=== PATIENT | female | born 1970 | race Caucasian/White ===

== ENCOUNTER 2019-10-27 11:13 | Inpatient (IN) | payer MEDICARE, MEDICAID ==
[~2019-10-27] VITALS: Ht 154.9 cm; Wt 73.0 kg
[2019-10-27] MEDS ORDERED: methylPREDNISolone SOD SUCC 125 MG/2 ML VL IV ONE (11:30)
[2019-10-27] MEDS ORDERED: AZITHROMYCIN 500MG/ 250ML 250 ML IV ONE (11:30)
[2019-10-27] MEDS ORDERED: PANTOPRAZOLE 40 MG/10 ML VIAL INJ IV ONE (11:30)
[2019-10-27 13:08] LABS: Basophils # (auto) 0 10 ^3/uL (0-0.2); Basophils % (auto) 0.1 % (0.0-2.0); Eosinophils # (auto) 0 10 ^3/uL (0-0.8); Eosinophils % (auto) 0.5 % (0.0-7.0); Hemoglobin 11.4 g/dL (12.2-16.2); Lymphocytes # (auto) 0.5 10 ^3/uL (0.4-5.4); Lymphocytes % (auto) 4.7 % (10.0-50.0); Mean Corpuscular Hemoglobin 29.3 pg (28.0-32.0); Mean Corpuscular Hgb Conc. 31.8 g/dL (32.0-36.0); Mean Corpuscular Volume 92.4 fL (80.0-100.0); Monocytes # (auto) 0.6 10 ^3/uL (0-1.3); Monocytes % (auto) 6.3 % (0.0-12.0); Neutrophils # (auto) 8.7 10 ^3/uL (1.6-8.6); Neutrophils % (auto) 88.4 % (37.0-80.0); Platelet Count (auto) 166 10^3/uL (140-450); Red Cell Distribution Width 14.8 % (11.8-14.3); White Blood Cell 9.8 10^3/uL (4.4-10.8)
[2019-10-27 13:27] LABS: Albumin 2.6 g/dL (3.4-5.0); Calcium 8.4 mg/dL (8.5-10.1)
[2019-10-27 13:36] LABS: BUN/Creatinine Ratio 29.1; Bilirubin, Total 0.4 mg/dL (0.2-1.0); CRP High Sensitivity 10.6 mg/dL (< 0.3); Total Protein 6.7 g/dL (6.4-8.2)
[2019-10-27 13:41] LABS: Potassium 2.9 mmol/L (3.5-5.1)
[2019-10-27] MEDS ORDERED: POTASSIUM CHL 20MEQ/100ML 100 ML IV ONE (13:45)
[2019-10-27] MEDS ORDERED: NITROGLYCERIN 0.4 MG SL TAB SL PRN (14:00)
[2019-10-27] MEDS ORDERED: MORPHINE SULF INJ 2 MG/ML SYRINGE 1ML IV PRN (14:00)
[2019-10-27] MEDS ORDERED: SODIUM CHLORIDE 0.9% 1,000 ML IV SCH (14:36)
[2019-10-27] MEDS ORDERED: cefTRIAXone 1GM/50ML D5W 50 ML IV ONE (14:45)
[2019-10-27] MEDS ORDERED: ACETAMINOPHEN 500 MG TAB PO PRN (14:45)
[2019-10-27] MEDS ORDERED: ALBUTEROL SULF 2.5 MG/0.5ML(0.5%) NEB SOLN NEB PRN (14:45)
[2019-10-27] MEDS ORDERED: LACTULOSE 20Gm/30ML SOLN PO PRN (14:45)
[2019-10-27] MEDS ORDERED: ONDANSETRON HCL 4 MG/2 ML VIAL IV PRN (14:45)
[2019-10-27] MEDS ORDERED: traMADol HCL 50 MG TAB PO PRN (14:45)
[2019-10-27] MEDS ORDERED: DEXTROSE (50%) 50ML SYRG IV PRN (14:45)
[2019-10-27] MEDS ORDERED: MELO1TAB56 PO (18:14)
[2019-10-27] MEDS ORDERED: BACL20TA PO (18:14)
[2019-10-27] MEDS ORDERED: HYDR-531 PO (18:14)
[2019-10-27] MEDS ORDERED: TOPI25CA5 PO (18:14)
[2019-10-27] MEDS ORDERED: GABA-339 PO (18:14)
[2019-10-27] MEDS ORDERED: LEVO-451 PO (18:14)
[2019-10-27] MEDS ORDERED: LORA-655 PO (18:14)
[2019-10-27] MEDS ORDERED: FURO10SO PO (18:14)
[2019-10-27] MEDS ORDERED: MUPI2OIN2 EX (18:14)
[2019-10-27] MEDS ORDERED: SERT-160 PO (18:16)
[2019-10-27] MEDS ORDERED: NALO4SPR2 (18:18)
[2019-10-27] MEDS ORDERED: [UNRECOGNIZED DRUG - CODE] SC (18:19)
[2019-10-27] MEDS ORDERED: ACET1CAP14 PO (18:22)
[2019-10-27] MEDS ORDERED: DIPH25CA66 PO (18:23)
[2019-10-27] MEDS ORDERED: POM ×2 (18:31→18:38)
[2019-10-27] MEDS: SOD CHL 0.9%/ KCL 40MEQ 1,000 ML IV SCH (18:50)
[2019-10-27 21:18] VITALS: BP 123/77
--- NOTE | 2019-10-27 21:18 | NUR ---
Telemetry admit from ER TADEOJEWELL admitted to Telemetry unit after SBAR received. Patient oriented to LUCERO WALTER, RN primary RN, unit, room, bed, and unit policies regarding patient care and visiting hours. Patient now on continuous telemetry monitoring, tele box # 41 and telemetry reading on arrival to unit is NSR HR 62. Patient placed on bedside oxygen, weighed by bedscale and encouraged to call if they need something. All questions and concerns addressed, patient verbalized understanding. Note:
[2019-10-27 22:00] VITALS: BP 123/77
[2019-10-27] MEDS: TOPIRAMATE 25 MG TAB PO SCH (22:00)
[2019-10-27] MEDS: GABAPENTIN 300 MG CAP PO SCH (22:00)
[2019-10-27] MEDS ORDERED: ALBUTEROL SULF HFA 90MCG INH 200DOSE IN SCH (22:00)
[2019-10-27] MEDS ORDERED: BUDESONIDE (INHALATION) 0.5 MG/2 ML NEB NEB SCH (22:00)
[2019-10-27] MEDS: BACLOFEN 10 MG TAB PO SCH (23:02)
[2019-10-27] MEDS: FAMOTIDINE 20 MG TAB PO SCH (23:13)
--- NOTE | 2019-10-28 | NUR ---
Pagekassandra hospitalist Patients Hear rate drops to low to mid 40's while asleep. Patient is Asymptomatic. NO SOB or chest pain. Patient states she sees a rough rounder at [address] Vaughan. Patient states HR drops in the 40s. Patrick hospitalist. Hospitalist said no new orders at this time continue to monitor the patient if she becomes symptomatic call back or initiate protocol. Will continue to monitor.
[2019-10-28] MEDS: HYDROcodone-ACET 10/325MG TAB PO PRN ×2 (01:57→09:12)
[2019-10-28 02:04] VITALS: BP 123/77
--- NOTE | 2019-10-28 02:20 | NUR ---
PT PLACED ON BEDSIDE POX. PT HAS SHILEY 5.0 TRACH WITH 28% BLEED IN. POX 99% HR 77 RR 20. PT REQUESTED TRACHEAL SUCTION. PT WAS ETS FOR SMALL RETURN ON THICK WHITE SECRETIONS. PT IS RESTING WITH NO DISTRESS.
--- NOTE | 2019-10-28 02:30 | NUR ---
spoke to family Spoke to family. updated family on patients condition. Spoke to caregiver caryl. and lolly. No questions at this time. call transferred to patient. Will continue to monitor.
[2019-10-28] MEDS: SOD CHL 0.9%/ KCL 40MEQ 1,000 ML IV SCH (04:05)
[2019-10-28 05:00] VITALS: BP 145/88
[2019-10-28] MEDS: GABAPENTIN 300 MG CAP PO SCH ×3 (06:00→22:20)
[2019-10-28] MEDS: BACLOFEN 10 MG TAB PO SCH ×3 (06:44→22:20)
[2019-10-28] MEDS: LEVOTHYROXINE SODIUM 25 MCG TAB PO SCH (06:45)
--- NOTE | 2019-10-28 07:20 | NUR ---
Respiratory note: Assessed pt for prn medneb tx. HR 49, RR 16, SPO2 100% on trach collar with 2lpm O2 bleed-in. Breath sounds clear/dim t/o. Pt denies SOB, resting comfortably in bed, no s/s of distress noted. Medneb tx not indicated at this time. Pt with tracheostomy, stoma is clean and asymptomatic, speaking valve in place. Suction not indicated. Pt connected to continuous bedside POX monitor, alarms set and audible.
--- NOTE | 2019-10-28 07:35 | NUR ---
Closing note endorsed care to day shift vincenzo ARRIAGA
[2019-10-28 09:00] VITALS: BP 115/75
[2019-10-28] MEDS: cefTRIAXone 1GM/50ML D5W 50 ML IV SCH (09:54)
[2019-10-28] MEDS ORDERED: ASCORBIC ACID 1,000 MG TAB PO SCH (10:00)
[2019-10-28] MEDS ORDERED: ZINC SULFATE 220mg CAP or TAB PO SCH (10:00)
--- NOTE | 2019-10-28 10:30 | NUR ---
WOUND CARE NOTE: IN TO SEE PATIENT AT THIS TIME PER WOUND CARE CONSULT REQUEST. PATIENT RECENTLY ADMITTED TO [facility] WITH DIAGNOSIS OF PNA, ATELECTASIS, FEVER. CURRENT JEANNE SCORE IS 11. PATIENT IS QUADROPLEGIC, HAS MULTIPLE OPEN STAGE 4 PRESSURE ULCERS OVER COLLAGEN SCARS. WOUND PHOTOS TAKEN AT TIME OF ADMIT BY BEDSIDE NURSE FOR REFERENCE, AND AGAIN AT THIS TIME. SPECIALTY AIR BED ORDERED AT THIS TIME. PATIENT TO BE PLACED, PENDING DELIVERY BY [facility]. PATIENT NOTED TO HAVE DROP FOOT, MATHIEU FOAM BOOTS ARE CONTRAINDICATED. BILATERAL HEELS ARE OFFLOADED WITH PILLOWS. SHE HAS INTACT COLLAGEN SCAR TO RIGHT UPPER ANTERIOR FRIED. LEFT OPEN TO AIR. PATIENT TURNED TO RIGHT SIDE. SHE IS NOTED TO HAVE CHRONIC OPEN STAGE 4 PRESSURE INJURIES OVER PINK COLLAGEN SCARS TO COCCYX/SACRUM, RIGHT AND LEFT GLUTEAL//ISCHIUM. APPLIED THERAHONEY/OPTIFOAM GENTLE DRESSINGS. PATIENT REPOSITIONED TO RIGHT SIDE, REDISTRIBUTING PRESSURE POINTS WITH PILLOWS/WEDGES. DR. MATT AT BEDSIDE. RECOMMEND: FREQUENT TURN SCHEDULE Q 2 HOURS, PRN CONDITION PERMITS, WITH PRESSURE REDISTRIBUTION USING PILLOWS/WEDGES, SPECIALTY AIR BED, DAILY/PRN DRESSING CHANGES, DIETARY CONSULT FOR CHRONIC WOUNDS, SKIN/WOUND CARE PLAN, CONTINUED MONITORING BY WOUND CARE TEAM. Addendum: 10/28/19 at 1552 by Rhonda Mackey RN Amended: Links added.
[2019-10-28] MEDS: CHOLECALCIFEROL (VITD3) 1,000UNIT=25mCg TAB PO SCH (10:35)
[2019-10-28] MEDS: TOPIRAMATE 25 MG TAB PO SCH ×2 (10:37→22:20)
[2019-10-28] MEDS: FAMOTIDINE 20 MG TAB PO SCH ×2 (10:37→22:20)
[2019-10-28] MEDS: SERTRALINE HCL 50 MG TAB PO SCH (10:37)
[2019-10-28] MEDS: ENOXAPARIN SOD 40 MG/0.4 ML SYRINGE SC SCH (10:38)
[2019-10-28] MEDS ORDERED: LORazepam 2MG/ML-1ML VIAL IV ONE (10:45)
[2019-10-28] MEDS: AZITHROMYCIN 500MG/ 250ML 250 ML IV SCH (11:18)
--- NOTE | 2019-10-28 12:04 | NUR ---
SPUTUM SAMPLE OBTAINED AND SENT TO LAB.
--- NOTE | 2019-10-28 12:46 | NUR ---
Nutrition Consult.assessment Notes Please see attached link for complete assessment Est energy needs IBW 49 [id number] kcal (25-30kcal/kg), Est protein needs: 49-63g (1.0-1.3g/kg IBW). Will reassess per bed scale wt. Addendum: 10/28/19 at [address] Amended: Links added.
[2019-10-28 13:00] VITALS: BP 125/71
[2019-10-28 14:21] LABS: Hematocrit 33.9 % (36.0-46.0); Mean Corpuscular Hemoglobin 29.4 pg (28.0-32.0); Mean Corpuscular Hgb Conc. 32.4 g/dL (32.0-36.0); Mean Corpuscular Volume 90.8 fL (80.0-100.0); Platelet Count (auto) 115 10^3/uL (140-450); Red Blood Cells 3.73 10^6/uL (4.0-5.20); Red Cell Distribution Width 13.9 % (11.8-14.3); White Blood Cell 11.6 10^3/uL (4.4-10.8)
[2019-10-28 14:29] LABS: Basophils % (manual) 0 (0.0-2.0); Blast Cells 0; Eosinophils % (manual) 0 (0-7); Metamyelocytes % 0; Myelocytes % 0; Promyelocytes % 0; Reactive Lymphocytes 0
[2019-10-28 14:32] LABS: Band Neutrophils % (manual) 1; Lymphocytes % (manual) 10 (10.0-50.0); Monocytes % (manual) 6 (0-12)
[2019-10-28 14:33] LABS: Albumin 2.7 g/dL (3.4-5.0); Calcium 9.1 mg/dL (8.5-10.1); Potassium 3.7 mmol/L (3.5-5.1)
[2019-10-28 14:38] LABS: BUN/Creatinine Ratio 34.3; Bilirubin, Total 0.3 mg/dL (0.2-1.0); Magnesium 2.6 mg/dL (1.6-2.6); Total Protein 7.2 g/dL (6.4-8.2)
[2019-10-28 17:00] VITALS: BP 117/77
--- NOTE | 2019-10-28 19:03 | NUR ---
RT NOTE PT WAS SEEN BY RT FOR PRN HHN TX ASSESSMENT. PT IS TRACHED WITH SHILEY 4.0 CFS. PT HAS SPEAKING VALVE IN PLACE. SPARE TRACH AT BEDSIDE. 2L BLEED IN VIA TRACH COLLAR. PT HAS BEDSIDE POX. HR 69, RR 16, BS CLEAR, POX 100% CONT ORDERED Addendum: 10/28/19 at 2027 by Ciara Cueva RT Amended: Links added.
--- NOTE | 2019-10-28 19:40 | NUR ---
assumed care, pt. awake, repositioned pt. with trach in place, no c/o pain, not in distress.
[2019-10-28 22:00] VITALS: BP 135/82
[2019-10-29 05:00] VITALS: BP 113/83
[2019-10-29] MEDS: GABAPENTIN 300 MG CAP PO SCH (05:38)
[2019-10-29] MEDS: BACLOFEN 10 MG TAB PO SCH ×3 (05:38→22:02)
[2019-10-29] MEDS: LEVOTHYROXINE SODIUM 25 MCG TAB PO SCH (06:06)
[2019-10-29 07:34] LABS: Basophils # (auto) 0 10 ^3/uL (0-0.2); Basophils % (auto) 0.3 % (0.0-2.0); Eosinophils # (auto) 0.1 10 ^3/uL (0-0.8); Eosinophils % (auto) 0.8 % (0.0-7.0); Hematocrit 35.3 % (36.0-46.0); Hemoglobin 11.4 g/dL (12.2-16.2); Lymphocytes # (auto) 1.4 10 ^3/uL (0.4-5.4); Lymphocytes % (auto) 16.3 % (10.0-50.0); Mean Corpuscular Hgb Conc. 32.1 g/dL (32.0-36.0); Mean Corpuscular Volume 93.3 fL (80.0-100.0); Monocytes # (auto) 0.5 10 ^3/uL (0-1.3); Neutrophils # (auto) 6.8 10 ^3/uL (1.6-8.6); Neutrophils % (auto) 76.6 % (37.0-80.0); Platelet Count (auto) 184 10^3/uL (140-450); Red Blood Cells 3.79 10^6/uL (4.0-5.20); Red Cell Distribution Width 14.9 % (11.8-14.3); White Blood Cell 8.9 10^3/uL (4.4-10.8)
[2019-10-29 07:52] LABS: BUN/Creatinine Ratio 34.8; Calcium 8.8 mg/dL (8.5-10.1); Potassium 3.7 mmol/L (3.5-5.1)
--- NOTE | 2019-10-29 08:00 | NUR ---
PT. ASSESSED, NO REPS. DISTRESS OR SOB NOTED. PT. IS AWAKE AND ALERT, BS. ARE COARSE WITH SLIGHT RHONCI , SX'D TRACH FOR SMALL TO MODERATE AMOUNT OF THICK WHITE SECRETIONS X2. HR=60, RR=20, NK53=789% ON 2.5LPM TRACH COLLAR. PT. IS ON BEDSIDE PULSE OX, EXTRA TRACH AT THE BEDSIDE,PRN. MN. TX. NOT INDICATED AT THIS TIME. CONTINUE TO MONITOR RESP. STATUS AND O2 SATS. Addendum: 10/29/19 at 0805 by Mervat Jacobson RT Amended: Links added.
[2019-10-29 09:00] VITALS: BP 129/79
[2019-10-29] MEDS: AZITHROMYCIN 500MG/ 250ML 250 ML IV SCH (09:56)
[2019-10-29] MEDS: cefTRIAXone 1GM/50ML D5W 50 ML IV SCH (09:56)
[2019-10-29] MEDS: CHOLECALCIFEROL (VITD3) 1,000UNIT=25mCg TAB PO SCH (09:57)
[2019-10-29] MEDS: TOPIRAMATE 25 MG TAB PO SCH ×2 (09:57→22:02)
[2019-10-29] MEDS: ASCORBIC ACID 500 MG TAB PO SCH (09:57)
[2019-10-29] MEDS: SERTRALINE HCL 50 MG TAB PO SCH (09:57)
[2019-10-29] MEDS: FAMOTIDINE 20 MG TAB PO SCH ×2 (09:57→22:02)
[2019-10-29] MEDS: ENOXAPARIN SOD 40 MG/0.4 ML SYRINGE SC SCH (09:57)
--- NOTE | 2019-10-29 10:56 | NUR ---
Cherry catheter insertion Patient assessed and determined to be in need of cherry catheter. Order obtained from MD. Patient educated on catheter and reason for insertion. All questions answered. Cherry catheter 14 Hong Konger inserted with clean sterile technique. Patient tolerated well.
[2019-10-29] MEDS ORDERED: SODIUM CHLORIDE 0.9 % NEB SOLN 3ML NEB ONE (11:32)
--- NOTE | 2019-10-29 11:37 | NUR ---
SX'D TRACH FOR SMALL AMOUNT OF THICK WHITE SECRETIONS X2. RN. AND GARMENT FITTER AT BEDSIDE AT THIS TIME. PT. WANTED TO BE SX'D BEFORE SHE HAD ECHO DONE. NO RESP. DISTRESS NOTED AT THIS TIME.
[2019-10-29] MEDS ORDERED: OPTISON 3ml Vial for INJ IV ONE (11:44)
[2019-10-29 13:09] VITALS: BP 121/86
--- NOTE | 2019-10-29 13:38 | NUR ---
Received a call from Dr. Caleb Rios stated patient has Thrombus in LV, received new orders, noted and carried it out.
[2019-10-29] MEDS ORDERED: ENOXAPARIN SOD 60 MG/0.6 ML SYRINGE SC ONE (13:45)
--- NOTE | 2019-10-29 13:47 | NUR ---
Lovenox 40 mg given this AM, Per Dr. Caleb horta to give one dose of Lovenox therapeutic.
--- NOTE | 2019-10-29 14:51 | NUR ---
TRACH CARE DONE AT THIS TIME. INNER CANNULA AND TRACH SITE CLEANED. GAUZE CHANGED. PT. RESTING AT THIS TIME, NO RESP. DISTRESS OR SOB NOTED. SPO2 100%
[2019-10-29] MEDS: CARVEDILOL 3.125 MG TAB PO SCH ×2 (15:02→22:01)
--- NOTE | 2019-10-29 15:22 | NUR ---
Colostomy and Wound dressing changed at this time.
[2019-10-29 17:00] VITALS: BP 121/80
[2019-10-29] MEDS: FUROSEMIDE 40 MG/4 ML VIAL IV SCH (17:03)
--- NOTE | 2019-10-29 19:45 | NUR ---
ASSUMED CARE, PT. AWAKE, REPOSITIONED PT. TRACH IN PLACE, SUCTION PT. ORALLY WITH MARSHALL CORREIA.
[2019-10-29 22:00] VITALS: BP 111/78
--- NOTE | 2019-10-29 22:27 | NUR ---
RT NOTE, TRACH CARE DONE, NO BREAKDOWN OR REDNESS NOTED. INNER CANULA CLEANED AND DRESSINGS CHANGED, TRACHEAL SUCTIONED X3 FOR SMALL AMOUNT OF THIN WHITE SECRETIONS. PT ON TRACH COLLAR WITH 2LPM BLED IN SPO2 98% HR 65, RR 20.
[2019-10-30 05:00] VITALS: BP 129/74
[2019-10-30] MEDS: BACLOFEN 10 MG TAB PO SCH ×3 (05:46→22:21)
[2019-10-30] MEDS: FUROSEMIDE 40 MG/4 ML VIAL IV SCH ×3 (05:46→17:43)
[2019-10-30] MEDS: LEVOTHYROXINE SODIUM 25 MCG TAB PO SCH (06:05)
--- NOTE | 2019-10-30 06:05 | NUR ---
V/S STABLE, REPOSITIONED PT. TRACHEAL SUCTION X3, WITH SMALL THIN SECRETIONS, NOT IN DISTRESS.
--- NOTE | 2019-10-30 08:52 | NUR ---
TRACH CARE DONE WITHOUT INCIDENT. PT IS AWAKE, ALERT AND ORIENTED. TRACHEOSTOMY IN SITU, PROPERLY SECURED AND IS PATENT. TRACHEOSTOMY UNIT AT BEDSIDE. CONTINUOUS PULSE OX AT BEDSIDE, ALARMS ON AND AUDIBLE TO THE NURSES'S STATION. INNER CANNULA CLEANED. TRACHEOSTOMY GAUZE REPLACED. SPEAKING VALVE IN PLACE. CLEANED AROUND STOMA. NO IRRITATION NOTED. TRACHEOSTOMY SUCTION DONE FOR SMALL AMOUNT OF WHITE SECRETION.
[2019-10-30 09:01] VITALS: BP 131/95
[2019-10-30] MEDS: HYDROcodone-ACET 10/325MG TAB PO PRN (09:30)
[2019-10-30] MEDS: CARVEDILOL 3.125 MG TAB PO SCH ×2 (10:38→22:22)
[2019-10-30] MEDS: AZITHROMYCIN 500MG/ 250ML 250 ML IV SCH (10:38)
[2019-10-30] MEDS: FAMOTIDINE 20 MG TAB PO SCH ×2 (10:38→22:22)
[2019-10-30] MEDS: cefTRIAXone 1GM/50ML D5W 50 ML IV SCH (10:38)
[2019-10-30] MEDS: TOPIRAMATE 25 MG TAB PO SCH ×2 (10:38→22:22)
[2019-10-30] MEDS: CHOLECALCIFEROL (VITD3) 1,000UNIT=25mCg TAB PO SCH (10:39)
[2019-10-30] MEDS: ENOXAPARIN SOD 60 MG/0.6 ML SYRINGE SC SCH ×2 (10:39→22:22)
[2019-10-30] MEDS: SERTRALINE HCL 50 MG TAB PO SCH (10:39)
[2019-10-30] MEDS: ASCORBIC ACID 500 MG TAB PO SCH (10:39)
[2019-10-30] MEDS ORDERED: IOHEXOL 350 MG/ML 100ML IJ ONE (12:31)
[2019-10-30 13:00] VITALS: BP 121/72
[2019-10-30 17:00] VITALS: BP 123/59
[2019-10-30] MEDS ORDERED: WARFARIN SODIUM 10 MG TAB PO ONE (18:20)
[2019-10-30] MEDS: VALSARTAN 80 MG TAB PO SCH (18:58)
--- NOTE | 2019-10-30 18:59 | NUR ---
Coumadin given as ordered PT/INR unknown at this time. MD ordered one time dose.
--- NOTE | 2019-10-30 20:00 | NUR ---
Opening Shift Note Assumed care of patient, awake and alert. Patient laying in bed. No S/S of distress/SOB or pain. Patient on 2L via trach O2 sat 100%. Safety measures maintained by keeping the bed locked in lowest position, 2 side rails up, personal items and call light within reach. Instructed on POC and to call for assist PRN, will continue to monitor for changes Q1hr and PRN.
[2019-10-30 22:00] VITALS: BP 136/73
--- NOTE | 2019-10-31 00:05 | NUR ---
Colostomy bag changed.
--- NOTE | 2019-10-31 04:00 | NUR ---
Respiratory note: SXD VIA TRACH PER PTS REQUEST, FOR SMALL TO MODERATE WHITE THIN SECRETIONS. TRACH CARE DONE AT THIS TIME WITHOUT INCIDENT.
[2019-10-31 05:00] VITALS: BP 131/77
[2019-10-31] MEDS: LEVOTHYROXINE SODIUM 25 MCG TAB PO SCH (06:22)
[2019-10-31] MEDS: FUROSEMIDE 40 MG/4 ML VIAL IV SCH ×2 (06:22→18:17)
[2019-10-31] MEDS: BACLOFEN 10 MG TAB PO SCH ×3 (06:22→22:20)
[2019-10-31 07:52] LABS: Basophils # (auto) 0 10 ^3/uL (0-0.2); Basophils % (auto) 0.6 % (0.0-2.0); Eosinophils # (auto) 0.1 10 ^3/uL (0-0.8); Eosinophils % (auto) 1.5 % (0.0-7.0); Hematocrit 40.6 % (36.0-46.0); Lymphocytes # (auto) 1.5 10 ^3/uL (0.4-5.4); Lymphocytes % (auto) 18.1 % (10.0-50.0); Mean Corpuscular Hemoglobin 29.5 pg (28.0-32.0); Mean Corpuscular Hgb Conc. 32.1 g/dL (32.0-36.0); Mean Corpuscular Volume 91.9 fL (80.0-100.0); Monocytes # (auto) 0.4 10 ^3/uL (0-1.3); Monocytes % (auto) 4.4 % (0.0-12.0); Neutrophils # (auto) 6.2 10 ^3/uL (1.6-8.6); Neutrophils % (auto) 75.4 % (37.0-80.0); Nucleated Red Blood Cells % 0.1 %; Platelet Count (auto) 260 10^3/uL (140-450); Red Blood Cells 4.42 10^6/uL (4.0-5.20); Red Cell Distribution Width 14.4 % (11.8-14.3); White Blood Cell 8.3 10^3/uL (4.4-10.8)
[2019-10-31 08:00] VITALS: BP 128/83
[2019-10-31 08:09] LABS: Calcium 8.8 mg/dL (8.5-10.1)
[2019-10-31 08:12] LABS: BUN/Creatinine Ratio 15.5; Bilirubin, Total 0.3 mg/dL (0.2-1.0); Total Protein 7.6 g/dL (6.4-8.2)
[2019-10-31 08:20] LABS: Potassium 2.8 mmol/L (3.5-5.1)
[2019-10-31] MEDS: cefTRIAXone 1GM/50ML D5W 50 ML IV SCH (08:31)
[2019-10-31 09:25] VITALS: BP 136/73
[2019-10-31] MEDS: AZITHROMYCIN 500MG/ 250ML 250 ML IV SCH (10:35)
[2019-10-31] MEDS: CHOLECALCIFEROL (VITD3) 1,000UNIT=25mCg TAB PO SCH (10:36)
[2019-10-31] MEDS: CARVEDILOL 3.125 MG TAB PO SCH ×2 (10:36→22:21)
[2019-10-31] MEDS: FAMOTIDINE 20 MG TAB PO SCH ×2 (10:36→22:19)
[2019-10-31] MEDS: TOPIRAMATE 25 MG TAB PO SCH ×2 (10:36→22:20)
[2019-10-31] MEDS: ASCORBIC ACID 500 MG TAB PO SCH (10:36)
[2019-10-31] MEDS: SERTRALINE HCL 50 MG TAB PO SCH (10:36)
[2019-10-31] MEDS: VALSARTAN 80 MG TAB PO SCH (10:36)
[2019-10-31] MEDS: SPIRONOLACTONE 25 MG TAB PO SCH (10:37)
[2019-10-31] MEDS: ENOXAPARIN SOD 60 MG/0.6 ML SYRINGE SC SCH ×2 (10:37→22:20)
[2019-10-31] MEDS ORDERED: POTASSIUM EFFERVESENT TAB 25 MEQ PO ONE (11:00)
[2019-10-31 12:00] VITALS: BP 108/83
--- NOTE | 2019-10-31 12:25 | NUR ---
Nutrition Followup Notes Wt: 67.6 kg Pt was sleeping with no family bedside. per records pt is bedbound, acute on chronic CHF. pt is currently on CCHO 60 gm diet with inadequate PO of 25% x 4 per RN doc Est energy needs BW 66 [id number] kcal (23-25kcal/kg), Est protein needs: 66-79 g (1.0-1.2g/kgBW). Reassessed per bed scale wt. LABS: ALB 3.0 L, GI: Pt had 1 BM 10/28 per RN doc BS: 12 high risk Refer to wound assessment report for full details. PES: Altered nutrition related labs r/t current and chronic medical condition aeb pt with hypocalcemia hyperglycemia Comments 1) continue assistance with meals. 2) continue current plan of care. F/u mod 3-5 days
--- NOTE | 2019-10-31 14:39 | NUR ---
assessment Patient is a 48 year old female who is home vent to [facility]. Patients Raj informed me prior to admission patient lived home with him and functioned with his assistance. Patients PCP is Dr Vaughan at [facility]. Patient is on service with [employer] [phone]. Patient has a hospital bed, wheelchair, home 02 and home vent at home. Patient has a advanced directive and Raj is POA. Patient will need a resumption order on discharge for [employer]. Patient will also need transportation home on discharge. Raj verbalized understanding and agreed to discharge plan home. Addendum: 10/31/19 at 1454 by Kim MORSE Amended: Links added.
--- NOTE | 2019-10-31 15:20 | NUR ---
MDRO in sputum - MD notified Notified Dr. Bender of micro report of MDRO in sputum.
[2019-10-31 16:08] LABS: INR 1.73 (0.9-1.15); Partial Thromboplastin Time 45.4 sec (23.64-32.05)
[2019-10-31] MEDS ORDERED: WARFARIN SODIUM 2.5 MG TAB PO ONE ×2 (17:00→18:15)
[2019-10-31 17:29] VITALS: BP 110/70
[2019-10-31] MEDS ORDERED: COLISTIMETHATE SODIUM IV SCH (17:45)
[2019-10-31] MEDS ORDERED: STERILE WATER IV SCH (17:45)
[2019-10-31] MEDS: ERTAPENEM SOD INJ 1 GM in SODIUM CHL 0.9% 50 ML IV SCH ×2 (19:19→19:20)
--- NOTE | 2019-10-31 20:00 | NUR ---
Opening Shift Note Assumed care of patient, awake and alert. A&Ox3, unaware of time. No S/S of distress/SOB or pain. Safety measures maintained by keeping the bed locked in lowest position, 2 side rails up, personal items and call light within reach. Instructed on POC and to call for assist PRN, will continue to monitor for changes Q1hr and PRN.
[2019-10-31] MEDS: COLISTIMETHATE SODIUM IV SCH (20:34)
[2019-10-31] MEDS: STERILE WATER IV SCH (20:34)
[2019-10-31] MEDS: TOBRAMYCIN 300 MG/5 ML NEB SOLN NEB SCH (22:00)
[2019-10-31 22:47] VITALS: BP 109/65
[2019-11-01] VITALS (8 sets, daily range): BP systolic 75–119; BP diastolic 43–70
--- NOTE | 2019-11-01 00:05 | NUR ---
Colostomy bag changed Colostomy bag changed. Dirty gown/linen removed and new gown/linen was placed. Patient tolerated well, with no s/s of distress.
[2019-11-01] MEDS: HYDROcodone-ACET 10/325MG TAB PO PRN ×2 (01:02→10:43)
--- NOTE | 2019-11-01 02:18 | NUR ---
PAIN REASSESSMENT patient is resting. no s/s of discomfort seen. Will reposition patient for Q2HR turn.
[2019-11-01] MEDS: FUROSEMIDE 40 MG/4 ML VIAL IV SCH ×2 (06:14→18:00)
[2019-11-01] MEDS: BACLOFEN 10 MG TAB PO SCH ×3 (06:15→23:18)
[2019-11-01] MEDS: LEVOTHYROXINE SODIUM 25 MCG TAB PO SCH (06:50)
[2019-11-01 07:15] LABS: Basophils # (auto) 0.1 10 ^3/uL (0-0.2); Eosinophils # (auto) 0.2 10 ^3/uL (0-0.8); Hematocrit 42.1 % (36.0-46.0); Hemoglobin 13.6 g/dL (12.2-16.2); Lymphocytes # (auto) 2.2 10 ^3/uL (0.4-5.4); Lymphocytes % (auto) 18.9 % (10.0-50.0); Mean Corpuscular Hemoglobin 29.8 pg (28.0-32.0); Mean Corpuscular Hgb Conc. 32.4 g/dL (32.0-36.0); Monocytes # (auto) 0.5 10 ^3/uL (0-1.3); Monocytes % (auto) 4.4 % (0.0-12.0); Neutrophils # (auto) 8.8 10 ^3/uL (1.6-8.6); Neutrophils % (auto) 73.7 % (37.0-80.0); Nucleated Red Blood Cells % 0.1 %; Platelet Count (auto) 316 10^3/uL (140-450); Red Blood Cells 4.57 10^6/uL (4.0-5.20); Red Cell Distribution Width 14.7 % (11.8-14.3); White Blood Cell 11.9 10^3/uL (4.4-10.8)
--- NOTE | 2019-11-01 07:30 | NUR ---
Opening Shift Note Assuming care of patient at this time. Patient is awake and alert. Patient denies pain at this time. Patient shows no signs or symptoms of shortness of breath. Bed is locked and lowered with side rails up x2. Instructed patient on the plan of care for today and to call for assistance as needed. Call light within reach. Will continue to round hourly and as needed.
[2019-11-01 07:31] LABS: INR 3.27 (0.9-1.15); Partial Thromboplastin Time 48.4 sec (23.64-32.05)
[2019-11-01 07:38] LABS: BUN/Creatinine Ratio 11.7; Calcium 9.2 mg/dL (8.5-10.1); Potassium 3.5 mmol/L (3.5-5.1)
[2019-11-01] MEDS: SPIRONOLACTONE 25 MG TAB PO SCH ×2 (10:00→10:38)
[2019-11-01] MEDS: COLISTIMETHATE SODIUM IV SCH ×2 (10:29→21:36)
[2019-11-01] MEDS: STERILE WATER IV SCH ×2 (10:29→21:36)
[2019-11-01] MEDS: SERTRALINE HCL 50 MG TAB PO SCH (10:37)
[2019-11-01] MEDS: CARVEDILOL 3.125 MG TAB PO SCH ×2 (10:37→23:01)
[2019-11-01] MEDS: FAMOTIDINE 20 MG TAB PO SCH ×2 (10:38→23:00)
[2019-11-01] MEDS: ASCORBIC ACID 500 MG TAB PO SCH (10:39)
[2019-11-01] MEDS: CHOLECALCIFEROL (VITD3) 1,000UNIT=25mCg TAB PO SCH (10:39)
[2019-11-01] MEDS: VALSARTAN 80 MG TAB PO SCH (10:43)
[2019-11-01] MEDS: TOPIRAMATE 25 MG TAB PO SCH ×2 (11:02→23:00)
--- NOTE | 2019-11-01 11:50 | NUR ---
1000 11/01/19 - Faxed to [facility] at [phone] order for home IV ABx, H/P, labs, meds, progress notes, flush order
[2019-11-01] MEDS: TOBRAMYCIN 300 MG/5 ML NEB SOLN NEB SCH ×2 (13:24→22:17)
[2019-11-01] MEDS: CEFTAZIDIME-AVIBACTAM 2.5gm in D5W 100 ML IV SCH ×2 (15:30→21:25)
--- NOTE | 2019-11-01 16:17 | NUR ---
D/C Planning Regarding social service consult regarding home IV abx for 14 days. TEVIN Maher will work on IV abx. Per SW II Kim patient [facility]. Faxed clinical information to agency. Per Angeli with [facility] they can accept patient but they cannot assist with IV abx. Informed Angeli with [facility] I will inform TEVIN Maher who will be working on IV abx to ask the infusion if they can provide a nurse to assist with IV abx. Informed TEVIN Maher. Per N[facility] is unable to provide a Nurse for the IV abx. TEVIN Maher advised me patient has a co-pay for 1050.00 and [facility] will contact patient Raj at 17:00 to arrange payment for the medication. Placed called to patient Raj advising him patient home health is unable to assist with IV abx and provided him with options of different home health to assist with the IV abx. Per Raj he does not have a preference. Informed Raj clinical information will be redirected to [facility]. Faxed clinical information to [facility]. Per Haylee with [facility] patient has a share of cost and he will contact patient to discuss the share of cost. Placed follow up called to Haylee Pichardo at 16:15. Per Haylee patient advised her to call her after 17:00 to discuss the share of cost due to him being at work.
[2019-11-01] MEDS ORDERED: SODIUM CHLORIDE 0.9% 1,000 ML IV ONE (16:37)
--- NOTE | 2019-11-01 18:00 | NUR ---
Wound Care Wound care done at this time according to doctor's orders.
--- NOTE | 2019-11-01 19:12 | NUR ---
Closing Shift Note Patient resting in bed. No distress noted. Will endorse care to the night clerk auditor RN.
[2019-11-02 05:00] VITALS: BP 94/61
[2019-11-02] MEDS: FUROSEMIDE 40 MG/4 ML VIAL IV SCH ×2 (06:00→17:24)
[2019-11-02 06:09] LABS: Potassium 3.7 mmol/L (3.5-5.1)
[2019-11-02 06:16] LABS: Albumin 2.7 g/dL (3.4-5.0); BUN/Creatinine Ratio 11.6; Bilirubin, Total 0.3 mg/dL (0.2-1.0); Calcium 8.6 mg/dL (8.5-10.1); Total Protein 6.5 g/dL (6.4-8.2)
[2019-11-02 06:29] LABS: INR 4.47 (0.9-1.15)
[2019-11-02] MEDS: CEFTAZIDIME-AVIBACTAM 2.5gm in D5W 100 ML IV SCH ×3 (07:02→22:46)
[2019-11-02] MEDS: LEVOTHYROXINE SODIUM 25 MCG TAB PO SCH (07:03)
[2019-11-02] MEDS: BACLOFEN 10 MG TAB PO SCH ×3 (07:03→23:01)
--- NOTE | 2019-11-02 07:30 | NUR ---
Opening Shift Note Assuming care of patient at this time. Patient is awake and alert. Patient denies pain at this time. Patient appears comfortable, with 2L of oxygen via trach collar. Bed is locked and lowered with side rails up x2. Instructed patient on the plan of care for today and to call for assistance as needed. Call light within reach. Will continue to round hourly and as needed.
[2019-11-02] MEDS: TOBRAMYCIN 300 MG/5 ML NEB SOLN NEB SCH ×2 (07:44→22:34)
[2019-11-02 09:00] VITALS: BP 97/51
[2019-11-02] MEDS: TOPIRAMATE 25 MG TAB PO SCH ×2 (10:00→22:48)
[2019-11-02] MEDS: CARVEDILOL 3.125 MG TAB PO SCH ×2 (10:00→22:47)
[2019-11-02] MEDS: VALSARTAN 80 MG TAB PO SCH (10:00)
[2019-11-02] MEDS: SPIRONOLACTONE 25 MG TAB PO SCH (10:00)
[2019-11-02] MEDS: COLISTIMETHATE SODIUM IV SCH ×2 (10:35→20:29)
[2019-11-02] MEDS: STERILE WATER IV SCH ×2 (10:35→20:29)
[2019-11-02] MEDS: FAMOTIDINE 20 MG TAB PO SCH ×2 (10:37→22:48)
[2019-11-02] MEDS: CHOLECALCIFEROL (VITD3) 1,000UNIT=25mCg TAB PO SCH (10:38)
[2019-11-02] MEDS: SERTRALINE HCL 50 MG TAB PO SCH (10:38)
[2019-11-02] MEDS: ASCORBIC ACID 500 MG TAB PO SCH (10:39)
[2019-11-02] MEDS: HYDROcodone-ACET 10/325MG TAB PO PRN (10:40)
[2019-11-02 13:00] VITALS: BP 107/59
--- NOTE | 2019-11-02 14:08 | NUR ---
re-assessment Per Raj patients , he had agreed to SNF placement for IV ABX due to the cost and problems with home health. Per Raj he has spoken with Dr Bender and agrees to [facility] per Dr Bender recommendation. She SW1 will satisfy consult. Addendum: 11/02/19 at 1410 by Kim Kruger Amended: Links added.
--- NOTE | 2019-11-02 14:55 | NUR ---
re-assessment I have informed Raj patients that [facility] cannot take patient due to trach. I have provided Raj with [facility] in [place] address and phone number. Per Raj he will call facility and then call me back. Raj also informed me that patients caregivers are provided by [facility]. Patients caregivers are Jennifer Heller, and Joan from [place]. Patients caregivers will be available once patient is discharged from SNF. Waiting for call back from Raj now. Addendum: 11/02/19 at 1458 by Kim MORSE Amended: Links added.
--- NOTE | 2019-11-02 16:16 | NUR ---
D/C Planning Regarding social service consult for SNF placement. Faxed to [facility] as requested by Raj. Per Rocky with [facility] they are unable to accommodate patient needs at this time. Patient Raj was informed. Order was redirected to [facility]. Per Gloria with [facility] patient has an open MSP case and patient does not have any skill days due to this case being open. Informed Dr. Bender and GABRIEL Rodriguez.
[2019-11-02 17:00] VITALS: BP 88/54
--- NOTE | 2019-11-02 17:00 | NUR ---
Wound Care Wound care done at this time according to doctor's orders. Patient tolerated well. Maria Guadalupe-Care done.
--- NOTE | 2019-11-02 19:30 | NUR ---
Closing Shift Note Patient resting in bed. No distress noted. Will endorse care to the shift supervisor film processing RN.
[2019-11-02 22:25] VITALS: BP 104/58
[2019-11-03] VITALS (68 sets, daily range): BP systolic 66–157; BP diastolic 36–90
--- NOTE | 2019-11-03 01:13 | NUR ---
Pt was very alert and verbal at the beggining of the shift, but at this time she is not answering questions, blood pressure isalso elevated. change in condition noted. John Asencio notified of change in condition. Orders received from John Asencio for head CT.
--- NOTE | 2019-11-03 01:16 | NUR ---
pt on her way to CT
[2019-11-03] MEDS ORDERED: LORazepam 2MG/ML-1ML VIAL ONE (01:40)
--- NOTE | 2019-11-03 02:04 | NUR ---
pt returned from CT appearing to be having a seizure, given ativan 1 mg IV per order. Call out to John Asencio to give update
--- NOTE | 2019-11-03 02:05 | NUR ---
Pt finger strick 161mg/dl, b/p 126/86, pulse 112, after ativan given, no seizure activity noted, sats 100% on 3lpm via trach, after RT suctioned.
--- NOTE | 2019-11-03 02:14 | NUR ---
John Asencio called back, updated with pt glucose, v/s and status, no n/o at this time waiting for head CT results.
[2019-11-03] MEDS ORDERED: LORazepam 2MG/ML-1ML VIAL IV ONE (02:30)
--- NOTE | 2019-11-03 02:43 | NUR ---
Respiratory note: CRITICAL ABG RESULTS REPORTED TO ZARA FOSTER, AWAITING NEW RESPIRATORY ORDERS.
--- NOTE | 2019-11-03 02:43 | NUR ---
call out to John Asencio to give update on head ct result (negative).
--- NOTE | 2019-11-03 02:55 | NUR ---
Updated by RT on pt status, who will be moved to ICU olivia for trach change
--- NOTE | 2019-11-03 03:09 | NUR ---
Pt with cuffless trach 4.0 shiley. Trach change made by Dr. Thurston, exchanged to 4.0 SHILEY cuffed, positive color change on ETCO2 detector. Placed pt on ventilator V17 plugged into red outlet. On vent settings: AC, RR 18, VT 400, PEEP +5, FIO2 30%. Breath sounds dim coarse crackles, suctioned for moderate thick bloody secretions. Sputum sample obtained and sent to lab. Alarms set and audible. Continuous POX monitor at bedside. RN at bedside. Pending transfer to ICU.
--- NOTE | 2019-11-03 03:09 | NUR ---
Dr. Thurston and ZARA Asencio changed out patient trach, placing pt on vent at this time. Pt to be transferred to ICU olivia.
--- NOTE | 2019-11-03 03:11 | NUR ---
addendum to previousnote: pt trach changed r/t co2 of 118.
[2019-11-03] MEDS: MIDAZOLAM DRIP 50 mg/50mL 50 ML IV ONE (03:12)
--- NOTE | 2019-11-03 03:18 | NUR ---
DENTIST ATTENDANT RECEIVED PATIENT ON A MECHANICAL VENTILATOR TO [facility] WITH SETTINGS AC 18 TV 400 FIO2 30% PEEP 5 PATIENT DOES HAVE FACIAL GRIMACE WITH PAINFUL STIMULI BUT IS UNABLE TO OPEN EYES OR FOLLOW COMMANDS. PUPILS ARE EQUAL 4/4 SLUGGISH TO REACT. ORAL TRAUMA NOTED WITH NO ACTIVE3 BLEEDING. PATIENT IS TOLERATING VENT WELL. STARTED ON 5MG/HR VERSED GTT PER PROVIDER REQUEST INITIAL VITALS BP 135/80 RR 18 HR 91 SPO2 100
--- NOTE | 2019-11-03 03:28 | NUR ---
report given to Tegan SERVICE ADMINISTRATOR who is at bedside until pt tranferred to ICU unit
--- NOTE | 2019-11-03 03:30 | NUR ---
Assumed care of pt at this time. Received pt on mechanical ventilator trachd with 4.0 shiley. Versed at 5mcg/min. Pt on portable ZOLL cardiac exercise physiologist awaiting to be transferred to ICU. VS B/P 111/76, HR 84, 100%, RR 18. Pupils 4 and fixed. pt randomly blinking with no appropriate response. Lungs sound course throughout. Pt has muscular dystrophy and right hand contracted. Colostomy to LL quadrant with soft brown stool in bag. Niko red blood suctioned from mouth. tolerating ventilator. RODRIGUE mid-line patent.
--- NOTE | 2019-11-03 03:50 | NUR ---
NGT inserted to left nare at 66cm, positive placement auscultated via air bolus. secured to nose.
--- NOTE | 2019-11-03 04:05 | NUR ---
previous attempt to call pt son lolly, no answer and unable to leave a message because his voice mailbox is not set up.
--- NOTE | 2019-11-03 04:30 | NUR ---
Pt biting down on tongue and causing bleeding, bite block inserted. Suctioned milana red blood from mouth
[2019-11-03 05:53] LABS: Partial Thromboplastin Time 42.4 sec (23.64-32.05)
[2019-11-03 05:57] LABS: INR 4.84 (0.9-1.15)
[2019-11-03] MEDS: FUROSEMIDE 40 MG/4 ML VIAL IV SCH ×2 (06:00→17:25)
[2019-11-03] MEDS: CEFTAZIDIME-AVIBACTAM 2.5gm in D5W 100 ML IV SCH ×3 (06:00→22:28)
[2019-11-03] MEDS: BACLOFEN 10 MG TAB PO SCH ×3 (06:00→22:28)
[2019-11-03 06:09] LABS: Basophils # (auto) 0 10 ^3/uL (0-0.2); Basophils % (auto) 0.2 % (0.0-2.0); Eosinophils # (auto) 0.1 10 ^3/uL (0-0.8); Eosinophils % (auto) 0.7 % (0.0-7.0); Hemoglobin 13.2 g/dL (12.2-16.2); Lymphocytes % (auto) 5.8 % (10.0-50.0); Mean Corpuscular Hgb Conc. 32.3 g/dL (32.0-36.0); Monocytes # (auto) 1.7 10 ^3/uL (0-1.3); Monocytes % (auto) 9.8 % (0.0-12.0); Neutrophils # (auto) 14.5 10 ^3/uL (1.6-8.6); Neutrophils % (auto) 83.5 % (37.0-80.0); Platelet Count (auto) 230 10^3/uL (140-450); Red Blood Cells 4.41 10^6/uL (4.0-5.20); Red Cell Distribution Width 14.8 % (11.8-14.3); White Blood Cell 17.4 10^3/uL (4.4-10.8)
[2019-11-03 06:33] LABS: Calcium 9.5 mg/dL (8.5-10.1)
[2019-11-03 06:36] LABS: BUN/Creatinine Ratio 7.3
[2019-11-03] MEDS: LEVOTHYROXINE SODIUM 25 MCG TAB PO SCH (07:25)
[2019-11-03] MEDS ORDERED: MIDAZOLAM DRIP 50 mg/50mL 50 ML IV ONE ×2 (09:20→13:15)
[2019-11-03] MEDS: ASCORBIC ACID 500 MG TAB PO SCH (10:00)
[2019-11-03] MEDS: CHOLECALCIFEROL (VITD3) 1,000UNIT=25mCg TAB PO SCH (10:25)
[2019-11-03] MEDS: SPIRONOLACTONE 25 MG TAB PO SCH (10:26)
[2019-11-03] MEDS: FAMOTIDINE 20 MG TAB PO SCH ×2 (10:26→22:28)
[2019-11-03] MEDS: SERTRALINE HCL 50 MG TAB PO SCH (10:26)
[2019-11-03] MEDS: CARVEDILOL 3.125 MG TAB PO SCH ×2 (10:27→22:00)
--- NOTE | 2019-11-03 10:30 | NUR ---
SPOKE WITH SON NELLIE UPDATED HIM ON POC
[2019-11-03] MEDS: TOPIRAMATE 25 MG TAB PO SCH ×2 (10:36→22:28)
[2019-11-03] MEDS: VALSARTAN 80 MG TAB PO SCH (10:36)
[2019-11-03] MEDS: COLISTIMETHATE SODIUM IV SCH (10:52)
[2019-11-03] MEDS: STERILE WATER IV SCH (10:52)
--- NOTE | 2019-11-03 11:14 | NUR ---
Nutrition Followup Notes Wt: 64.6 kg Pt was transferred to ICU on vent. Pt on CCHO 60g diet with inadequate oral intake prior to transfer to ICU aeb pt with 44% po intake x 3 days per Rn note. Will monitor pt po status d/t to vent. If TF is considered for pt recommend Osmolite 1.2 at 50 ml/hr per MD approval. Est energy needs BW 66 [id number] kcal (23-25kcal/kg), Est protein needs: 66-79 g (1.0-1.2g/kgBW). Reassessed per bed scale wt. LABS: Creat 1.78H, Alb 2.7L GI: Pt had 1 BM 10/31 per RN doc BS: 10 high risk Refer to wound assessment report for full details. PES: Altered nutrition related labs r/t current and chronic medical condition aeb pt with hypocalcemia hyperglycemia Comments If Pt NPO >48 hrs consider alternate nutrition. If TF is recommended route consider Osmolite 1.2 at 50 ml/hr per MD approval 1) continue assistance with meals. 2) continue current plan of care. F/u mod 2-3 days
--- NOTE | 2019-11-03 12:29 | NUR ---
DR GAR AT BEDSIDE AWARE PUPILS FIXED AND DILATED. NEW HEAD CT ORDERED STAT. NEURO/PULMONOLOGY CONSULTED
--- NOTE | 2019-11-03 12:34 | NUR ---
RT MAISHA NOT AVAILABLE TO TAKE PATIENT TO HEAD CT AT THIS TIME PATRICK MATHEMATICS LECTURER AWARE
[2019-11-03] MEDS: MIDAZOLAM DRIP 50 mg/50mL 50 ML IV SCH (13:27)
[2019-11-03] MEDS: TOBRAMYCIN 300 MG/5 ML NEB SOLN NEB SCH ×2 (13:40→22:24)
--- NOTE | 2019-11-03 13:49 | NUR ---
PATRICK RN AND MICHAEL RT TOOK PATIENT TO HEAD CT AND BACK, PATIENT IN STABLE CONDITION.
--- NOTE | 2019-11-03 15:33 | NUR ---
SPOKE WITH DR Carlos RODRIGUEZ DR AWARE OF CONSULT AND NEW ORDERS RECEIVED FOR VENT CHANGES DECREASE RATE TO 14, ABG/CXR IN AM. RT AWARE.
[2019-11-03] MEDS ORDERED: NOREPINEPHRINE 8 MG/250ML KIT 250 ML IV ONE (16:49)
[2019-11-03] MEDS ORDERED: SODIUM CHLORIDE 0.9% 500 ML IV ONE (17:00)
[2019-11-03] MEDS: NOREPINEPHRINE 8 MG/250ML KIT 250 ML IV SCH (17:20)
--- NOTE | 2019-11-03 17:26 | NUR ---
LEVOPHED STARTED AT 2MCG/MIN AROUND 1700 DUE TO LOW BP. SEE Q5 MIN VS IN INTERVENTIONS. STARTED GTT AFTER ORDER OBTAINED FROM DR ALFARO CUSTOMER SERVICE ASSISTANT. RN WAS ALREADY GIVING 250 ML NS BOLUS. ORDERED ANOTHER 250 ML NS BOLUS. 12 LEAD EKG PERFORMED AND PATIENT IN/OUT OF WIDE QRS RHYTHM WITH NO PWAVES AT TIMES RATE BETWEEN 38-58. PACER PADS APPLIED TO PATIENT IN CORRECT POSITION. VERSED GTT TURNED OFF AT TIME OF BRADYCARDIA. SBP UP TO 133 WITH LEVOPHED AT STARTING RATE. CONT TO MONITOR.
[2019-11-03] MEDS ORDERED: LORazepam 2MG/ML-1ML VIAL IV PRN (19:30)
--- NOTE | 2019-11-03 19:30 | NUR ---
CLARIFIED WITH PHARMACIST, LISA TO CRUSH TOPAMAX
--- NOTE | 2019-11-03 20:00 | NUR ---
22 G PIV STARTED TO LEFT HAND BY JERO DAMON RN
--- NOTE | 2019-11-03 21:00 | NUR ---
SEDATION VACATION: PLACED BACK ON LIGHT SEDATION PREVIOUSLY D/T INCREASED RR. DOES NOT OPEN EYES NOR TRACK AT THIS TIME Addendum: 11/03/19 at 2149 by Erin Carr RN RN Amended: Links added.
--- NOTE | 2019-11-03 22:00 | NUR ---
URINE SAMPLE SENT
--- NOTE | 2019-11-03 22:10 | NUR ---
PREVIOUS RECTAL TEMPERATURE PROBE OUT - WILL LEAVE OUT: UNABLE TO LOCATE RECTAL TRACT.
[2019-11-03 22:27] LABS: Urine Bacteria FEW /hpf (None Seen); Urine Blood 1+ /uL (Negative); Urine Specific Gravity 1.013 (1.001-1.035); Urine WBC 20 /hpf (0 - 5)
[2019-11-04] VITALS (103 sets, daily range): BP systolic 82–167; BP diastolic 40–96
--- NOTE | 2019-11-04 00:32 | NUR ---
ORAL TEMP 100.3F - PLACED COOL CLOTH ON FOREHEAD, AND ICE PACK BEHIND NECK
--- NOTE | 2019-11-04 00:49 | NUR ---
REPOSITIONED PATIENT TO THE RIGHT AND BP DROPPED INTO THE 80s: INCREASED LEVOPHED NECESSARY
--- NOTE | 2019-11-04 02:28 | NUR ---
TEMP NOW 99.6F ORALLY
--- NOTE | 2019-11-04 02:29 | NUR ---
NEURO ASSESSMENT: REMAINS GROSSLY UNRESPONSIVE. PUPILS REMAIN 4 AND FIXED. WITH DEEP NOXIOUS STIMULI PATIENT HAS NONPURPOSEFUL MOVEMENT, AND INCREASED BLINKING NOTED
--- NOTE | 2019-11-04 02:40 | NUR ---
Respiratory note: TRACH CARE PERFORMED WITH NO COMPLICATIONS NOTED. PT HAS A SIZE 4.0 SHILEY CUFFED. INNER CANNULA CLEANED AND TRACH SPONGE CHANGED. NO REDNESS OR ACTIVE BLEEDING NOTED. MINIMAL DRAINAGE OBSERVED. TRACH SECURED WITH TRACH TIE. PT REMAINS ON VENTILATOR WITH SETTINGS OF AC 14/400/5/30%.
--- NOTE | 2019-11-04 03:00 | NUR ---
VERSED STOPPED DUE TO BRADYCARDIA AND DEEP SEDATION
--- NOTE | 2019-11-04 03:30 | NUR ---
COLOSTOMY APPLIANCE CHANGED: REMOVED PREVIOUS OSTOMY APPLIANCE. STOMA IS FOOT BALL SHAPED. STOMA IS PINK BUT SLIGHTLY RETRACTED. SURROUNDING SKIN INTACT. CLEANSED SKIN WITH SOAP AND WATER. PAT DRY. APPLIED SKIN BARRIER WIPE. LET AIR DRY. APPLIED NEW COLOSTOMY APPLIANCE.
--- NOTE | 2019-11-04 04:13 | NUR ---
HR DOWN TO 37 BPM: PATIENT WAS DRAWING BLOOD FROM MIDLINE CATHETER. HR DROPPED SUDDENLY. PLACED YANKEUR IN MOUTH TO STIMULATE PATIENT, HR BACK UP TO 50s. BLOOD PRESSURE 140s
--- NOTE | 2019-11-04 04:22 | NUR ---
BED BATH WITH SOAP AND WATER, LIBRA CARE, MENDIETA CARE, ORAL CARE, HAIR CARE, AND FULL LINEN CHANGE COMPLETED
--- NOTE | 2019-11-04 05:00 | NUR ---
OPENED HER EYES SPONTANEOUSLY BUT DOES NOT TRACK NOR FOLLOW COMMANDS
--- NOTE | 2019-11-04 05:04 | NUR ---
CONFIRMED WITH LAB THAT BLOOD SAMPLE WAS RECEIVED
[2019-11-04] MEDS: FUROSEMIDE 40 MG/4 ML VIAL IV SCH (05:24)
[2019-11-04] MEDS: LEVOTHYROXINE SODIUM 25 MCG TAB PO SCH (05:24)
[2019-11-04] MEDS: BACLOFEN 10 MG TAB PO SCH ×3 (05:24→21:50)
[2019-11-04] MEDS: CEFTAZIDIME-AVIBACTAM 2.5gm in D5W 100 ML IV SCH ×3 (05:24→23:25)
--- NOTE | 2019-11-04 05:25 | NUR ---
SCHEDULED LASIX HELD D/T DEPENDENCE ON LEVOPHED GTT
[2019-11-04 05:29] LABS: Basophils # (auto) 0 10 ^3/uL (0-0.2); Basophils % (auto) 0.3 % (0.0-2.0); Eosinophils # (auto) 0.3 10 ^3/uL (0-0.8); Eosinophils % (auto) 1.8 % (0.0-7.0); Hematocrit 34.1 % (36.0-46.0); Hemoglobin 11.1 g/dL (12.2-16.2); Lymphocytes # (auto) 1.8 10 ^3/uL (0.4-5.4); Lymphocytes % (auto) 11.4 % (10.0-50.0); Mean Corpuscular Hemoglobin 29.4 pg (28.0-32.0); Mean Corpuscular Hgb Conc. 32.5 g/dL (32.0-36.0); Mean Corpuscular Volume 90.4 fL (80.0-100.0); Monocytes # (auto) 1.3 10 ^3/uL (0-1.3); Monocytes % (auto) 8.3 % (0.0-12.0); Neutrophils % (auto) 78.2 % (37.0-80.0); Platelet Count (auto) 242 10^3/uL (140-450); Red Blood Cells 3.77 10^6/uL (4.0-5.20); Red Cell Distribution Width 14.8 % (11.8-14.3); White Blood Cell 15.4 10^3/uL (4.4-10.8)
[2019-11-04 05:46] LABS: INR 3.44 (0.9-1.15)
[2019-11-04 05:54] LABS: Potassium 3.1 mmol/L (3.5-5.1)
[2019-11-04 06:08] LABS: Albumin 2.2 g/dL (3.4-5.0); BUN/Creatinine Ratio 7.4; Bilirubin, Total 0.4 mg/dL (0.2-1.0); Calcium 8.9 mg/dL (8.5-10.1); Magnesium 2.1 mg/dL (1.6-2.6); Total Protein 6.7 g/dL (6.4-8.2)
[2019-11-04] MEDS: TOBRAMYCIN 300 MG/5 ML NEB SOLN NEB SCH ×2 (06:22→18:21)
--- NOTE | 2019-11-04 07:17 | NUR ---
REPORT AND CARE ENDORSED TO DEX. GABRIEL
--- NOTE | 2019-11-04 08:00 | NUR ---
Opening Shift Note Assumed care of patient, trache to vent, sedation held @ 0300. No S/S of distress/SOB or pain. See interventions for complete assessment. Bed locked on low position, padded side rails up x2, bed alarms on at all times, will continue to monitor for changes Q1hr and PRN.
--- NOTE | 2019-11-04 08:13 | NUR ---
Received call from patient's home nurse Lara who's able to provide password. Updated on patient's status and POC. All questions and concerns addressed.
[2019-11-04] MEDS ORDERED: STERILE WATER IV SCH (10:00)
[2019-11-04] MEDS: ASCORBIC ACID 500 MG TAB PO SCH (10:00)
[2019-11-04] MEDS ORDERED: COLISTIMETHATE SODIUM IV SCH (10:00)
[2019-11-04] MEDS: VALSARTAN 80 MG TAB PO SCH (10:00)
[2019-11-04] MEDS: CARVEDILOL 3.125 MG TAB PO SCH ×2 (10:00→21:50)
[2019-11-04] MEDS: TOPIRAMATE 25 MG TAB PO SCH ×2 (10:18→21:51)
[2019-11-04] MEDS: FAMOTIDINE 20 MG TAB PO SCH ×2 (10:18→21:50)
--- NOTE | 2019-11-04 10:40 | NUR ---
Dr Mccarthy at bedside, updated on patient's status. Patient seen and examined. Will carry out new orders.
--- NOTE | 2019-11-04 10:56 | NUR ---
Dr Ty at bedside, updated on patient's status. Patient seen and examined. Will carry out new orders.
--- NOTE | 2019-11-04 11:05 | NUR ---
Paged and Followed up consult to Dr Nicole. Awaiting call back.
--- NOTE | 2019-11-04 11:07 | NUR ---
EEG being done at bedside.
--- NOTE | 2019-11-04 12:15 | NUR ---
WOUND CARE NOTE: Wound care in to see patient for reevaluation of wounds. Patient continue resting on air mattress in ICU Rm. 101. Patient is on vent via trach. Patient appears to be in no pain using Hollis Busch Faces Pain Scale. Her Henry score is 9. Skin/wound assessment done with the assistance of patient's nurse, GABRIEL Kim. Patient's medial sacrum (2x7cm), Rt ischium (1x1cm) and Lt ischium (1x2.5cm) continue to display Stage 4 pressure injuries over pink collagens car tissue. Wounds are pink/red, alla wound is pink, minimal serous drainage noted, no odor noted. Cleansed wounds with wound cleanser,patted ry with gauze, applied Thera honey gauze over open wound beds, and covered wounds with Opti foam gentle dressing. New photograph of wounds are taken for reference. Patient tolerated well, repositioned for comfort on her back, redistributed pressure points with pillows. GABRIEL Kim at bedside. RECOMMENDATION: Continuation of all wound care orders prescribed by MD, continue with skin/wound plan of care, continue monitoring by wound care while patient is hospitalized. Addendum: 11/04/19 at 1616 by Hansa Bess RN Amended: Links added.
--- NOTE | 2019-11-04 12:26 | NUR ---
Dr Baker at bedside, updated on patient's status. Patient seen and examined. Received order for Potassium 20 MEQ IV. Read back and verified. Will carry out.
[2019-11-04] MEDS: MIDAZOLAM DRIP 50 mg/50mL 50 ML IV SCH (13:27)
[2019-11-04] MEDS ORDERED: POTASSIUM CHL 20MEQ/100ML 100 ML IV ONE ×2 (13:30→15:45)
[2019-11-04] MEDS: ALBUTEROL SULF 2.5 MG/0.5ML(0.5%) NEB SOLN NEB SCH ×2 (13:52→18:21)
--- NOTE | 2019-11-04 14:30 | NUR ---
Patient BP 136/62, Levophed drip turned off. Will continue to monitor.
--- NOTE | 2019-11-04 14:38 | NUR ---
Received call from patient's sister in law Monique who's able to provide password. Updated on patient's status and POC, verbalized understanding. All questions and concerns addressed.
--- NOTE | 2019-11-04 15:13 | NUR ---
Received call from Microbiology stating patient is positive for MRSA on the nose, paged Dr Baker and called back. Received telephone order for Bactroban oinment, read back and verified. Will carry out.
--- NOTE | 2019-11-04 15:52 | NUR ---
Dr Nicole at bedside, updated on patient's status. Patient seen and examined. Will carry out new orders.
[2019-11-04] MEDS: SODIUM CHLORIDE 0.9% 1,000 ML IV SCH (16:14)
--- NOTE | 2019-11-04 16:35 | NUR ---
Patient's HR dropped to 28/min, this RN at bed and RT at bedside rendering tracheostomy care. Patient given Atropine 1 mg, HR went up to 70's. Will inform MD and family. Will continue to monitor patient.
--- NOTE | 2019-11-04 16:47 | NUR ---
EEG- Electroencephalogram completed on 11/04/2019.
[2019-11-04] MEDS: NOREPINEPHRINE 8 MG/250ML KIT 250 ML IV SCH (16:53)
--- NOTE | 2019-11-04 16:55 | NUR ---
Spoke to Dr Baker over the phone, updated on patient's status. Informed patient's HR went as low as 28, Atropine 1mg given patient's HR went up to 70's. verbalized understanding. Received instruction to inform Cardiology. Paged Dr Camacho. Awaiting call back.
--- NOTE | 2019-11-04 16:55 | NUR ---
Received instruction from Dr Baker to call and update family and states " If they want to make patient DNR, that's ok, just sign the paper."
--- NOTE | 2019-11-04 16:58 | NUR ---
Urine sample sent to lab.
--- NOTE | 2019-11-04 17:08 | NUR ---
Dr Gonzalez at bedside, updated on patient's status. Patient seen and examined. Will carry out new orders.
--- NOTE | 2019-11-04 17:14 | NUR ---
Spoke to patient's Raj, who's able to provide password. Updated on patient's status, informed patient's HR dropped to 28, verbalized understanding. Verified if he wanted chest compression just in case patient's heart stop beating, Raj responded "Oh my God, can you please give me 15 minutes, I'll call you back.
--- NOTE | 2019-11-04 18:00 | NUR ---
Patient's Raj and son Edwin at bedside. Updated on patient's status and POC, verbalized understanding. All questions and concerns addressed.
[2019-11-04 18:14] LABS: Creatinine, Urine 5.11 mg/dL (30.0-125.0)
--- NOTE | 2019-11-04 18:15 | NUR ---
Received call from patient's daughter Sonya who's able to provide password. Updated on patient's status and POC, verbalized understanding. All questions and concerns addressed.
--- NOTE | 2019-11-04 18:45 | NUR ---
Patient's daughter Sonya at bedside.
--- NOTE | 2019-11-04 19:00 | NUR ---
This RN and Erin RN spoke to patient's Raj, daughter Sonya and son Edwin, family states "If something happens let her go peacefully, no more chest compression." DNR form signs by and two RN's
--- NOTE | 2019-11-04 19:30 | NUR ---
OPENING NOTE: CONFIRMED WITH PATIENT'S THAT PATIENT WILL BE A DNR BUT TO CONTINUE EVERYTHING UNTIL NOT MEDICALLY FEASIBLE. PATIENT OFF SEDATION, OPENS EYES BUT DOES NOT TRACK, NOR STARTLE. PUPILS 5-6+ FIXED. NONPURPOSEFUL REACTION TO DEEP PAINFUL STIMULI. SINUS SHIRLEY WITH INTERMITTED 1 DEGREE AVB, BBB, HR 50s. SBP 120s+. TRACH'D WITH A 4 SHILEY. LS WITH RHONCHI AND WHEEZE THROUGHOUT, SMALL AMOUNT OF YELLOW CREAMY TRACH SECRETIONS. SMALL AMOUNT OF CREAMY/CLEAR ORAL SECRETIONS. NGT + AIR BOLUS, CLAMPED. ABD SOFT. HYPOACTIVE BS. +COLOSTOMY TO LLQ, UNABLE TO ASSESS STOMA DUE TO STOOL. COLOSTOMY APPLIANCE INTACT. MENDIETA PATENT AND INTACT, DRAINING CLEAR COLORLESS URINE. SEE SKIN FLOWSHEET FOR ASSESSMENT. RIGHT UPPER ARM MIDLINE, CDI, AND PATENT WITH BLOOD RETURN. LEFT HAND 22 G PIV, CDI, WITHOUT BLOOD RETURN. REINFORCED POC. MAINTAINED PATIENT SAFETY: BED LOCKED IN THE LOWEST POSITION, FREQUENT VISUAL CHECKS. WILL CONT CARE.
--- NOTE | 2019-11-04 19:30 | NUR ---
BG 69 - GAVE 120 ML ORANGE JUICE VIA NGT
--- NOTE | 2019-11-04 21:00 | NUR ---
SEDATION VACATION: PATIENT OFF OF SEDATION. OPENS EYES TO DEEP NOXIOUS STIMULI BUT DOES NOT TRACK NOR STARTLE. Addendum: 11/04/19 at 2212 by Erin Carr RN RN Amended: Links added.
--- NOTE | 2019-11-04 21:16 | NUR ---
US AT BEDSIDE
[2019-11-04] MEDS: MUPIROCIN 2% OINT 15gm or 22gm EACHNOSTRI SCH (21:49)
--- NOTE | 2019-11-04 21:53 | NUR ---
BG RECHECK 72
--- NOTE | 2019-11-04 22:17 | NUR ---
SCHEDULED 2200 MEDICATIONS HELD: D/T DECREASED HR AND GENERAL UNRESPONSIVENESS. WILL ENDORSE TO DAY SHIFT
--- NOTE | 2019-11-04 22:25 | NUR ---
NOTED WITH ECTOPY AND REMAINS SHIRLEY - WILL CHECK ELECTROLYTES
--- NOTE | 2019-11-04 22:54 | NUR ---
PER [employer], WILL BE SHORT STAFFED IN THE AM; THEREFORE, WILL PLAN TO TAKE PATIENT TO HEAD CT PRIOR TO END OF SHIFT. SPOKE WITH RADIOLOGY, OK TO BRING PATIENT THIS SHIFT, BUT TO CALL TO INFORM THEM
[2019-11-04 22:56] LABS: Calcium 8.2 mg/dL (8.5-10.1); Phosphorus 4.1 mg/dL (2.5-4.90)
[2019-11-05] VITALS (53 sets, daily range): BP systolic 100–173; BP diastolic 45–84
[2019-11-05] MEDS: ALBUTEROL SULF 2.5 MG/0.5ML(0.5%) NEB SOLN NEB SCH ×4 (00:27→18:00)
--- NOTE | 2019-11-05 01:00 | NUR ---
LEFT UNIT FOR HEAD CT: ASSISTED BY JERO DAMON RN, AND DEYSI RT. PLACED ON ZOLL MONITOR. TRANSPORT BOX AND ATIVAN PRN (IN CASE ON SEIZURE ACTIVITY) ACCOMPANIED PATIENT. PATIENT LEFT IN STABLE CONDITION
--- NOTE | 2019-11-05 01:20 | NUR ---
RT Transport Note: Patient transported to CT with GABRIEL Khan and monorail charger operator Roman. Patient transported to and from procedure on transport ventilator with previous ordered settings. Patient on cardiac monitor technician with alarms set and audible, ambu-bag/mask connected to 02 tank. Patient returned to room with no adverse reaction noted. Transport completed without incident.
--- NOTE | 2019-11-05 01:20 | NUR ---
RETURNED FROM CT: PATIENT TOLERATED WELL. VSS.
--- NOTE | 2019-11-05 01:30 | NUR ---
PARTIAL LINEN CHANGE COMPLETED
[2019-11-05] MEDS: SODIUM CHLORIDE 0.9% 1,000 ML IV SCH (01:45)
[2019-11-05 04:13] LABS: Basophils # (auto) 0 10 ^3/uL (0-0.2); Basophils % (auto) 0.4 % (0.0-2.0); Eosinophils # (auto) 0.2 10 ^3/uL (0-0.8); Eosinophils % (auto) 2.9 % (0.0-7.0); Hematocrit 32.8 % (36.0-46.0); Hemoglobin 10.8 g/dL (12.2-16.2); Lymphocytes # (auto) 0.8 10 ^3/uL (0.4-5.4); Lymphocytes % (auto) 9.7 % (10.0-50.0); Mean Corpuscular Hemoglobin 30.2 pg (28.0-32.0); Mean Corpuscular Hgb Conc. 33.1 g/dL (32.0-36.0); Mean Corpuscular Volume 91.4 fL (80.0-100.0); Monocytes # (auto) 0.6 10 ^3/uL (0-1.3); Monocytes % (auto) 6.9 % (0.0-12.0); Neutrophils # (auto) 6.5 10 ^3/uL (1.6-8.6); Neutrophils % (auto) 80.1 % (37.0-80.0); Platelet Count (auto) 151 10^3/uL (140-450); Red Blood Cells 3.58 10^6/uL (4.0-5.20); Red Cell Distribution Width 15.2 % (11.8-14.3); White Blood Cell 8.1 10^3/uL (4.4-10.8)
--- NOTE | 2019-11-05 04:22 | NUR ---
BED BATH WITH NO RINSE SPRAY CLEANSER, LIBRA CARE, MENDIETA CARE, AND ORAL CARE COMPLETED
--- NOTE | 2019-11-05 04:25 | NUR ---
NEURO: OPENS EYES FOR LONGER PERIODS OF TIME BUT DOES NOT TRACK, NOR STARTLE, STARES UPWARDS. HR INCREASES WITH AROUSAL. NOTED TO WHAT APPEARS TO BE POSTURING WITH NOXIOUS STIMULI. VSS OTHERWISE.
[2019-11-05 04:26] LABS: INR 3.04 (0.9-1.15)
[2019-11-05 04:35] LABS: Albumin 2.1 g/dL (3.4-5.0); BUN/Creatinine Ratio 7.6; Calcium 8.7 mg/dL (8.5-10.1)
[2019-11-05 04:37] LABS: Bilirubin, Total 0.4 mg/dL (0.2-1.0); Total Protein 6.5 g/dL (6.4-8.2)
[2019-11-05] MEDS: BACLOFEN 10 MG TAB PO SCH ×3 (06:00→23:06)
[2019-11-05] MEDS: LEVOTHYROXINE SODIUM 25 MCG TAB PO SCH (06:02)
--- NOTE | 2019-11-05 06:03 | NUR ---
SPOKE WITH PATIENT'S : AFTER PASSWORD VERIFIED, UPDATED POSSIBLE. ADVISED TO CALL BACK MIDMORNING REGARDING IMAGING RESULTS AND MD ROUNDING.
[2019-11-05] MEDS: CEFTAZIDIME-AVIBACTAM 2.5gm in D5W 100 ML IV SCH ×2 (08:58→15:43)
[2019-11-05] MEDS: SODIUM BICARBONATE 50ML VIAL 50 ML in D5W/SOD CHL 0.45% 1,000 ML IV SCH ×2 (09:00→23:31)
[2019-11-05] MEDS: MUPIROCIN 2% OINT 15gm or 22gm EACHNOSTRI SCH ×2 (09:49→23:21)
[2019-11-05] MEDS: TOPIRAMATE 25 MG TAB PO SCH (09:50)
[2019-11-05] MEDS: ASCORBIC ACID 500 MG TAB PO SCH (09:50)
[2019-11-05] MEDS: FAMOTIDINE 20 MG TAB PO SCH ×2 (09:50→23:06)
[2019-11-05] MEDS: VALSARTAN 80 MG TAB PO SCH (09:50)
[2019-11-05] MEDS: CARVEDILOL 3.125 MG TAB PO SCH ×2 (09:51→22:00)
[2019-11-05] MEDS: TOBRAMYCIN 300 MG/5 ML NEB SOLN NEB SCH ×2 (10:12→22:00)
--- NOTE | 2019-11-05 10:26 | NUR ---
Carlos ARAUJO AT BEDSIDE. NEW ORDERS RECEIVED. PT NOW ON SIMV, RR 8, VT 400, PEEP 5, PS 8, 30% FIO2. PT TOLERATING WELL.
--- NOTE | 2019-11-05 11:26 | NUR ---
Nutrition Followup Notes Wt: 74.7 kg Pt is off sedation, trached and intubated. Pt noted with severe bradycardia. Pt is NPO with no diet order yet. If TF is considered for pt recommend Osmolite 1.2 at 50 ml/hr per MD approval. Will continue to monitor PO status, skin status, pertinent labs and weight trends. Will f/u in 2-3 days. Est energy needs BW 66 [id number] kcal (23-25kcal/kg), Est protein needs: 66-79 g (1.0-1.2g/kgBW). Reassessed per bed scale wt. LABS: Creat 1.78H, Alb 2.7L GI: Pt had 1 BM 10/31 per RN doc BS: 10 high risk Refer to wound assessment report for full details. PES: Altered nutrition related labs r/t current and chronic medical condition aeb pt with hypocalcemia hyperglycemia Comments If Pt NPO >48 hrs consider alternate nutrition. If TF is recommended route consider Osmolite 1.2 at 50 ml/hr per MD approval 1) continue assistance with meals. 2) continue current plan of care. F/u mod 2-3 days
--- NOTE | 2019-11-05 12:20 | NUR ---
PT SWITCHED BACK TO AC MODE ON PREVIOUS SETTINGS OF RR 14, VT400, PEEP5, 30% FIO2. PT NOT TOLERATING SIMV MODE DUE TO LOW SPONTANEOUS VT 175, LOW RR / APNEA BACK UP RATE KICKING IN. DR MICHAEL DELGADILLO.
[2019-11-05] MEDS: MIDAZOLAM DRIP 50 mg/50mL 50 ML IV SCH (13:26)
[2019-11-05] MEDS ORDERED: ATROPINE SULF 1 MG/10ml SYR IV ONE (14:20)
--- NOTE | 2019-11-05 16:33 | NUR ---
PT DOWNGRADED TO TELE ROOM 203. CONNECTED TO TELE 30. REPORT GIVEN TO PANTERA.
--- NOTE | 2019-11-05 16:34 | NUR ---
Assumed care of patient Received patient from ICU via hospital bed on school lunch monitor and mechanical ventilator with RT at bedside. Patient opens eyes although does not respond to verbal commands or track objects with her eyes. Beaulieu catheter is patent draining yellow urine with sediment. Dressings to the right and left hip; and sacrum are clean, dry and intact. NGT present to the left nare. NGT clamped. Patient repositioned for comfort. No distress noted.
--- NOTE | 2019-11-05 19:10 | NUR ---
RECEIVED PATIENT WITH NG TUBE IN LEFT NARES
--- NOTE | 2019-11-05 19:15 | NUR ---
OPENING NOTE Assumed care of patient at 1900. Patient respiratory sounds are clear, equal bilaterally and unlabored. Patient in no apparent signs of distress at this time. Bed locked in lowest position, side rails up x 3, HOB elevated at least 30 degrees and call light is within reach. Will continue to monitor.
--- NOTE | 2019-11-05 19:30 | NUR ---
Care endorsed to GABRIEL Guerrero. patient resting in bed on mechanical ventilator, no distress noted. Alarms on.
--- NOTE | 2019-11-05 20:00 | NUR ---
PHYSICIAN AT BEDSIDE
[2019-11-05] MEDS: ATORVASTATIN 20 MG TAB PO SCH (23:07)
[2019-11-06] MEDS: ALBUTEROL SULF 2.5 MG/0.5ML(0.5%) NEB SOLN NEB SCH ×4 (00:14→18:33)
[2019-11-06 05:00] VITALS: BP 161/86
[2019-11-06] MEDS: SODIUM BICARBONATE 50ML VIAL 50 ML in D5W/SOD CHL 0.45% 1,000 ML IV SCH ×2 (05:37→18:01)
[2019-11-06] MEDS: BACLOFEN 10 MG TAB PO SCH (05:38)
[2019-11-06] MEDS: TOBRAMYCIN 300 MG/5 ML NEB SOLN NEB SCH (05:47)
[2019-11-06] MEDS: LEVOTHYROXINE SODIUM 25 MCG TAB PO SCH (06:20)
--- NOTE | 2019-11-06 07:30 | NUR ---
Opening Shift Note Assumed care of patient, who is not responsive, patient has eyes closed and movement under eye lid is seen upon calling her name. No S/S of distress/SOB or pain. Instructed on POC, will continue to monitor for changes Q1hr and PRN. Bed locked in lowest position with two side rails up and call light in reach.
--- NOTE | 2019-11-06 07:35 | NUR ---
CLOSING NOTE ENDORSED CARE OF PATIENT TO DAY SHIFT RN
[2019-11-06 09:00] VITALS: BP 99/52
[2019-11-06] MEDS: VALSARTAN 80 MG TAB PO SCH (10:00)
[2019-11-06] MEDS: CARVEDILOL 3.125 MG TAB PO SCH ×2 (10:00→22:00)
--- NOTE | 2019-11-06 10:20 | NUR ---
Respiratory note: PT PLACED ON SIMV VENT SETTINGS PER DR RODRIGUEZ. SETTINGS ARE NOW: SIMV 12, 400, +5, PS 8, 30%. ABG IN TWO HOURS IF PT TOLERATES CHANGES.
[2019-11-06] MEDS: CEFTAZIDIME-AVIBACTAM 2.5gm in D5W 100 ML IV SCH ×2 (10:39→20:32)
[2019-11-06] MEDS: MUPIROCIN 2% OINT 15gm or 22gm EACHNOSTRI SCH ×2 (10:39→22:47)
[2019-11-06 12:08] LABS: Basophils # (auto) 0 10 ^3/uL (0-0.2); Basophils % (auto) 0.6 % (0.0-2.0); Eosinophils # (auto) 0.2 10 ^3/uL (0-0.8); Eosinophils % (auto) 2.9 % (0.0-7.0); Hematocrit 34.9 % (36.0-46.0); Hemoglobin 11.3 g/dL (12.2-16.2); Lymphocytes % (auto) 12.2 % (10.0-50.0); Mean Corpuscular Hemoglobin 29.2 pg (28.0-32.0); Mean Corpuscular Hgb Conc. 32.3 g/dL (32.0-36.0); Mean Corpuscular Volume 90.4 fL (80.0-100.0); Monocytes # (auto) 0.7 10 ^3/uL (0-1.3); Monocytes % (auto) 9.1 % (0.0-12.0); Neutrophils # (auto) 5.9 10 ^3/uL (1.6-8.6); Neutrophils % (auto) 75.2 % (37.0-80.0); Nucleated Red Blood Cells % 0.1 %; Platelet Count (auto) 156 10^3/uL (140-450); Red Blood Cells 3.87 10^6/uL (4.0-5.20); Red Cell Distribution Width 14.8 % (11.8-14.3); White Blood Cell 7.9 10^3/uL (4.4-10.8)
[2019-11-06 12:16] LABS: INR 2.76 (0.9-1.15)
--- NOTE | 2019-11-06 12:22 | NUR ---
Respiratory note: UNABLE TO OBTAIN SIMV FOLLOW UP ABG. WILL Addendum: 11/06/19 at 1223 by KANDIS DELATORRE RT GIVING PT A BREAK FROM STICKS. WILL SEE IF ANOTHER RT CAN SUCCESSFULLY OBTAIN ABG.
[2019-11-06 12:47] VITALS: BP 162/88
[2019-11-06] MEDS: FAMOTIDINE 20 MG TAB PO SCH ×2 (13:21→22:48)
[2019-11-06] MEDS: ASCORBIC ACID 500 MG TAB PO SCH (13:22)
[2019-11-06 16:58] VITALS: BP 169/90
[2019-11-06] MEDS ORDERED: WARFARIN SODIUM 1 MG TAB PO ONE (17:00)
--- NOTE | 2019-11-06 19:40 | NUR ---
Opening Shift Note Assumed care of patient, unresponsive, eyes open to painful stimulus and just stared on the ceiling. On [facility] Vent support, no s/s of distress/SOB or pain. Bed locked in lowest and locked position with side rails up. Turned to her side and every 2 hours, suction secretions as needed, will continue to monitor
[2019-11-06 20:36] VITALS: BP 169/90
[2019-11-06 22:00] VITALS: BP 152/81
[2019-11-06] MEDS: ATORVASTATIN 20 MG TAB PO SCH (22:47)
[2019-11-06] MEDS: LINEZOLID 600MG/300ML 300 ML IV SCH (22:47)
[2019-11-07] MEDS: ALBUTEROL SULF 2.5 MG/0.5ML(0.5%) NEB SOLN NEB SCH ×4 (00:01→18:31)
[2019-11-07] MEDS: TOBRAMYCIN 300 MG/5 ML NEB SOLN NEB SCH ×3 (00:02→18:31)
[2019-11-07 05:00] VITALS: BP 145/87
[2019-11-07 05:33] LABS: Basophils # (auto) 0 10 ^3/uL (0-0.2); Basophils % (auto) 0.4 % (0.0-2.0); Eosinophils # (auto) 0.1 10 ^3/uL (0-0.8); Eosinophils % (auto) 1.7 % (0.0-7.0); Hematocrit 36.2 % (36.0-46.0); Hemoglobin 11.9 g/dL (12.2-16.2); Lymphocytes # (auto) 0.6 10 ^3/uL (0.4-5.4); Mean Corpuscular Hemoglobin 30.2 pg (28.0-32.0); Mean Corpuscular Hgb Conc. 32.7 g/dL (32.0-36.0); Mean Corpuscular Volume 92.2 fL (80.0-100.0); Monocytes # (auto) 0.5 10 ^3/uL (0-1.3); Monocytes % (auto) 6.7 % (0.0-12.0); Neutrophils # (auto) 6.3 10 ^3/uL (1.6-8.6); Neutrophils % (auto) 83.2 % (37.0-80.0); Platelet Count (auto) 151 10^3/uL (140-450); Red Blood Cells 3.93 10^6/uL (4.0-5.20); Red Cell Distribution Width 14.7 % (11.8-14.3); White Blood Cell 7.6 10^3/uL (4.4-10.8)
[2019-11-07 05:46] LABS: INR 2.98 (0.9-1.15)
--- NOTE | 2019-11-07 05:47 | NUR ---
Spoke to patient's daughter Sonya and updated on patient's status
[2019-11-07 05:51] LABS: Albumin 2.3 g/dL (3.4-5.0)
[2019-11-07] MEDS: LEVOTHYROXINE SODIUM 25 MCG TAB PO SCH (06:32)
[2019-11-07] MEDS: SODIUM BICARBONATE 50ML VIAL 50 ML in D5W/SOD CHL 0.45% 1,000 ML IV SCH ×2 (06:43→13:30)
--- NOTE | 2019-11-07 07:15 | NUR ---
Opening Shift Note Assumed care of patient, eyes are open blinking but no tracking or reflex. Patient on vent No S/S of distress/SOB or pain. Instructed on POC and to call for assist PRN, will continue to monitor for changes Q1hr and PRN. Bed locked in lowest position with two side rails up.
[2019-11-07 09:00] VITALS: BP 156/89
[2019-11-07] MEDS: CARVEDILOL 3.125 MG TAB PO SCH ×2 (10:00→22:00)
[2019-11-07] MEDS: CEFTAZIDIME-AVIBACTAM 2.5gm in D5W 100 ML IV SCH ×2 (10:33→20:12)
[2019-11-07] MEDS: MUPIROCIN 2% OINT 15gm or 22gm EACHNOSTRI SCH ×2 (10:34→22:23)
[2019-11-07] MEDS: FAMOTIDINE 20 MG TAB PO SCH (10:36)
[2019-11-07] MEDS: ASCORBIC ACID 500 MG TAB PO SCH (10:36)
[2019-11-07] MEDS: VALSARTAN 80 MG TAB PO SCH (10:37)
[2019-11-07] MEDS: LINEZOLID 600MG/300ML 300 ML IV SCH ×2 (10:38→23:54)
--- NOTE | 2019-11-07 11:39 | NUR ---
Nutrition Followup Notes Wt: 67.1 kg Pt is off sedation, on vent no family by bedside when rounded this am. Pt is NPO with no diet order yet. Will continue to monitor PO status, skin status, pertinent labs and weight trends. Will f/u in 2-3 days. Est energy needs BW 66 [id number] kcal (23-25kcal/kg), Est protein needs: 66-79 g (1.0-1.2g/kgBW). Reassessed per bed scale wt. LABS: BUN 20 H, CREAT 2.64 H, ALB 2.1 L GI: Pt had 1 BM 10/31 per RN doc BS: 10 high risk Refer to wound assessment report for full details. PES: Altered nutrition related labs r/t current and chronic medical condition aeb pt with hypocalcemia hyperglycemia Comments If Pt NPO >48 hrs consider alternate nutrition. If TF is recommended route consider Osmolite 1.2 at 50 ml/hr per MD approval 1) continue assistance with meals. 2) continue current plan of care. F/u mod 2-3 days
[2019-11-07 12:29] LABS: Calcium 8.4 mg/dL (8.5-10.1)
[2019-11-07 12:31] LABS: BUN/Creatinine Ratio 5.9
[2019-11-07 12:39] LABS: Potassium 2.6 mmol/L (3.5-5.1)
[2019-11-07] MEDS ORDERED: POTASSIUM CHLORIDE 40 MEQ, LIDOCAINE 1% (LOCAL ANESTH.) 4 ML in SODIUM CHL 0.9% 100 ML IV ONE (12:45)
[2019-11-07] MEDS ORDERED: POTASSIUM EFFERVESENT TAB 25 MEQ GT ONE (12:45)
--- NOTE | 2019-11-07 12:50 | NUR ---
TRANSPORTED PT TO CT WITH TRANSPORT VENTILATOR AND AMBUBAG CONNECTED TO 02 TANK. PT BROUGHT BACK TO ROOM AND PLACED ON PREVIOUS VENT SETTINGS. GABRIEL LIN AT BEDSIDE.
--- NOTE | 2019-11-07 12:50 | NUR ---
PATIENT TAKEN DOWN TO RADIOLOGY FOR CT SCAN. NG TUBE WAS PULLED PATIENT WAS LYING DOWN WITH COUGH ING REFLEX WHILE PATIENT WAS ON ST TABLE DURING IMAGING, DUE TO PATIENT BEING FLAT. NG TUBE REINSERTED 60 AT THE NARES, CXR TAKEN AND NG TUBE IN PLACE.
[2019-11-07 13:00] VITALS: BP 150/81
[2019-11-07 17:00] VITALS: BP 138/83
--- NOTE | 2019-11-07 18:02 | NUR ---
RECEIVED ORDERS FROM DR ALFARO CARDIOLOGY TO GIVE ONE TIME DOSE OF COREG 3.[address] AGUERO PATIENT HAS BEEN TACHYCARDIC. YESTERDAY 11/06/19 I SPOKE TO ANGELINA REGARDING PATIENT BEING SHIRLEY AND HE SAID TO HOLD BB. I EXPLAINED PATIENT HAS BEEN NSR TO SHIRLEY FROM 58-66 IF SHE HAS A RUN OF TACHYCARDIA PATIENT IS EITHER BEING SUCTIONED, REPOSITIONED, OR TODAY WE REINSERTED NG TUBE AND TOOK PATIENT DOWN TO CT SCAN. I WILL CARRY ORDERS GIVEN 1X DOSE 3.25 COREG PATIENT IS CURRENTLY NSR 76.
[2019-11-07] MEDS ORDERED: CARVEDILOL 3.125 MG TAB NG ONE (18:15)
--- NOTE | 2019-11-07 18:47 | NUR ---
PER DR ALFARO VERIFY THAT POTASSIUM HAS BEEN CORRECTED, PER DR DAVILA'S ORDER LAB WILL SHERIDAN DRAWN THIS EVENING. CALLED LAB AND VERIFIED.
--- NOTE | 2019-11-07 19:35 | NUR ---
Opening Shift Note Assumed care of patient, unresponsive, eyes open to painful stimulus and just stared on the ceiling. On [facility] Vent support, no s/s of distress/SOB or pain. Bed locked in lowest position with side rails up. Turned to her side and every 2 hours, suction secretions as needed, will continue to monitor
[2019-11-07] MEDS ORDERED: POTASSIUM EFFERVESENT TAB 25 MEQ PO ONE (21:15)
--- NOTE | 2019-11-07 21:15 | NUR ---
Spoke to patient's and daughter and updated them on patient's status
[2019-11-07] MEDS: MAGNESIUM SULFATE 1GM/100ML 100 ML IV SCH ×2 (22:00→23:00)
[2019-11-07 22:21] VITALS: BP 133/82
[2019-11-07] MEDS: ATORVASTATIN 20 MG TAB PO SCH (22:23)
[2019-11-08] MEDS: ALBUTEROL SULF 2.5 MG/0.5ML(0.5%) NEB SOLN NEB SCH ×4 (00:16→19:12)
[2019-11-08] MEDS: MAGNESIUM SULFATE 1GM/100ML 100 ML IV SCH ×2 (01:00)
--- NOTE | 2019-11-08 03:00 | NUR ---
Cherry catheter leaking and chucks fully soaked. Attempted to advance cherry and reinflate balloon, will continue to monitor
--- NOTE | 2019-11-08 04:00 | NUR ---
Cherry catheter still leaking. Removed aseptically and reinsert a Fr. 16 cherry cath, patient tolerated well
[2019-11-08 05:30] VITALS: BP 123/80
[2019-11-08] MEDS: LEVOTHYROXINE SODIUM 25 MCG TAB PO SCH (06:22)
[2019-11-08] MEDS: TOBRAMYCIN 300 MG/5 ML NEB SOLN NEB SCH ×2 (06:23→19:12)
--- NOTE | 2019-11-08 06:44 | NUR ---
Sponge bath done and wound dressing changed, turned to her side, patient tolerated well
--- NOTE | 2019-11-08 07:30 | NUR ---
Opening Shift Note Assumed care of patient, awake and alert. No S/S of distress/SOB or pain. Instructed on POC and to call for assist PRN, will continue to monitor for changes Q1hr and PRN. Fall precautions in place per safety protocol.
[2019-11-08 08:00] VITALS: BP 129/85
--- NOTE | 2019-11-08 08:15 | NUR ---
D/C planning Regarding social service consult for hospice evaluation. Placed call to patient Raj regarding hospice consult and to provide choice letter. Per Raj he would like [facility] that doctor recommended. Informed Raj clinical information will be faxed to hospice. Faxed clinical information to [facility]. Per Ariane with [facility] patient has been accepted and they will start service upon discharge day.
[2019-11-08] MEDS: CEFTAZIDIME-AVIBACTAM 2.5gm in D5W 100 ML IV SCH ×2 (08:51→19:44)
[2019-11-08] MEDS: CARVEDILOL 3.125 MG TAB PO SCH ×2 (10:00→22:17)
[2019-11-08] MEDS: ASCORBIC ACID 500 MG TAB PO SCH (10:00)
[2019-11-08] MEDS: VALSARTAN 80 MG TAB PO SCH (10:23)
[2019-11-08] MEDS: MUPIROCIN 2% OINT 15gm or 22gm EACHNOSTRI SCH ×2 (10:23→22:18)
[2019-11-08] MEDS: FAMOTIDINE 20 MG TAB PO SCH (10:24)
[2019-11-08] MEDS: SODIUM BICARBONATE 50ML VIAL 50 ML in D5W/SOD CHL 0.45% 1,000 ML IV SCH ×3 (10:30)
[2019-11-08 10:45] LABS: Basophils # (auto) 0.1 10 ^3/uL (0-0.2); Basophils % (auto) 0.8 % (0.0-2.0); Eosinophils # (auto) 0.2 10 ^3/uL (0-0.8); Eosinophils % (auto) 2.8 % (0.0-7.0); Hematocrit 33.4 % (36.0-46.0); Hemoglobin 11.1 g/dL (12.2-16.2); Lymphocytes % (auto) 11.1 % (10.0-50.0); Mean Corpuscular Hgb Conc. 33.2 g/dL (32.0-36.0); Mean Corpuscular Volume 90.3 fL (80.0-100.0); Monocytes # (auto) 0.6 10 ^3/uL (0-1.3); Monocytes % (auto) 6.3 % (0.0-12.0); Platelet Count (auto) 172 10^3/uL (140-450); Red Cell Distribution Width 14.7 % (11.8-14.3); White Blood Cell 8.8 10^3/uL (4.4-10.8)
--- NOTE | 2019-11-08 11:00 | NUR ---
Hospitalist MD Bender at bedside, aware of patient status. New orders for CPAP trial. Orders read back and verified. Will carry out new orders and cont to monitor patient.
[2019-11-08 11:05] LABS: Albumin 2.1 g/dL (3.4-5.0); Calcium 8.5 mg/dL (8.5-10.1); Potassium 3.7 mmol/L (3.5-5.1)
[2019-11-08 11:08] LABS: BUN/Creatinine Ratio 4.8; Bilirubin, Total 0.3 mg/dL (0.2-1.0); Total Protein 6.5 g/dL (6.4-8.2)
[2019-11-08 11:29] LABS: INR 3.54 (0.9-1.15)
[2019-11-08] MEDS: LINEZOLID 600MG/300ML 300 ML IV SCH ×2 (11:45→22:15)
[2019-11-08 12:00] VITALS: BP 130/59
--- NOTE | 2019-11-08 13:02 | NUR ---
Trach Collar Received call from MD Bender for orders for Trach collar. Orders read back and verified. Will cont to monitor patient.
[2019-11-08] MEDS: SODIUM CHLORIDE 0.9% 1,000 ML IV SCH (14:00)
--- NOTE | 2019-11-08 14:50 | NUR ---
RT NOTE: PT. TOOK OF VENT AND PLACED ON 30%/8L COOL AEROSOL MIST TRACH COLLAR. PT. APPEARS TO BE TOLERATING WELL. ETS FOR SMALL, THICK, NUNEZ/CREAMY BLOOD STREAKED SECRETIONS. GAG/COUGH NOTED. GABRIEL URIARTE BEDSIDE WELL. WILL CONTINUE TO MONITOR.
[2019-11-08 17:00] VITALS: BP 128/78
--- NOTE | 2019-11-08 17:24 | NUR ---
Cardiology MD Ellis at bedside, aware of patient status. Per MD Ellis, Coreg is not to be held. Coreg must be given BID. Will carry on to next shift and cont to monitor patient.
--- NOTE | 2019-11-08 19:25 | NUR ---
Opening Shift Note Received report from Myra RIOS. Assumed care of patient, asleep on Trache collar sating in the high 90s. Patient non verbal, blinks eyes when calling her name and on painful stimuli. No S/S of distress/SOB or pain. Fall precaution measures in place, will continue to monitor for changes Q1hr and PRN.
[2019-11-08 21:50] VITALS: BP 122/75
[2019-11-08] MEDS: ATORVASTATIN 20 MG TAB PO SCH (22:17)
--- NOTE | 2019-11-08 22:50 | NUR ---
Patient slightly opened her eyes when called by her name. Mostly closed with REM when pinched. Will continue to monitor.
[2019-11-09] MEDS: ALBUTEROL SULF 2.5 MG/0.5ML(0.5%) NEB SOLN NEB SCH ×4 (01:15→19:24)
--- NOTE | 2019-11-09 01:16 | NUR ---
RT NOTE: PATIENT REFUSED MED NEB TX @ THIS TIME. SPO2 98% ON 2L NASAL CANNULA, HR 60, RR 18, DIMINISHED BS T/O NO SOB OR DISTRESS NOTED. Addendum: 11/09/19 at 0119 by Aracelis Connors, RT CHARTED FOR INCORRECT PATIENT, DISREGARD NOTE.
[2019-11-09 04:53] VITALS: BP 135/89
[2019-11-09 05:51] LABS: INR 2.77 (0.9-1.15); Partial Thromboplastin Time 33.6 sec (23.64-32.05)
[2019-11-09] MEDS: LEVOTHYROXINE SODIUM 25 MCG TAB PO SCH (06:34)
[2019-11-09] MEDS: SODIUM CHLORIDE 0.9% 1,000 ML IV SCH ×2 (06:45→23:39)
--- NOTE | 2019-11-09 06:50 | NUR ---
Patient's sacral dressing changed. Noticed Beaulieu is leaking, changed underpad. Suctioned secretions on the Trach. Repositioned for comfort. Continue care.
[2019-11-09] MEDS: TOBRAMYCIN 300 MG/5 ML NEB SOLN NEB SCH (07:29)
[2019-11-09 08:00] VITALS: BP 132/84
[2019-11-09] MEDS: MUPIROCIN 2% OINT 15gm or 22gm EACHNOSTRI SCH ×2 (09:23→22:08)
[2019-11-09] MEDS: LINEZOLID 600MG/300ML 300 ML IV SCH ×2 (09:23→22:08)
[2019-11-09] MEDS: ASCORBIC ACID 500 MG TAB PO SCH (09:24)
[2019-11-09] MEDS: FAMOTIDINE 20 MG TAB PO SCH (09:24)
[2019-11-09] MEDS: VALSARTAN 80 MG TAB PO SCH (09:25)
[2019-11-09] MEDS: CARVEDILOL 3.125 MG TAB PO SCH ×2 (09:25→22:09)
[2019-11-09] MEDS: D5W 5% IV SCH ×2 (09:30→20:34)
[2019-11-09] MEDS: CEFTAZIDIME AVIBACTAM IV SCH ×2 (09:30→20:34)
--- NOTE | 2019-11-09 11:25 | NUR ---
Dr. Bender at bedside to assess patient. Dr. Bender called both patients Raj and daughter Sonya to discuss the plan of care for discharge on hospice at home. Both verbalized understanding and agreed to plan of care.
[2019-11-09 12:00] VITALS: BP 132/80
--- NOTE | 2019-11-09 14:34 | NUR ---
re-assessment I spoke with Sonya patients daughter and Raj patients and answered all questions regarding hospice and [facility] care givers. Per Sonya her and her brother will come to the hospital and see patient. Dr Bender has given permission for them to come and see patient. All questions have been answered and family verbalized understanding and agreed with hospice care and discharge home today. I also spoke with Ariane from [facility] and informed her to reach out to [place] at [facility] to coordinate dates and times. Ariane verbalized understanding. Addendum: 11/09/19 at 1440 by Kim MORSE Amended: Links added.
--- NOTE | 2019-11-09 14:49 | NUR ---
D/C Planning Received a follow up called from Ariane with [facility] regarding DME equipment and transportation. [employer] [phone] will transport patient via gurney and oxygen at 18:00. GABRIEL Bolaños was informed.
--- NOTE | 2019-11-09 15:00 | NUR ---
Patients family at bedside to see patient and discuss plan of care with Dr. Bender when he arrives. Patients family able to arouse patient, she has her eyes open at this time
--- NOTE | 2019-11-09 15:51 | NUR ---
Dr. Bender at bedside with patient and family members Sonya (daughter) and Ernesto (son). Family states they no longer want their mother to go home on hospice but rather have her transferred to [place] for higher level of care. Dr. Bender ordered the social media content manager consult for higher level of care. Family has been made aware that due to the current COVID pandemic the transfer may take some time.Both Sonya and Ernesto verbalized understanding
--- NOTE | 2019-11-09 15:52 | NUR ---
Nutrition Followup Notes Wt: 70.9 kg Pt is off sedation, aphasic, and NPO since 11/01 with no diet order yet. Alerted RN of status, and suggested feeding be initiated per MD approval. RN is addressing feeding intentions with MD. If EN nutrition support implemented suggest Osmolite 1.2 @ 50 ml/hr goal rate as tolerated. Will continue to monitor PO status, skin status, pertinent labs and weight trends. Will f/u in 2-3 days. Est energy needs BW 66 [id number] kcal (23-25kcal/kg), Est protein needs: 66-79 g (1.0-1.2g/kgBW). Reassessed per bed scale wt. LABS: BUN 7 H, CREAT 1.45 H, GFR 41 L, Gluc 139 H, ALB 2.1 L GI: Pt had 5 BM 11/08 per RN doc BS: 8 high risk. Refer to wound assessment report for full details. PES: Altered nutrition related labs r/t current and chronic medical condition aeb pt with hypocalcemia hyperglycemia Comments If TF is recommended route consider Osmolite 1.2 at 50 ml/hr per MD approval 1) continue assistance with meals. 2) continue current plan of care. F/u mod 2-3 days
--- NOTE | 2019-11-09 16:45 | NUR ---
re-assessment Dr Bender, bedside RN Mami, and myself met with Sonya patients daughter and patients son at bedside. Dr Bender explained patients prognosis and medical treatment here in the hospital at length with family. Dr Bender answered all questions. I asked family if they understood everything that was explained to them and they verbalized understanding. Family has chosen not to take patient home on hospice. Family is requesting a transfer to [facility]. I explained that there are no beds at this time and the transfer probably would not happen. Family understood and wants to go forward with transfer. Transfer order given to case management to satisfy. Addendum: 11/09/19 at 1650 by Kim MORSE Amended: Links added.
[2019-11-09 17:00] VITALS: BP 137/94
[2019-11-09] MEDS ORDERED: WARFARIN SODIUM 1 MG TAB PO ONE (17:00)
--- NOTE | 2019-11-09 19:25 | NUR ---
Opening Shift Note Received report from Mami RIOS. Assumed care of patient, resting with eyes closed, non verbal. No S/S of distress/SOB or pain. Vitals within normal, sating at 98% on 6LPM Trach collar. Fall precaution measures in place, will continue to monitor for changes Q1hr and PRN.
[2019-11-09 19:39] VITALS: BP 137/94
--- NOTE | 2019-11-09 20:45 | NUR ---
NG Tube Feeding Placement of NGT checked, started patient on Osmolite at 20ml/hr per MD order, will continue monitoring.
[2019-11-09 22:00] VITALS: BP 138/98
[2019-11-09] MEDS: ATORVASTATIN 20 MG TAB PO SCH (22:09)
--- NOTE | 2019-11-09 23:00 | NUR ---
Wound care per MD done.
[2019-11-10] MEDS: TOBRAMYCIN 300 MG/5 ML NEB SOLN NEB SCH ×2 (00:19→11:23)
[2019-11-10] MEDS: ALBUTEROL SULF 2.5 MG/0.5ML(0.5%) NEB SOLN NEB SCH ×4 (00:19→18:56)
[2019-11-10 05:00] VITALS: BP 134/73
[2019-11-10 05:38] LABS: Basophils # (auto) 0.1 10 ^3/uL (0-0.2); Eosinophils # (auto) 0.3 10 ^3/uL (0-0.8); Eosinophils % (auto) 3.8 % (0.0-7.0); Hematocrit 38.7 % (36.0-46.0); Hemoglobin 12.5 g/dL (12.2-16.2); Lymphocytes # (auto) 1.4 10 ^3/uL (0.4-5.4); Lymphocytes % (auto) 15.9 % (10.0-50.0); Mean Corpuscular Hemoglobin 29.9 pg (28.0-32.0); Mean Corpuscular Hgb Conc. 32.2 g/dL (32.0-36.0); Mean Corpuscular Volume 92.9 fL (80.0-100.0); Monocytes # (auto) 0.5 10 ^3/uL (0-1.3); Monocytes % (auto) 6.3 % (0.0-12.0); Neutrophils # (auto) 6.3 10 ^3/uL (1.6-8.6); Platelet Count (auto) 243 10^3/uL (140-450); Red Blood Cells 4.17 10^6/uL (4.0-5.20); Red Cell Distribution Width 14.6 % (11.8-14.3); White Blood Cell 8.7 10^3/uL (4.4-10.8)
[2019-11-10 06:02] LABS: Albumin 2.5 g/dL (3.4-5.0); Calcium 8.4 mg/dL (8.5-10.1); Magnesium 1.7 mg/dL (1.6-2.6); Potassium 3.2 mmol/L (3.5-5.1)
[2019-11-10 06:05] LABS: BUN/Creatinine Ratio 8.7; Bilirubin, Total 0.5 mg/dL (0.2-1.0); Phosphorus 3.1 mg/dL (2.5-4.90); Total Protein 6.9 g/dL (6.4-8.2)
[2019-11-10] MEDS: LEVOTHYROXINE SODIUM 25 MCG TAB PO SCH (06:35)
--- NOTE | 2019-11-10 06:56 | NUR ---
Patient is more alert, had spontaneous eye opening, nods a little, move head left to right, attempting to smile and a bit emotional. Tube feeding tolerated, continue care.
[2019-11-10 08:00] VITALS: BP 124/77
--- NOTE | 2019-11-10 08:00 | NUR ---
Received pt resting in bed, call light within reach, NGT to left nare at 60 cm, tube feeding running at 20ml/hr as per Dr. Trivedi/Shelly's request, cherry draining to gravity, air mattress on, pt turned and reposition, will continue to monitor pt.
--- NOTE | 2019-11-10 09:00 | NUR ---
Dr. Bender at unit to see pt, doctor will call pt's daughter to update her on plan of care.
--- NOTE | 2019-11-10 09:22 | NUR ---
I faxed transfer request/clinical packet to [facility].
[2019-11-10] MEDS: CEFTAZIDIME AVIBACTAM IV SCH ×2 (09:38→20:50)
[2019-11-10] MEDS: D5W 5% IV SCH ×2 (09:38→20:50)
[2019-11-10] MEDS: LINEZOLID 600MG/300ML 300 ML IV SCH ×2 (09:38→22:34)
[2019-11-10] MEDS: MUPIROCIN 2% OINT 15gm or 22gm EACHNOSTRI SCH ×2 (09:38→22:00)
[2019-11-10] MEDS: ASCORBIC ACID 500 MG TAB PO SCH (09:39)
[2019-11-10] MEDS: FAMOTIDINE 20 MG TAB PO SCH (09:39)
[2019-11-10] MEDS: VALSARTAN 80 MG TAB PO SCH (09:39)
[2019-11-10] MEDS: CARVEDILOL 3.125 MG TAB PO SCH ×2 (09:40→22:35)
--- NOTE | 2019-11-10 10:05 | NUR ---
I received a call from Uvaldo at the [facility] Transfer [facility] letting me know that they can not accept patient for transfer at this time because they are at capacity-they are only accepting transfers that are STEMI, Strokes, or Trauma.
[2019-11-10 12:00] VITALS: BP 128/85
--- NOTE | 2019-11-10 12:00 | NUR ---
Dressing change Removed old dressings to sacrum, left and right lower buttocks/ischium area, cleaned with wound cleanser, pad dry with sterile gauze, applied therahoney strip and covered with optifoam dressing.
[2019-11-10] MEDS ORDERED: POTASSIUM EFFERVESENT TAB 25 MEQ PO ONE (13:30)
[2019-11-10] MEDS: POTASSIUM CHL 20MEQ/100ML 100 ML IV SCH ×2 (14:59→16:37)
[2019-11-10] MEDS: MAGNESIUM SULFATE 1GM/100ML 100 ML IV SCH ×2 (15:00→16:37)
[2019-11-10] MEDS: SODIUM CHLORIDE 0.9% 1,000 ML IV SCH (16:37)
[2019-11-10 17:00] VITALS: BP 121/77
--- NOTE | 2019-11-10 19:15 | NUR ---
Opening Shift Note Received report from Delfina RIOS. Assumed care of patient, awake and alert. No S/S of distress/SOB or pain. Instructed on POC, patient verbalizing understanding by nodding the head. Fall precaution measures in place, will continue to monitor for changes Q1hr and PRN.
[2019-11-10 22:00] VITALS: BP 134/79
[2019-11-10] MEDS: ATORVASTATIN 20 MG TAB PO SCH (22:34)
--- NOTE | 2019-11-11 | NUR ---
Wound care done.
[2019-11-11] MEDS: TOBRAMYCIN 300 MG/5 ML NEB SOLN NEB SCH ×3 (00:44→19:00)
[2019-11-11] MEDS: ALBUTEROL SULF 2.5 MG/0.5ML(0.5%) NEB SOLN NEB SCH ×3 (00:44→18:50)
--- NOTE | 2019-11-11 00:46 | NUR ---
RT NOTE: TRACH CARE DONE AT THIS TIME. TRACH AREA CLEAN AND NO BREAKDOWN OR REDNESS NOTED. PT HAS 4.O SHILEY. INNER CANULA CLEANED AND GAUZE REPLACED. SUCTION SMALL AMOUNT OF THIN NUNEZ SECRETIONS. PT REMAINS ON 8LPM FIO2 .28 TRACH COLLAR.
[2019-11-11 05:00] VITALS: BP 130/83
[2019-11-11] MEDS: LEVOTHYROXINE SODIUM 25 MCG TAB PO SCH (06:55)
--- NOTE | 2019-11-11 07:30 | NUR ---
Report received. Patient on air mattress. NG left nare, tube feeding. O2 via trach collar in place, 7 liters. Continuous pulse ox in place, O2 sat 99-100%. Beaulieu cath in place, urine cloudy. Dressings, right hip, left hip, and sacrum. Patient has eyes open but does not respond to verbal stimuli. Will continue to monitor.
[2019-11-11 07:57] LABS: INR 1.21 (0.9-1.15)
[2019-11-11] MEDS: D5W 5% IV SCH (08:53)
[2019-11-11] MEDS: CEFTAZIDIME AVIBACTAM IV SCH (08:53)
[2019-11-11 09:00] VITALS: BP 132/81
[2019-11-11] MEDS: VALSARTAN 80 MG TAB PO SCH (09:57)
[2019-11-11] MEDS: ASCORBIC ACID 500 MG TAB PO SCH (09:57)
[2019-11-11] MEDS: FAMOTIDINE 20 MG TAB PO SCH (09:58)
[2019-11-11] MEDS: CARVEDILOL 3.125 MG TAB PO SCH ×2 (09:58→23:06)
[2019-11-11] MEDS: LINEZOLID 600MG/300ML 300 ML IV SCH ×2 (09:59→23:05)
[2019-11-11] MEDS: MUPIROCIN 2% OINT 15gm or 22gm EACHNOSTRI SCH ×2 (10:03→22:00)
[2019-11-11] MEDS: SODIUM CHLORIDE 0.9% 1,000 ML IV SCH (10:06)
[2019-11-11] MEDS ORDERED: SODIUM CHLORIDE 0.9 % NEB SOLN 3ML NEB ONE (10:29)
--- NOTE | 2019-11-11 10:31 | NUR ---
Nutrition Followup Notes Wt: 71.9 kg Pt on trach aphasic, and NPO on EN support with Osmolite @ 20 ml/hr providing 576 kcals and 26 gm proteins. pt with inadequate EN support. Est energy needs BW 66 [id number] kcal (23-25kcal/kg), Est protein needs: 66-79 g (1.0-1.2g/kgBW). Reassessed per bed scale wt. LABS: ALB 2.5 L, CREAT 1.04 H, CA 8.4 L. GI: Pt had 110 ml BM today per RN doc BS: 8 high risk. Refer to wound assessment report for full details. PES: Altered nutrition related labs r/t current and chronic medical condition aeb pt with hypocalcemia hyperglycemia Comments 1) Advance EN support with Osmolite 1.2 at 50 ml/hr per MD approval, 2) advance diet as medically feasible. 3) continue current plan of care. F/u mod 2-3 days
[2019-11-11 12:11] LABS: BUN/Creatinine Ratio 9.7; Calcium 8.5 mg/dL (8.5-10.1); Potassium 4.4 mmol/L (3.5-5.1)
[2019-11-11] MEDS: ENOXAPARIN SOD 80 MG/0.8ML SYRINGE SC SCH ×2 (12:38→23:06)
[2019-11-11 13:00] VITALS: BP 122/80
--- NOTE | 2019-11-11 15:23 | NUR ---
Dressings to bilateral hips and sacrum done per wound care instructions.
[2019-11-11 17:00] VITALS: BP 135/68
[2019-11-11] MEDS ORDERED: CEFTAZIDIME AVIBACTAM IV SCH (17:00)
[2019-11-11] MEDS ORDERED: D5W 5% IV SCH (17:00)
--- NOTE | 2019-11-11 18:25 | NUR ---
BOUCHRA NGUYEN not available. Pharmacy informed, will send to floor.
[2019-11-11] MEDS: CEFTAZIDIME-AVIBACTAM 2.5gm 2.5 GM in D5W 5% 100 ML IV SCH (18:53)
[2019-11-11 22:00] VITALS: BP 136/78
[2019-11-11] MEDS: ATORVASTATIN 20 MG TAB PO SCH (23:06)
[2019-11-12] MEDS: ALBUTEROL SULF 2.5 MG/0.5ML(0.5%) NEB SOLN NEB SCH ×4 (00:15→18:39)
[2019-11-12] MEDS: CEFTAZIDIME-AVIBACTAM 2.5gm 2.5 GM in D5W 5% 100 ML IV SCH ×3 (02:52→18:14)
[2019-11-12] MEDS: SODIUM CHLORIDE 0.9% 1,000 ML IV SCH ×2 (02:52→21:42)
[2019-11-12 06:00] VITALS: BP 136/95
[2019-11-12] MEDS: LEVOTHYROXINE SODIUM 25 MCG TAB PO SCH (06:16)
[2019-11-12] MEDS: TOBRAMYCIN 300 MG/5 ML NEB SOLN NEB SCH ×2 (06:23→18:44)
--- NOTE | 2019-11-12 07:31 | NUR ---
Report received. Patient on specialty mattress. O2 via trach mask, O2 sat 99% on continuous pulse ox. NG left nare, tube feeding with Osmolite. Beaulieu cath in place. No S/S distress at this time. Will continue to monitor.
[2019-11-12 07:48] LABS: Basophils # (auto) 0.1 10 ^3/uL (0-0.2); Eosinophils # (auto) 0.3 10 ^3/uL (0-0.8); Eosinophils % (auto) 2.5 % (0.0-7.0); Lymphocytes # (auto) 1.4 10 ^3/uL (0.4-5.4); Lymphocytes % (auto) 14.6 % (10.0-50.0); Mean Corpuscular Hemoglobin 29.9 pg (28.0-32.0); Mean Corpuscular Hgb Conc. 33.4 g/dL (32.0-36.0); Mean Corpuscular Volume 89.6 fL (80.0-100.0); Monocytes # (auto) 0.5 10 ^3/uL (0-1.3); Monocytes % (auto) 5.5 % (0.0-12.0); Neutrophils # (auto) 7.5 10 ^3/uL (1.6-8.6); Neutrophils % (auto) 76.4 % (37.0-80.0); Nucleated Red Blood Cells % 0.1 %; Platelet Count (auto) 281 10^3/uL (140-450); Red Blood Cells 3.35 10^6/uL (4.0-5.20); Red Cell Distribution Width 14.4 % (11.8-14.3); White Blood Cell 9.8 10^3/uL (4.4-10.8)
--- NOTE | 2019-11-12 08:00 | NUR ---
HOB 30 degrees.
[2019-11-12 08:06] LABS: Albumin 2.4 g/dL (3.4-5.0); Calcium 8.2 mg/dL (8.5-10.1); Magnesium 1.6 mg/dL (1.6-2.6); Potassium 3.8 mmol/L (3.5-5.1)
[2019-11-12 08:08] LABS: BUN/Creatinine Ratio 11.4
[2019-11-12 08:10] LABS: Bilirubin, Total 0.4 mg/dL (0.2-1.0); Total Protein 6.5 g/dL (6.4-8.2)
[2019-11-12 09:00] VITALS: BP 131/90
[2019-11-12] MEDS: LINEZOLID 600MG/300ML 300 ML IV SCH ×2 (09:51→22:12)
[2019-11-12] MEDS: ASCORBIC ACID 500 MG TAB PO SCH (09:51)
[2019-11-12] MEDS: FAMOTIDINE 20 MG TAB PO SCH (09:51)
[2019-11-12] MEDS: CARVEDILOL 3.125 MG TAB PO SCH ×2 (09:52→22:13)
[2019-11-12] MEDS: VALSARTAN 80 MG TAB PO SCH (09:52)
[2019-11-12] MEDS: ENOXAPARIN SOD 80 MG/0.8ML SYRINGE SC SCH ×2 (09:52→21:43)
[2019-11-12] MEDS: MUPIROCIN 2% OINT 15gm or 22gm EACHNOSTRI SCH ×2 (09:53→21:43)
--- NOTE | 2019-11-12 10:54 | NUR ---
COVID specimen collected and sent to Lab. Dr. Bender in to see patient as hospitalist.
--- NOTE | 2019-11-12 10:55 | NUR ---
WOUND CARE NOTE: IN TO SEE PATIENT AT THIS TIME FOR WOUND RE-EVALUATION. PATIENT CONTINUES TO REST ON SPECIALTY AIR BED. SHE CONTINUES TO BE VENTILATED BY WAY OF TRACH, DROPLET ISOLATION. CURRENT JEANNE SCORE IS 12. SHE CONTINUES TO BE MAX ASSIST FOR ALL OF HER ADL'S. PATIENT CONTINUES TO HAVE CHRONIC STAG 4 WITH SCARS TO SACRUM, RIGHT AND LEFT ISCHIUM. NO CHANGE IN WOUND STATUS SEEN AT THIS TIME. APPLIED THERAHONEY AND OPTIFOAM GENTLE DRESSINGS PER MD ORDER. NO OTHER SKIN INTEGRITY ISSUES SEEN AT THIS TIME. RECOMMEND: CONTINUATION WITH ALL WOUND CARE ORDERS PREVIOUSLY PRESCRIBED BY MD. WOUND CARE TEAM WILL CONTINUE TO MONITOR. Addendum: 11/12/19 at 1629 by Rhonda Mackey RN Amended: Links added.
--- NOTE | 2019-11-12 11:00 | NUR ---
Leticia NGUYEN not available. Pharmacy informed, will send up.
--- NOTE | 2019-11-12 11:34 | NUR ---
Wound care completed. Patient suctioned of moderate amount of thick white secretions. O2 sat 99%. Will continue to monitor.
[2019-11-12 13:00] VITALS: BP 137/88
--- NOTE | 2019-11-12 13:00 | NUR ---
HOB 30 degrees.
--- NOTE | 2019-11-12 13:30 | NUR ---
Leticia IVPB has not yet been delivered. Pharmacy informed.
--- NOTE | 2019-11-12 14:00 | NUR ---
Patient bathed and repositioned. Linens changed. New colostomy bag applied. Will continue to monitor.
[2019-11-12 16:17] VITALS: BP 137/90
--- NOTE | 2019-11-12 16:38 | NUR ---
Residual check: > 50 ml. Feeding stopped for now. NG flushed. Will continue to monitor.
[2019-11-12] MEDS ORDERED: levETIRAcetam 500 MG/5ML INJ IV ONE (20:49)
[2019-11-12 21:37] VITALS: BP 148/91
[2019-11-12] MEDS: ATORVASTATIN 20 MG TAB PO SCH (22:13)
[2019-11-12 22:59] VITALS: BP 148/91
[2019-11-13] MEDS: ALBUTEROL SULF 2.5 MG/0.5ML(0.5%) NEB SOLN NEB SCH ×4 (00:03→18:35)
--- NOTE | 2019-11-13 02:15 | NUR ---
TRACH CARE DONE AT THIS TIME WITH NO INCIDENT. PT ETS WITH NO RETURN. PT RESTING WITH NO ACUTE DISTRESS NOTED. Addendum: 11/13/19 at 0221 by Claudio Mejia, RT Amended: Links added.
[2019-11-13] MEDS: CEFTAZIDIME-AVIBACTAM 2.5gm 2.5 GM in D5W 5% 100 ML IV SCH ×3 (03:10→18:17)
[2019-11-13 05:37] VITALS: BP 133/93
[2019-11-13] MEDS: TOBRAMYCIN 300 MG/5 ML NEB SOLN NEB SCH ×2 (06:27→22:00)
[2019-11-13 06:34] LABS: Basophils # (auto) 0.1 10 ^3/uL (0-0.2); Basophils % (auto) 1.1 % (0.0-2.0); Eosinophils # (auto) 0.1 10 ^3/uL (0-0.8); Eosinophils % (auto) 1.5 % (0.0-7.0); Hematocrit 31.3 % (36.0-46.0); Hemoglobin 10.4 g/dL (12.2-16.2); Lymphocytes # (auto) 1.5 10 ^3/uL (0.4-5.4); Lymphocytes % (auto) 15.1 % (10.0-50.0); Mean Corpuscular Hemoglobin 29.8 pg (28.0-32.0); Mean Corpuscular Hgb Conc. 33.1 g/dL (32.0-36.0); Mean Corpuscular Volume 90.1 fL (80.0-100.0); Monocytes # (auto) 0.5 10 ^3/uL (0-1.3); Monocytes % (auto) 5.5 % (0.0-12.0); Neutrophils # (auto) 7.5 10 ^3/uL (1.6-8.6); Neutrophils % (auto) 76.8 % (37.0-80.0); Platelet Count (auto) 290 10^3/uL (140-450); Red Blood Cells 3.48 10^6/uL (4.0-5.20); Red Cell Distribution Width 14.6 % (11.8-14.3); White Blood Cell 9.8 10^3/uL (4.4-10.8)
[2019-11-13] MEDS: LEVOTHYROXINE SODIUM 25 MCG TAB PO SCH (06:35)
[2019-11-13 06:50] LABS: Potassium 3.6 mmol/L (3.5-5.1)
[2019-11-13 06:57] LABS: Albumin 2.6 g/dL (3.4-5.0); BUN/Creatinine Ratio 11.5; Bilirubin, Total 0.6 mg/dL (0.2-1.0); Calcium 8.5 mg/dL (8.5-10.1); Total Protein 6.8 g/dL (6.4-8.2)
--- NOTE | 2019-11-13 07:30 | NUR ---
RECEIVED REPORT FROM NIGHT NURSE. PATIENT RESTING IN BED, TRACH COLLAR IN PLACE 6L SATING 100%. PATIENT RESPONDS TO VOICE COMMANDS. APHASIC, BUT MOUTHING WORDS AND NODDING HEAD TO COMMUNICATE. ABLE TO MOVE LEFT HAND AND ARM WHEN INSTRUCTED TO. NPO FOR PROCEDURE LATER TODAY.
--- NOTE | 2019-11-13 07:40 | NUR ---
SPOKE WITH PATIENT'S , NELLIE TADEO. OBTAINED CONSENT FOR PEG TUBE PLACEMENT, ANESTHESIA, AND BLOOD. 2 NURSE VERIFICATION COMPLETED. CONSENTS SIGNED.
[2019-11-13 09:00] VITALS: BP 139/101
--- NOTE | 2019-11-13 09:00 | NUR ---
SELMA NOT AVAILABLE IN THE [facility], NOTIFIED PHARMACY.
--- NOTE | 2019-11-13 09:43 | NUR ---
URINE COLLECTED AND SENT TO LAB FOR TEST.
[2019-11-13] MEDS: MUPIROCIN 2% OINT 15gm or 22gm EACHNOSTRI SCH ×2 (10:00→22:20)
[2019-11-13] MEDS: VALSARTAN 80 MG TAB PO SCH (10:00)
[2019-11-13] MEDS: CARVEDILOL 3.125 MG TAB PO SCH ×2 (10:00→22:00)
[2019-11-13] MEDS: ASCORBIC ACID 500 MG TAB PO SCH (10:00)
[2019-11-13] MEDS: ENOXAPARIN SOD 80 MG/0.8ML SYRINGE SC SCH ×2 (10:00→22:00)
[2019-11-13] MEDS: FAMOTIDINE 20 MG TAB PO SCH (10:00)
[2019-11-13] MEDS ORDERED: FLUMAZENIL 0.1 MG/ML INJ 10ML MDV IV ONE (10:11)
[2019-11-13] MEDS ORDERED: SODIUM CHLORIDE LOCK 10 ML ONE (10:11)
[2019-11-13] MEDS ORDERED: NALOXONE HCL 0.4 MG/ML VIAL ONE (10:11)
[2019-11-13] MEDS ORDERED: diphenhdrAMINE HCL 50 MG/1 ML VL ONE (10:12)
[2019-11-13] MEDS ORDERED: fentaNYL CITRATE 100 MCG/2 ML VL ONE (10:12)
[2019-11-13] MEDS ORDERED: MIDAZOLAM HCL 5 MG/ML-1ML VIAL ONE (10:12)
[2019-11-13] MEDS: SODIUM CHLORIDE 0.9% 1,000 ML IV SCH (11:08)
--- NOTE | 2019-11-13 11:09 | NUR ---
SELMA IV, NOT RECEIVED YET. WILL NOTIFY PHARMACY .
--- NOTE | 2019-11-13 11:30 | NUR ---
1200 MED NEB TX NOT ADMINISTERED. PT IN O.RJasiel RIOS AWARE
--- NOTE | 2019-11-13 11:33 | NUR ---
Nutrition Followup Notes Wt: 69.6 kg Pt on trach aphasic, and NPO on EN support on hold due to high residuals. pt was on EN support with Osmolite @ 20 ml/hr providing 576 kcals and 26 gm proteins. Est energy needs BW 66 [id number] kcal (23-25kcal/kg), Est protein needs: 66-79 g (1.0-1.2g/kgBW). Reassessed per bed scale wt. LABS: GLU 124 H, ALB 2.6 L GI: Pt had 5 BM 11/08 per RN doc BS: 12 high risk. Refer to wound assessment report for full details. PES: Altered nutrition related labs r/t current and chronic medical condition aeb pt with hypocalcemia hyperglycemia Comments 1) Resume EN support with Osmolite 1.2 at 50 ml/hr per MD approval, 2) advance diet as medically feasible. 3) continue current plan of care. F/u mod 2-3 days
--- NOTE | 2019-11-13 11:41 | NUR ---
PATIENT TAKEN DOWN TO OR FOR PROCEDURE.
[2019-11-13] MEDS ORDERED: ceFAZolin 1GM/50ML 50 ML IV ONE (12:38)
--- NOTE | 2019-11-13 13:51 | NUR ---
PATIENT BACK FROM PROCEDURE. PEG TUBE PLACED TO LEFT UPPER QUAD. ORDERS TO NOT USE FOR 24 HOURS, PER SUPERVISOR LOCOMOTIVE. PATIENT RESTING IN BED, RT AT BEDSIDE. WILL CONTINUE TO MONITOR.
[2019-11-13] MEDS: LINEZOLID 600MG/300ML 300 ML IV SCH ×2 (14:25→22:21)
--- NOTE | 2019-11-13 15:39 | NUR ---
SPOKE WITH DR. CARRINGTON, HE WILL CHECK PEG TUBE IN 24 HOURS. DO NOT USE UNTIL CLEARED BY DOCTOR CHARISSA.
[2019-11-13 17:00] VITALS: BP 143/97
--- NOTE | 2019-11-13 18:41 | NUR ---
PAIN PATIENT STATING SHE HAS PAIN 10/10. NO PAIN MEDICATION ORDERED. PLACED PAGE TO SPRINKLER DRIVER HOSPITALIST. WILL WAIT FOR CALL BACK
--- NOTE | 2019-11-13 19:18 | NUR ---
SPOKE WITH DR COLVIN, ORDERS RECEIVED, WILL PLACE AND ENDORSE TO ASSOCIATE PROFESSOR OF CHEMISTRY.
--- NOTE | 2019-11-13 19:18 | NUR ---
PATIENT CARE ENDORSED TO NIGHT NURSE. PATIENT STABLE AT THIS TIME.
--- NOTE | 2019-11-13 20:00 | NUR ---
RECEIVED PATIENT FROM DAY SHIFT RN. PATIENT RESTING IN BED. NO S/S OF DISTRESS NOTED. C/O PAIN @ 6/10. WILL COME BACK FOR MEDICATION LATER. TRACH COLLAR WITH O2 SAT 100%. MENDIETA CATH IN PLACE DRAINING TO GRAVITY. REPOSITIONED PATIENT TO COMFORT. PARTIAL LINEN CHANGED. DRESSINGS C/D/I. REORIENTED PATIENT TO PLACE, TIME, AND SITUATION. POC INSTRUCTED AND ENCOURAGED PATIENT TO CALL FOR DIRECTOR PARK IF NEEDED. SPECIAL MATTRESS BED IN LOWEST POSITION WITH SIDE RAILS UP X 2. CALL PIPER WITHIN REACH. ALARM ON. CONTINUE TO MONITOR FOR CHANGES Q1H AND PRN.
[2019-11-13] MEDS: HYDROmorphone HCL 2 MG/ML VL IV PRN (20:33)
--- NOTE | 2019-11-13 20:33 | NUR ---
MEDICATED PATIENT FOR PAIN @ 09/26 ORDERED. CONTINUE TO MONITOR.
--- NOTE | 2019-11-13 21:00 | NUR ---
REASSESSED PAIN, PATIENT RESTING WITH EYES CLOSED. NO S/S OF PAIN NOTED. CONTINUE TO MONITOR.
--- NOTE | 2019-11-13 21:32 | NUR ---
CALLED PHARMACY FOR SELMA IV. WILL SEND IT LIZABETH. CONTINUE CARE.
[2019-11-13 22:00] VITALS: BP_SYST 117; BP_SYST 136; BP_DIAS 73; BP_DIAS 95
[2019-11-13] MEDS: ATORVASTATIN 20 MG TAB PO SCH (22:00)
[2019-11-13] MEDS: PANTOPRAZOLE 40 MG/10 ML VIAL INJ IV SCH (22:20)
--- NOTE | 2019-11-13 22:25 | NUR ---
REPOSITIONED PATIENT. PATIENT TOLERATED WELL. CONTINUE TO MONITOR.
--- NOTE | 2019-11-14 00:12 | NUR ---
RT NOTE: TRACH CARE DONE AT THIS TIME. TRACH AREA CLEAN AND NO BREAKDOWN OR REDNESS NOTED. PT HAS 4.O SHILEY. INNER CANULA CLEANED AND GAUZE CHANGED. SUCTION MODERATE AMOUNT OF THIN NUNEZ SECRETIONS. PT REMAINS ON 6LPM FIO2 .28 TRACH COLLAR.
--- NOTE | 2019-11-14 00:15 | NUR ---
REPOSITIONED PATIENT. PATIENT TOLERATED WELL. CONTINUE CARE.
[2019-11-14] MEDS: CEFTAZIDIME-AVIBACTAM 2.5gm 2.5 GM in D5W 5% 100 ML IV SCH ×3 (02:09→18:54)
--- NOTE | 2019-11-14 02:15 | NUR ---
REPOSITIONED PATIENT. PATIENT TOLERATED WELL. NO S/S OF DISTRESS NOTED. O2 SAT 100%. CONTINUE CARE.
[2019-11-14] MEDS: SODIUM CHLORIDE 0.9% 1,000 ML IV SCH ×2 (03:20→21:14)
[2019-11-14] MEDS: HYDROmorphone HCL 2 MG/ML VL IV PRN ×3 (04:14→16:44)
--- NOTE | 2019-11-14 04:14 | NUR ---
CLEANED PATIENT, PARTIAL LINEN CHANGED. PATIENT TOLERATED WELL. CONTINUE CARE.
--- NOTE | 2019-11-14 04:16 | NUR ---
MEDICATED PATIENT FOR PAIN @ 09/26 ORDERED. CONTINUE TO MONITOR.
--- NOTE | 2019-11-14 04:40 | NUR ---
REASSESSED PAIN, PATIENT RESTING WITH EYES CLOSED. NO S/S OF PAIN NOTED. CONTINUE TO MONITOR.
[2019-11-14 04:55] VITALS: BP 141/92
[2019-11-14] MEDS: ALBUTEROL SULF 2.5 MG/0.5ML(0.5%) NEB SOLN NEB SCH ×4 (05:23→18:56)
[2019-11-14] MEDS: TOBRAMYCIN 300 MG/5 ML NEB SOLN NEB SCH ×2 (05:23→18:57)
--- NOTE | 2019-11-14 05:40 | NUR ---
COLOSTOMY GREENISH LIQUID OUTPUT 100ML.
--- NOTE | 2019-11-14 06:10 | NUR ---
REPOSITIONED PATIENT. PATIENT TOLERATED WELL. CONTINUE CARE.
[2019-11-14] MEDS: LEVOTHYROXINE SODIUM 25 MCG TAB PO SCH (06:18)
--- NOTE | 2019-11-14 08:30 | NUR ---
Opening Shift Note Assumed care of patient, awake and alert. No S/S of distress/SOB or pain. Bed in lowest/locked position, bed rails up x2 ,call light within reach. patient on specialty mattress. Trach collar in place 6L. Instructed on POC and to call for assist PRN informed patient this RN will round on her, patient nodded to understanding. Will continue to monitor for changes Q1hr and PRN.
[2019-11-14 08:55] VITALS: BP 138/100
[2019-11-14] MEDS: VALSARTAN 80 MG TAB PO SCH (10:00)
[2019-11-14] MEDS: ENOXAPARIN SOD 80 MG/0.8ML SYRINGE SC SCH ×2 (10:00→21:11)
[2019-11-14] MEDS: ASCORBIC ACID 500 MG TAB PO SCH (10:00)
[2019-11-14] MEDS: CARVEDILOL 3.125 MG TAB PO SCH (10:00)
[2019-11-14] MEDS: FAMOTIDINE 20 MG TAB PO SCH (10:00)
--- NOTE | 2019-11-14 10:20 | NUR ---
REPOSITIONED PERFORMED PARTIAL LINEN CHANGE, BED BATH FOR PATIENT. APPLIED LOTION TO PATIENT'S BACK. POSITIONED PATIENT ON RIGHT SIDE. WILL CONTINUE OT MONITOR
[2019-11-14] MEDS: MUPIROCIN 2% OINT 15gm or 22gm EACHNOSTRI SCH ×2 (10:49→21:13)
[2019-11-14] MEDS: PANTOPRAZOLE 40 MG/10 ML VIAL INJ IV SCH ×2 (10:49→21:11)
[2019-11-14] MEDS: LINEZOLID 600MG/300ML 300 ML IV SCH ×2 (10:50→21:42)
--- NOTE | 2019-11-14 12:45 | NUR ---
REPOSITIONED POSITIONED PATIENT ON LEFT SIDE. WILL CONTINUE OT MONITOR
[2019-11-14 13:00] VITALS: BP 129/91
[2019-11-14] MEDS: Osmolite 1.2 Cal One Liter GT SCH (13:29)
--- NOTE | 2019-11-14 13:29 | NUR ---
PEG TUBE OSMOLITE INFUSING VIA RUQ PEG TUBE PER MD ORDERS AT 50ML/HR.
--- NOTE | 2019-11-14 16:30 | NUR ---
REPOSITIONED PERFORMED PARTIAL BED BATH FOR PATIENT. APPLIED LOTION TO PATIENT'S BACK. POSITIONED PATIENT ON RIGHT SIDE. WILL CONTINUE TO MONITOR
[2019-11-14 16:43] VITALS: BP 125/90
--- NOTE | 2019-11-14 17:43 | NUR ---
PATIENT HAD 5 VOIDS, BED CHANGE DURING SHIFT. MENDIETA CATHETER OUTPUT AT 60 ML. MENDIETA LEAKING, HAS BEEN ATTEMPTED TO BE REPLACED, MENDIETA CONTINUES TO LEAK. NOT ACCURATE OUTPUT Addendum: 11/14/19 at 1745 by GIL ROMO RN RN Amended: Links added.
--- NOTE | 2019-11-14 18:35 | NUR ---
WOUND CARE WOUND CARE PERFORMED PER MD ORDERS
--- NOTE | 2019-11-14 18:55 | NUR ---
REPOSITIONED POSITIONED PATIENT ON LEFT SIDE. WILL CONTINUE TO MONITOR
[2019-11-14] MEDS: CARVEDILOL 3.125 MG TAB GT SCH (21:12)
[2019-11-14 22:00] VITALS: BP 120/78
[2019-11-14] MEDS ORDERED: ATORVASTATIN 20 MG TAB GT SCH (22:00)
[2019-11-15] MEDS: ALBUTEROL SULF 2.5 MG/0.5ML(0.5%) NEB SOLN NEB SCH ×4 (00:33→18:30)
--- NOTE | 2019-11-15 02:30 | NUR ---
UNABLE TO ADMINISTER PATIENT'S ANTIBIOTIC AT THIS TIME.CEFTAZIDIME-AVIBACTAM NOT AVAILABLE. NOT IN THE ANTIBIOTIC FRIDGE, NOT IN THE MEDICATION FRIDGE AND NOT IN THE NON FRIDGE MEDICATION. UNABLE TO GLOBAL FIND.
[2019-11-15] MEDS: HYDROmorphone HCL 2 MG/ML VL IV PRN ×3 (04:58→16:07)
[2019-11-15 05:00] VITALS: BP 104/59
--- NOTE | 2019-11-15 06:31 | NUR ---
SPOKE WITH CAM FROM [facility], WILL SEND MEDICATION UP.
[2019-11-15] MEDS ORDERED: CEFTAZIDIME-AVIBACTAM 2.5gm 2.5 GM in D5W 5% 100 ML IV SCH (07:00)
[2019-11-15] MEDS ORDERED: LEVOTHYROXINE SODIUM 25 MCG TAB GT SCH (07:00)
--- NOTE | 2019-11-15 07:17 | NUR ---
PHARMACY CALLED AND MADE RN AWARE AVYCAZ NOT AVAILABLE HOSPITAL WIDE. WILL NOTIFY MORNING SHIFT RN.
--- NOTE | 2019-11-15 07:54 | NUR ---
Respiratory note: Received pt from night patrol inspector RT. Pt with tracheostomy 4.0 Shiley cuffed, ambu bag/mask and spare trachs available at bedside. Stoma is asymptomatic. Pt with cool aerosol trach collar FIO2 28%, tolerating well. HR 82, RR 20, SPO2 100%. Breath sounds coarse crackles, deep tracheal suctioned x2 for moderate thick white secretions, improved breath sounds post-suction. Medneb tx administered, no adverse reactions. Pt on bedside continuous POX monitor. No s/s of distress.
[2019-11-15 09:00] VITALS: BP 89/53
[2019-11-15] MEDS ORDERED: VALSARTAN 80 MG TAB GT SCH (10:00)
[2019-11-15] MEDS ORDERED: FAMOTIDINE 20 MG TAB GT SCH (10:00)
[2019-11-15] MEDS: MUPIROCIN 2% OINT 15gm or 22gm EACHNOSTRI SCH ×2 (10:05→22:14)
[2019-11-15] MEDS: CARVEDILOL 3.125 MG TAB GT SCH ×2 (10:06→10:14)
[2019-11-15] MEDS: PANTOPRAZOLE 40 MG/10 ML VIAL INJ IV SCH ×2 (10:07→21:51)
[2019-11-15] MEDS: ENOXAPARIN SOD 80 MG/0.8ML SYRINGE SC SCH (10:07)
[2019-11-15] MEDS: LINEZOLID 600MG/300ML 300 ML IV SCH ×2 (10:07→21:52)
--- NOTE | 2019-11-15 10:52 | NUR ---
Nutrition Followup Notes Wt: 74.1 kg Pt on trach aphasic, and NPO on EN support Osmolite 1.2 @ 50 ml/hr. Pt with no S/S of distress or pain. Will continue to monitor PO status, skin status, pertinent labs and weight trends. Will f/u in 2-3 days. Est energy needs BW 66 [id number] kcal (23-25kcal/kg), Est protein needs: 66-79 g (1.0-1.2g/kgBW). Reassessed per bed scale wt. LABS: GLU 124 H, ALB 2.6 L GI: Pt had 5 BM 11/08 per RN doc BS: 8 high risk. Refer to wound assessment report for full details. PES: Altered nutrition related labs r/t current and chronic medical condition aeb pt with hypocalcemia hyperglycemia Comments 1) Resume EN support with Osmolite 1.2 at 50 ml/hr per MD approval (Resolved) 2) Advance diet as medically feasible. 3) Continue current plan of care. F/u mod 2-3 days
--- NOTE | 2019-11-15 12:20 | NUR ---
ALIYA LEFT MESSAGE FOR DR PISANO RE: PATIENT ANTICOAGULATION PER DR DAVILA. AWAITING RETURN CALL.
[2019-11-15] MEDS: SODIUM CHLORIDE 0.9% 1,000 ML IV SCH ×2 (12:38→23:10)
[2019-11-15 13:00] VITALS: BP 95/64
[2019-11-15] MEDS: Osmolite 1.2 Cal One Liter GT SCH (16:06)
--- NOTE | 2019-11-15 16:10 | NUR ---
WOUND CARE WOUND CARE PERFORMED PER MD ORDERS
[2019-11-15 16:55] VITALS: BP 105/46
--- NOTE | 2019-11-15 18:36 | NUR ---
Respiratory note: AT BEDSIDE FOR MED NEB TX. TX GIVEN INLINE CA TO TRACH MASK, PT TOLERATING WELL. SX NEEDED PER PT. SXD VIA TRACH X2 FOR MODERATE THICK NUNEZ. RT NAME AND PAGER ASSIGNMENT WRITTEN ON PTS ROOM BOARD WILL CONTINUE TO MONITOR NEEDED.
[2019-11-15] MEDS: APIXABAN 5 MG TAB PEG SCH (21:51)
[2019-11-15] MEDS ORDERED: APIXABAN 5 MG TAB PO SCH (22:00)
[2019-11-15] MEDS ORDERED: ATORVASTATIN 20 MG TAB PEG SCH (22:00)
[2019-11-16] MEDS: ALBUTEROL SULF 2.5 MG/0.5ML(0.5%) NEB SOLN NEB SCH ×3 (00:33→12:54)
[2019-11-16 01:15] VITALS: BP 105/46
[2019-11-16] MEDS: HYDROmorphone HCL 2 MG/ML VL IV PRN (04:21)
[2019-11-16 05:00] VITALS: BP 126/82
[2019-11-16] MEDS ORDERED: LEVOTHYROXINE SODIUM 25 MCG TAB PEG SCH (07:00)
[2019-11-16] MEDS ORDERED: CARVEDILOL 3.125 MG TAB PEG SCH (08:00)
[2019-11-16 09:03] VITALS: BP 121/73
[2019-11-16] MEDS: LINEZOLID 600MG/300ML 300 ML IV SCH (09:30)
[2019-11-16] MEDS: PANTOPRAZOLE 40 MG/10 ML VIAL INJ IV SCH (09:30)
[2019-11-16] MEDS: MUPIROCIN 2% OINT 15gm or 22gm EACHNOSTRI SCH (09:31)
[2019-11-16] MEDS: APIXABAN 5 MG TAB PEG SCH (09:33)
[2019-11-16] MEDS ORDERED: FAMOTIDINE 20 MG TAB PEG SCH (10:00)
[2019-11-16] MEDS ORDERED: VALSARTAN 80 MG TAB PEG SCH (10:00)
[2019-11-16] MEDS ORDERED: VALS1TAB57 PEG (11:37)
[2019-11-16] MEDS ORDERED: CAR3125T PEG (11:37)
[2019-11-16] MEDS ORDERED: APIX5TAB PEG (11:37)
--- NOTE | 2019-11-16 11:50 | NUR ---
PER MD DAVILA MENDIETA CATHETER AND MIDLINE TO BE DC'D.
--- NOTE | 2019-11-16 12:00 | NUR ---
D/C Planning Regarding social service consult for patient to resume service with [facility] for wound care, vitals and medication management. Faxed clinical information to [facility]. Per Maria G with [facility] [phone] they will resume service within 24hrs upon d/c day. [facility] was arranged via gurney with oxygen. [facility] is aware patient has a trach collar, peg tube and colostomy bag. supervising film or videotape editor time is a 15:00. Informed GABRIEL Alvarez.
[2019-11-16 12:44] VITALS: BP 121/70
--- NOTE | 2019-11-16 13:57 | NUR ---
MENDIETA CATHETER DC'D IV CATHETER- PERIPHERAL; AND MIDLINE DC'D, CATHETER INTACT. NO PHLEBITIS, PT TOLERATED PROCEDURE WELL.
[2019-11-16 14:21] VITALS: BP 121/70
--- NOTE | 2019-11-16 15:16 | NUR ---
DISCHARGE INSTRUCTIONS PROVIDED TO , VERBALIZED UNDERSTANDING FOR CONTINUATION OF HOME MEDICATIONS AND FOLLOW UP APPOINTMENT. WOUND PICTURES TAKEN, TELE BOX REMOVED AND RETURNED TO TELE DEPT. PT SAFELY TRANSPORTED OUT OF UNIT BY [facility] TEAM VIA [facility].
--- NOTE | 2019-11-16 15:55 | NUR ---
PT'S REPORTS THAT PASSY SKYLAR VALVE IS MISSING. PT ARRIVED TO HOSPITAL WITH VALVE ON. PER CHARGE NURSE ARMANDO- PT'S TO CONTACT RISK MANAGEMENT-[facility] INFORMATION GIVEN TO .
--- NOTE | 2019-11-16 17:46 | NUR ---
ORDER FOR DISCHARGE TUBE FEEDING AT HOME PER MD DAVILA OSMOLITE 1.2 200ml BOLUS Q4H INSTRUCTIONS PROVIDED TO NELLIE WHO WILL BE PICKING UP NUTRITION AND SUPPLIES.
--- NOTE | 2019-11-16 18:16 | NUR ---
PT'S PICKED UP OSMOLITE FEEDING TUBE SOLUTION. EXPLAINED AND INSTRUCTED ON TUBE FEEDING METHODS AND ADMINISTRATION PER DR. DAVILA'S ORDER. ALL QUESTIONS AND CONCERNS ADDRESSED. PT'S NELLIE VERBALIZED UNDERSTANDING FOR FEEDING TUBE ADMINISTRATION.
--- NOTE | 2019-11-17 12:20 | NUR ---
I faxed tracheostomy supply order to [facility] [phone] (patient with shiley size 4.0mm ET tube).
--- NOTE | 2019-11-17 16:32 | NUR ---
I faxed updated trach supply order to [facility], spoke with Maria G-she did receive the order-it is written correctly and will be forwarded to [facility]-they will deliver needed supplies to patient's home.
== END 2019-11-16 15:10 | disposition home health service (06) | DRG 870 ==
LOC: EDBD 11:13 → ER 11:13 → TELE 11:14 → TELE-CENTR 21:30 → ICU WEST 11-03 06:36 → TELE-CENTR 11-05 16:25
PROVIDERS: ADMIT Internal Medicine; ATTEND Internal Medicine
PROC: 5A1955Z Respiratory Ventilation, Greater than 96 Consecutive Hours (ICD-10-PCS; principal; 2019-11-03)
PROC: 0DH67UZ Insertion of Feeding Device into Stomach, Via Natural or Artificial Opening (ICD-10-PCS; 2019-11-13)
PROC: 0DB98ZX Excision of Duodenum, Via Natural or Artificial Opening Endoscopic, Diagnostic (ICD-10-PCS; 2019-11-13)
PROC: 0DB68ZX Excision of Stomach, Via Natural or Artificial Opening Endoscopic, Diagnostic (ICD-10-PCS; 2019-11-13)
DX: A41.9 Sepsis, unspecified organism (principal); J18.9 Pneumonia, unspecified organism; G92 Toxic encephalopathy; I50.43 Acute on chronic combined systolic (congestive) and diastolic (congestive) heart failure; G82.50 Quadriplegia, unspecified; J96.20 Acute and chronic respiratory failure, unspecified whether with hypoxia or hypercapnia; N17.0 Acute kidney failure with tubular necrosis; N39.0 Urinary tract infection, site not specified; E87.2 Acidosis; I82.509 Chronic embolism and thrombosis of unspecified deep veins of unspecified lower extremity; E87.4 Mixed disorder of acid-base balance; J98.11 Atelectasis; E87.6 Hypokalemia; G71.00 Muscular dystrophy, unspecified; E03.9 Hypothyroidism, unspecified; L89.90 Pressure ulcer of unspecified site, unspecified stage; I44.7 Left bundle-branch block, unspecified; B95.2 Enterococcus as the cause of diseases classified elsewhere; B96.20 Unspecified Escherichia coli [E. coli] as the cause of diseases classified elsewhere; D64.9 Anemia, unspecified; B96.5 Pseudomonas (aeruginosa) (mallei) (pseudomallei) as the cause of diseases classified elsewhere; E66.9 Obesity, unspecified; I11.0 Hypertensive heart disease with heart failure; G40.909 Epilepsy, unspecified, not intractable, without status epilepticus; Z20.828 Contact with and (suspected) exposure to other viral communicable diseases; Z51.5 Encounter for palliative care; Z93.3 Colostomy status; Z88.5 Allergy status to narcotic agent; Z88.2 Allergy status to sulfonamides; Z79.899 Other long term (current) drug therapy; Z83.3 Family history of diabetes mellitus; Z82.49 Family history of ischemic heart disease and other diseases of the circulatory system; Z93.0 Tracheostomy status; Z74.01 Bed confinement status; Z79.01 Long term (current) use of anticoagulants; Z87.891 Personal history of nicotine dependence; Z86.73 Personal history of transient ischemic attack (TIA), and cerebral infarction without residual deficits; Z86.14 Personal history of Methicillin resistant Staphylococcus aureus infection; Z68.28 Body mass index [BMI] 28.0-28.9, adult
CPT/HCPCS: 36415; 36600; 43239; 43246; 70450; 71045; 71250; 71275; 76775; 80048; 80053; 81001; 82040; 82550; 82565; 82570; 82728; 82805; 82962; 83036; 83605; 83615; 83735; 83880; 84100; 84132; 84156; 84300; 84702; 85007; 85025; 85027; 85379; 85610; 85730; 86141; 87040; 87070; 87077; 87081; 87086; 87088; 87186; 87205; 87804; 87880; 93005; 93306; 93970; 94002; 94003; 94640; 94762; 95819; 96365; 96366; 96367; 96375; A4605; A4618; C9113; G0378; J0690; J0696; J0714; J1335; J2001; J2250; J3480; J7060; Q9956

== ENCOUNTER 2019-11-22 09:19 | Inpatient (IN) | payer MEDICARE, MEDICAID ==
[~2019-11-22] VITALS: Ht 167.6 cm; Wt 55.4 kg
[~2019-11-22 09:19] MED LIST: ACET1CAP14 PO; APIX5TAB PEG; BACL20TA PO; CAR3125T PEG; DIPH25CA66 PO; FURO10SO PO; GABA-339 PO; HYDR-531 PO; LEVO-451 PO; MUPI2OIN2 EX; NALO4SPR2; POM; SERT-160 PO; TOPI25CA5 PO; VALS1TAB57 PEG; [UNRECOGNIZED DRUG - CODE] SC
[2019-11-22 10:42] LABS: Albumin 3.4 g/dL (3.4-5.0); Calcium 9.8 mg/dL (8.5-10.1); Magnesium 2.4 mg/dL (1.6-2.6)
[2019-11-22 10:45] LABS: BUN/Creatinine Ratio 18.8; Bilirubin, Total 0.5 mg/dL (0.2-1.0); Total Protein 7.2 g/dL (6.4-8.2)
[2019-11-22 11:03] LABS: Potassium 4.5 mmol/L (3.5-5.1)
[2019-11-22 11:25] LABS: INR 1.11 (0.9-1.15); Partial Thromboplastin Time 28.7 sec (23.0-31.2)
[2019-11-22 12:20] LABS: Urine Bacteria NONE SEEN /hpf (None Seen); Urine Blood 3+ /uL (Negative); Urine Specific Gravity 1.008 (1.001-1.035); Urine WBC 13 /hpf (0 - 5)
[2019-11-22] MEDS ORDERED: cefTRIAXone 1GM/50ML D5W 50 ML IV ONE (13:30)
[2019-11-22 15:57] LABS: White Blood Cell 8.2 10^3/uL (4.4-10.8)
[2019-11-22 15:59] LABS: Hematocrit 24.1 % (36.0-46.0); Hemoglobin 7.8 g/dL (12.2-16.2); Mean Corpuscular Hgb Conc. 32.4 g/dL (32.0-36.0); Mean Corpuscular Volume 92.7 fL (80.0-100.0); Platelet Count (auto) 61 10^3/uL (140-450); Red Cell Distribution Width 14.6 % (11.8-14.3)
[2019-11-22 16:04] LABS: Basophils % (manual) 0 (0.0-2.0); Blast Cells 0; Metamyelocytes % 0; Myelocytes % 0; Promyelocytes % 0
[2019-11-22] MEDS: SODIUM CHLORIDE 0.9% 1,000 ML IV SCH (17:05)
[2019-11-22] MEDS ORDERED: MUPIROCIN 2% OINT 15gm or 22gm TOP ONE (17:15)
[2019-11-22] MEDS ORDERED: PIPERACILLIN-TAZOB 3.375GM 100 ML IV ONE (17:15)
[2019-11-22] MEDS ORDERED: ACETAMINOPHEN 325 MG TAB PO PRN (17:15)
[2019-11-22] MEDS ORDERED: MORPHINE SULF INJ 2 MG/ML SYRINGE 1ML IV PRN (17:15)
[2019-11-22] MEDS ORDERED: DOCUSATE SOD 100 MG CAP PO PRN (17:15)
[2019-11-22] MEDS ORDERED: NITROGLYCERIN 0.4 MG SL TAB SL PRN (17:15)
[2019-11-22] MEDS ORDERED: ALUM & MAG HYDROX-SIMETH LIQ(MAALOX) 30 ML PO PRN (17:15)
[2019-11-22] MEDS ORDERED: VANCOMYCIN PER PHARMACY 0 MG IV SCH (17:15)
[2019-11-22] MEDS ORDERED: ONDANSETRON HCL 4 MG/2 ML VIAL IV PRN (17:15)
[2019-11-22 17:24] LABS: Band Neutrophils % (manual) 1; Eosinophils % (manual) 4 (0-7); Lymphocytes % (manual) 24 (10.0-50.0); Monocytes % (manual) 6 (0-12); Reactive Lymphocytes 1
[2019-11-22] MEDS: CARVEDILOL 3.125 MG TAB PEG SCH (17:50)
[2019-11-22] MEDS: FUROSEMIDE 20 MG/2 ML VIAL IV SCH (18:49)
[2019-11-22] MEDS: MORPHINE SULF INJ 2 MG/ML SYRINGE 1ML IV PRN (19:52)
[2019-11-22] MEDS: VANCOMYCIN 1GM/250ML 250 ML IV SCH (21:22)
[2019-11-22] MEDS ORDERED: TOPIRAMATE 25 MG TAB PO SCH (22:00)
[2019-11-22] MEDS: GABAPENTIN 300 MG CAP PO SCH (22:19)
[2019-11-22] MEDS: BACLOFEN 10 MG TAB PO SCH (22:19)
[2019-11-22] MEDS: APIXABAN 5 MG TAB PEG SCH (22:19)
[2019-11-22] MEDS: MUPIROCIN 2% OINT 15gm or 22gm TOP SCH (22:20)
[2019-11-22 23:01] VITALS: BP 97/64
[2019-11-23 02:09] VITALS: BP 90/63
--- NOTE | 2019-11-23 02:30 | NUR ---
Oral care performed on patient.
[2019-11-23 05:00] VITALS: BP 111/68
--- NOTE | 2019-11-23 05:40 | NUR ---
Spoke with HH nurse Spoke with Lara Warner, patients home health nurse regarding plan of care and medications for patient. HH nurse wanting to speak with doctors and bilingual social worker regarding clarification of BP medications and plan for removing trach. HH nurse stated that the plan was to remove trach so patient could become verbal again. Informed HH nurse that swallow eval is placed. Call back number is [phone].
[2019-11-23] MEDS: PIPERACILLIN-TAZOB 3.375GM 100 ML IV SCH ×3 (06:29→13:28)
[2019-11-23] MEDS: FUROSEMIDE 20 MG/2 ML VIAL IV SCH (06:29)
[2019-11-23] MEDS: BACLOFEN 10 MG TAB PO SCH (06:30)
[2019-11-23] MEDS: GABAPENTIN 300 MG CAP PO SCH (06:30)
[2019-11-23] MEDS: LEVOTHYROXINE SODIUM 25 MCG TAB PO SCH (06:30)
[2019-11-23] MEDS: CARVEDILOL 3.125 MG TAB PEG SCH ×2 (08:00→17:05)
--- NOTE | 2019-11-23 08:30 | NUR ---
Opening Shift Note Assumed care of patient, awake and alert. No S/S of distress/SOB or pain. Bed in lowest/locked position, bed rails up x2, call light within reach. Instructed on POC and will continue to monitor for changes Q1hr and PRN.
[2019-11-23 09:03] VITALS: BP 100/60
--- NOTE | 2019-11-23 09:30 | NUR ---
AIR MATTRESS: Air mattress ordered at [facility]. BENJA 11/23/19 @ 1520 Reference #[id number]. Please call [facility] at if needed to follow up. Addendum: 11/23/19 at 0931 by Hansa Bess RN Amended: Links added.
[2019-11-23] MEDS: SODIUM CHLORIDE 0.9% 1,000 ML IV SCH (09:45)
[2019-11-23] MEDS ORDERED: SERTRALINE HCL 50 MG TAB PO SCH (10:00)
[2019-11-23] MEDS ORDERED: VALSARTAN 80 MG TAB PEG SCH (10:00)
[2019-11-23] MEDS: APIXABAN 5 MG TAB PEG SCH ×2 (10:08→22:40)
[2019-11-23 10:32] LABS: Basophils # (auto) 0 10 ^3/uL (0-0.2); Basophils % (auto) 0.4 % (0.0-2.0); Eosinophils # (auto) 0.7 10 ^3/uL (0-0.8); Eosinophils % (auto) 6.3 % (0.0-7.0); Hematocrit 29.7 % (36.0-46.0); Hemoglobin 9.7 g/dL (12.2-16.2); Lymphocytes # (auto) 0.8 10 ^3/uL (0.4-5.4); Lymphocytes % (auto) 7.5 % (10.0-50.0); Mean Corpuscular Hemoglobin 29.6 pg (28.0-32.0); Mean Corpuscular Hgb Conc. 32.5 g/dL (32.0-36.0); Mean Corpuscular Volume 91.1 fL (80.0-100.0); Monocytes # (auto) 1.3 10 ^3/uL (0-1.3); Monocytes % (auto) 11.8 % (0.0-12.0); Neutrophils # (auto) 8.1 10 ^3/uL (1.6-8.6); Nucleated Red Blood Cells % 0.1 %; Platelet Count (auto) 99 10^3/uL (140-450); Red Blood Cells 3.26 10^6/uL (4.0-5.20); Red Cell Distribution Width 14.6 % (11.8-14.3)
--- NOTE | 2019-11-23 10:45 | NUR ---
ROUNDS DR DAVILA AT BEDSIDE
[2019-11-23 10:48] LABS: Albumin 2.8 g/dL (3.4-5.0); Calcium 8.8 mg/dL (8.5-10.1); Magnesium 2.1 mg/dL (1.6-2.6); Potassium 3.7 mmol/L (3.5-5.1)
[2019-11-23 10:52] LABS: BUN/Creatinine Ratio 14.8; Bilirubin, Total 0.6 mg/dL (0.2-1.0); Phosphorus 3.4 mg/dL (2.5-4.90); Total Protein 6.7 g/dL (6.4-8.2)
[2019-11-23 11:04] LABS: INR 1.19 (0.9-1.15)
[2019-11-23] MEDS: VANCOMYCIN 1GM/250ML 250 ML IV SCH (11:28)
--- NOTE | 2019-11-23 11:51 | NUR ---
WOUND CARE NOTE: Wound care in to see patient per wound care request regarding multiple wounds that are noted present on admission. Laney nurse took photograph of patient's wounds upon admission for reference. Patient is 48 y/o female with admitting diagnosis of Acute Aspiration, Acute Unspecified Pna. Patient is resting in bed in Rm. 207. She's quadriplegic and max assist in ADL's. Her Henry score is 13. Patient is awake and able to mouth words to communicate. She's on O2 via trach. Skin/wound assessment done with the assistance of patient's nurse, GABRIEL Sierra. 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 Wounds are red with pink alla wound. Minimal serous drainage noted, no odor noted. Open partial thickness skin tear noted on her L medial thigh. Her lower buttocks, perineum and thighs has dark red/hyperpigmented dry skin appears to be from resolving MASD. Cleansed multiple wounds with wound cleanser, patted dry with gauze, applied Thera honey gel and covered with Opti foam gentle dressing. Medial sacral wound has 0.5cm depth , and L ischial wound with 1.5cm depth packed with plain packing strips prior covering of Opti foam sacral dressing. Barrier cream applied to lower buttocks, perineum. Repositioned patient for comfort facing her Rt. side, redistributed pressure points with pillows. Patient tolerated well. Bed in low position with all safety precautions in placed. RECOMMENDATION: Daily/PRN dressing change to multiple wounds, BID/PRN cleaning and application of Barrier cream to lower buttocks, perineum per MD order, Dietary consult for wounds and low Henry, frequent turning and repositioning schedule as condition permits, redistribute pressure points with pillows, air mattress (ordered), elevate heels on pillows, continue monitoring by wound care while patent is hospitalized. Addendum: 11/23/19 at 1706 suyapa Bess RN Amended: Links added.
--- NOTE | 2019-11-23 12:21 | NUR ---
Consult Consider starting Osmolite 1.2 @ 50 ml/hr as previously ordered from prior visit Est energy needs 3131-3400 kcal (20-25 kcal/kg BW 73kg) Est protein needs 59-73g (0.8-1g/kg BW 73kg) Will reassess prn Addendum: 11/23/19 at [address] Amended: Links added.
[2019-11-23 12:41] VITALS: BP 91/43
[2019-11-23] MEDS: MUPIROCIN 2% OINT 15gm or 22gm TOP SCH ×2 (13:27→22:40)
[2019-11-23] MEDS ORDERED: COLISTIMETHATE SODIUM IV SCH (13:45)
[2019-11-23] MEDS ORDERED: STERILE WATER IV SCH (13:45)
[2019-11-23] MEDS ORDERED: BACLOFEN 10 MG TAB PEG SCH (14:00)
--- NOTE | 2019-11-23 14:15 | NUR ---
Assessment Patient is a 48-year-old female who is home vent to trach. Assessment was completed with patient Raj . Patients Raj informed me prior to admission patient lived home with him and functioned with his assistance. Patients PCP is Dr. Vaughan at [facility]. Patient is on service with [employer] [phone]. Patient has a hospital bed and wheelchair at home. Patient is trach collar via home oxygen. Patient has an advanced directive and Raj is POA. Raj verbalized understanding and agreed to discharge plan home. Faxed clinical information to [facility] [employer] count includes the [facility]. Placed Call to Maria G with [employer] count includes the [facility] regarding home health orders. Per Maria G order has been received and they will see patient upon d/c. [facility] IS ON WILL CALL PH: [phone]. Informed GABRIEL Sierra. Addendum: 11/23/19 at 1426 by ZA MORSE Amended: Links added.
[2019-11-23] MEDS: GABAPENTIN 300 MG CAP PEG SCH ×2 (14:39→22:40)
[2019-11-23] MEDS: Osmolite 1.2 Cal One Liter PEG SCH (14:39)
--- NOTE | 2019-11-23 16:32 | NUR ---
PATIENT HAS TRACHEOSTOMY. PATIENT HAS NATURAL TEETH, ABLE TO FOLLOW DIRECTIONS. PATIENT TOLERATED TRIAL OF PUREE AND THIN LIQUIDS WITH NO OVERT SIGNS OR SYMPTOMS OF ASPIRATION. PATIENT INDICATED NO PAIN OR FEELING OF BOLUS BEING STUCK. UNSURE IF A PO DIET WITH PUREE AND THIN LIQUIDS WOULD BE ENOUGH NUTRITION TO SUSTAIN PATIENT. NURSING NOTIFIED.
[2019-11-23 16:59] VITALS: BP 95/51
[2019-11-23] MEDS: MORPHINE SULF INJ 2 MG/ML SYRINGE 1ML IV PRN ×2 (18:44→22:42)
--- NOTE | 2019-11-23 19:25 | NUR ---
Opening Shift Note Assumed care of patient, awake and alert. No S/S of distress/SOB. Patient is currently on 6L O2 with a SPO2 of 99%. Bed is locked in lowest position with call light within reach. Patient is unable to use call light. Will frequently round on the patient. Will continue to monitor for changes Q1hr and PRN.
[2019-11-23] MEDS: diphenhdrAMINE HCL 50 MG/1 ML VL IV PRN (20:27)
[2019-11-23 22:00] VITALS: BP 94/51
[2019-11-23] MEDS ORDERED: TOPIRAMATE 25 MG TAB PEG SCH (22:00)
[2019-11-23] MEDS: CeftoloZANE-TAZOB 3 GM in D5W 5% 100 ML IV SCH (22:40)
[2019-11-23] MEDS: TOPIRAMATE PEG SCH (22:40)
[2019-11-24] MEDS: HYDROcodone-ACET 5/325MG TAB PO PRN (01:00)
[2019-11-24] MEDS: SODIUM CHLORIDE 0.9% 1,000 ML IV SCH (02:25)
[2019-11-24] MEDS: diphenhdrAMINE HCL 50 MG/1 ML VL IV PRN ×2 (03:10→20:35)
--- NOTE | 2019-11-24 05:09 | NUR ---
LOW BP The patient's blood pressure is 64/42 with a map of 49. The patient denies any light headedness or dizziness. Will page and notify hospitalist.
[2019-11-24 05:16] VITALS: BP 73/43
[2019-11-24] MEDS: CeftoloZANE-TAZOB 3 GM in D5W 5% 100 ML IV SCH ×3 (05:30→22:00)
[2019-11-24] MEDS: GABAPENTIN 300 MG CAP PEG SCH (06:00)
--- NOTE | 2019-11-24 06:12 | NUR ---
HOSPITALIST RETURNED CALL Notified Hospitalist Luis M about the patient's low blood pressure. New order for Albumin 5% 250 ml has been obtained.
[2019-11-24] MEDS ORDERED: ALBUMIN 5% 250 ML IV ONE (06:15)
[2019-11-24] MEDS: LEVOTHYROXINE SODIUM 25 MCG TAB PO SCH (06:51)
[2019-11-24 07:05] LABS: Calcium 8.6 mg/dL (8.5-10.1); Potassium 3.6 mmol/L (3.5-5.1)
[2019-11-24 07:16] LABS: BUN/Creatinine Ratio 15.2
[2019-11-24 08:00] VITALS: BP 94/52
[2019-11-24] MEDS: SERTRALINE HCL 50 MG TAB PEG SCH (09:54)
[2019-11-24] MEDS: LORazepam 0.5 MG TAB PO PRN (09:54)
[2019-11-24] MEDS: APIXABAN 5 MG TAB PEG SCH ×2 (09:54→22:00)
[2019-11-24] MEDS: MUPIROCIN 2% OINT 15gm or 22gm TOP SCH ×2 (09:54→22:00)
[2019-11-24] MEDS: TOPIRAMATE PEG SCH ×2 (10:00→22:00)
[2019-11-24 13:00] VITALS: BP 95/51
[2019-11-24 17:00] VITALS: BP 107/57
--- NOTE | 2019-11-24 19:40 | NUR ---
Opening Shift Note Assumed care of patient. Patient was resting upon initial contact but arousable. No S/S of distress/SOB or pain. Instructed on POC and to call for assist PRN, will continue to monitor for changes Q1hr and PRN.
--- NOTE | 2019-11-24 20:30 | NUR ---
ASSESSMENT The patient reports that she is feeling itchy throughout her entire body. Will treat with PRN Benadryl.
[2019-11-24] MEDS: MORPHINE SULF INJ 2 MG/ML SYRINGE 1ML IV PRN (21:55)
[2019-11-24 22:00] VITALS: BP 107/57
--- NOTE | 2019-11-24 22:42 | NUR ---
PAIN ASSESSMENT The patient c/o 8/10 back pain and requested pain medication. Will treat with PRN Morphine.
[2019-11-25] MEDS: MORPHINE SULF INJ 2 MG/ML SYRINGE 1ML IV PRN ×2 (04:56→21:43)
[2019-11-25 05:00] VITALS: BP 115/70
[2019-11-25] MEDS: CeftoloZANE-TAZOB 3 GM in D5W 5% 100 ML IV SCH ×3 (06:00→21:42)
[2019-11-25] MEDS: LEVOTHYROXINE SODIUM 25 MCG TAB PO SCH (07:00)
--- NOTE | 2019-11-25 07:10 | NUR ---
PT. IS AWAKE AND ALERT. PT. ASKED TO BE SX'D AT THIS TIME. SX'D TRACH FOR SMALL AMOUNT OF THICK WHITE SECRETIONS. BS. CLEAR AFTER SX. , WIPED PT'S EYES AND MOUTH WITH WET WASH CLOTH. NO RESP. DISTRESS NOTED, PT. ON BEDSIDE PULSEOX. , SPO2 98%, WILL CONTINUE TO MONITOR RESP. STATUS. Addendum: 11/25/19 at 0716 by Mervat Jacobson RT Amended: Links added.
[2019-11-25 08:40] LABS: Basophils # (auto) 0 10 ^3/uL (0-0.2); Basophils % (auto) 0.4 % (0.0-2.0); Eosinophils # (auto) 0.4 10 ^3/uL (0-0.8); Hemoglobin 7.8 g/dL (12.2-16.2); Lymphocytes # (auto) 0.9 10 ^3/uL (0.4-5.4); Monocytes # (auto) 0.6 10 ^3/uL (0-1.3); Red Cell Distribution Width 15.2 % (11.8-14.3)
[2019-11-25 08:43] LABS: Eosinophils % (auto) 7.8 % (0.0-7.0); Hematocrit 23.8 % (36.0-46.0); Lymphocytes % (auto) 16.6 % (10.0-50.0); Mean Corpuscular Hemoglobin 30.1 pg (28.0-32.0); Mean Corpuscular Hgb Conc. 32.8 g/dL (32.0-36.0); Mean Corpuscular Volume 91.8 fL (80.0-100.0); Monocytes % (auto) 10.7 % (0.0-12.0); Neutrophils # (auto) 3.4 10 ^3/uL (1.6-8.6); Neutrophils % (auto) 64.5 % (37.0-80.0); Platelet Count (auto) 123 10^3/uL (140-450); Red Blood Cells 2.59 10^6/uL (4.0-5.20); White Blood Cell 5.3 10^3/uL (4.4-10.8)
[2019-11-25 09:00] VITALS: BP 105/63
[2019-11-25 09:03] LABS: BUN/Creatinine Ratio 24.1; Calcium 8.6 mg/dL (8.5-10.1)
[2019-11-25] MEDS: MUPIROCIN 2% OINT 15gm or 22gm TOP SCH ×2 (10:34→21:43)
[2019-11-25] MEDS: SERTRALINE HCL 50 MG TAB PEG SCH (10:34)
[2019-11-25] MEDS: TOPIRAMATE PEG SCH ×2 (10:35→22:00)
[2019-11-25] MEDS: APIXABAN 5 MG TAB PEG SCH ×2 (10:35→21:43)
--- NOTE | 2019-11-25 11:20 | NUR ---
Nutrition Followup Note Wt 63.2kg Pt was in isolation precautions. Per speech therapist pt passed swallow eval for pureed and thin liquids. Pt diet order changed to pureed with no po intake recorded. Pt is with a PEG tube with Osmolite 1.2 ordered at 40 ml/hr. Est energy needs 7263-5344 kcal (20-25 kcal/kg BW 73kg) Est protein needs 59-73g (0.8-1g/kg BW 73kg) Will reassess prn Labs: Creat 0.54L, GLUC 110H, Alb 2.8L BM: Pt with no BM noted per RN note Skin: BS 13 mod risk, full details in armored service technician are note. PES: Inadequate oral intake r/t current medical condition aeb pt NPO with PEG tube Comments: 1) Continue to monitor NPO status, swallow eval, labs, skin 2) Refer pt to OPD on DC 3) Continue current plan of care Consider Osmolite 1.2 with a goal rate of 50 ml/hr Expected Outcomes/Goals: 1) Consider starting TF when medically feasible per MD approval 2) Diet advanced to pureed with thin liquids, consider po intake as well as TF rate 3) f/u 3-5 days
--- NOTE | 2019-11-25 13:20 | NUR ---
TRACH CARE DONE AT THIS TIME. CLEANED SITE, INNER CANNULA, AND CHANGED GAUZE AND TRACH TIES. SUCTIONED PT. AFTER FOR MODERATE AMOUNT OF THICK WHITE SECRETIONS, ALSO SMALL AMOUNT OF FOAMY WHITE SECRETIONS. NO RESP. DISTRESS NOTED, SATS ARE 97% ON 28% COOL AEROSOL. Addendum: 11/25/19 at 1353 by Mervat Jacobson RT Amended: Links added.
[2019-11-25 17:00] VITALS: BP 117/74
[2019-11-25 22:00] VITALS: BP 132/79
--- NOTE | 2019-11-25 22:15 | NUR ---
TOPAMAX ORAL SUSPENSION NOT AVAILABLE IN XIS, IN PT OWN MED DRAWER. NOTIFIED EDUCATION SPEC AND STATED NO ACCESS TO PHARMACY AT THIS TIME.
--- NOTE | 2019-11-26 00:05 | NUR ---
RT NOTE TRACH CARE COMPLETED.
--- NOTE | 2019-11-26 00:06 | NUR ---
RT NOTE TRACH CARE COMPLETED. PT ASKED TO BE SUCTIONED. MODERATED AMOUNTS OF THICK/THIN WHITE SECRETIONS RETURNED WITH DEEP TRACHEAL SUCTION. PT WANTED MOUTH SUCTIONED WELL. PT WOULDN'T ALLOW THE FOREST FIRE FIGHTER TO SUCTION PASS THE PTS LIPS AND JUST KEPT BRING SPUTUM UP. APPOX 8 TO 10 TIMES. RT ASKED TO SUCTION DEEPER, BUT THE PT REFUSED AND JUST KEPT PRODUCING MORE SPUTUM TO BE SUCTIONED AWAY.
[2019-11-26 01:50] VITALS: BP 132/79
--- NOTE | 2019-11-26 02:57 | NUR ---
RT NOTE RT SUCTIONED PT TRACH, SMALL AMOUNT OF THICK WHITE SECRETIONS RETURNED. RT SUCTIONED PTS MOUTH FOR SPUTUM THAT WAS BROUGHT UP BY PT MULTIPLE TIMES AGAIN. PT SEEMS TO BE PURPOSELY CREATING SPIT TO HAVE SUCTIONED AND WILL NOT ALLOW FOR RT TO ACTUALLY SUCTION THE ORAL CAVITY FOR ANY SECRETIONS THAT MIGHT BE SITTING IN THE BACK OF PTS THROAT. RTT TOOK WATER IN TO REPLACE COOL AEROSOL, BUT WATER WAS STILL HALF FULL. NEW WATER LEFT AT BEDSIDE.
[2019-11-26 05:00] VITALS: BP 118/80
[2019-11-26] MEDS: LEVOTHYROXINE SODIUM 25 MCG TAB PO SCH (05:29)
[2019-11-26] MEDS: CeftoloZANE-TAZOB 3 GM in D5W 5% 100 ML IV SCH ×3 (05:39→20:39)
[2019-11-26] MEDS: MORPHINE SULF INJ 2 MG/ML SYRINGE 1ML IV PRN ×2 (08:30→20:57)
[2019-11-26 09:00] VITALS: BP 108/55
--- NOTE | 2019-11-26 09:27 | NUR ---
Family/MD rounds Patient's Raj called and after password provided Doctor Napoleon spoke to him on the phone and updated on POC and treatment. All questions answered. MD Bender aware of patient's status. No new orders received at this time. Will cont care
[2019-11-26] MEDS: TOPIRAMATE PEG SCH ×2 (10:00→22:00)
[2019-11-26 10:35] LABS: Basophils # (auto) 0 10 ^3/uL (0-0.2); Basophils % (auto) 0.3 % (0.0-2.0); Eosinophils # (auto) 0.5 10 ^3/uL (0-0.8); Eosinophils % (auto) 7.2 % (0.0-7.0); Hemoglobin 9.4 g/dL (12.2-16.2); Lymphocytes # (auto) 0.9 10 ^3/uL (0.4-5.4); Lymphocytes % (auto) 13.1 % (10.0-50.0); Mean Corpuscular Hemoglobin 30.6 pg (28.0-32.0); Mean Corpuscular Hgb Conc. 33.4 g/dL (32.0-36.0); Mean Corpuscular Volume 91.6 fL (80.0-100.0); Monocytes # (auto) 0.5 10 ^3/uL (0-1.3); Monocytes % (auto) 7.7 % (0.0-12.0); Neutrophils # (auto) 5.1 10 ^3/uL (1.6-8.6); Neutrophils % (auto) 71.7 % (37.0-80.0); Nucleated Red Blood Cells % 0.2 %; Platelet Count (auto) 176 10^3/uL (140-450); Red Blood Cells 3.06 10^6/uL (4.0-5.20); Red Cell Distribution Width 15.3 % (11.8-14.3); White Blood Cell 7.1 10^3/uL (4.4-10.8)
[2019-11-26 10:36] LABS: Calcium 9.6 mg/dL (8.5-10.1); Potassium 4.3 mmol/L (3.5-5.1)
[2019-11-26 10:37] LABS: BUN/Creatinine Ratio 21.4
[2019-11-26] MEDS: SERTRALINE HCL 50 MG TAB PEG SCH (11:23)
[2019-11-26] MEDS: APIXABAN 5 MG TAB PEG SCH ×2 (11:23→20:38)
[2019-11-26] MEDS: MUPIROCIN 2% OINT 15gm or 22gm TOP SCH ×2 (11:24→20:40)
[2019-11-26 13:00] VITALS: BP 102/64
[2019-11-26 17:00] VITALS: BP 133/72
[2019-11-26] MEDS: FUROSEMIDE 40 MG/4 ML VIAL IV SCH (17:54)
--- NOTE | 2019-11-26 19:16 | NUR ---
Patient care endorsed Endorsed care to Joanie loya. Patient repositioned and pressure areas off loaded on pillows. Dressing changed to sacrum as ordered. Call light within reach no acute distress or sob noted.
[2019-11-26] MEDS: levETIRAcetam 500 MG/5ML ORAL SOLN UD GT SCH (20:40)
[2019-11-26 22:00] VITALS: BP 132/79
[2019-11-27 05:00] VITALS: BP 102/70
[2019-11-27] MEDS: Osmolite 1.2 Cal One Liter PEG SCH (05:08)
[2019-11-27] MEDS: LEVOTHYROXINE SODIUM 25 MCG TAB PO SCH (05:14)
[2019-11-27] MEDS: FUROSEMIDE 40 MG/4 ML VIAL IV SCH ×2 (05:14→20:14)
[2019-11-27 05:41] LABS: Potassium 4.9 mmol/L (3.5-5.1)
[2019-11-27 05:50] LABS: BUN/Creatinine Ratio 23.3; Calcium 9.9 mg/dL (8.5-10.1); Magnesium 2.5 mg/dL (1.6-2.6)
--- NOTE | 2019-11-27 06:30 | NUR ---
WOUND DRESSING CHANGED ON SACRUM AND BILATERAL HIPS.
--- NOTE | 2019-11-27 07:35 | NUR ---
Opening Shift Note Assumed care of patient. Patient awake, and alert at initial encounter, able to make needs known by mouthing out words. No S/S of distress/SOB or pain. Receiving osmolite feeding at 40ml/hr. Instructed on POC and to call for assist PRN, will continue to monitor for changes Q1hr and PRN.
[2019-11-27] MEDS: CeftoloZANE-TAZOB 3 GM in D5W 5% 100 ML IV SCH ×3 (08:41→22:21)
[2019-11-27 08:44] VITALS: BP 99/58
--- NOTE | 2019-11-27 09:55 | NUR ---
SPOKE TO SHARMILA FROM DIETARY. SHE CONFIRMS THAT FEEDING FOR DISCHARGE ORDER IS OSMOLITE 5 CANS A DAY, 3-4 HOURS APART. MD AND CLEANING MANAGER NOTIFIED.
[2019-11-27] MEDS: TOPIRAMATE PEG SCH ×2 (10:00→20:54)
--- NOTE | 2019-11-27 10:13 | NUR ---
DR DAVILA AT BEDSIDE. UPDATED DC ORDER. REQUESTED RT TO SUCTION PATIENT FOR DISCHARGE.
--- NOTE | 2019-11-27 10:45 | NUR ---
Respiratory note: PT ASSESSED FOR TRACH. PT IS CURRENTLY ON 6L 28% FIO2. PT REQUIRED ORAL AND TRACH SUCTIONING. SUCTIONED SMALL AMOUNT OF WHITE SECRETIONS. CHANGED WATER OUT FOR COOL AEROSOL WITHOUT INCIDENT. WILL CONTINUE TO MONITOR PT.
--- NOTE | 2019-11-27 10:48 | NUR ---
Attempted to contact Floor nurse regarding this pt but she was in an isolation room. Contacted Chepe Charge nurse and advised that pt would need to be started on bolus feedings since she is currently on continuous feeding with Osmolite. Explained the issues with pt's discharged last week because of this issue. Additionally, informed charge that current order for 8 cans of ensure a day and contact with the Agricultural Education Instructor needed to be made for a correct order for home health. Pt will also need a few cans of insure and clarified trach supply order. Chepe stated she will reach out to drawer upfitter herself and notify nurse.
[2019-11-27] MEDS: SERTRALINE HCL 50 MG TAB PEG SCH (11:03)
[2019-11-27] MEDS ORDERED: NUTR-709 OR (11:03)
[2019-11-27] MEDS: APIXABAN 5 MG TAB PEG SCH ×2 (11:03→20:53)
[2019-11-27] MEDS: levETIRAcetam 500 MG/5ML ORAL SOLN UD GT SCH ×2 (11:04→20:54)
[2019-11-27] MEDS: MUPIROCIN 2% OINT 15gm or 22gm TOP SCH ×2 (11:04→20:53)
--- NOTE | 2019-11-27 11:09 | NUR ---
I spoke with Maria G at [facility] and she said that their DME company has supplies for the cuffed trach but that they are needing an RT to evaluate patient's new trach before they will send supplies out for the cuffed trach and they are understaffed-having problems getting an RT to be able to go out there to assess patient's cuffed trach at home. Maria G asked if we can send patient home with a couple of extra trachs or if it can be changed back to a non-cuffed trach. I let her know that I spoke with RT here as well as Dr. Bender and neither of those is an option. Per Maria G she is going to contact their DME company to see what they can do and give me a call back.
--- NOTE | 2019-11-27 12:10 | NUR ---
SPOKE TO KATE FROM [facility], UPDATED HER ON PATIENT'S DISCHARGE PLAN.
[2019-11-27 12:30] VITALS: BP 120/76
--- NOTE | 2019-11-27 13:51 | NUR ---
contacted by floor nurse Rufina that Dr. Bender had changed order after clarification from gas tender. Order will now be for 5 cans of ensure a day but wrote this on a prescription pad. Advised nurse that this order needed to go to the home health agency and could not be on a prescription pad. Rufina asked if pt could be discharged now and I reiterated that the pt needed to have the bolus feeding done here first since she has been on continuous Osmolite and has never had the ensure bolus. Also need the order to send to [place] for confirmation that services will be set up for patient. Will follow up with manager pe Yvonne and nurse Rufina for completion of the above.
[2019-11-27] MEDS ORDERED: Osmolite 1.2 Cal One Liter GT (16:00)
--- NOTE | 2019-11-27 16:00 | NUR ---
ONE TIME BOLUS FEEDING COMPLETED. PATIENT TOLERATED WELL.
--- NOTE | 2019-11-27 16:20 | NUR ---
SPOKE TO [facility]OSSMAN GAS GENERATOR OPERATOR REGARDING DISCHARGE. PER GAS GENERATOR OPERATOR, DO NOT DISCHARGE PATIENT YET UNTIL TRACH SUPPLIES ARE SORTED OUT.
[2019-11-27 16:41] VITALS: BP 134/79
[2019-11-27] MEDS: MORPHINE SULF INJ 2 MG/ML SYRINGE 1ML IV PRN ×2 (18:40→23:32)
--- NOTE | 2019-11-27 18:40 | NUR ---
COLOSTOMY BAG EMPTIES AND REPLACED WITH NEW ONE.
--- NOTE | 2019-11-27 18:58 | NUR ---
PLACED A CALL TO PATIENT'S TO INFORM OF THE PENDING DISCHARGE. PATIENT'S IS REQUESTING FOR EXTRA TRACH UPON DISCHARGE.
[2019-11-27] MEDS: LORazepam 0.5 MG TAB PO PRN (20:53)
[2019-11-27 22:57] VITALS: BP 125/70
[2019-11-27] MEDS: diphenhdrAMINE HCL 50 MG/1 ML VL IV PRN (23:10)
[2019-11-27 23:20] VITALS: BP 134/82
[2019-11-28] MEDS: LEVOTHYROXINE SODIUM 25 MCG TAB PO SCH (05:04)
[2019-11-28] MEDS: FUROSEMIDE 40 MG/4 ML VIAL IV SCH ×2 (05:04→18:42)
[2019-11-28 05:20] VITALS: BP 104/69
[2019-11-28] MEDS: CeftoloZANE-TAZOB 3 GM in D5W 5% 100 ML IV SCH ×3 (07:16→22:16)
--- NOTE | 2019-11-28 07:35 | NUR ---
Opening Shift Note Assumed care of patient from noc shift rn. Patient awake, and alert at initial encounter, able to make needs known by mouthing out words. No S/S of distress/SOB or pain, assisted patient to scratch arm per request. Receiving osmolite feeding at 40ml/hr. Instructed on POC and to call for assist PRN, will continue to monitor for changes Q1hr and PRN.
[2019-11-28 09:00] VITALS: BP 123/74
[2019-11-28] MEDS: TOPIRAMATE PEG SCH ×2 (10:00→22:00)
[2019-11-28] MEDS: APIXABAN 5 MG TAB PEG SCH ×2 (10:55→22:18)
[2019-11-28] MEDS: levETIRAcetam 500 MG/5ML ORAL SOLN UD GT SCH ×2 (10:56→22:17)
[2019-11-28] MEDS: SERTRALINE HCL 50 MG TAB PEG SCH (10:56)
[2019-11-28] MEDS: MUPIROCIN 2% OINT 15gm or 22gm TOP SCH ×2 (10:57→22:18)
--- NOTE | 2019-11-28 12:00 | NUR ---
suction patient per request. patient tolerated well.
--- NOTE | 2019-11-28 12:15 | NUR ---
spoke to daughter and informed her patient will be discharged today, and per social work assistant, trach supply will be delivered tomorrow.
[2019-11-28 12:20] VITALS: BP 104/69
[2019-11-28 12:32] VITALS: BP 106/74
--- NOTE | 2019-11-28 12:37 | NUR ---
I called [facility] [phone] and spoke with Maria G-she said trach supplies will be delivered to patient's home tomorrow-I spoke with nurse Almaraz and let her know that arrangements are complete on our end.
--- NOTE | 2019-11-28 14:07 | NUR ---
D/C planning Transportation has been arranged with [facility] with a Nurse during transportation with a 17:00 bulk picker time. Contact patient Raj to informed him transportation has been arranged at 17:00. Raj verbalize understanding.
--- NOTE | 2019-11-28 14:45 | NUR ---
Spoke to patient's informing him of discharge for today. However, he voiced that home health service will not be available to provide care today but will be available tomorrow.
--- NOTE | 2019-11-28 14:50 | NUR ---
Paged Dr. Bender and received a call back. Updated that home health service will not be available for patient if discharged today. Per It's ok to hold discharge for today and discharge tomorrow.
--- NOTE | 2019-11-28 15:00 | NUR ---
D/C Planning Received a call from Raj advising me [facility] will not be able to provide supplies untill tomorrow and if patient can discharge in the morning. Informed Dr. Bender and DALIA Johnson. [facility] transportation has been changed for tomorrow 11/29/19 at 8:00am. Informed GABRIEL Almaraz and patient Raj. GABRIEL Almaraz and Raj verbalize understanding d/c plan.
--- NOTE | 2019-11-28 15:30 | NUR ---
DISCHARGE HELD FOR TOMORROW DISCHARGE. MD AWARE. PER VALVE TECHNICIAN, PATIENT WILL BE PICKED UP BY [facility] TOMORROW AT 0800.
[2019-11-28 16:54] VITALS: BP 116/72
--- NOTE | 2019-11-28 18:40 | NUR ---
ENSURE GIVEN VIA GT, PATIENT TOLERATED WELL.
[2019-11-28] MEDS: Ensure Enlive Vanilla 8oz Bottle PO SCH ×2 (18:43→22:00)
--- NOTE | 2019-11-28 19:50 | NUR ---
Opening Shift Note Per Report discharge wound photos taken by day RN Rufina and discharge to be held till tomorrow AM. Assumed care of patient from Day shift Rufina rn. Patient awake, and alert at initial encounter. No S/S of distress/SOB or pain. Receiving osmolite feeding at 40ml/hr. Residual is 10ml. Instructed on POC and to call for assist PRN, will continue to monitor for changes Q1hr and PRN.
[2019-11-28 21:25] VITALS: BP 116/81
[2019-11-28] MEDS: diphenhdrAMINE HCL 50 MG/1 ML VL IV PRN (22:16)
[2019-11-28] MEDS: MORPHINE SULF INJ 2 MG/ML SYRINGE 1ML IV PRN (22:51)
--- NOTE | 2019-11-28 23:00 | NUR ---
Provided benadryl prn as ordered, due to patient complaining of itching.
[2019-11-29] MEDS: HYDROcodone-ACET 5/325MG TAB PO PRN (00:41)
[2019-11-29] MEDS: Osmolite 1.2 Cal One Liter PEG SCH (00:42)
--- NOTE | 2019-11-29 01:58 | NUR ---
Opening Shift Note Per Report discharge wound photos taken by day RN Rufina and discharge to be held till tomorrow AM. Assumed care of patient from noc shift rn. Patient awake, and alert at initial encounter. No S/S of distress/SOB or pain, assisted patient to scratch arm per request. Receiving osmolite feeding at 40ml/hr. Instructed on POC and to call for assist PRN, will continue to monitor for changes Q1hr and PRN.
[2019-11-29 02:10] VITALS: BP 116/81
[2019-11-29] MEDS: MORPHINE SULF INJ 2 MG/ML SYRINGE 1ML IV PRN (03:52)
[2019-11-29] MEDS: diphenhdrAMINE HCL 50 MG/1 ML VL IV PRN (05:00)
[2019-11-29 05:12] VITALS: BP 129/79
[2019-11-29] MEDS: Ensure Enlive Vanilla 8oz Bottle PO SCH (06:00)
--- NOTE | 2019-11-29 06:30 | NUR ---
Called pharmacy to notify zerbaxa is not available. pharmacy said they will send it. awaiting medication.
[2019-11-29] MEDS: LEVOTHYROXINE SODIUM 25 MCG TAB PO SCH (06:33)
[2019-11-29] MEDS: FUROSEMIDE 40 MG/4 ML VIAL IV SCH (06:33)
--- NOTE | 2019-11-29 06:37 | NUR ---
discharge photos re-taken of sacrum/ buttocks/ left hip/ right hip/ upper chest (scratches). colostomy bag changed. changed all new wound dressings. Addendum: 11/29/19 at 0740 by Ever Coronel RN picture of scare of right inner leg anterior.
--- NOTE | 2019-11-29 06:47 | NUR ---
called pharmacy to follow up on zerbaxa medication. genet from pharmacy will call me once medication is made and ready to be sent.
[2019-11-29] MEDS: CeftoloZANE-TAZOB 3 GM in D5W 5% 100 ML IV SCH (07:05)
--- NOTE | 2019-11-29 07:39 | NUR ---
provided report to day rn. notified of patient being picked up by [facility] at 0800, discharge paperwork completed, and paper work needs to be double checked, wound pics taken for discharge, mrsa swab for discharge not completed, trach care at bedside - tube feeding bottles 5 total at bedside, missing speaking valve. patient in bed with no signs of distress at this time.
--- NOTE | 2019-11-29 08:00 | NUR ---
[facility] here for patient, will remove IV and prepare patient.
--- NOTE | 2019-11-29 08:20 | NUR ---
RT at bedside Speaking valve in place.
--- NOTE | 2019-11-29 08:25 | NUR ---
Home tube feedings placed in belongings bag along with trach care set.
--- NOTE | 2019-11-29 08:44 | NUR ---
[facility] Received phone call from [email or web address] [phone], they are aware patient is currently being transported home.
--- NOTE | 2019-11-29 08:45 | NUR ---
Discharge instructions provided as ordered. Encourage to follow up with PMD as instructed. Medication reconciliation form completed and copy given to patient. Midline removed with catheter intact, pressure dressing applied, cherry catheter removed. Telemetry unit returned to ICU. [facility] personnel took patient to vehicle with personal belongings. No distress noted at time of departure.
--- NOTE | 2019-11-29 08:50 | NUR ---
Pillow left in room, family to be notified and bag at nursing station for family to retrieve.
[2019-11-29 09:00] VITALS: BP 133/82
== END 2019-11-29 08:45 | disposition home health service (06) | DRG 312 ==
LOC: ER 09:19 → EDBD 09:19 → TELE 09:20 → TELE-CENTR 23:40
PROVIDERS: ADMIT Hospitalist; ATTEND Internal Medicine
DX: I95.2 Hypotension due to drugs (principal); J69.0 Pneumonitis due to inhalation of food and vomit; G82.50 Quadriplegia, unspecified; J96.20 Acute and chronic respiratory failure, unspecified whether with hypoxia or hypercapnia; N30.01 Acute cystitis with hematuria; I42.9 Cardiomyopathy, unspecified; I50.22 Chronic systolic (congestive) heart failure; E86.1 Hypovolemia; D64.9 Anemia, unspecified; D69.6 Thrombocytopenia, unspecified; E03.9 Hypothyroidism, unspecified; L89.90 Pressure ulcer of unspecified site, unspecified stage; I50.82 Biventricular heart failure; G40.909 Epilepsy, unspecified, not intractable, without status epilepticus; G89.29 Other chronic pain; T39.95XA Adverse effect of unspecified nonopioid analgesic, antipyretic and antirheumatic, initial encounter; I11.0 Hypertensive heart disease with heart failure; I44.7 Left bundle-branch block, unspecified; M19.90 Unspecified osteoarthritis, unspecified site; F32.9 Major depressive disorder, single episode, unspecified; M06.9 Rheumatoid arthritis, unspecified; M60.80 Other myositis, unspecified site; Z88.5 Allergy status to narcotic agent; Z93.3 Colostomy status; Z74.01 Bed confinement status; Z79.899 Other long term (current) drug therapy; Z83.3 Family history of diabetes mellitus; Z82.49 Family history of ischemic heart disease and other diseases of the circulatory system; Z88.2 Allergy status to sulfonamides; Z79.01 Long term (current) use of anticoagulants; Y92.89 Other specified places as the place of occurrence of the external cause; Z93.0 Tracheostomy status; Z20.828 Contact with and (suspected) exposure to other viral communicable diseases
CPT/HCPCS: 31720; 36415; 71045; 80048; 80053; 80061; 80202; 81001; 83036; 83605; 83735; 83880; 84100; 84484; 85007; 85025; 85027; 85610; 85730; 87040; 87070; 87081; 87804; 87880; 92610; 93005; 94640; 94760; A4605; G0378; J0696; J2543; J7060

== ENCOUNTER 2020-08-05 12:41 | Inpatient (IN) | payer MEDICARE, MEDICAID ==
[~2020-08-05] VITALS: Ht 147.3 cm; Wt 100.0 kg
[~2020-08-05 12:41] MED LIST changes: -BACL20TA PO; -CAR3125T PEG; +NUTR-709 OR; -VALS1TAB57 PEG
[2020-08-05] MEDS ORDERED: SODIUM CHLORIDE 0.9% 1,000 ML IV ONE (13:00)
[2020-08-05] MEDS ORDERED: ANGIOMAX 250 MG VIAL IV ONE (13:30)
[2020-08-05] MEDS ORDERED: HEPARIN SODIUM (PORCINE) 5000 UNITS/ML 1ML VIAL ONE (13:30)
[2020-08-05] MEDS ORDERED: MIDAZOLAM HCL 1MG/1ML-2 ML VIAL ONE (13:30)
[2020-08-05] MEDS ORDERED: fentaNYL CITRATE 100 MCG/2 ML VL ONE (13:30)
[2020-08-05] MEDS ORDERED: VERAPAMIL 2.5MG/ML INJ 2ML VIAL IV ONE (13:30)
[2020-08-05] MEDS ORDERED: SODIUM CHL 0.9% 0 ML ONE (13:31)
[2020-08-05] MEDS ORDERED: IODIXANOL 320MG/ML 100ML BTL IV ONE (13:31)
[2020-08-05] MEDS ORDERED: LIDOCAINE 2%HCL (LOCAL ANESTH.) INJ 20ML MDV ONE (13:31)
[2020-08-05 13:41] LABS: Basophils # (auto) 0.1 10 ^3/uL (0-0.2); Basophils % (auto) 1.2 % (0.0-2.0); Eosinophils # (auto) 0.2 10 ^3/uL (0-0.8); Hemoglobin 14.1 g/dL (12.2-16.2); Lymphocytes # (auto) 1.6 10 ^3/uL (0.4-5.4); Lymphocytes % (auto) 15.4 % (10.0-50.0); Mean Corpuscular Hemoglobin 28.1 pg (28.0-32.0); Mean Corpuscular Hgb Conc. 32.8 g/dL (32.0-36.0); Mean Corpuscular Volume 85.6 fL (80.0-100.0); Monocytes # (auto) 0.4 10 ^3/uL (0-1.3); Monocytes % (auto) 4.3 % (0.0-12.0); Neutrophils # (auto) 7.9 10 ^3/uL (1.6-8.6); Neutrophils % (auto) 77.1 % (37.0-80.0); Nucleated Red Blood Cells % 0.2 %; Platelet Count (auto) 206 10^3/uL (140-450); Red Blood Cells 5.02 10^6/uL (4.0-5.20); Red Cell Distribution Width 16.1 % (11.8-14.3); White Blood Cell 10.2 10^3/uL (4.4-10.8)
[2020-08-05 13:58] LABS: Albumin 3.3 g/dL (3.4-5.0); Calcium 9.3 mg/dL (8.5-10.1); Potassium 4.9 mmol/L (3.5-5.1)
[2020-08-05 14:03] LABS: BUN/Creatinine Ratio 22.5; Bilirubin, Total 0.8 mg/dL (0.2-1.0); Total Protein 8.4 g/dL (6.4-8.2)
[2020-08-05 14:32] LABS: INR 1.03 (0.9-1.15); Partial Thromboplastin Time 31.7 sec (23.0-31.2)
[2020-08-05] MEDS ORDERED: cefTRIAXone 1GM/50ML D5W 50 ML IV ONE (15:45)
[2020-08-05] MEDS ORDERED: AZITHROMYCIN 500MG/ 250ML 250 ML IV ONE (15:45)
[2020-08-05 16:45] LABS: Urine Bacteria FEW /hpf (None Seen); Urine Blood 3+ /uL (Negative); Urine Mucus FEW (None Seen); Urine Specific Gravity 1.021 (1.001-1.035); Urine WBC 135 /hpf (0 - 5)
[2020-08-05] MEDS ORDERED: ACETAMINOPHEN 500 MG TAB PO PRN (17:15)
[2020-08-05] MEDS ORDERED: NITROGLYCERIN 0.4 MG SL TAB SL PRN (17:15)
[2020-08-05] MEDS ORDERED: VANCOMYCIN PER PHARMACY 0 MG IV SCH (17:15)
[2020-08-05] MEDS ORDERED: HYDROcodone-ACET 5/325MG TAB PO PRN (17:15)
[2020-08-05] MEDS ORDERED: MORPHINE SULF INJ 2 MG/ML SYRINGE 1ML IV PRN (17:15)
[2020-08-05] MEDS ORDERED: ONDANSETRON HCL 4 MG/2 ML VIAL IV PRN (17:15)
[2020-08-05] MEDS ORDERED: IOHEXOL 300 MG/ML 100ML BOTTLE IJ ONE (17:25)
[2020-08-05] MEDS ORDERED: OMNIPAQUE ORAL SOLN 500ml 12mg/ml PO ONE (17:25)
[2020-08-05] MEDS: IPRATROPIUM BROM 0.5 MG/2.5ML INH SOL NEB SCH (20:32)
[2020-08-05] MEDS: ALBUTEROL SULF 2.5 MG/0.5ML(0.5%) NEB SOLN NEB SCH (20:32)
[2020-08-05 22:00] VITALS: BP_SYST 120; BP_SYST 99; BP_DIAS 64; BP_DIAS 80
[2020-08-05] MEDS: VANCOMYCIN 1GM/250ML 250 ML IV SCH (22:10)
[2020-08-05] MEDS: metroNIDAZOLE 500MG/100ML 100 ML IV SCH (22:10)
[2020-08-05] MEDS: TOPIRAMATE 25 MG TAB PO SCH (22:11)
[2020-08-05] MEDS: GABAPENTIN 300 MG CAP PO SCH (22:11)
[2020-08-06 00:18] VITALS: BP 120/80
[2020-08-06 04:21] VITALS: BP 120/80
[2020-08-06 05:00] VITALS: BP 102/62
[2020-08-06] MEDS: metroNIDAZOLE 500MG/100ML 100 ML IV SCH ×3 (05:43→21:45)
[2020-08-06] MEDS: GABAPENTIN 300 MG CAP PO SCH ×3 (05:43→21:45)
[2020-08-06] MEDS: LEVOTHYROXINE SODIUM 50 MCG TAB PO SCH (05:43)
[2020-08-06 06:09] LABS: Basophils # (auto) 0 10 ^3/uL (0-0.2); Basophils % (auto) 0.5 % (0.0-2.0); Eosinophils # (auto) 0.3 10 ^3/uL (0-0.8); Hematocrit 37.6 % (36.0-46.0); Hemoglobin 12.2 g/dL (12.2-16.2); Lymphocytes # (auto) 1.2 10 ^3/uL (0.4-5.4); Mean Corpuscular Hemoglobin 27.7 pg (28.0-32.0); Mean Corpuscular Hgb Conc. 32.4 g/dL (32.0-36.0); Mean Corpuscular Volume 85.5 fL (80.0-100.0); Monocytes # (auto) 0.3 10 ^3/uL (0-1.3); Monocytes % (auto) 4.3 % (0.0-12.0); Neutrophils # (auto) 4.5 10 ^3/uL (1.6-8.6); Neutrophils % (auto) 72.2 % (37.0-80.0); Nucleated Red Blood Cells % 0.1 %; Platelet Count (auto) 152 10^3/uL (140-450); Red Cell Distribution Width 15.8 % (11.8-14.3); White Blood Cell 6.3 10^3/uL (4.4-10.8)
[2020-08-06] MEDS: ALBUTEROL SULF 2.5 MG/0.5ML(0.5%) NEB SOLN NEB SCH ×3 (06:16→18:08)
[2020-08-06] MEDS: IPRATROPIUM BROM 0.5 MG/2.5ML INH SOL NEB SCH ×3 (06:16→18:08)
[2020-08-06 06:32] LABS: Potassium 4.2 mmol/L (3.5-5.1)
[2020-08-06 06:46] LABS: Albumin 2.8 g/dL (3.4-5.0); Bilirubin, Total 0.5 mg/dL (0.2-1.0); Calcium 8.6 mg/dL (8.5-10.1)
[2020-08-06 09:00] VITALS: BP 106/74
[2020-08-06] MEDS ORDERED: BACL20TA PO (09:31)
[2020-08-06] MEDS ORDERED: HYDR-3682 PO (09:31)
[2020-08-06] MEDS ORDERED: POM SUBCUT (09:31)
[2020-08-06] MEDS ORDERED: [UNRECOGNIZED DRUG - CODE] EX (09:31)
[2020-08-06] MEDS ORDERED: ALBUAER3 IN (09:31)
[2020-08-06] MEDS ORDERED: HYDR2TAB58 PO (09:53)
[2020-08-06] MEDS ORDERED: [UNRECOGNIZED DRUG - CODE] SC (09:53)
[2020-08-06] MEDS ORDERED: NORT25CA PO (09:53)
[2020-08-06] MEDS ORDERED: TOPI25CA5 PEG (09:53)
[2020-08-06] MEDS ORDERED: LORA0.5T20 GT (09:53)
[2020-08-06] MEDS ORDERED: LEV75T PO (09:53)
[2020-08-06] MEDS ORDERED: ZINC220T6 PO (09:53)
[2020-08-06] MEDS ORDERED: DULO20CA PO (09:53)
[2020-08-06] MEDS ORDERED: SERT100T PEG (09:53)
[2020-08-06] MEDS ORDERED: HYDR-4072 PO (09:53)
[2020-08-06] MEDS ORDERED: FENT25DI2 TD (09:53)
[2020-08-06] MEDS: levoFLOXacin 500MG 100 ML IV SCH (11:00)
[2020-08-06] MEDS: TOPIRAMATE 25 MG TAB PO SCH ×2 (11:00→21:45)
[2020-08-06] MEDS: MORPHINE SULF INJ 2 MG/ML SYRINGE 1ML IV PRN ×3 (11:02→21:45)
[2020-08-06] MEDS: SERTRALINE HCL 50 MG TAB PO SCH (11:03)
[2020-08-06] MEDS: ENOXAPARIN SOD 40 MG/0.4 ML SYRINGE SC SCH (11:03)
[2020-08-06] MEDS: VANCOMYCIN 1GM/250ML 250 ML IV SCH (11:07)
[2020-08-06 13:00] VITALS: BP 100/64
[2020-08-06 17:00] VITALS: BP 101/72
[2020-08-07] MEDS: VANCOMYCIN 1GM/250ML 250 ML IV SCH ×2 (00:44→16:11)
[2020-08-07] MEDS: MORPHINE SULF INJ 2 MG/ML SYRINGE 1ML IV PRN (03:21)
[2020-08-07 05:00] VITALS: BP 113/74
[2020-08-07] MEDS: GABAPENTIN 300 MG CAP PO SCH ×3 (05:44→21:33)
[2020-08-07] MEDS: LEVOTHYROXINE SODIUM 50 MCG TAB PO SCH (05:44)
[2020-08-07] MEDS: metroNIDAZOLE 500MG/100ML 100 ML IV SCH ×3 (05:44→21:33)
[2020-08-07 07:12] LABS: Basophils # (auto) 0 10 ^3/uL (0-0.2); Basophils % (auto) 0.5 % (0.0-2.0); Eosinophils # (auto) 0.2 10 ^3/uL (0-0.8); Hematocrit 37.1 % (36.0-46.0); Hemoglobin 12.1 g/dL (12.2-16.2); Lymphocytes % (auto) 15.7 % (10.0-50.0); Mean Corpuscular Hemoglobin 27.8 pg (28.0-32.0); Mean Corpuscular Hgb Conc. 32.5 g/dL (32.0-36.0); Mean Corpuscular Volume 85.3 fL (80.0-100.0); Monocytes # (auto) 0.4 10 ^3/uL (0-1.3); Monocytes % (auto) 6.5 % (0.0-12.0); Neutrophils # (auto) 4.5 10 ^3/uL (1.6-8.6); Neutrophils % (auto) 73.3 % (37.0-80.0); Platelet Count (auto) 171 10^3/uL (140-450); Red Blood Cells 4.35 10^6/uL (4.0-5.20); Red Cell Distribution Width 16.3 % (11.8-14.3); White Blood Cell 6.2 10^3/uL (4.4-10.8)
[2020-08-07 07:37] LABS: Potassium 3.9 mmol/L (3.5-5.1)
[2020-08-07 07:47] LABS: Albumin 2.9 g/dL (3.4-5.0); Bilirubin, Total 0.5 mg/dL (0.2-1.0); Calcium 8.7 mg/dL (8.5-10.1)
[2020-08-07] MEDS: ALBUTEROL SULF 2.5 MG/0.5ML(0.5%) NEB SOLN NEB SCH ×4 (08:01→19:13)
[2020-08-07] MEDS: IPRATROPIUM BROM 0.5 MG/2.5ML INH SOL NEB SCH ×4 (08:02→19:13)
[2020-08-07 09:00] VITALS: BP 111/77
[2020-08-07 13:00] VITALS: BP 92/62
[2020-08-07] MEDS: levoFLOXacin 500MG 100 ML IV SCH (13:41)
[2020-08-07] MEDS: SERTRALINE HCL 50 MG TAB PO SCH (13:42)
[2020-08-07] MEDS: TOPIRAMATE 25 MG TAB PO SCH ×2 (13:42→21:33)
[2020-08-07] MEDS: HYDROmorphone HCL 2 MG TAB PO PRN ×2 (13:42→19:31)
[2020-08-07] MEDS: ENOXAPARIN SOD 40 MG/0.4 ML SYRINGE SC SCH (13:43)
[2020-08-07 17:00] VITALS: BP 111/73
[2020-08-07 22:52] VITALS: BP 110/78
[2020-08-08] MEDS: HYDROmorphone HCL 2 MG TAB PO PRN ×3 (04:42→20:47)
[2020-08-08 05:16] VITALS: BP 119/76
[2020-08-08 06:20] LABS: Basophils # (auto) 0 10 ^3/uL (0-0.2); Basophils % (auto) 0.5 % (0.0-2.0); Eosinophils # (auto) 0.2 10 ^3/uL (0-0.8); Eosinophils % (auto) 2.9 % (0.0-7.0); Hematocrit 35.3 % (36.0-46.0); Hemoglobin 11.7 g/dL (12.2-16.2); Lymphocytes # (auto) 1.2 10 ^3/uL (0.4-5.4); Lymphocytes % (auto) 16.6 % (10.0-50.0); Mean Corpuscular Hemoglobin 28.4 pg (28.0-32.0); Mean Corpuscular Hgb Conc. 33.2 g/dL (32.0-36.0); Mean Corpuscular Volume 85.4 fL (80.0-100.0); Monocytes # (auto) 0.4 10 ^3/uL (0-1.3); Monocytes % (auto) 6.1 % (0.0-12.0); Neutrophils # (auto) 5.3 10 ^3/uL (1.6-8.6); Neutrophils % (auto) 73.9 % (37.0-80.0); Platelet Count (auto) 169 10^3/uL (140-450); Red Blood Cells 4.13 10^6/uL (4.0-5.20); Red Cell Distribution Width 16.2 % (11.8-14.3); White Blood Cell 7.2 10^3/uL (4.4-10.8)
[2020-08-08 06:32] LABS: Potassium 4.1 mmol/L (3.5-5.1)
[2020-08-08] MEDS: GABAPENTIN 300 MG CAP PO SCH ×3 (06:38→21:01)
[2020-08-08] MEDS: metroNIDAZOLE 500MG/100ML 100 ML IV SCH (06:38)
[2020-08-08] MEDS: LEVOTHYROXINE SODIUM 50 MCG TAB PO SCH (06:39)
[2020-08-08 06:41] LABS: BUN/Creatinine Ratio 20.3
[2020-08-08 06:42] LABS: Bilirubin, Total 0.4 mg/dL (0.2-1.0); Calcium 9.1 mg/dL (8.5-10.1); Total Protein 7.1 g/dL (6.4-8.2)
[2020-08-08] MEDS: IPRATROPIUM BROM 0.5 MG/2.5ML INH SOL NEB SCH ×3 (08:15→15:14)
[2020-08-08] MEDS: ALBUTEROL SULF 2.5 MG/0.5ML(0.5%) NEB SOLN NEB SCH ×3 (08:15→15:14)
[2020-08-08 09:00] VITALS: BP 112/68
[2020-08-08 09:12] LABS: Hepatitis B Surface Antibody Positive
[2020-08-08] MEDS: TOPIRAMATE 25 MG TAB PO SCH ×2 (09:27→21:01)
[2020-08-08] MEDS: SERTRALINE HCL 50 MG TAB PO SCH (09:27)
[2020-08-08] MEDS: levoFLOXacin 500MG 100 ML IV SCH (09:27)
[2020-08-08] MEDS: ENOXAPARIN SOD 40 MG/0.4 ML SYRINGE SC SCH (09:28)
[2020-08-08 09:51] LABS: Hepatitis A Total Antibody Positive
[2020-08-08 10:59] LABS: Hepatitis B Surface Antigen Negative (Negative); Hepatitis C Antibody Negative (Negative)
[2020-08-08 11:01] LABS: Hepatitis B Core Total AB Positive
[2020-08-08 13:00] VITALS: BP 119/86
[2020-08-08] MEDS: PIPERACILLIN-TAZOB 3.375GM 100 ML IV SCH ×2 (14:22→22:04)
[2020-08-08 17:00] VITALS: BP 127/89
[2020-08-08] MEDS: VANCOMYCIN 1GM/250ML 250 ML IV SCH (20:46)
[2020-08-08 22:00] VITALS: BP 130/78
[2020-08-09] MEDS: HYDROmorphone HCL 2 MG TAB PO PRN ×3 (03:52→22:12)
[2020-08-09 05:00] VITALS: BP 139/78
[2020-08-09] MEDS: PIPERACILLIN-TAZOB 3.375GM 100 ML IV SCH ×2 (05:17→14:41)
[2020-08-09] MEDS: GABAPENTIN 300 MG CAP PO SCH ×3 (06:05→21:40)
[2020-08-09] MEDS: LEVOTHYROXINE SODIUM 50 MCG TAB PO SCH (06:05)
[2020-08-09 09:00] VITALS: BP 101/73
[2020-08-09] MEDS: TOPIRAMATE 25 MG TAB PO SCH ×2 (10:19→21:41)
[2020-08-09] MEDS: SERTRALINE HCL 50 MG TAB PO SCH (10:19)
[2020-08-09] MEDS: ENOXAPARIN SOD 40 MG/0.4 ML SYRINGE SC SCH (10:20)
[2020-08-09 10:50] LABS: Potassium 3.9 mmol/L (3.5-5.1)
[2020-08-09 11:04] LABS: Albumin 3.1 g/dL (3.4-5.0); Bilirubin, Total 0.4 mg/dL (0.2-1.0); Magnesium 2.5 mg/dL (1.6-2.6)
[2020-08-09] MEDS: IPRATROPIUM BROM 0.5 MG/2.5ML INH SOL NEB SCH ×2 (11:14→19:48)
[2020-08-09] MEDS: ALBUTEROL SULF 2.5 MG/0.5ML(0.5%) NEB SOLN NEB SCH ×2 (11:15→19:48)
[2020-08-09 13:00] VITALS: BP 98/54
[2020-08-09 14:37] LABS: Basophils # (auto) 0 10 ^3/uL (0-0.2); Basophils % (auto) 0.6 % (0.0-2.0); Eosinophils # (auto) 0.2 10 ^3/uL (0-0.8); Eosinophils % (auto) 3.4 % (0.0-7.0); Hematocrit 37.5 % (36.0-46.0); Hemoglobin 12.1 g/dL (12.2-16.2); Lymphocytes # (auto) 0.7 10 ^3/uL (0.4-5.4); Lymphocytes % (auto) 10.2 % (10.0-50.0); Mean Corpuscular Hemoglobin 27.6 pg (28.0-32.0); Mean Corpuscular Hgb Conc. 32.2 g/dL (32.0-36.0); Mean Corpuscular Volume 85.6 fL (80.0-100.0); Monocytes # (auto) 0.4 10 ^3/uL (0-1.3); Monocytes % (auto) 5.7 % (0.0-12.0); Neutrophils # (auto) 5.5 10 ^3/uL (1.6-8.6); Neutrophils % (auto) 80.1 % (37.0-80.0); Nucleated Red Blood Cells % 0.1 %; Platelet Count (auto) 174 10^3/uL (140-450); Red Blood Cells 4.38 10^6/uL (4.0-5.20); Red Cell Distribution Width 16.4 % (11.8-14.3); White Blood Cell 6.9 10^3/uL (4.4-10.8)
[2020-08-09] MEDS: VANCOMYCIN 1GM/250ML 250 ML IV SCH (15:16)
[2020-08-09 17:00] VITALS: BP 102/68
[2020-08-09] MEDS: MEROPENEM 1GM IVPB 100 ML IV SCH (21:40)
[2020-08-09 22:00] VITALS: BP 111/60
[2020-08-10] MEDS: HYDROmorphone HCL 2 MG TAB PO PRN ×3 (02:36→21:08)
[2020-08-10] MEDS: MEROPENEM 1GM IVPB 100 ML IV SCH ×3 (05:12→22:37)
[2020-08-10 05:15] VITALS: BP 98/68
[2020-08-10] MEDS: GABAPENTIN 300 MG CAP PO SCH ×3 (06:04→22:37)
[2020-08-10] MEDS: LEVOTHYROXINE SODIUM 50 MCG TAB PO SCH (06:05)
[2020-08-10] MEDS: ALBUTEROL SULF 2.5 MG/0.5ML(0.5%) NEB SOLN NEB SCH ×3 (07:05→19:21)
[2020-08-10] MEDS: IPRATROPIUM BROM 0.5 MG/2.5ML INH SOL NEB SCH ×3 (07:05→19:21)
[2020-08-10 08:27] LABS: Basophils # (auto) 0 10 ^3/uL (0-0.2); Basophils % (auto) 0.3 % (0.0-2.0); Eosinophils # (auto) 0.3 10 ^3/uL (0-0.8); Hematocrit 34.3 % (36.0-46.0); Hemoglobin 11.3 g/dL (12.2-16.2); Lymphocytes # (auto) 0.7 10 ^3/uL (0.4-5.4); Lymphocytes % (auto) 7.7 % (10.0-50.0); Mean Corpuscular Hemoglobin 27.9 pg (28.0-32.0); Mean Corpuscular Hgb Conc. 32.8 g/dL (32.0-36.0); Mean Corpuscular Volume 84.9 fL (80.0-100.0); Monocytes # (auto) 0.7 10 ^3/uL (0-1.3); Monocytes % (auto) 6.9 % (0.0-12.0); Neutrophils # (auto) 7.8 10 ^3/uL (1.6-8.6); Neutrophils % (auto) 82.1 % (37.0-80.0); Nucleated Red Blood Cells % 0.2 %; Platelet Count (auto) 163 10^3/uL (140-450); Red Blood Cells 4.04 10^6/uL (4.0-5.20); Red Cell Distribution Width 16.4 % (11.8-14.3); White Blood Cell 9.5 10^3/uL (4.4-10.8)
[2020-08-10 08:39] VITALS: BP 104/63
[2020-08-10 08:52] LABS: Potassium 3.3 mmol/L (3.5-5.1)
[2020-08-10 08:57] LABS: BUN/Creatinine Ratio 13.2; Calcium 8.7 mg/dL (8.5-10.1); Magnesium 2.1 mg/dL (1.6-2.6)
[2020-08-10 08:59] LABS: Bilirubin, Total 0.4 mg/dL (0.2-1.0); Total Protein 6.8 g/dL (6.4-8.2)
[2020-08-10] MEDS: VANCOMYCIN 1GM/250ML 250 ML IV SCH (09:00)
[2020-08-10] MEDS: TOPIRAMATE 25 MG TAB PO SCH ×2 (09:41→22:37)
[2020-08-10] MEDS: ENOXAPARIN SOD 40 MG/0.4 ML SYRINGE SC SCH (09:42)
[2020-08-10] MEDS: SERTRALINE HCL 50 MG TAB PO SCH (09:42)
[2020-08-10 13:00] VITALS: BP 100/59
[2020-08-10 17:00] VITALS: BP 101/63
[2020-08-10] MEDS: POTASSIUM CHL 20MEQ/100ML 100 ML IV SCH ×2 (17:32→18:29)
[2020-08-10 22:00] VITALS: BP 130/93
[2020-08-11] MEDS: VANCOMYCIN 1GM/250ML 250 ML IV SCH (02:46)
[2020-08-11 05:00] VITALS: BP 108/70
[2020-08-11] MEDS: GABAPENTIN 300 MG CAP PO SCH ×3 (06:49→23:34)
[2020-08-11] MEDS: LEVOTHYROXINE SODIUM 50 MCG TAB PO SCH (06:49)
[2020-08-11] MEDS: IPRATROPIUM BROM 0.5 MG/2.5ML INH SOL NEB SCH ×3 (06:57→18:07)
[2020-08-11] MEDS: ALBUTEROL SULF 2.5 MG/0.5ML(0.5%) NEB SOLN NEB SCH ×3 (06:58→18:07)
[2020-08-11] MEDS: MEROPENEM 1GM IVPB 100 ML IV SCH ×3 (07:06→23:33)
[2020-08-11 08:29] VITALS: BP 103/62
[2020-08-11] MEDS: TOPIRAMATE 25 MG TAB PO SCH ×2 (09:37→23:34)
[2020-08-11] MEDS: SERTRALINE HCL 50 MG TAB PO SCH (09:37)
[2020-08-11] MEDS: ENOXAPARIN SOD 40 MG/0.4 ML SYRINGE SC SCH (09:37)
[2020-08-11 10:28] LABS: Basophils # (auto) 0 10 ^3/uL (0-0.2); Basophils % (auto) 0.4 % (0.0-2.0); Eosinophils # (auto) 0.3 10 ^3/uL (0-0.8); Hematocrit 33.5 % (36.0-46.0); Lymphocytes # (auto) 0.9 10 ^3/uL (0.4-5.4); Lymphocytes % (auto) 13.7 % (10.0-50.0); Mean Corpuscular Hemoglobin 28.3 pg (28.0-32.0); Mean Corpuscular Hgb Conc. 32.9 g/dL (32.0-36.0); Mean Corpuscular Volume 86.2 fL (80.0-100.0); Monocytes # (auto) 0.5 10 ^3/uL (0-1.3); Monocytes % (auto) 7.6 % (0.0-12.0); Neutrophils # (auto) 4.8 10 ^3/uL (1.6-8.6); Neutrophils % (auto) 74.3 % (37.0-80.0); Nucleated Red Blood Cells % 0.1 %; Platelet Count (auto) 152 10^3/uL (140-450); Red Blood Cells 3.89 10^6/uL (4.0-5.20); Red Cell Distribution Width 16.5 % (11.8-14.3); White Blood Cell 6.5 10^3/uL (4.4-10.8)
[2020-08-11 11:49] LABS: Albumin 2.8 g/dL (3.4-5.0); Calcium 8.8 mg/dL (8.5-10.1); Potassium 3.7 mmol/L (3.5-5.1)
[2020-08-11 11:53] LABS: BUN/Creatinine Ratio 10.2; Bilirubin, Total 0.4 mg/dL (0.2-1.0); Total Protein 6.4 g/dL (6.4-8.2)
[2020-08-11 13:13] VITALS: BP 124/71
[2020-08-11 17:08] VITALS: BP 128/70
[2020-08-11 20:26] VITALS: BP 128/70
[2020-08-11 22:00] VITALS: BP 101/63
[2020-08-12] MEDS: HYDROmorphone HCL 2 MG TAB PO PRN ×4 (00:50→20:42)
[2020-08-12] MEDS: VANCOMYCIN 1GM/250ML 250 ML IV SCH (03:54)
[2020-08-12 05:00] VITALS: BP 109/70
[2020-08-12] MEDS: GABAPENTIN 300 MG CAP PO SCH ×3 (06:13→20:43)
[2020-08-12] MEDS: MEROPENEM 1GM IVPB 100 ML IV SCH ×3 (06:13→21:06)
[2020-08-12] MEDS: LEVOTHYROXINE SODIUM 50 MCG TAB PO SCH (06:35)
[2020-08-12] MEDS: IPRATROPIUM BROM 0.5 MG/2.5ML INH SOL NEB SCH ×3 (06:56→19:07)
[2020-08-12] MEDS: ALBUTEROL SULF 2.5 MG/0.5ML(0.5%) NEB SOLN NEB SCH ×3 (06:57→19:07)
[2020-08-12 09:00] VITALS: BP 103/64
[2020-08-12] MEDS: ENOXAPARIN SOD 40 MG/0.4 ML SYRINGE SC SCH (09:10)
[2020-08-12] MEDS: SERTRALINE HCL 50 MG TAB PO SCH (09:11)
[2020-08-12] MEDS: TOPIRAMATE 25 MG TAB PO SCH ×2 (09:11→20:43)
[2020-08-12 13:00] VITALS: BP 97/60
[2020-08-12 17:00] VITALS: BP 93/56
[2020-08-12 22:00] VITALS: BP 96/63
[2020-08-13] MEDS: HYDROmorphone HCL 2 MG TAB PO PRN ×2 (00:46→05:36)
[2020-08-13] MEDS: VANCOMYCIN 1GM/250ML 250 ML IV SCH (03:18)
[2020-08-13 05:00] VITALS: BP 92/58
[2020-08-13] MEDS: LEVOTHYROXINE SODIUM 50 MCG TAB PO SCH (05:37)
[2020-08-13] MEDS: MEROPENEM 1GM IVPB 100 ML IV SCH ×3 (05:37→22:04)
[2020-08-13] MEDS: GABAPENTIN 300 MG CAP PO SCH ×3 (05:37→22:04)
[2020-08-13] MEDS: ALBUTEROL SULF 2.5 MG/0.5ML(0.5%) NEB SOLN NEB SCH ×3 (06:25→18:45)
[2020-08-13] MEDS: IPRATROPIUM BROM 0.5 MG/2.5ML INH SOL NEB SCH ×3 (06:25→18:45)
[2020-08-13 09:00] VITALS: BP 94/43
[2020-08-13] MEDS: SERTRALINE HCL 50 MG TAB PO SCH (11:03)
[2020-08-13] MEDS: TOPIRAMATE 25 MG TAB PO SCH ×2 (11:03→22:05)
[2020-08-13] MEDS: ENOXAPARIN SOD 40 MG/0.4 ML SYRINGE SC SCH (11:03)
[2020-08-13 12:49] VITALS: BP 95/52
[2020-08-13 17:00] VITALS: BP 94/60
[2020-08-13 20:00] VITALS: BP 105/65
[2020-08-13 22:00] VITALS: BP 105/65
[2020-08-14 02:38] LABS: Basophils # (auto) 0.2 10 ^3/uL (0-0.2); Basophils % (auto) 2.7 % (0.0-2.0); Eosinophils # (auto) 0.2 10 ^3/uL (0-0.8); Eosinophils % (auto) 3.6 % (0.0-7.0); Hematocrit 37.4 % (36.0-46.0); Hemoglobin 11.9 g/dL (12.2-16.2); Lymphocytes # (auto) 0.8 10 ^3/uL (0.4-5.4); Lymphocytes % (auto) 13.1 % (10.0-50.0); Mean Corpuscular Hemoglobin 27.5 pg (28.0-32.0); Mean Corpuscular Hgb Conc. 31.9 g/dL (32.0-36.0); Mean Corpuscular Volume 86.2 fL (80.0-100.0); Monocytes # (auto) 0.4 10 ^3/uL (0-1.3); Monocytes % (auto) 6.1 % (0.0-12.0); Neutrophils # (auto) 4.7 10 ^3/uL (1.6-8.6); Neutrophils % (auto) 74.5 % (37.0-80.0); Platelet Count (auto) 198 10^3/uL (140-450); Red Blood Cells 4.34 10^6/uL (4.0-5.20); Red Cell Distribution Width 16.8 % (11.8-14.3); White Blood Cell 6.3 10^3/uL (4.4-10.8)
[2020-08-14] MEDS: VANCOMYCIN 1GM/250ML 250 ML IV SCH (03:00)
[2020-08-14 05:00] VITALS: BP 109/71
[2020-08-14] MEDS: GABAPENTIN 300 MG CAP PO SCH ×2 (06:19→14:05)
[2020-08-14] MEDS: MEROPENEM 1GM IVPB 100 ML IV SCH ×2 (06:19→14:05)
[2020-08-14] MEDS: LEVOTHYROXINE SODIUM 50 MCG TAB PO SCH (06:34)
[2020-08-14] MEDS: IPRATROPIUM BROM 0.5 MG/2.5ML INH SOL NEB SCH ×2 (07:00→13:25)
[2020-08-14] MEDS: ALBUTEROL SULF 2.5 MG/0.5ML(0.5%) NEB SOLN NEB SCH ×2 (07:00→13:25)
[2020-08-14 08:00] VITALS: BP 99/73
[2020-08-14 09:00] VITALS: BP 99/73
[2020-08-14] MEDS: TOPIRAMATE 25 MG TAB PO SCH (10:06)
[2020-08-14] MEDS: SERTRALINE HCL 50 MG TAB PO SCH (10:07)
[2020-08-14] MEDS: ENOXAPARIN SOD 40 MG/0.4 ML SYRINGE SC SCH (10:07)
[2020-08-14 13:00] VITALS: BP 103/72
[2020-08-14 13:47] VITALS: BP 103/72
[2020-08-14] MEDS ORDERED: VANCOMYCIN 1GM/250ML 250 ML IV SCH ×2 (17:00)
== END 2020-08-14 16:00 | disposition home health service (06) | DRG 871 ==
LOC: EDBD 12:41 → EDUNIT# 12:41 → ER 12:41 → TELE 17:02 → TELE-WESTW 21:14
PROVIDERS: ADMIT Nurse Practitioner Acute Care; ATTEND Internal Medicine
PROC: 05HC33Z Insertion of Infusion Device into Left Basilic Vein, Percutaneous Approach (ICD-10-PCS; principal; 2020-08-09)
PROC: B54NZZA Ultrasonography of Left Upper Extremity Veins, Guidance (ICD-10-PCS; 2020-08-09)
DX: A41.9 Sepsis, unspecified organism (principal); L89.153 Pressure ulcer of sacral region, stage 3; J96.20 Acute and chronic respiratory failure, unspecified whether with hypoxia or hypercapnia; J15.6 Pneumonia due to other Gram-negative bacteria; I24.9 Acute ischemic heart disease, unspecified; G82.20 Paraplegia, unspecified; K61.1 Rectal abscess; N39.0 Urinary tract infection, site not specified; M46.28 Osteomyelitis of vertebra, sacral and sacrococcygeal region; Z16.12 Extended spectrum beta lactamase (ESBL) resistance; Z99.11 Dependence on respirator [ventilator] status; E44.1 Mild protein-calorie malnutrition; Z66 Do not resuscitate; E66.9 Obesity, unspecified; E03.9 Hypothyroidism, unspecified; I12.9 Hypertensive chronic kidney disease with stage 1 through stage 4 chronic kidney disease, or unspecified chronic kidney disease; K57.30 Diverticulosis of large intestine without perforation or abscess without bleeding; Z20.822 Contact with and (suspected) exposure to COVID-19; E11.22 Type 2 diabetes mellitus with diabetic chronic kidney disease; N18.9 Chronic kidney disease, unspecified; G71.00 Muscular dystrophy, unspecified; Z51.5 Encounter for palliative care; Z93.0 Tracheostomy status; Z93.1 Gastrostomy status; Z93.3 Colostomy status; Z88.5 Allergy status to narcotic agent; Z88.2 Allergy status to sulfonamides; Z88.8 Allergy status to other drugs, medicaments and biological substances; Z79.01 Long term (current) use of anticoagulants; Z79.899 Other long term (current) drug therapy; Z83.3 Family history of diabetes mellitus; Z82.49 Family history of ischemic heart disease and other diseases of the circulatory system; Z90.49 Acquired absence of other specified parts of digestive tract; Z68.30 Body mass index [BMI] 30.0-30.9, adult
CPT/HCPCS: 36415; 71045; 74176; 74177; 80053; 80202; 81001; 82565; 83605; 83735; 83880; 84484; 85025; 85610; 85730; 86704; 86706; 86708; 86803; 87040; 87045; 87081; 87086; 87088; 87186; 87340; 87426; 87427; 87493; 93005; 93970; 94640; 96361; 96365; 96366; 96368; A4605; G0378; J0696; J1956; J2185; J2250; J2405; J2543; J3480; J3490; Q9967

== ENCOUNTER 2020-10-31 12:03 | Inpatient (IN) | payer MEDICARE, OTHER ==
[~2020-10-31] VITALS: Ht 154.9 cm; Wt 73.5 kg
[~2020-10-31 12:03] MED LIST changes: +ALBUAER3 IN; +BACL20TA PO; +DULO20CA PO; +HYDR-3682 PO; -HYDR-531 PO; +HYDR2TAB58 PO; +LEV75T PO; +LORA0.5T20 GT; +NORT25CA PO; +POM SUBCUT; -SERT-160 PO; +TOPI25CA5 PEG; +ZINC220T6 PO; +[UNRECOGNIZED DRUG - CODE] EX
[2020-10-31] MEDS ORDERED: CLINDAMYCIN 600MG IV 50 ML IV ONE (12:15)
[2020-10-31] MEDS ORDERED: SODIUM CHLORIDE 0.9% 500 ML IV ONE (12:15)
[2020-10-31 14:27] LABS: Basophils # (auto) 0.1 10 ^3/uL (0-0.2); Basophils % (auto) 0.5 % (0.0-2.0); Eosinophils # (auto) 0.1 10 ^3/uL (0-0.8); Eosinophils % (auto) 0.9 % (0.0-7.0); Hematocrit 35.9 % (36.0-46.0); Hemoglobin 11.7 g/dL (12.2-16.2); Lymphocytes # (auto) 0.9 10 ^3/uL (0.4-5.4); Lymphocytes % (auto) 8.2 % (10.0-50.0); Mean Corpuscular Hemoglobin 28.2 pg (28.0-32.0); Mean Corpuscular Hgb Conc. 32.4 g/dL (32.0-36.0); Mean Corpuscular Volume 87.1 fL (80.0-100.0); Monocytes # (auto) 0.4 10 ^3/uL (0-1.3); Monocytes % (auto) 4.2 % (0.0-12.0); Neutrophils # (auto) 9.1 10 ^3/uL (1.6-8.6); Neutrophils % (auto) 86.2 % (37.0-80.0); Red Blood Cells 4.13 10^6/uL (4.0-5.20); Red Cell Distribution Width 18.1 % (11.8-14.3); White Blood Cell 10.5 10^3/uL (4.4-10.8)
[2020-10-31] MEDS ORDERED: PROMETHAZINE HCL 25 MG/ML 1ML IV PRN (14:45)
[2020-10-31] MEDS ORDERED: NITROGLYCERIN 0.4 MG SL TAB SL PRN (14:45)
[2020-10-31] MEDS ORDERED: MORPHINE SULF INJ 2 MG/ML SYRINGE 1ML IV PRN (14:45)
[2020-10-31] MEDS ORDERED: LACTULOSE 20Gm/30ML SOLN PO PRN (14:45)
[2020-10-31] MEDS ORDERED: ACETAMINOPHEN 500 MG TAB PO PRN (14:45)
[2020-10-31 14:50] LABS: Albumin 2.6 g/dL (3.4-5.0); Calcium 8.2 mg/dL (8.5-10.1); Potassium 3.7 mmol/L (3.5-5.1)
[2020-10-31] MEDS ORDERED: cefTRIAXone 1GM/50ML D5W 50 ML IV ONE (15:00)
[2020-10-31] MEDS: SODIUM CHLORIDE 0.9% 1,000 ML IV SCH ×2 (15:28→22:16)
[2020-10-31 15:37] LABS: BUN/Creatinine Ratio 20.8; Bilirubin, Total 0.5 mg/dL (0.2-1.0); Total Protein 7.2 g/dL (6.4-8.2)
[2020-10-31 22:00] VITALS: BP 91/60
[2020-10-31] MEDS: MORPHINE SULF INJ 2 MG/ML SYRINGE 1ML IV PRN (22:11)
[2020-10-31] MEDS: CLINDAMYCIN 600MG IV 50 ML IV SCH (22:16)
[2020-11-01 00:47] VITALS: BP 91/60
[2020-11-01] MEDS: MIDODRINE HCL 10 MG TAB PO SCH ×3 (02:28→22:37)
[2020-11-01] MEDS: traMADol HCL 50 MG TAB PO PRN ×2 (04:34→19:42)
[2020-11-01 05:00] VITALS: BP 97/44
[2020-11-01] MEDS: CLINDAMYCIN 600MG IV 50 ML IV SCH ×3 (05:50→21:56)
[2020-11-01 09:00] VITALS: BP 100/58
[2020-11-01] MEDS: cefTRIAXone 1GM/50ML D5W 50 ML IV SCH (09:00)
[2020-11-01 09:30] LABS: Basophils # (auto) 0 10 ^3/uL (0-0.2); Basophils % (auto) 0.4 % (0.0-2.0); Eosinophils # (auto) 0.1 10 ^3/uL (0-0.8); Eosinophils % (auto) 1.9 % (0.0-7.0); Hematocrit 34.4 % (36.0-46.0); Hemoglobin 11.3 g/dL (12.2-16.2); Lymphocytes # (auto) 0.9 10 ^3/uL (0.4-5.4); Lymphocytes % (auto) 13.7 % (10.0-50.0); Mean Corpuscular Hemoglobin 28.4 pg (28.0-32.0); Mean Corpuscular Hgb Conc. 32.9 g/dL (32.0-36.0); Mean Corpuscular Volume 86.2 fL (80.0-100.0); Monocytes # (auto) 0.4 10 ^3/uL (0-1.3); Monocytes % (auto) 5.6 % (0.0-12.0); Neutrophils % (auto) 78.4 % (37.0-80.0); Red Blood Cells 3.99 10^6/uL (4.0-5.20); Red Cell Distribution Width 17.2 % (11.8-14.3); White Blood Cell 6.3 10^3/uL (4.4-10.8)
[2020-11-01] MEDS: ENOXAPARIN SOD 40 MG/0.4 ML SYRINGE SC SCH (10:00)
[2020-11-01 10:14] LABS: Potassium 3.9 mmol/L (3.5-5.1)
[2020-11-01 10:23] LABS: Albumin 2.4 g/dL (3.4-5.0); BUN/Creatinine Ratio 23.6; Bilirubin, Total 0.7 mg/dL (0.2-1.0); Calcium 8.3 mg/dL (8.5-10.1); Total Protein 6.8 g/dL (6.4-8.2)
[2020-11-01] MEDS: SODIUM CHLORIDE 0.9% 1,000 ML IV SCH (10:51)
[2020-11-01 13:00] VITALS: BP 113/70
[2020-11-01 17:00] VITALS: BP 114/75
[2020-11-01 22:00] VITALS: BP 123/71
[2020-11-02] MEDS: SODIUM CHLORIDE 0.9% 1,000 ML IV SCH ×3 (00:59→16:45)
[2020-11-02 03:05] LABS: Urine Bacteria FEW /hpf (None Seen); Urine Blood TRACE /uL (Negative); Urine Specific Gravity 1.004 (1.001-1.035); Urine WBC 8 /hpf (0 - 5)
[2020-11-02] MEDS: MORPHINE SULF INJ 2 MG/ML SYRINGE 1ML IV PRN ×2 (04:36→19:53)
[2020-11-02 05:00] VITALS: BP 131/73
[2020-11-02] MEDS: CLINDAMYCIN 600MG IV 50 ML IV SCH ×3 (06:09→21:54)
[2020-11-02] MEDS: cefTRIAXone 1GM/50ML D5W 50 ML IV SCH (08:26)
[2020-11-02 09:00] VITALS: BP 122/68
[2020-11-02] MEDS: ENOXAPARIN SOD 40 MG/0.4 ML SYRINGE SC SCH (09:41)
[2020-11-02] MEDS: MIDODRINE HCL 10 MG TAB PO SCH (09:41)
[2020-11-02 10:27] LABS: Albumin 2.4 g/dL (3.4-5.0); Calcium 8.3 mg/dL (8.5-10.1); Potassium 3.8 mmol/L (3.5-5.1)
[2020-11-02 10:31] LABS: BUN/Creatinine Ratio 17.5; Bilirubin, Total 0.3 mg/dL (0.2-1.0); Total Protein 6.4 g/dL (6.4-8.2)
[2020-11-02 13:00] VITALS: BP 125/70
[2020-11-02 17:00] VITALS: BP 130/83
[2020-11-02 19:16] VITALS: BP 130/83
[2020-11-02 23:02] VITALS: BP 129/82
[2020-11-03] MEDS: TEMAZEPAM 15 MG CAP PO PRN (00:51)
[2020-11-03] MEDS: SODIUM CHLORIDE 0.9% 1,000 ML IV SCH ×2 (00:52→12:17)
[2020-11-03] MEDS: CLINDAMYCIN 600MG IV 50 ML IV SCH ×3 (05:09→21:09)
[2020-11-03 05:26] VITALS: BP 115/76
[2020-11-03] MEDS: cefTRIAXone 1GM/50ML D5W 50 ML IV SCH (08:26)
[2020-11-03 09:00] VITALS: BP 118/54
[2020-11-03] MEDS: ENOXAPARIN SOD 40 MG/0.4 ML SYRINGE SC SCH (09:20)
[2020-11-03 13:00] VITALS: BP 99/62
[2020-11-03] MEDS: MORPHINE SULF INJ 2 MG/ML SYRINGE 1ML IV PRN ×2 (16:40→21:09)
[2020-11-03 17:00] VITALS: BP 101/78
[2020-11-03 22:00] VITALS: BP 124/79
[2020-11-04] MEDS: TEMAZEPAM 15 MG CAP PO PRN (00:55)
[2020-11-04] MEDS: SODIUM CHLORIDE 0.9% 1,000 ML IV SCH ×2 (00:55→10:23)
[2020-11-04 05:16] VITALS: BP 130/73
[2020-11-04] MEDS: CLINDAMYCIN 600MG IV 50 ML IV SCH ×2 (05:30→13:25)
[2020-11-04] MEDS: cefTRIAXone 1GM/50ML D5W 50 ML IV SCH (08:35)
[2020-11-04] MEDS: ENOXAPARIN SOD 40 MG/0.4 ML SYRINGE SC SCH (08:36)
[2020-11-04 12:01] LABS: Hepatitis B Surface Antibody Positive
[2020-11-04 12:13] VITALS: BP 139/88
[2020-11-04 12:30] LABS: Hepatitis A Total Antibody Positive
[2020-11-04 12:53] VITALS: BP 139/88
[2020-11-04 14:58] LABS: Hepatitis A Ab IgM Negative; Hepatitis B Core IgM Negative; Hepatitis B Core Total AB Negative; Hepatitis B Surface Antigen Negative (Negative); Hepatitis C Antibody Negative (Negative)
== END 2020-11-04 14:18 | disposition home or self-care (01) | DRG 603 ==
LOC: EDBD 12:03 → ER 12:03 → TELE 14:41 → TELE-WESTW 20:40
PROVIDERS: ADMIT Internal Medicine; ATTEND Family Medicine
PROC: 05HB33Z Insertion of Infusion Device into Right Basilic Vein, Percutaneous Approach (ICD-10-PCS; principal; 2020-10-31)
DX: L03.115 Cellulitis of right lower limb (principal); E44.0 Moderate protein-calorie malnutrition; Z93.0 Tracheostomy status; G71.00 Muscular dystrophy, unspecified; E11.9 Type 2 diabetes mellitus without complications; E03.9 Hypothyroidism, unspecified; Z68.26 Body mass index [BMI] 26.0-26.9, adult; Z20.822 Contact with and (suspected) exposure to COVID-19; Z82.49 Family history of ischemic heart disease and other diseases of the circulatory system; Z83.3 Family history of diabetes mellitus; Z90.49 Acquired absence of other specified parts of digestive tract; Z93.1 Gastrostomy status; Z93.3 Colostomy status; Z88.6 Allergy status to analgesic agent; Z88.2 Allergy status to sulfonamides; Z88.8 Allergy status to other drugs, medicaments and biological substances; I50.9 Heart failure, unspecified; E66.9 Obesity, unspecified; Z71.3 Dietary counseling and surveillance
CPT/HCPCS: 36415; 76705; 80053; 80074; 81001; 82728; 83605; 85025; 85652; 86038; 86704; 86706; 86708; 86803; 87040; 87340; 87426; 93005; 93971; 96365; 96367; 96375; G0378; J0696; J3490

== ENCOUNTER 2020-11-18 23:32 | Inpatient (IN) | payer MEDICARE, OTHER ==
[~2020-11-18] VITALS: Ht 154.9 cm; Wt 70.1 kg
[2020-11-19 00:23] LABS: Basophils # (auto) 0 10 ^3/uL (0-0.2); Basophils % (auto) 0.4 % (0.0-2.0); Eosinophils # (auto) 0.1 10 ^3/uL (0-0.8); Eosinophils % (auto) 0.9 % (0.0-7.0); Hematocrit 33.9 % (36.0-46.0); Hemoglobin 11.2 g/dL (12.2-16.2); Lymphocytes # (auto) 1.4 10 ^3/uL (0.4-5.4); Lymphocytes % (auto) 23.4 % (10.0-50.0); Mean Corpuscular Hemoglobin 28.8 pg (28.0-32.0); Mean Corpuscular Hgb Conc. 33.1 g/dL (32.0-36.0); Mean Corpuscular Volume 87.2 fL (80.0-100.0); Monocytes # (auto) 0.9 10 ^3/uL (0-1.3); Monocytes % (auto) 14.5 % (0.0-12.0); Neutrophils # (auto) 3.6 10 ^3/uL (1.6-8.6); Neutrophils % (auto) 60.8 % (37.0-80.0); Nucleated Red Blood Cells % 0.1 %; Red Blood Cells 3.89 10^6/uL (4.0-5.20); Red Cell Distribution Width 18.5 % (11.8-14.3); White Blood Cell 5.9 10^3/uL (4.4-10.8)
[2020-11-19 00:46] LABS: Alanine Aminotransferase 21 U/L (13-56); Albumin 2.7 g/dL (3.4-5.0); Anion Gap 7 (5-15); Aspartate Aminotransferase 23 U/L (15-37); BUN/Creatinine Ratio 17.9; Blood Urea Nitrogen 14 mg/dL (7-18); Carbon Dioxide 25 mmol/L (21-32); Chloride 105 mmol/L (98-107); GFR African American 101 mL/min; GFR Non-African American 83 mL/min; Glucose 106 mg/dL (74-106); Magnesium 2.2 mg/dL (1.6-2.6); Potassium 3.3 mmol/L (3.5-5.1); Sodium 137 mmol/L (136-145)
[2020-11-19 00:51] LABS: Alkaline Phosphatase 105 U/L (45-117); Bilirubin, Total 0.5 mg/dL (0.2-1.0); Total Protein 6.3 g/dL (6.4-8.2)
[2020-11-19] MEDS ORDERED: SODIUM CHLORIDE 0.9% 1,000 ML IV ONE (01:30)
[2020-11-19] MEDS ORDERED: ONDANSETRON HCL 4 MG/2 ML VIAL IV PRN (05:45)
[2020-11-19] MEDS ORDERED: MORPHINE SULF INJ 2 MG/ML SYRINGE 1ML IV PRN (05:45)
[2020-11-19] MEDS ORDERED: ACETAMINOPHEN 500 MG TAB PO PRN (05:45)
[2020-11-19] MEDS ORDERED: ALBUMIN 25% 50 ML IV ONE (05:45)
[2020-11-19] MEDS ORDERED: DOCUSATE SOD 100 MG CAP PO PRN (05:45)
[2020-11-19] MEDS ORDERED: ACETAMINOPHEN 325 MG TAB PO PRN (05:45)
[2020-11-19] MEDS ORDERED: POTASSIUM CHL 20 Meq TABLET PO ONE (05:45)
[2020-11-19] MEDS ORDERED: NITROGLYCERIN 0.4 MG SL TAB SL PRN (05:45)
[2020-11-19] MEDS: SODIUM CHLOR 0.9% PF (SALINE LOCK) 10ML VIAL/SYR IV SCH ×3 (06:20→21:12)
[2020-11-19] MEDS: BUDESONIDE (INHALATION) 180 MCG IH IN SCH ×2 (08:05→20:25)
[2020-11-19] MEDS: ALBUTEROL SULF HFA 90MCG INH 200DOSE IN PRN ×2 (08:05→20:25)
[2020-11-19] MEDS: ONDANSETRON HCL 4 MG/2 ML VIAL IV PRN (09:44)
[2020-11-19] MEDS: MORPHINE SULF INJ 2 MG/ML SYRINGE 1ML IV PRN ×3 (09:44→20:34)
[2020-11-19] MEDS: CHOLECALCIFEROL (VITD3) 2,000 UNIT CAP/TAB PO SCH (11:19)
[2020-11-19] MEDS: DOXYCYCLINE 100MG/250ML 250 ML IV SCH ×2 (11:19→21:12)
[2020-11-19] MEDS: ZINC SULFATE 220mg CAP or TAB PO SCH (11:19)
[2020-11-19] MEDS: MULTIPLE VITAMIN TAB PO SCH (11:19)
[2020-11-19] MEDS: ASCORBIC ACID 1,000 MG TAB PO SCH (11:20)
[2020-11-19] MEDS: DexAMETHasone SOD PHOS 10MG/1ML VIAL INJ IV SCH (11:20)
[2020-11-19] MEDS: ENOXAPARIN SOD 40 MG/0.4 ML SYRINGE SC SCH (11:20)
[2020-11-19] MEDS: FAMOTIDINE (10MG/ML) 2ML VL IV SCH ×2 (11:20→21:12)
[2020-11-19 13:00] VITALS: BP 99/58
[2020-11-19] MEDS ORDERED: IVERMECTIN 3 MG TAB PO ONE (16:02)
[2020-11-19] MEDS ORDERED: REMDESIVIR PER PHARMACY 0 ML IV SCH (16:15)
[2020-11-19] MEDS ORDERED: REMDESIVIR 200 MG in NS 210ml LOADING DOSE ADULT IV ONE (16:30)
[2020-11-19 17:00] VITALS: BP 83/65
[2020-11-19 22:00] VITALS: BP 102/63
[2020-11-20] MEDS: MORPHINE SULF INJ 2 MG/ML SYRINGE 1ML IV PRN ×3 (00:43→22:28)
[2020-11-20 05:00] VITALS: BP 105/61
[2020-11-20] MEDS: SODIUM CHLOR 0.9% PF (SALINE LOCK) 10ML VIAL/SYR IV SCH ×3 (05:31→22:07)
[2020-11-20 06:41] LABS: Basophils # (auto) 0 10 ^3/uL (0-0.2); Basophils % (auto) 0.2 % (0.0-2.0); Eosinophils # (auto) 0 10 ^3/uL (0-0.8); Hematocrit 33.7 % (36.0-46.0); Hemoglobin 11.3 g/dL (12.2-16.2); Lymphocytes # (auto) 0.5 10 ^3/uL (0.4-5.4); Lymphocytes % (auto) 17.1 % (10.0-50.0); Mean Corpuscular Hgb Conc. 33.6 g/dL (32.0-36.0); Mean Corpuscular Volume 86.3 fL (80.0-100.0); Monocytes # (auto) 0.2 10 ^3/uL (0-1.3); Monocytes % (auto) 6.9 % (0.0-12.0); Neutrophils # (auto) 2.3 10 ^3/uL (1.6-8.6); Neutrophils % (auto) 75.8 % (37.0-80.0); Red Blood Cells 3.91 10^6/uL (4.0-5.20)
[2020-11-20 06:54] LABS: Albumin 2.7 g/dL (3.4-5.0); Potassium 4.3 mmol/L (3.5-5.1)
[2020-11-20 07:02] LABS: BUN/Creatinine Ratio 22.6; Bilirubin, Total 0.4 mg/dL (0.2-1.0); CRP High Sensitivity 6.41 mg/dL (< 0.3); Calcium 8.5 mg/dL (8.5-10.1); Magnesium 2.3 mg/dL (1.6-2.6)
[2020-11-20] MEDS: ALBUTEROL SULF HFA 90MCG INH 200DOSE IN PRN ×2 (08:12→22:58)
[2020-11-20] MEDS: BUDESONIDE (INHALATION) 180 MCG IH IN SCH ×2 (08:12→22:00)
[2020-11-20] MEDS: ONDANSETRON HCL 4 MG/2 ML VIAL IV PRN (08:51)
[2020-11-20 09:00] VITALS: BP 93/72
[2020-11-20] MEDS: FAMOTIDINE (10MG/ML) 2ML VL IV SCH (09:42)
[2020-11-20] MEDS: DexAMETHasone SOD PHOS 10MG/1ML VIAL INJ IV SCH (09:42)
[2020-11-20] MEDS: ENOXAPARIN SOD 40 MG/0.4 ML SYRINGE SC SCH ×2 (09:43→22:03)
[2020-11-20] MEDS: ASCORBIC ACID 1,000 MG TAB PO SCH (10:00)
[2020-11-20] MEDS: CHOLECALCIFEROL (VITD3) 2,000 UNIT CAP/TAB PO SCH (10:00)
[2020-11-20] MEDS: MULTIPLE VITAMIN TAB PO SCH (10:00)
[2020-11-20] MEDS: ZINC SULFATE 220mg CAP or TAB PO SCH (10:00)
[2020-11-20] MEDS: IVERMECTIN 3 MG TAB PO SCH (10:06)
[2020-11-20] MEDS: DOXYCYCLINE 100MG/250ML 250 ML IV SCH ×2 (10:06→22:07)
[2020-11-20] MEDS ORDERED: TOPIRAMATE 25 MG TAB PO ONE (10:15)
[2020-11-20] MEDS: DULoxetine HCL 30 MG CAP PO SCH (11:53)
[2020-11-20] MEDS: LORazepam 0.5 MG TAB PO PRN (11:53)
[2020-11-20] MEDS: LEVOTHYROXINE SODIUM 25 MCG TAB PO SCH (11:53)
[2020-11-20] MEDS: REMDESIVIR 100mg 100 MG in SODIUM CHL 0.9% 230 ML IV SCH (15:00)
[2020-11-20 17:25] VITALS: BP 119/77
[2020-11-20 22:00] VITALS: BP 124/79
[2020-11-20] MEDS: TOPIRAMATE 25 MG TAB PO SCH (22:03)
[2020-11-21] MEDS: ONDANSETRON HCL 4 MG/2 ML VIAL IV PRN (01:00)
[2020-11-21] MEDS: MORPHINE SULF INJ 2 MG/ML SYRINGE 1ML IV PRN ×4 (03:13→22:05)
[2020-11-21 05:00] VITALS: BP 110/69
[2020-11-21] MEDS: LEVOTHYROXINE SODIUM 25 MCG TAB PO SCH (06:25)
[2020-11-21] MEDS: ALBUTEROL SULF HFA 90MCG INH 200DOSE IN PRN ×2 (06:30→22:00)
[2020-11-21] MEDS: BUDESONIDE (INHALATION) 180 MCG IH IN SCH ×2 (06:30→22:00)
[2020-11-21] MEDS: SODIUM CHLOR 0.9% PF (SALINE LOCK) 10ML VIAL/SYR IV SCH ×3 (06:31→21:53)
[2020-11-21 08:49] VITALS: BP 114/69
[2020-11-21] MEDS: DexAMETHasone SOD PHOS 10MG/1ML VIAL INJ IV SCH (09:39)
[2020-11-21] MEDS: IVERMECTIN 3 MG TAB PO SCH (09:40)
[2020-11-21] MEDS: DOXYCYCLINE 100MG/250ML 250 ML IV SCH ×2 (09:40→21:53)
[2020-11-21] MEDS: MULTIPLE VITAMIN TAB PO SCH (09:40)
[2020-11-21] MEDS: ZINC SULFATE 220mg CAP or TAB PO SCH (09:40)
[2020-11-21] MEDS: CHOLECALCIFEROL (VITD3) 2,000 UNIT CAP/TAB PO SCH (09:40)
[2020-11-21] MEDS: DULoxetine HCL 30 MG CAP PO SCH (09:40)
[2020-11-21] MEDS: TOPIRAMATE 25 MG TAB PO SCH ×2 (09:40→21:53)
[2020-11-21] MEDS: ASCORBIC ACID 1,000 MG TAB PO SCH (09:40)
[2020-11-21] MEDS: ENOXAPARIN SOD 40 MG/0.4 ML SYRINGE SC SCH ×2 (09:41→21:53)
[2020-11-21] MEDS: LORazepam 0.5 MG TAB PO PRN (11:59)
[2020-11-21 12:20] VITALS: BP 113/77
[2020-11-21] MEDS: REMDESIVIR 100mg 100 MG in SODIUM CHL 0.9% 230 ML IV SCH (14:59)
[2020-11-21 16:56] VITALS: BP 119/74
[2020-11-21 22:00] VITALS: BP 112/72
[2020-11-22] MEDS: MORPHINE SULF INJ 2 MG/ML SYRINGE 1ML IV PRN ×5 (02:36→21:06)
[2020-11-22 04:59] VITALS: BP 113/62
[2020-11-22] MEDS: SODIUM CHLOR 0.9% PF (SALINE LOCK) 10ML VIAL/SYR IV SCH ×3 (06:39→21:08)
[2020-11-22] MEDS: LEVOTHYROXINE SODIUM 25 MCG TAB PO SCH (06:39)
[2020-11-22 06:45] LABS: Basophils # (auto) 0 10 ^3/uL (0-0.2); Basophils % (auto) 0.4 % (0.0-2.0); Eosinophils # (auto) 0 10 ^3/uL (0-0.8); Hematocrit 35.5 % (36.0-46.0); Lymphocytes # (auto) 0.9 10 ^3/uL (0.4-5.4); Lymphocytes % (auto) 18.4 % (10.0-50.0); Mean Corpuscular Hemoglobin 29.2 pg (28.0-32.0); Mean Corpuscular Hgb Conc. 33.8 g/dL (32.0-36.0); Mean Corpuscular Volume 86.4 fL (80.0-100.0); Monocytes # (auto) 0.5 10 ^3/uL (0-1.3); Monocytes % (auto) 10.8 % (0.0-12.0); Neutrophils # (auto) 3.3 10 ^3/uL (1.6-8.6); Neutrophils % (auto) 70.4 % (37.0-80.0); Nucleated Red Blood Cells % 0.1 %; Red Blood Cells 4.11 10^6/uL (4.0-5.20); Red Cell Distribution Width 17.9 % (11.8-14.3); White Blood Cell 4.7 10^3/uL (4.4-10.8)
[2020-11-22 06:58] LABS: Potassium 3.7 mmol/L (3.5-5.1)
[2020-11-22] MEDS: ALBUTEROL SULF HFA 90MCG INH 200DOSE IN PRN ×2 (07:04→20:37)
[2020-11-22] MEDS: BUDESONIDE (INHALATION) 180 MCG IH IN SCH ×2 (07:04→19:58)
[2020-11-22 07:23] LABS: Albumin 2.5 g/dL (3.4-5.0); BUN/Creatinine Ratio 30.6; Bilirubin, Total 0.5 mg/dL (0.2-1.0); CRP High Sensitivity 1.4 mg/dL (< 0.3); Calcium 8.3 mg/dL (8.5-10.1); Magnesium 2.2 mg/dL (1.6-2.6); Total Protein 6.6 g/dL (6.4-8.2)
[2020-11-22 09:00] VITALS: BP 109/70
[2020-11-22] MEDS: ASCORBIC ACID 1,000 MG TAB PO SCH (09:21)
[2020-11-22] MEDS: MULTIPLE VITAMIN TAB PO SCH (09:21)
[2020-11-22] MEDS: TOPIRAMATE 25 MG TAB PO SCH ×2 (09:21→21:05)
[2020-11-22] MEDS: CHOLECALCIFEROL (VITD3) 2,000 UNIT CAP/TAB PO SCH (09:22)
[2020-11-22] MEDS: ZINC SULFATE 220mg CAP or TAB PO SCH (09:22)
[2020-11-22] MEDS: ENOXAPARIN SOD 40 MG/0.4 ML SYRINGE SC SCH ×2 (09:22→21:05)
[2020-11-22] MEDS: DULoxetine HCL 30 MG CAP PO SCH (09:22)
[2020-11-22] MEDS: IVERMECTIN 3 MG TAB PO SCH (09:22)
[2020-11-22] MEDS: DexAMETHasone SOD PHOS 10MG/1ML VIAL INJ IV SCH (09:23)
[2020-11-22] MEDS: DOXYCYCLINE 100MG/250ML 250 ML IV SCH ×2 (09:24→21:05)
[2020-11-22 10:00] VITALS: BP 105/73
[2020-11-22] MEDS ORDERED: ZINC220T6 PO (11:16)
[2020-11-22] MEDS ORDERED: DEX4T PO (11:16)
[2020-11-22] MEDS ORDERED: FAMO20TA10 PO (11:16)
[2020-11-22] MEDS ORDERED: ASPI-378 PO (11:16)
[2020-11-22] MEDS ORDERED: ASCO10003 PO (11:16)
[2020-11-22] MEDS ORDERED: BUDE2SUS3 IN (11:16)
[2020-11-22] MEDS ORDERED: CHOL20007 PO (11:16)
[2020-11-22] MEDS ORDERED: DOXY-286 PO (11:16)
[2020-11-22] MEDS ORDERED: ALBUAER3 IN (11:16)
[2020-11-22 12:51] VITALS: BP 105/73
[2020-11-22] MEDS: REMDESIVIR 100mg 100 MG in SODIUM CHL 0.9% 230 ML IV SCH (14:13)
[2020-11-22 17:00] VITALS: BP 118/82
[2020-11-22 22:00] VITALS: BP 118/77
[2020-11-23] MEDS: MORPHINE SULF INJ 2 MG/ML SYRINGE 1ML IV PRN ×4 (02:04→17:14)
[2020-11-23 05:00] VITALS: BP 120/80
[2020-11-23] MEDS: SODIUM CHLOR 0.9% PF (SALINE LOCK) 10ML VIAL/SYR IV SCH ×3 (06:14→22:00)
[2020-11-23] MEDS: LEVOTHYROXINE SODIUM 25 MCG TAB PO SCH (06:32)
[2020-11-23] MEDS: ALBUTEROL SULF HFA 90MCG INH 200DOSE IN PRN ×2 (07:00→22:33)
[2020-11-23] MEDS: BUDESONIDE (INHALATION) 180 MCG IH IN SCH ×2 (07:01→21:25)
[2020-11-23 09:00] VITALS: BP 126/79
[2020-11-23] MEDS: DOXYCYCLINE 100MG/250ML 250 ML IV SCH ×2 (10:00→22:00)
[2020-11-23] MEDS: ENOXAPARIN SOD 40 MG/0.4 ML SYRINGE SC SCH ×2 (10:31→22:01)
[2020-11-23] MEDS: DexAMETHasone SOD PHOS 10MG/1ML VIAL INJ IV SCH (10:31)
[2020-11-23] MEDS: IVERMECTIN 3 MG TAB PO SCH (10:32)
[2020-11-23] MEDS: ASCORBIC ACID 1,000 MG TAB PO SCH (10:32)
[2020-11-23] MEDS: TOPIRAMATE 25 MG TAB PO SCH ×2 (10:32→22:01)
[2020-11-23] MEDS: CHOLECALCIFEROL (VITD3) 2,000 UNIT CAP/TAB PO SCH (10:32)
[2020-11-23] MEDS: MULTIPLE VITAMIN TAB PO SCH (10:32)
[2020-11-23] MEDS: ZINC SULFATE 220mg CAP or TAB PO SCH (10:32)
[2020-11-23] MEDS: DULoxetine HCL 30 MG CAP PO SCH (10:32)
[2020-11-23 13:00] VITALS: BP 112/80
[2020-11-23] MEDS: REMDESIVIR 100mg 100 MG in SODIUM CHL 0.9% 230 ML IV SCH (15:04)
[2020-11-23 16:52] VITALS: BP 124/83
[2020-11-23 22:00] VITALS: BP 115/70
[2020-11-24] MEDS: MORPHINE SULF INJ 2 MG/ML SYRINGE 1ML IV PRN ×4 (00:29→16:41)
[2020-11-24 05:00] VITALS: BP 99/60
[2020-11-24] MEDS: SODIUM CHLOR 0.9% PF (SALINE LOCK) 10ML VIAL/SYR IV SCH ×3 (05:56→22:13)
[2020-11-24] MEDS: LEVOTHYROXINE SODIUM 25 MCG TAB PO SCH (06:47)
[2020-11-24] MEDS: BUDESONIDE (INHALATION) 180 MCG IH IN SCH ×2 (06:52→23:08)
[2020-11-24 09:00] VITALS: BP 114/76
[2020-11-24] MEDS: ENOXAPARIN SOD 40 MG/0.4 ML SYRINGE SC SCH ×2 (10:00→22:13)
[2020-11-24] MEDS: CHOLECALCIFEROL (VITD3) 2,000 UNIT CAP/TAB PO SCH (10:11)
[2020-11-24] MEDS: ZINC SULFATE 220mg CAP or TAB PO SCH (10:11)
[2020-11-24] MEDS: TOPIRAMATE 25 MG TAB PO SCH ×2 (10:11→22:13)
[2020-11-24] MEDS: DULoxetine HCL 30 MG CAP PO SCH (10:11)
[2020-11-24] MEDS: ASCORBIC ACID 1,000 MG TAB PO SCH (10:11)
[2020-11-24] MEDS: MULTIPLE VITAMIN TAB PO SCH (10:11)
[2020-11-24] MEDS: DexAMETHasone SOD PHOS 10MG/1ML VIAL INJ IV SCH (10:11)
[2020-11-24 13:00] VITALS: BP 105/72
[2020-11-24 17:00] VITALS: BP 117/84
[2020-11-24 21:35] VITALS: BP 91/57
[2020-11-24] MEDS: ALBUTEROL SULF HFA 90MCG INH 200DOSE IN PRN (23:59)
[2020-11-25] MEDS: MORPHINE SULF INJ 2 MG/ML SYRINGE 1ML IV PRN ×5 (01:01→21:15)
[2020-11-25 05:00] VITALS: BP_SYST 107; BP_DIAS 69; BP_DIAS 83
[2020-11-25] MEDS: SODIUM CHLOR 0.9% PF (SALINE LOCK) 10ML VIAL/SYR IV SCH ×3 (06:11→21:09)
[2020-11-25] MEDS: LEVOTHYROXINE SODIUM 25 MCG TAB PO SCH (06:26)
[2020-11-25] MEDS: BUDESONIDE (INHALATION) 180 MCG IH IN SCH ×2 (06:28→19:37)
[2020-11-25] MEDS: ALBUTEROL SULF HFA 90MCG INH 200DOSE IN PRN ×2 (06:28→19:36)
[2020-11-25] MEDS: ZINC SULFATE 220mg CAP or TAB PO SCH (08:54)
[2020-11-25] MEDS: CHOLECALCIFEROL (VITD3) 2,000 UNIT CAP/TAB PO SCH (08:55)
[2020-11-25] MEDS: DULoxetine HCL 30 MG CAP PO SCH (08:55)
[2020-11-25] MEDS: TOPIRAMATE 25 MG TAB PO SCH ×2 (08:55→21:09)
[2020-11-25] MEDS: MULTIPLE VITAMIN TAB PO SCH (08:55)
[2020-11-25] MEDS: ASCORBIC ACID 1,000 MG TAB PO SCH (08:55)
[2020-11-25] MEDS: ENOXAPARIN SOD 40 MG/0.4 ML SYRINGE SC SCH ×2 (08:56→21:10)
[2020-11-25] MEDS: DexAMETHasone SOD PHOS 10MG/1ML VIAL INJ IV SCH (08:56)
[2020-11-25 09:00] VITALS: BP 126/78
[2020-11-25] MEDS: ONDANSETRON HCL 4 MG/2 ML VIAL IV PRN (09:12)
[2020-11-25 09:20] VITALS: BP 107/83
[2020-11-25 13:00] VITALS: BP 114/72
[2020-11-25 16:56] VITALS: BP 113/72
[2020-11-25] MEDS: ASCORBIC ACID 500 MG TAB PO SCH (21:10)
[2020-11-25 22:00] VITALS: BP 132/74
[2020-11-26] MEDS: MORPHINE SULF INJ 2 MG/ML SYRINGE 1ML IV PRN ×4 (02:36→22:49)
[2020-11-26 05:00] VITALS: BP 107/69
[2020-11-26] MEDS: SODIUM CHLOR 0.9% PF (SALINE LOCK) 10ML VIAL/SYR IV SCH ×3 (05:34→22:50)
[2020-11-26] MEDS: LEVOTHYROXINE SODIUM 25 MCG TAB PO SCH (06:38)
[2020-11-26] MEDS: BUDESONIDE (INHALATION) 180 MCG IH IN SCH ×2 (06:52→21:00)
[2020-11-26] MEDS: ALBUTEROL SULF HFA 90MCG INH 200DOSE IN PRN ×2 (06:52→21:00)
[2020-11-26 08:39] VITALS: BP 101/69
[2020-11-26] MEDS: DULoxetine HCL 30 MG CAP PO SCH (09:23)
[2020-11-26] MEDS: ZINC SULFATE 220mg CAP or TAB PO SCH (09:23)
[2020-11-26] MEDS: DexAMETHasone SOD PHOS 10MG/1ML VIAL INJ IV SCH (09:23)
[2020-11-26] MEDS: TOPIRAMATE 25 MG TAB PO SCH ×2 (09:23→22:49)
[2020-11-26] MEDS: MULTIPLE VITAMIN TAB PO SCH (09:23)
[2020-11-26] MEDS: CHOLECALCIFEROL (VITD3) 2,000 UNIT CAP/TAB PO SCH (09:24)
[2020-11-26] MEDS: ENOXAPARIN SOD 40 MG/0.4 ML SYRINGE SC SCH ×2 (12:51→22:49)
[2020-11-26] MEDS: ASCORBIC ACID 500 MG TAB PO SCH ×2 (12:51→22:49)
[2020-11-26 13:00] VITALS: BP 117/78
[2020-11-26 16:43] VITALS: BP 133/78
[2020-11-26 22:00] VITALS: BP 112/71
[2020-11-27 05:00] VITALS: BP 120/77
[2020-11-27] MEDS: MORPHINE SULF INJ 2 MG/ML SYRINGE 1ML IV PRN (05:09)
[2020-11-27] MEDS: ALBUTEROL SULF HFA 90MCG INH 200DOSE IN PRN ×2 (06:24→22:12)
[2020-11-27] MEDS: BUDESONIDE (INHALATION) 180 MCG IH IN SCH ×2 (06:25→22:12)
[2020-11-27] MEDS: LEVOTHYROXINE SODIUM 25 MCG TAB PO SCH (06:38)
[2020-11-27] MEDS: SODIUM CHLOR 0.9% PF (SALINE LOCK) 10ML VIAL/SYR IV SCH ×3 (06:38→22:25)
[2020-11-27 09:00] VITALS: BP 92/54
[2020-11-27] MEDS ORDERED: DEX4T PO (09:38)
[2020-11-27] MEDS: CHOLECALCIFEROL (VITD3) 2,000 UNIT CAP/TAB PO SCH (10:00)
[2020-11-27] MEDS: ZINC SULFATE 220mg CAP or TAB PO SCH (10:00)
[2020-11-27] MEDS: DULoxetine HCL 30 MG CAP PO SCH (10:20)
[2020-11-27] MEDS: DexAMETHasone 4 MG TAB PO SCH (10:41)
[2020-11-27] MEDS: MULTIPLE VITAMIN TAB PO SCH (10:41)
[2020-11-27] MEDS: TOPIRAMATE 25 MG TAB PO SCH ×2 (10:41→22:24)
[2020-11-27] MEDS: ENOXAPARIN SOD 40 MG/0.4 ML SYRINGE SC SCH ×2 (10:42→22:24)
[2020-11-27] MEDS: ASCORBIC ACID 500 MG TAB PO SCH ×2 (10:42→22:24)
[2020-11-27 13:00] VITALS: BP 101/59
[2020-11-27] MEDS: LORazepam 0.5 MG TAB PO PRN (14:06)
[2020-11-27] MEDS: HYDROcodone-ACET 5/325MG TAB PO PRN (15:47)
[2020-11-27 17:00] VITALS: BP 121/72
[2020-11-27 22:00] VITALS: BP 119/64
[2020-11-28] MEDS: LORazepam 0.5 MG TAB PO PRN (03:43)
[2020-11-28 05:00] VITALS: BP 116/64
[2020-11-28] MEDS: ALBUTEROL SULF HFA 90MCG INH 200DOSE IN PRN ×2 (06:38→21:21)
[2020-11-28] MEDS: BUDESONIDE (INHALATION) 180 MCG IH IN SCH ×2 (06:39→21:21)
[2020-11-28] MEDS: LEVOTHYROXINE SODIUM 25 MCG TAB PO SCH (06:53)
[2020-11-28] MEDS: SODIUM CHLOR 0.9% PF (SALINE LOCK) 10ML VIAL/SYR IV SCH ×3 (06:53→22:17)
[2020-11-28 08:30] VITALS: BP 101/64
[2020-11-28 09:08] VITALS: BP 116/64
[2020-11-28] MEDS: DULoxetine HCL 30 MG CAP PO SCH (09:54)
[2020-11-28] MEDS: DexAMETHasone 4 MG TAB PO SCH (09:54)
[2020-11-28] MEDS: CHOLECALCIFEROL (VITD3) 2,000 UNIT CAP/TAB PO SCH (09:54)
[2020-11-28] MEDS: ZINC SULFATE 220mg CAP or TAB PO SCH (09:54)
[2020-11-28] MEDS: ASCORBIC ACID 500 MG TAB PO SCH ×2 (09:54→22:15)
[2020-11-28] MEDS: MULTIPLE VITAMIN TAB PO SCH (09:54)
[2020-11-28] MEDS: TOPIRAMATE 25 MG TAB PO SCH ×2 (09:55→22:16)
[2020-11-28] MEDS: ENOXAPARIN SOD 40 MG/0.4 ML SYRINGE SC SCH ×2 (10:00→22:15)
[2020-11-28] MEDS: HYDROcodone-ACET 5/325MG TAB PO PRN ×3 (10:08→22:17)
[2020-11-28 12:30] VITALS: BP 95/71
[2020-11-28 17:00] VITALS: BP 104/66
[2020-11-28 21:57] VITALS: BP 124/81
[2020-11-29 05:00] VITALS: BP 115/64
[2020-11-29] MEDS: HYDROcodone-ACET 5/325MG TAB PO PRN ×3 (06:09→18:12)
[2020-11-29] MEDS: SODIUM CHLOR 0.9% PF (SALINE LOCK) 10ML VIAL/SYR IV SCH ×3 (06:10→22:24)
[2020-11-29] MEDS: LEVOTHYROXINE SODIUM 25 MCG TAB PO SCH (06:39)
[2020-11-29] MEDS: BUDESONIDE (INHALATION) 180 MCG IH IN SCH ×2 (07:47→20:31)
[2020-11-29] MEDS: ALBUTEROL SULF HFA 90MCG INH 200DOSE IN PRN (07:47)
[2020-11-29] MEDS: DULoxetine HCL 30 MG CAP PO SCH (08:44)
[2020-11-29] MEDS: TOPIRAMATE 25 MG TAB PO SCH ×2 (08:44→22:24)
[2020-11-29] MEDS: ASCORBIC ACID 500 MG TAB PO SCH ×2 (08:44→22:24)
[2020-11-29] MEDS: ENOXAPARIN SOD 40 MG/0.4 ML SYRINGE SC SCH ×2 (08:44→22:25)
[2020-11-29] MEDS: CHOLECALCIFEROL (VITD3) 2,000 UNIT CAP/TAB PO SCH (08:44)
[2020-11-29] MEDS: LORazepam 0.5 MG TAB PO PRN ×2 (08:45→22:25)
[2020-11-29] MEDS: MULTIPLE VITAMIN TAB PO SCH (08:45)
[2020-11-29] MEDS: ZINC SULFATE 220mg CAP or TAB PO SCH (08:45)
[2020-11-29] MEDS: DexAMETHasone 4 MG TAB PO SCH (08:45)
[2020-11-29 08:51] VITALS: BP 120/71
[2020-11-29 12:16] VITALS: BP 121/64
[2020-11-29 14:45] VITALS: BP 121/64
[2020-11-29 17:06] VITALS: BP 113/63
[2020-11-29 22:18] VITALS: BP 103/68
[2020-11-30 05:06] VITALS: BP 101/66
[2020-11-30] MEDS: LEVOTHYROXINE SODIUM 25 MCG TAB PO SCH (06:50)
[2020-11-30] MEDS: ALBUTEROL SULF HFA 90MCG INH 200DOSE IN PRN ×2 (06:50→19:38)
[2020-11-30] MEDS: BUDESONIDE (INHALATION) 180 MCG IH IN SCH ×2 (06:50→19:38)
[2020-11-30] MEDS: SODIUM CHLOR 0.9% PF (SALINE LOCK) 10ML VIAL/SYR IV SCH ×3 (06:50→22:21)
[2020-11-30 09:15] VITALS: BP 103/68
[2020-11-30] MEDS: ASCORBIC ACID 500 MG TAB PO SCH ×2 (10:22→22:21)
[2020-11-30] MEDS: HYDROcodone-ACET 5/325MG TAB PO PRN ×3 (10:23→22:22)
[2020-11-30] MEDS: DULoxetine HCL 30 MG CAP PO SCH (10:24)
[2020-11-30] MEDS: DexAMETHasone 4 MG TAB PO SCH (10:24)
[2020-11-30] MEDS: TOPIRAMATE 25 MG TAB PO SCH ×2 (10:24→22:20)
[2020-11-30] MEDS: CHOLECALCIFEROL (VITD3) 2,000 UNIT CAP/TAB PO SCH (10:24)
[2020-11-30] MEDS: ENOXAPARIN SOD 40 MG/0.4 ML SYRINGE SC SCH ×2 (10:24→22:21)
[2020-11-30] MEDS: MULTIPLE VITAMIN TAB PO SCH (11:11)
[2020-11-30] MEDS: ZINC SULFATE 220mg CAP or TAB PO SCH (11:12)
[2020-11-30 13:23] VITALS: BP 91/70
[2020-11-30] MEDS: LORazepam 0.5 MG TAB PO PRN (15:11)
[2020-11-30 17:16] VITALS: BP 104/70
[2020-11-30 22:20] VITALS: BP 104/70
[2020-11-30 22:56] VITALS: BP 104/70
[2020-12-01 05:09] VITALS: BP 117/84
[2020-12-01] MEDS: LEVOTHYROXINE SODIUM 25 MCG TAB PO SCH (06:15)
[2020-12-01] MEDS: SODIUM CHLOR 0.9% PF (SALINE LOCK) 10ML VIAL/SYR IV SCH ×3 (06:15→21:52)
[2020-12-01 08:00] VITALS: BP 112/71
[2020-12-01 08:01] VITALS: BP 112/71
[2020-12-01] MEDS: BUDESONIDE (INHALATION) 180 MCG IH IN SCH ×2 (10:00→21:42)
[2020-12-01] MEDS: ZINC SULFATE 220mg CAP or TAB PO SCH (10:38)
[2020-12-01] MEDS: DULoxetine HCL 30 MG CAP PO SCH (10:39)
[2020-12-01] MEDS: DexAMETHasone 4 MG TAB PO SCH (10:39)
[2020-12-01] MEDS: ASCORBIC ACID 500 MG TAB PO SCH ×2 (10:40→21:52)
[2020-12-01] MEDS: MULTIPLE VITAMIN TAB PO SCH (10:40)
[2020-12-01] MEDS: TOPIRAMATE 25 MG TAB PO SCH ×2 (10:40→21:52)
[2020-12-01] MEDS: ENOXAPARIN SOD 40 MG/0.4 ML SYRINGE SC SCH ×2 (10:41→21:53)
[2020-12-01] MEDS: CHOLECALCIFEROL (VITD3) 2,000 UNIT CAP/TAB PO SCH (10:41)
[2020-12-01 12:00] VITALS: BP 109/58
[2020-12-01] MEDS: LORazepam 0.5 MG TAB PO PRN (13:21)
[2020-12-01] MEDS: HYDROcodone-ACET 5/325MG TAB PO PRN ×2 (13:22→18:59)
[2020-12-01 16:00] VITALS: BP 110/68
[2020-12-01 22:25] VITALS: BP 101/69
[2020-12-02 05:15] VITALS: BP 118/78
[2020-12-02] MEDS: ALBUTEROL SULF HFA 90MCG INH 200DOSE IN PRN (06:08)
[2020-12-02] MEDS: BUDESONIDE (INHALATION) 180 MCG IH IN SCH (06:09)
[2020-12-02] MEDS: LEVOTHYROXINE SODIUM 25 MCG TAB PO SCH (06:33)
[2020-12-02] MEDS: SODIUM CHLOR 0.9% PF (SALINE LOCK) 10ML VIAL/SYR IV SCH ×2 (06:33→14:00)
[2020-12-02 08:00] VITALS: BP 109/71
[2020-12-02] MEDS: ZINC SULFATE 220mg CAP or TAB PO SCH (09:54)
[2020-12-02] MEDS: DexAMETHasone 4 MG TAB PO SCH (09:54)
[2020-12-02] MEDS: DULoxetine HCL 30 MG CAP PO SCH (09:54)
[2020-12-02] MEDS: MULTIPLE VITAMIN TAB PO SCH (09:54)
[2020-12-02] MEDS: ENOXAPARIN SOD 40 MG/0.4 ML SYRINGE SC SCH (09:55)
[2020-12-02] MEDS: ASCORBIC ACID 500 MG TAB PO SCH (09:55)
[2020-12-02] MEDS: CHOLECALCIFEROL (VITD3) 2,000 UNIT CAP/TAB PO SCH (09:55)
[2020-12-02] MEDS: TOPIRAMATE 25 MG TAB PO SCH (09:55)
[2020-12-02] MEDS: HYDROcodone-ACET 5/325MG TAB PO PRN (10:12)
[2020-12-02 10:42] VITALS: BP 109/71
[2020-12-02 13:00] VITALS: BP 112/57
[2020-12-02] MEDS: LORazepam 0.5 MG TAB PO PRN (13:22)
== END 2020-12-02 15:30 | disposition home health service (06) | DRG 871 ==
LOC: ER 23:33 → TELE 11-19 05:43 → TELE-EAST 11-19 10:52
PROVIDERS: ADMIT Nurse Practitioner Family; ATTEND Internal Medicine
PROC: XW033E5 Introduction of Remdesivir Anti-infective into Peripheral Vein, Percutaneous Approach, New Technology Group 5 (ICD-10-PCS; principal; 2020-11-19)
PROC: 05HC33Z Insertion of Infusion Device into Left Basilic Vein, Percutaneous Approach (ICD-10-PCS; 2020-11-20)
PROC: B54NZZA Ultrasonography of Left Upper Extremity Veins, Guidance (ICD-10-PCS; 2020-11-20)
DX: A41.89 Other specified sepsis (principal); L89.153 Pressure ulcer of sacral region, stage 3; U07.1 COVID-19; J12.82 Pneumonia due to coronavirus disease 2019; G82.50 Quadriplegia, unspecified; J96.21 Acute and chronic respiratory failure with hypoxia; E88.09 Other disorders of plasma-protein metabolism, not elsewhere classified; E87.6 Hypokalemia; F32.9 Major depressive disorder, single episode, unspecified; D89.839 Cytokine release syndrome, grade unspecified; N18.9 Chronic kidney disease, unspecified; E03.9 Hypothyroidism, unspecified; Z93.0 Tracheostomy status; Z74.01 Bed confinement status; Z93.3 Colostomy status; Z83.3 Family history of diabetes mellitus; Z88.2 Allergy status to sulfonamides; Z88.5 Allergy status to narcotic agent; Z82.49 Family history of ischemic heart disease and other diseases of the circulatory system; I12.9 Hypertensive chronic kidney disease with stage 1 through stage 4 chronic kidney disease, or unspecified chronic kidney disease
CPT/HCPCS: 36415; 71045; 80053; 82306; 82728; 83036; 83605; 83615; 83735; 83880; 84443; 84484; 85025; 85379; 86141; 87426; 93005; 94640; 96361; 96365; 96375; 96376; 97110; 97530; A4605; G0378; J1100; J2405; J3490

== ENCOUNTER 2021-02-24 13:07 | Inpatient (IN) | payer MEDICARE, OTHER ==
[~2021-02-24] VITALS: Ht 162.6 cm; Wt 68.0 kg
[~2021-02-24 13:07] MED LIST changes: -APIX5TAB PEG; +ASCO10003 PO; +ASPI-378 PO; +BUDE2SUS3 IN; +CHOL20007 PO; +DEX4T PO; +DOXY-286 PO; +FAMO20TA10 PO; -LEVO-451 PO; -TOPI25CA5 PEG
[2021-02-24] MEDS ORDERED: ONDANSETRON HCL 4 MG/2 ML VIAL IV ONE (13:45)
[2021-02-24] MEDS ORDERED: SODIUM CHLORIDE 0.9% 500 ML IV ONE (13:45)
[2021-02-24 15:04] LABS: Albumin 2.7 g/dL (3.4-5.0); Calcium 8.6 mg/dL (8.5-10.1); Potassium 3.5 mmol/L (3.5-5.1)
[2021-02-24 15:07] LABS: Bilirubin, Total 0.7 mg/dL (0.2-1.0); Total Protein 7.8 g/dL (6.4-8.2)
[2021-02-24 15:08] LABS: Basophils # (auto) 0 10 ^3/uL (0-0.2); Basophils % (auto) 0.8 % (0.0-2.0); Eosinophils # (auto) 0.1 10 ^3/uL (0-0.8); Eosinophils % (auto) 2.4 % (0.0-7.0); Hematocrit 34.5 % (36.0-46.0); Hemoglobin 11.4 g/dL (12.2-16.2); Lymphocytes # (auto) 0.9 10 ^3/uL (0.4-5.4); Lymphocytes % (auto) 19.6 % (10.0-50.0); Mean Corpuscular Hemoglobin 29.2 pg (28.0-32.0); Mean Corpuscular Volume 88.4 fL (80.0-100.0); Monocytes # (auto) 0.4 10 ^3/uL (0-1.3); Monocytes % (auto) 8.1 % (0.0-12.0); Neutrophils # (auto) 3.2 10 ^3/uL (1.6-8.6); Neutrophils % (auto) 69.1 % (37.0-80.0); Nucleated Red Blood Cells % 0.1 %; White Blood Cell 4.7 10^3/uL (4.4-10.8)
[2021-02-24 19:59] LABS: Urine Bacteria NONE SEEN /hpf (None Seen); Urine Blood Negative /uL (Negative); Urine Specific Gravity 1.006 (1.001-1.035); Urine WBC 5 /hpf (0 - 5)
[2021-02-24] MEDS ORDERED: MORPHINE SULFATE INJECTION 2 MG/ML SYRG IV PRN (21:00)
[2021-02-24] MEDS ORDERED: ONDANSETRON HCL 4 MG/2 ML VIAL IV PRN (21:00)
[2021-02-24] MEDS ORDERED: NITROGLYCERIN 0.4 MG SL TAB SL PRN (21:00)
[2021-02-24] MEDS ORDERED: ACETAMINOPHEN 325 MG TAB PO PRN (21:00)
[2021-02-24] MEDS ORDERED: cefTRIAXone 1GM/50ML D5W 50 ML IV ONE (21:00)
[2021-02-24] MEDS ORDERED: CLINDAMYCIN 600MG IV 50 ML IV SCH (22:00)
[2021-02-24] MEDS: BUDESONIDE (INHALATION) 0.5 MG/2 ML NEB NEB SCH (22:26)
[2021-02-24] MEDS: GABAPENTIN 300 MG CAP PO SCH (23:00)
[2021-02-25] VITALS (7 sets, daily range): BP systolic 96–107; BP diastolic 57–70
[2021-02-25] MEDS: LEVOTHYROXINE SODIUM 25 MCG TAB PO SCH (06:29)
[2021-02-25] MEDS: GABAPENTIN 300 MG CAP PO SCH ×3 (06:29→21:44)
[2021-02-25] MEDS: BUDESONIDE (INHALATION) 0.5 MG/2 ML NEB NEB SCH (07:02)
[2021-02-25 07:09] LABS: Basophils # (auto) 0 10 ^3/uL (0-0.2); Basophils % (auto) 0.4 % (0.0-2.0); Eosinophils # (auto) 0.1 10 ^3/uL (0-0.8); Hematocrit 34.5 % (36.0-46.0); Hemoglobin 10.9 g/dL (12.2-16.2); Lymphocytes # (auto) 0.8 10 ^3/uL (0.4-5.4); Lymphocytes % (auto) 12.4 % (10.0-50.0); Mean Corpuscular Hemoglobin 28.9 pg (28.0-32.0); Mean Corpuscular Hgb Conc. 31.7 g/dL (32.0-36.0); Mean Corpuscular Volume 91.1 fL (80.0-100.0); Monocytes # (auto) 0.3 10 ^3/uL (0-1.3); Monocytes % (auto) 4.8 % (0.0-12.0); Neutrophils % (auto) 80.4 % (37.0-80.0); Nucleated Red Blood Cells % 0.1 %; Red Blood Cells 3.79 10^6/uL (4.0-5.20); Red Cell Distribution Width 16.4 % (11.8-14.3); White Blood Cell 6.2 10^3/uL (4.4-10.8)
[2021-02-25 07:10] LABS: Calcium 7.9 mg/dL (8.5-10.1); Potassium 4.4 mmol/L (3.5-5.1)
[2021-02-25 07:13] LABS: BUN/Creatinine Ratio 23.2
[2021-02-25] MEDS ORDERED: cefTRIAXone 1GM/50ML D5W 50 ML IV SCH (09:00)
[2021-02-25] MEDS: cefTRIAXone 1GM/50ML D5W 50 ML IV SCH (09:42)
[2021-02-25] MEDS: ENOXAPARIN SOD 40 MG/0.4 ML SYRINGE SC SCH (09:43)
[2021-02-25] MEDS: ASPirin 81 mg TAB PO SCH (09:44)
[2021-02-25] MEDS: PANTOPRAZOLE 40 MG TAB PO SCH (09:45)
[2021-02-25] MEDS: IBUPROFEN 600 MG TAB PO PRN (16:09)
[2021-02-26 01:03] LABS: Albumin 2.3 g/dL (3.4-5.0); Calcium 8.8 mg/dL (8.5-10.1); Potassium 4.1 mmol/L (3.5-5.1)
[2021-02-26 01:06] LABS: Bilirubin, Total 0.5 mg/dL (0.2-1.0); Total Protein 7.3 g/dL (6.4-8.2)
[2021-02-26] MEDS: BUDESONIDE (INHALATION) 0.5 MG/2 ML NEB NEB SCH ×3 (02:40→20:31)
[2021-02-26 05:00] VITALS: BP 86/54
[2021-02-26] MEDS: GABAPENTIN 300 MG CAP PO SCH ×3 (06:51→22:43)
[2021-02-26] MEDS: LEVOTHYROXINE SODIUM 25 MCG TAB PO SCH (06:51)
[2021-02-26 09:00] VITALS: BP 105/76
[2021-02-26] MEDS: cefTRIAXone 1GM/50ML D5W 50 ML IV SCH (10:45)
[2021-02-26] MEDS: PANTOPRAZOLE 40 MG TAB PO SCH (10:45)
[2021-02-26] MEDS: ASPirin 81 mg TAB PO SCH (10:45)
[2021-02-26] MEDS: ENOXAPARIN SOD 40 MG/0.4 ML SYRINGE SC SCH (10:46)
[2021-02-26 13:00] VITALS: BP 93/54
[2021-02-26] MEDS: IBUPROFEN 600 MG TAB PO PRN (16:03)
[2021-02-26 17:00] VITALS: BP 97/65
[2021-02-26] MEDS: MUPIROCIN 2% OINT 15gm or 22gm EACHNOSTRI SCH (22:00)
[2021-02-26 22:20] VITALS: BP 103/67
[2021-02-27] MEDS: IBUPROFEN 600 MG TAB PO PRN ×2 (02:57→12:13)
[2021-02-27 05:30] VITALS: BP 105/60
[2021-02-27] MEDS: LEVOTHYROXINE SODIUM 25 MCG TAB PO SCH (06:12)
[2021-02-27] MEDS: GABAPENTIN 300 MG CAP PO SCH ×2 (06:12→13:42)
[2021-02-27] MEDS: BUDESONIDE (INHALATION) 0.5 MG/2 ML NEB NEB SCH (07:16)
[2021-02-27 08:15] VITALS: BP 123/76
[2021-02-27 08:49] VITALS: BP 123/76
[2021-02-27] MEDS: ASPirin 81 mg TAB PO SCH (10:25)
[2021-02-27] MEDS: cefTRIAXone 1GM/50ML D5W 50 ML IV SCH (10:25)
[2021-02-27] MEDS: ENOXAPARIN SOD 40 MG/0.4 ML SYRINGE SC SCH (10:26)
[2021-02-27] MEDS: PANTOPRAZOLE 40 MG TAB PO SCH (10:26)
[2021-02-27] MEDS: MUPIROCIN 2% OINT 15gm or 22gm EACHNOSTRI SCH (12:12)
[2021-02-27 13:00] VITALS: BP 102/73
[2021-02-27 17:00] VITALS: BP 104/68
== END 2021-02-27 18:45 | disposition home or self-care (01) | DRG 602 ==
LOC: ER 13:07 → EDBD 13:07 → TELE 20:49 → WEST WING 23:44
PROVIDERS: ADMIT Nurse Practitioner; ATTEND Family Medicine
DX: L03.115 Cellulitis of right lower limb (principal); E43 Unspecified severe protein-calorie malnutrition; L03.116 Cellulitis of left lower limb; E66.01 Morbid (severe) obesity due to excess calories; E03.9 Hypothyroidism, unspecified; Z77.22 Contact with and (suspected) exposure to environmental tobacco smoke (acute) (chronic); G62.9 Polyneuropathy, unspecified; R74.8 Abnormal levels of other serum enzymes; A49.02 Methicillin resistant Staphylococcus aureus infection, unspecified site; Z20.822 Contact with and (suspected) exposure to COVID-19; I12.9 Hypertensive chronic kidney disease with stage 1 through stage 4 chronic kidney disease, or unspecified chronic kidney disease; N18.9 Chronic kidney disease, unspecified; R70.0 Elevated erythrocyte sedimentation rate; R74.01 Elevation of levels of liver transaminase levels; R79.89 Other specified abnormal findings of blood chemistry; Z88.5 Allergy status to narcotic agent; Z68.25 Body mass index [BMI] 25.0-25.9, adult; Z82.49 Family history of ischemic heart disease and other diseases of the circulatory system; Z74.01 Bed confinement status; Z93.0 Tracheostomy status; Z83.3 Family history of diabetes mellitus; Z88.2 Allergy status to sulfonamides; Z86.73 Personal history of transient ischemic attack (TIA), and cerebral infarction without residual deficits
CPT/HCPCS: 36415; 71045; 76705; 80048; 80053; 81001; 85025; 85379; 85652; 87081; 87426; 93005; 93971; 94640; 96361; 96365; A4605; G0378; J0696

== ENCOUNTER 2021-04-10 17:21 | Inpatient (IN) | payer MEDICARE, OTHER ==
[~2021-04-10] VITALS: Ht 154.9 cm; Wt 74.1 kg
[2021-04-10 18:49] LABS: Basophils # (auto) 0.1 10 ^3/uL (0-0.2); Basophils % (auto) 0.6 % (0.0-2.0); Eosinophils # (auto) 0.1 10 ^3/uL (0-0.8); Eosinophils % (auto) 1.1 % (0.0-7.0); Hematocrit 36.8 % (36.0-46.0); Lymphocytes # (auto) 0.8 10 ^3/uL (0.4-5.4); Lymphocytes % (auto) 8.8 % (10.0-50.0); Mean Corpuscular Hemoglobin 28.2 pg (28.0-32.0); Mean Corpuscular Hgb Conc. 32.6 g/dL (32.0-36.0); Mean Corpuscular Volume 86.3 fL (80.0-100.0); Monocytes # (auto) 0.3 10 ^3/uL (0-1.3); Monocytes % (auto) 3.8 % (0.0-12.0); Neutrophils # (auto) 7.7 10 ^3/uL (1.6-8.6); Neutrophils % (auto) 85.7 % (37.0-80.0); Nucleated Red Blood Cells % 0.1 %; Red Blood Cells 4.27 10^6/uL (4.0-5.20); Red Cell Distribution Width 15.2 % (11.8-14.3)
[2021-04-10 19:04] LABS: Albumin 2.7 g/dL (3.4-5.0); Calcium 8.5 mg/dL (8.5-10.1); Potassium 4.2 mmol/L (3.5-5.1)
[2021-04-10 19:16] LABS: BUN/Creatinine Ratio 15.6; Bilirubin, Total 0.5 mg/dL (0.2-1.0); Total Protein 7.9 g/dL (6.4-8.2)
[2021-04-10] MEDS ORDERED: IOHEXOL 300 MG/ML 100ML BOTTLE IJ ONE (20:16)
[2021-04-10] MEDS ORDERED: ONDANSETRON HCL 4 MG/2 ML VIAL IV PRN (22:45)
[2021-04-10] MEDS ORDERED: SODIUM CHLORIDE 0.9% 1,000 ML IV SCH (22:45)
[2021-04-10] MEDS ORDERED: cefTRIAXone 1GM/50ML D5W 50 ML IV ONE (22:45)
[2021-04-11] VITALS (7 sets, daily range): BP systolic 76–131; BP diastolic 47–79
[2021-04-11] MEDS ORDERED: NITROGLYCERIN 0.4 MG SL TAB SL PRN
[2021-04-11] MEDS ORDERED: MORPHINE SULFATE INJECTION 2 MG/ML SYRG IV PRN
[2021-04-11 08:31] LABS: Basophils # (auto) 0 10 ^3/uL (0-0.2); Basophils % (auto) 0.8 % (0.0-2.0); Eosinophils # (auto) 0.1 10 ^3/uL (0-0.8); Eosinophils % (auto) 2.8 % (0.0-7.0); Hematocrit 36.3 % (36.0-46.0); Hemoglobin 11.9 g/dL (12.2-16.2); Lymphocytes # (auto) 1.1 10 ^3/uL (0.4-5.4); Lymphocytes % (auto) 26.6 % (10.0-50.0); Mean Corpuscular Hemoglobin 28.1 pg (28.0-32.0); Mean Corpuscular Hgb Conc. 32.9 g/dL (32.0-36.0); Mean Corpuscular Volume 85.6 fL (80.0-100.0); Monocytes # (auto) 0.6 10 ^3/uL (0-1.3); Monocytes % (auto) 14.8 % (0.0-12.0); Neutrophils # (auto) 2.2 10 ^3/uL (1.6-8.6); Nucleated Red Blood Cells % 0.1 %; Red Blood Cells 4.24 10^6/uL (4.0-5.20); Red Cell Distribution Width 15.4 % (11.8-14.3); White Blood Cell 3.9 10^3/uL (4.4-10.8)
[2021-04-11 08:35] LABS: Albumin 2.6 g/dL (3.4-5.0); Calcium 8.6 mg/dL (8.5-10.1); Potassium 3.7 mmol/L (3.5-5.1)
[2021-04-11 08:42] LABS: BUN/Creatinine Ratio 15.7; Bilirubin, Total 0.3 mg/dL (0.2-1.0); Total Protein 7.4 g/dL (6.4-8.2)
[2021-04-11] MEDS: ENOXAPARIN SOD 40 MG/0.4 ML SYRINGE SC SCH (09:38)
[2021-04-11] MEDS: FAMOTIDINE (10MG/ML) 2ML VL IV SCH (09:38)
[2021-04-11] MEDS ORDERED: ASPirin 81 mg TAB PO SCH (10:00)
[2021-04-11] MEDS: SODIUM CHLORIDE 0.9% 1,000 ML IV SCH ×2 (11:45→21:04)
[2021-04-11] MEDS: MORPHINE SULFATE 4 MG/ML SYR/VIAL IV PRN (14:29)
[2021-04-11] MEDS: ACETAMINOPHEN 325 MG TAB PO PRN (21:02)
[2021-04-11] MEDS: cefTRIAXone 1GM/50ML D5W 50 ML IV SCH ×2 (21:05→22:05)
[2021-04-12] MEDS: ACETAMINOPHEN 325 MG TAB PO PRN ×4 (02:05→22:29)
[2021-04-12] MEDS: MORPHINE SULFATE 4 MG/ML SYR/VIAL IV PRN ×5 (04:34→23:56)
[2021-04-12] MEDS: SODIUM CHLORIDE 0.9% 1,000 ML IV SCH ×3 (04:40→22:17)
[2021-04-12 05:22] VITALS: BP 98/65
[2021-04-12 09:00] VITALS: BP 112/73
[2021-04-12] MEDS: FAMOTIDINE (10MG/ML) 2ML VL IV SCH (10:41)
[2021-04-12] MEDS: ENOXAPARIN SOD 40 MG/0.4 ML SYRINGE SC SCH (10:42)
[2021-04-12 13:00] VITALS: BP 105/69
[2021-04-12 17:00] VITALS: BP 114/70
[2021-04-12 22:00] VITALS: BP 124/75
[2021-04-13] MEDS: MORPHINE SULFATE 4 MG/ML SYR/VIAL IV PRN ×2 (04:14→09:09)
[2021-04-13 05:47] VITALS: BP 100/54
[2021-04-13 08:00] VITALS: BP 111/71
[2021-04-13] MEDS: ENOXAPARIN SOD 40 MG/0.4 ML SYRINGE SC SCH (09:09)
[2021-04-13] MEDS: FAMOTIDINE (10MG/ML) 2ML VL IV SCH (09:09)
[2021-04-13] MEDS: SODIUM CHLORIDE 0.9% 1,000 ML IV SCH ×2 (09:10→11:45)
[2021-04-13 09:40] VITALS: BP 108/64
== END 2021-04-13 20:04 | disposition home health service (06) | DRG 74 ==
LOC: EDBD 17:21 → ER 17:21 → TELE 23:55 → TELE-WESTW 04-11 01:45
PROVIDERS: ADMIT Nurse Practitioner Family; ATTEND Nurse Practitioner Family
DX: G62.9 Polyneuropathy, unspecified (principal); G82.20 Paraplegia, unspecified; E88.09 Other disorders of plasma-protein metabolism, not elsewhere classified; Z77.29 Contact with and (suspected) exposure to other hazardous substances; G71.00 Muscular dystrophy, unspecified; N18.9 Chronic kidney disease, unspecified; I12.9 Hypertensive chronic kidney disease with stage 1 through stage 4 chronic kidney disease, or unspecified chronic kidney disease; Z20.822 Contact with and (suspected) exposure to COVID-19; I25.10 Atherosclerotic heart disease of native coronary artery without angina pectoris; Z74.01 Bed confinement status; R79.89 Other specified abnormal findings of blood chemistry; Z82.49 Family history of ischemic heart disease and other diseases of the circulatory system; Z88.5 Allergy status to narcotic agent; Z88.2 Allergy status to sulfonamides; Z83.3 Family history of diabetes mellitus; Z86.16 Personal history of COVID-19; Z86.73 Personal history of transient ischemic attack (TIA), and cerebral infarction without residual deficits; Z90.49 Acquired absence of other specified parts of digestive tract; Z93.3 Colostomy status; Z87.440 Personal history of urinary (tract) infections; Z86.14 Personal history of Methicillin resistant Staphylococcus aureus infection
CPT/HCPCS: 36415; 71045; 71260; 80053; 84443; 84484; 85025; 87040; 87426; 93005; 93306; 93925; 93970; 96365; 96366; 97110; 97163; G0378; J0696; J3490

== ENCOUNTER 2021-12-17 10:33 | Inpatient (IN) | payer BC, MEDICARE, OTHER ==
[~2021-12-17] VITALS: Ht 162.6 cm; Wt 75.0 kg
[2021-12-17 11:33] LABS: Basophils # (auto) 0 10 ^3/uL (0-0.2); Basophils % (auto) 0.6 % (0.0-2.0); Eosinophils # (auto) 0.1 10 ^3/uL (0-0.8); Eosinophils % (auto) 1.5 % (0.0-7.0); Hematocrit 37.4 % (36.0-46.0); Hemoglobin 11.7 g/dL (12.2-16.2); Lymphocytes # (auto) 1.4 10 ^3/uL (0.4-5.4); Lymphocytes % (auto) 24.4 % (10.0-50.0); Mean Corpuscular Hemoglobin 28.1 pg (28.0-32.0); Mean Corpuscular Hgb Conc. 31.2 g/dL (32.0-36.0); Mean Corpuscular Volume 90.2 fL (80.0-100.0); Monocytes # (auto) 0.2 10 ^3/uL (0-1.3); Monocytes % (auto) 3.8 % (0.0-12.0); Neutrophils % (auto) 69.7 % (37.0-80.0); Nucleated Red Blood Cells % 0.1 %; Red Blood Cells 4.15 10^6/uL (4.0-5.20); Red Cell Distribution Width 17.1 % (11.8-14.3); White Blood Cell 5.8 10^3/uL (4.4-10.8)
[2021-12-17 11:48] LABS: INR 1.05 (0.9-1.15); Partial Thromboplastin Time 30.9 sec (24.6-33.4)
[2021-12-17] MEDS ORDERED: MORPHINE SULFATE INJ 2 MG/ml SYRG IV ONE (15:00)
[2021-12-17] MEDS ORDERED: ONDANSETRON HCL 4 MG/2 ML VIAL IV ONE (15:00)
[2021-12-17] MEDS ORDERED: SODIUM CHLORIDE 0.9% 1,000 ML IV ONE (15:00)
[2021-12-17 15:24] LABS: Magnesium 2.5 mg/dL (1.6-2.6)
[2021-12-17] MEDS: FUROSEMIDE 100 MG/10ML VIAL IV ONE ×2 (17:45→18:28)
[2021-12-17] MEDS ORDERED: MORPHINE SULFATE INJ 2 MG/ml SYRG IV PRN (17:45)
[2021-12-17 17:55] LABS: BUN/Creatinine Ratio 35.2; Calcium 8.6 mg/dL (8.5-10.1); Potassium 3.8 mmol/L (3.5-5.1)
[2021-12-17 21:00] VITALS: BP 120/73
[2021-12-17 22:00] VITALS: BP 113/78
[2021-12-17 22:03] VITALS: BP 113/78
[2021-12-17] MEDS: NORTRIPTYLINE HCL 10 MG CAP PO SCH (22:28)
[2021-12-17] MEDS: TOPIRAMATE 25 MG TAB PO SCH (22:29)
[2021-12-17] MEDS: GABAPENTIN 300 MG CAP PO SCH (22:29)
[2021-12-18 05:00] VITALS: BP 120/73
[2021-12-18] MEDS: LEVOTHYROXINE SODIUM 25 MCG TAB PO SCH (06:51)
[2021-12-18] MEDS: GABAPENTIN 300 MG CAP PO SCH ×3 (06:51→22:06)
[2021-12-18 07:29] LABS: Urine Bacteria MANY /hpf (None Seen); Urine Blood 3+ /uL (Negative); Urine Mucus FEW (None Seen); Urine Specific Gravity 1.015 (1.001-1.035); Urine WBC 497 /hpf (0 - 5); Urine WBC Clumps PRESENT /hpf (None Seen)
[2021-12-18] MEDS: TOPIRAMATE 25 MG TAB PO SCH ×2 (08:45→22:06)
[2021-12-18] MEDS: ENOXAPARIN SOD 40 MG/0.4 ML SYRINGE SC SCH (08:45)
[2021-12-18 09:00] VITALS: BP 101/73
[2021-12-18] MEDS ORDERED: cefTRIAXone 1GM/50ML D5W 50 ML IV SCH (09:00)
[2021-12-18] MEDS ORDERED: DULoxetine HCL 30 MG CAP PO SCH (10:00)
[2021-12-18] MEDS: SACUBITRIL-VALSARTAN 24mg/26mg TAB PO SCH ×2 (10:00→22:00)
[2021-12-18] MEDS ORDERED: AZITHROMYCIN 500MG/ 250ML 250 ML IV SCH (10:00)
[2021-12-18] MEDS ORDERED: FUROSEMIDE 40 MG/4 ML VIAL IV ONE (10:00)
[2021-12-18 10:50] LABS: Basophils # (auto) 0 10 ^3/uL (0-0.2); Basophils % (auto) 0.7 % (0.0-2.0); Eosinophils # (auto) 0.1 10 ^3/uL (0-0.8); Eosinophils % (auto) 1.8 % (0.0-7.0); Hematocrit 36.9 % (36.0-46.0); Hemoglobin 11.8 g/dL (12.2-16.2); Lymphocytes # (auto) 1.2 10 ^3/uL (0.4-5.4); Lymphocytes % (auto) 19.1 % (10.0-50.0); Mean Corpuscular Hgb Conc. 31.9 g/dL (32.0-36.0); Mean Corpuscular Volume 90.7 fL (80.0-100.0); Monocytes # (auto) 0.4 10 ^3/uL (0-1.3); Monocytes % (auto) 6.3 % (0.0-12.0); Neutrophils # (auto) 4.5 10 ^3/uL (1.6-8.6); Neutrophils % (auto) 72.1 % (37.0-80.0); Nucleated Red Blood Cells % 0.2 %; Red Blood Cells 4.06 10^6/uL (4.0-5.20); Red Cell Distribution Width 17.4 % (11.8-14.3); White Blood Cell 6.2 10^3/uL (4.4-10.8)
[2021-12-18 11:08] LABS: Albumin 2.8 g/dL (3.4-5.0); Calcium 8.5 mg/dL (8.5-10.1); Potassium 3.9 mmol/L (3.5-5.1)
[2021-12-18 11:09] LABS: INR 1.05 (0.9-1.15); Partial Thromboplastin Time 32.2 sec (24.6-33.4)
[2021-12-18 11:12] LABS: Bilirubin, Total 0.5 mg/dL (0.2-1.0); Total Protein 7.8 g/dL (6.4-8.2)
[2021-12-18] MEDS: DAPAGLIFLOZIN 5 MG TAB PO SCH (11:34)
[2021-12-18] MEDS: HYDROcodone-ACET 5/325MG TAB PO PRN ×2 (11:34→16:25)
[2021-12-18 11:35] LABS: Cholesterol < 50 mg/dL (< 200)
[2021-12-18 11:37] LABS: HDL Cholesterol 6 mg/dL (40-59); LDL Cholesterol 80 mg/dL (< 100); Triglycerides 132 mg/dL (< 150)
[2021-12-18 13:00] VITALS: BP 98/65
[2021-12-18] MEDS: CEFEPIME 1GM/ 50ML 50 ML IV SCH ×2 (14:53→22:25)
[2021-12-18 16:35] VITALS: BP 104/67
[2021-12-18] MEDS: FUROSEMIDE 20 MG/2 ML VIAL IV SCH (18:41)
[2021-12-18 21:30] VITALS: BP 92/54
[2021-12-18] MEDS: NORTRIPTYLINE HCL 10 MG CAP PO SCH (22:06)
[2021-12-19] MEDS: HYDROcodone-ACET 5/325MG TAB PO PRN ×4 (02:46→18:55)
[2021-12-19 04:35] VITALS: BP 96/67
[2021-12-19] MEDS: FUROSEMIDE 20 MG/2 ML VIAL IV SCH ×2 (06:00→18:47)
[2021-12-19] MEDS: CEFEPIME 1GM/ 50ML 50 ML IV SCH ×3 (06:06→22:29)
[2021-12-19] MEDS: LEVOTHYROXINE SODIUM 25 MCG TAB PO SCH (06:07)
[2021-12-19] MEDS: GABAPENTIN 300 MG CAP PO SCH ×3 (06:07→22:30)
[2021-12-19 08:00] VITALS: BP 107/71
[2021-12-19 09:00] VITALS: BP 107/71
[2021-12-19] MEDS: ENOXAPARIN SOD 40 MG/0.4 ML SYRINGE SC SCH (09:43)
[2021-12-19] MEDS: DAPAGLIFLOZIN 5 MG TAB PO SCH (09:44)
[2021-12-19] MEDS: SACUBITRIL-VALSARTAN 24mg/26mg TAB PO SCH ×2 (09:44→22:00)
[2021-12-19] MEDS: DULoxetine HCL 30 MG CAP PO SCH ×2 (10:15→22:29)
[2021-12-19 13:00] VITALS: BP 92/56
[2021-12-19 16:30] VITALS: BP 100/64
[2021-12-19 22:00] VITALS: BP 96/60
[2021-12-19] MEDS: NORTRIPTYLINE HCL 10 MG CAP PO SCH (22:30)
[2021-12-20] MEDS: HYDROcodone-ACET 5/325MG TAB PO PRN (04:01)
[2021-12-20 05:00] VITALS: BP 89/65
[2021-12-20] MEDS: FUROSEMIDE 20 MG/2 ML VIAL IV SCH ×2 (05:31→18:00)
[2021-12-20 06:04] LABS: Basophils # (auto) 0 10 ^3/uL (0-0.2); Basophils % (auto) 0.4 % (0.0-2.0); Eosinophils # (auto) 0.1 10 ^3/uL (0-0.8); Eosinophils % (auto) 2.8 % (0.0-7.0); Hemoglobin 11.2 g/dL (12.2-16.2); Lymphocytes # (auto) 0.8 10 ^3/uL (0.4-5.4); Lymphocytes % (auto) 17.1 % (10.0-50.0); Mean Corpuscular Hemoglobin 28.5 pg (28.0-32.0); Mean Corpuscular Hgb Conc. 32.8 g/dL (32.0-36.0); Mean Corpuscular Volume 86.8 fL (80.0-100.0); Monocytes # (auto) 0.3 10 ^3/uL (0-1.3); Monocytes % (auto) 6.9 % (0.0-12.0); Neutrophils # (auto) 3.4 10 ^3/uL (1.6-8.6); Neutrophils % (auto) 72.8 % (37.0-80.0); Nucleated Red Blood Cells % 0.2 %; Red Blood Cells 3.92 10^6/uL (4.0-5.20); Red Cell Distribution Width 16.9 % (11.8-14.3); White Blood Cell 4.7 10^3/uL (4.4-10.8)
[2021-12-20] MEDS: CEFEPIME 1GM/ 50ML 50 ML IV SCH ×3 (06:05→21:50)
[2021-12-20] MEDS: LEVOTHYROXINE SODIUM 25 MCG TAB PO SCH (06:05)
[2021-12-20] MEDS: GABAPENTIN 300 MG CAP PO SCH ×3 (06:05→21:51)
[2021-12-20 06:24] LABS: Potassium 3.1 mmol/L (3.5-5.1)
[2021-12-20 06:28] LABS: BUN/Creatinine Ratio 17.3; Calcium 8.3 mg/dL (8.5-10.1)
[2021-12-20 09:00] VITALS: BP 92/60
[2021-12-20] MEDS: DAPAGLIFLOZIN 5 MG TAB PO SCH (10:00)
[2021-12-20] MEDS: SACUBITRIL-VALSARTAN 24mg/26mg TAB PO SCH ×2 (10:00→21:51)
[2021-12-20] MEDS: DULoxetine HCL 30 MG CAP PO SCH ×2 (10:21→21:50)
[2021-12-20] MEDS: ENOXAPARIN SOD 40 MG/0.4 ML SYRINGE SC SCH (10:21)
[2021-12-20 13:00] VITALS: BP 93/56
[2021-12-20 16:38] VITALS: BP 92/48
[2021-12-20] MEDS ORDERED: POTASSIUM EFFERVESENT TAB 25 MEQ PO ONE (18:15)
[2021-12-20] MEDS: NORTRIPTYLINE HCL 10 MG CAP PO SCH (21:51)
[2021-12-20 22:00] VITALS: BP 89/63
[2021-12-21 05:00] VITALS: BP 86/51
[2021-12-21] MEDS: FUROSEMIDE 20 MG/2 ML VIAL IV SCH ×2 (05:49→18:00)
[2021-12-21] MEDS: GABAPENTIN 300 MG CAP PO SCH ×3 (06:01→22:18)
[2021-12-21] MEDS: CEFEPIME 1GM/ 50ML 50 ML IV SCH (06:01)
[2021-12-21] MEDS: LEVOTHYROXINE SODIUM 25 MCG TAB PO SCH (06:01)
[2021-12-21 09:00] VITALS: BP 113/76
[2021-12-21] MEDS: ACETAMINOPHEN 325 MG TAB PO PRN ×2 (09:36)
[2021-12-21] MEDS: SACUBITRIL-VALSARTAN 24mg/26mg TAB PO SCH ×3 (11:41→22:18)
[2021-12-21] MEDS: DULoxetine HCL 30 MG CAP PO SCH ×2 (11:42→22:00)
[2021-12-21] MEDS: ENOXAPARIN SOD 40 MG/0.4 ML SYRINGE SC SCH (11:42)
[2021-12-21 13:00] VITALS: BP 101/73
[2021-12-21 17:00] VITALS: BP 103/72
[2021-12-21 19:30] VITALS: BP 103/72
[2021-12-21 22:00] VITALS: BP 85/54
[2021-12-21] MEDS: NORTRIPTYLINE HCL 10 MG CAP PO SCH (22:18)
[2021-12-22 05:00] VITALS: BP 98/58
[2021-12-22] MEDS: GABAPENTIN 300 MG CAP PO SCH ×3 (05:48→21:31)
[2021-12-22] MEDS: ACETAMINOPHEN 325 MG TAB PO PRN ×2 (05:49→21:32)
[2021-12-22] MEDS: FUROSEMIDE 20 MG/2 ML VIAL IV SCH ×2 (05:49→18:06)
[2021-12-22] MEDS: LEVOTHYROXINE SODIUM 25 MCG TAB PO SCH (06:48)
[2021-12-22 07:49] LABS: Basophils # (auto) 0 10 ^3/uL (0-0.2); Basophils % (auto) 0.5 % (0.0-2.0); Eosinophils # (auto) 0.2 10 ^3/uL (0-0.8); Eosinophils % (auto) 3.6 % (0.0-7.0); Hemoglobin 12.1 g/dL (12.2-16.2); Lymphocytes % (auto) 15.4 % (10.0-50.0); Mean Corpuscular Hemoglobin 28.6 pg (28.0-32.0); Mean Corpuscular Hgb Conc. 31.8 g/dL (32.0-36.0); Monocytes # (auto) 0.6 10 ^3/uL (0-1.3); Monocytes % (auto) 8.4 % (0.0-12.0); Neutrophils # (auto) 4.8 10 ^3/uL (1.6-8.6); Neutrophils % (auto) 72.1 % (37.0-80.0); Nucleated Red Blood Cells % 0.3 %; Red Blood Cells 4.22 10^6/uL (4.0-5.20); White Blood Cell 6.6 10^3/uL (4.4-10.8)
[2021-12-22 09:00] VITALS: BP 103/70
[2021-12-22] MEDS ORDERED: levoFLOXacin 250 MG TAB PO SCH (10:00)
[2021-12-22] MEDS: DULoxetine HCL 30 MG CAP PO SCH ×2 (10:00→21:32)
[2021-12-22] MEDS: ENOXAPARIN SOD 40 MG/0.4 ML SYRINGE SC SCH (10:11)
[2021-12-22] MEDS: SACUBITRIL-VALSARTAN 24mg/26mg TAB PO SCH ×2 (10:11→21:32)
[2021-12-22 13:23] VITALS: BP 97/56
[2021-12-22 16:22] VITALS: BP 97/65
[2021-12-22] MEDS: NORTRIPTYLINE HCL 10 MG CAP PO SCH (21:32)
[2021-12-22 22:00] VITALS: BP 99/70
[2021-12-23 04:46] VITALS: BP 107/73
[2021-12-23] MEDS: GABAPENTIN 300 MG CAP PO SCH ×2 (06:08→13:26)
[2021-12-23] MEDS: FUROSEMIDE 20 MG/2 ML VIAL IV SCH (06:11)
[2021-12-23] MEDS: LEVOTHYROXINE SODIUM 25 MCG TAB PO SCH (06:48)
[2021-12-23 09:00] VITALS: BP 101/71
[2021-12-23] MEDS ORDERED: DULoxetine HCL 30 MG CAP PO ONE ×2 (09:16→09:20)
[2021-12-23] MEDS: DULoxetine HCL 30 MG CAP PO SCH (09:30)
[2021-12-23] MEDS: SACUBITRIL-VALSARTAN 24mg/26mg TAB PO SCH (09:30)
[2021-12-23] MEDS: ENOXAPARIN SOD 40 MG/0.4 ML SYRINGE SC SCH (09:31)
[2021-12-23] MEDS ORDERED: FURO1TAB33 PO (11:02)
[2021-12-23] MEDS ORDERED: SACU1TAB PO (11:02)
[2021-12-23] MEDS ORDERED: METO25TA36 PO (11:03)
[2021-12-23 13:00] VITALS: BP 101/74
[2021-12-23] MEDS: ACETAMINOPHEN 325 MG TAB PO PRN (13:27)
[2021-12-23 14:05] VITALS: BP 106/70
== END 2021-12-23 18:13 | disposition home or self-care (01) | DRG 280 ==
LOC: EDBD 10:33 → ER 10:33 → TELE 17:38 → TELE-WESTW 20:30
PROVIDERS: ADMIT Internal Medicine; ATTEND Internal Medicine Nephrology
DX: I13.0 Hypertensive heart and chronic kidney disease with heart failure and stage 1 through stage 4 chronic kidney disease, or unspecified chronic kidney disease (principal); I21.A1 Myocardial infarction type 2; I50.23 Acute on chronic systolic (congestive) heart failure; J96.21 Acute and chronic respiratory failure with hypoxia; J18.9 Pneumonia, unspecified organism; J81.0 Acute pulmonary edema; E44.0 Moderate protein-calorie malnutrition; G82.20 Paraplegia, unspecified; J98.11 Atelectasis; J44.0 Chronic obstructive pulmonary disease with (acute) lower respiratory infection; I42.0 Dilated cardiomyopathy; R53.1 Weakness; E87.6 Hypokalemia; I95.89 Other hypotension; Z20.822 Contact with and (suspected) exposure to COVID-19; K21.9 Gastro-esophageal reflux disease without esophagitis; E03.9 Hypothyroidism, unspecified; F32.A Depression, unspecified; G71.00 Muscular dystrophy, unspecified; E11.51 Type 2 diabetes mellitus with diabetic peripheral angiopathy without gangrene; F17.200 Nicotine dependence, unspecified, uncomplicated; J44.9 Chronic obstructive pulmonary disease, unspecified; E11.22 Type 2 diabetes mellitus with diabetic chronic kidney disease; N18.9 Chronic kidney disease, unspecified; D64.9 Anemia, unspecified; D69.6 Thrombocytopenia, unspecified; Z74.01 Bed confinement status; Z79.899 Other long term (current) drug therapy; Z79.82 Long term (current) use of aspirin; Z86.718 Personal history of other venous thrombosis and embolism; Z95.828 Presence of other vascular implants and grafts; Z83.3 Family history of diabetes mellitus; Z82.49 Family history of ischemic heart disease and other diseases of the circulatory system; Z93.0 Tracheostomy status; Z90.49 Acquired absence of other specified parts of digestive tract; Z93.3 Colostomy status; Z88.5 Allergy status to narcotic agent; Z88.2 Allergy status to sulfonamides; Z86.73 Personal history of transient ischemic attack (TIA), and cerebral infarction without residual deficits; Z68.28 Body mass index [BMI] 28.0-28.9, adult; Z79.4 Long term (current) use of insulin
CPT/HCPCS: 31720; 36415; 71045; 71250; 80048; 80053; 80061; 81001; 82306; 82962; 83036; 83690; 83735; 83880; 84132; 84443; 84484; 85025; 85610; 85730; 93005; 93306; 96361; 96374; 96375; G0378; J0696; J2405

== ENCOUNTER 2022-01-05 08:47 | Inpatient (IN) | payer BC, MEDICARE, OTHER ==
[~2022-01-05] VITALS: Ht 152.4 cm; Wt 73.2 kg
[~2022-01-05 08:47] MED LIST changes: +FURO1TAB33 PO; +METO25TA36 PO; +SACU1TAB PO
[2022-01-05] MEDS ORDERED: SODIUM CHLORIDE 0.9% 1,000 ML IV ONE ×2 (09:45)
[2022-01-05 10:26] LABS: Basophils # (auto) 0.1 10 ^3/uL (0-0.2); Basophils % (auto) 1.2 % (0.0-2.0); Eosinophils # (auto) 0.2 10 ^3/uL (0-0.8); Eosinophils % (auto) 2.7 % (0.0-7.0); Hematocrit 36.8 % (36.0-46.0); Hemoglobin 11.8 g/dL (12.2-16.2); Lymphocytes # (auto) 1.9 10 ^3/uL (0.4-5.4); Lymphocytes % (auto) 27.4 % (10.0-50.0); Mean Corpuscular Hemoglobin 28.8 pg (28.0-32.0); Mean Corpuscular Hgb Conc. 32.2 g/dL (32.0-36.0); Mean Corpuscular Volume 89.6 fL (80.0-100.0); Monocytes # (auto) 0.6 10 ^3/uL (0-1.3); Monocytes % (auto) 8.9 % (0.0-12.0); Neutrophils # (auto) 4.1 10 ^3/uL (1.6-8.6); Neutrophils % (auto) 59.8 % (37.0-80.0); Red Blood Cells 4.11 10^6/uL (4.0-5.20); Red Cell Distribution Width 17.5 % (11.8-14.3); White Blood Cell 6.9 10^3/uL (4.4-10.8)
[2022-01-05 10:49] LABS: INR 1.03 (0.9-1.15); Partial Thromboplastin Time 27.6 sec (24.6-33.4)
[2022-01-05 11:03] LABS: Albumin 2.5 g/dL (3.4-5.0); Calcium 7.7 mg/dL (8.5-10.1); Potassium 3.4 mmol/L (3.5-5.1)
[2022-01-05 11:05] LABS: BUN/Creatinine Ratio 26.5; Bilirubin, Total 0.4 mg/dL (0.2-1.0); Total Protein 6.3 g/dL (6.4-8.2)
[2022-01-05] MEDS ORDERED: ONDANSETRON HCL 4 MG/2 ML VIAL IV PRN (15:15)
[2022-01-05] MEDS ORDERED: NITROGLYCERIN 0.4 MG SL TAB SL PRN (15:15)
[2022-01-05] MEDS ORDERED: ALBUMIN 25% 100 ML IV ONE (20:30)
[2022-01-05] MEDS: GABAPENTIN 300 MG CAP PO SCH (22:34)
[2022-01-05] MEDS: NOREPINEPHRINE 8 MG/250ML KIT 250 ML IV SCH (23:57)
[2022-01-06] VITALS (45 sets, daily range): BP systolic 80–145; BP diastolic 40–80
[2022-01-06 03:38] LABS: Urine Bacteria NONE SEEN /hpf (None Seen); Urine Blood 2+ /uL (Negative); Urine Specific Gravity 1.024 (1.001-1.035); Urine WBC 48 /hpf (0 - 5)
[2022-01-06] MEDS: GABAPENTIN 300 MG CAP PO SCH ×3 (06:30→22:00)
[2022-01-06 07:22] LABS: Basophils # (auto) 0.1 10 ^3/uL (0-0.2); Basophils % (auto) 0.7 % (0.0-2.0); Eosinophils # (auto) 0.3 10 ^3/uL (0-0.8); Eosinophils % (auto) 2.5 % (0.0-7.0); Hematocrit 36.8 % (36.0-46.0); Hemoglobin 11.8 g/dL (12.2-16.2); Lymphocytes # (auto) 1.5 10 ^3/uL (0.4-5.4); Lymphocytes % (auto) 14.8 % (10.0-50.0); Mean Corpuscular Hemoglobin 29.4 pg (28.0-32.0); Mean Corpuscular Volume 91.9 fL (80.0-100.0); Monocytes % (auto) 9.9 % (0.0-12.0); Neutrophils # (auto) 7.3 10 ^3/uL (1.6-8.6); Neutrophils % (auto) 72.1 % (37.0-80.0); Nucleated Red Blood Cells % 0.1 %; Red Cell Distribution Width 17.7 % (11.8-14.3); White Blood Cell 10.2 10^3/uL (4.4-10.8)
[2022-01-06] MEDS: LEVOTHYROXINE SODIUM 25 MCG TAB PO SCH (07:34)
[2022-01-06 07:37] LABS: Albumin 3.1 g/dL (3.4-5.0); Calcium 8.1 mg/dL (8.5-10.1); Potassium 3.6 mmol/L (3.5-5.1)
[2022-01-06 07:39] LABS: Bilirubin, Total 0.7 mg/dL (0.2-1.0); Total Protein 6.8 g/dL (6.4-8.2)
[2022-01-06] MEDS: PANTOPRAZOLE 40 MG/10 ML VIAL INJ IV SCH (09:57)
[2022-01-06] MEDS: ASPirin-EC 81 mg tab PO SCH (09:58)
[2022-01-06] MEDS: ENOXAPARIN SOD 40 MG/0.4 ML SYRINGE SC SCH (09:58)
[2022-01-06] MEDS ORDERED: FUROSEMIDE 20 MG TAB PO SCH (10:00)
[2022-01-06] MEDS ORDERED: cefTRIAXone 1GM/50ML D5W 50 ML IV ONE (11:45)
[2022-01-06] MEDS: HYDROmorphone HCL 2 MG TAB PO SCH ×3 (14:30→22:00)
[2022-01-06] MEDS ORDERED: hydrOXYzine 25 MG TAB or CAP PO PRN (15:15)
[2022-01-06] MEDS: NORTRIPTYLINE HCL 25 MG CAP PO SCH (18:00)
[2022-01-06] MEDS: LORazepam 0.5 MG TAB GT SCH (22:00)
[2022-01-06] MEDS: SACUBITRIL-VALSARTAN 24mg/26mg TAB PO SCH (22:00)
[2022-01-06] MEDS: BACLOFEN 10 MG TAB PO SCH (22:00)
[2022-01-06] MEDS ORDERED: diphenhdrAMINE HCL 50 MG/1 ML VL IV ONE (23:15)
[2022-01-07] VITALS (38 sets, daily range): BP systolic 109–141; BP diastolic 62–85
[2022-01-07] MEDS: HYDROmorphone HCL 2 MG TAB PO SCH ×6 (02:00→22:00)
[2022-01-07 04:41] LABS: Basophils # (auto) 0 10 ^3/uL (0-0.2); Basophils % (auto) 0.9 % (0.0-2.0); Eosinophils # (auto) 0.2 10 ^3/uL (0-0.8); Eosinophils % (auto) 4.4 % (0.0-7.0); Hematocrit 32.4 % (36.0-46.0); Hemoglobin 10.6 g/dL (12.2-16.2); Lymphocytes # (auto) 0.9 10 ^3/uL (0.4-5.4); Lymphocytes % (auto) 19.5 % (10.0-50.0); Mean Corpuscular Hemoglobin 29.3 pg (28.0-32.0); Mean Corpuscular Hgb Conc. 32.7 g/dL (32.0-36.0); Mean Corpuscular Volume 89.7 fL (80.0-100.0); Monocytes # (auto) 0.3 10 ^3/uL (0-1.3); Monocytes % (auto) 7.3 % (0.0-12.0); Neutrophils # (auto) 3.1 10 ^3/uL (1.6-8.6); Neutrophils % (auto) 67.9 % (37.0-80.0); Nucleated Red Blood Cells % 0.1 %; Red Blood Cells 3.61 10^6/uL (4.0-5.20); Red Cell Distribution Width 17.4 % (11.8-14.3); White Blood Cell 4.5 10^3/uL (4.4-10.8)
[2022-01-07 05:00] LABS: BUN/Creatinine Ratio 24.6; Potassium 3.1 mmol/L (3.5-5.1)
[2022-01-07] MEDS: GABAPENTIN 300 MG CAP PO SCH ×3 (06:00→22:00)
[2022-01-07] MEDS: LEVOTHYROXINE SODIUM 25 MCG TAB PO SCH (07:00)
[2022-01-07] MEDS: PANTOPRAZOLE 40 MG/10 ML VIAL INJ IV SCH ×2 (09:18→22:00)
[2022-01-07] MEDS: cefTRIAXone 1GM/50ML D5W 50 ML IV SCH (09:18)
[2022-01-07] MEDS: ENOXAPARIN SOD 40 MG/0.4 ML SYRINGE SC SCH (09:18)
[2022-01-07] MEDS: LORazepam 0.5 MG TAB GT SCH ×2 (09:18→22:00)
[2022-01-07] MEDS: ASPirin-EC 81 mg tab PO SCH (09:19)
[2022-01-07] MEDS: SACUBITRIL-VALSARTAN 24mg/26mg TAB PO SCH ×2 (09:19→22:00)
[2022-01-07] MEDS: DULoxetine HCL 30 MG CAP PO SCH (09:19)
[2022-01-07] MEDS: METOPROLOL SUCCINATE XL 50 MG TAB PO SCH (09:20)
[2022-01-07] MEDS: BACLOFEN 10 MG TAB PO SCH ×2 (09:20→22:00)
[2022-01-07] MEDS: FUROSEMIDE 40 MG TAB PO SCH (09:20)
[2022-01-07] MEDS: POTASSIUM CHL 20MEQ/100ML 100 ML IV SCH ×2 (10:39→12:00)
[2022-01-07] MEDS: NORTRIPTYLINE HCL 25 MG CAP PO SCH (18:00)
[2022-01-07] MEDS: NOREPINEPHRINE 8 MG/250ML KIT 250 ML IV SCH (23:45)
[2022-01-08] VITALS (21 sets, daily range): BP systolic 109–152; BP diastolic 66–86
[2022-01-08] MEDS: HYDROmorphone HCL 2 MG TAB PO SCH ×4 (01:54→14:00)
[2022-01-08 04:43] LABS: Basophils # (auto) 0 10 ^3/uL (0-0.2); Eosinophils # (auto) 0.2 10 ^3/uL (0-0.8); Eosinophils % (auto) 5.2 % (0.0-7.0); Hematocrit 33.4 % (36.0-46.0); Hemoglobin 10.8 g/dL (12.2-16.2); Lymphocytes # (auto) 0.6 10 ^3/uL (0.4-5.4); Lymphocytes % (auto) 14.6 % (10.0-50.0); Mean Corpuscular Hemoglobin 29.2 pg (28.0-32.0); Mean Corpuscular Hgb Conc. 32.3 g/dL (32.0-36.0); Mean Corpuscular Volume 90.3 fL (80.0-100.0); Monocytes # (auto) 0.3 10 ^3/uL (0-1.3); Monocytes % (auto) 7.1 % (0.0-12.0); Neutrophils # (auto) 3.2 10 ^3/uL (1.6-8.6); Neutrophils % (auto) 72.1 % (37.0-80.0); White Blood Cell 4.4 10^3/uL (4.4-10.8)
[2022-01-08 05:10] LABS: BUN/Creatinine Ratio 16.3; Calcium 8.1 mg/dL (8.5-10.1); Potassium 3.9 mmol/L (3.5-5.1)
[2022-01-08] MEDS: GABAPENTIN 300 MG CAP PO SCH ×3 (06:00→22:00)
[2022-01-08] MEDS: LEVOTHYROXINE SODIUM 25 MCG TAB PO SCH (07:00)
[2022-01-08] MEDS: NOREPINEPHRINE 8 MG/250ML KIT 250 ML IV SCH (08:47)
[2022-01-08] MEDS ORDERED: GASTROGRAFIN 30 ML SOL ONE (08:49)
[2022-01-08] MEDS: cefTRIAXone 1GM/50ML D5W 50 ML IV SCH (09:39)
[2022-01-08] MEDS: PANTOPRAZOLE 40 MG/10 ML VIAL INJ IV SCH ×2 (09:39→21:55)
[2022-01-08] MEDS: SACUBITRIL-VALSARTAN 24mg/26mg TAB PO SCH ×2 (09:40→22:00)
[2022-01-08] MEDS: LORazepam 0.5 MG TAB GT SCH ×2 (09:40→22:00)
[2022-01-08] MEDS: DULoxetine HCL 30 MG CAP PO SCH (09:40)
[2022-01-08] MEDS: FUROSEMIDE 40 MG TAB PO SCH (09:40)
[2022-01-08] MEDS: ASPirin-EC 81 mg tab PO SCH (09:40)
[2022-01-08] MEDS: BACLOFEN 10 MG TAB PO SCH ×2 (09:41→22:00)
[2022-01-08] MEDS: METOPROLOL SUCCINATE XL 50 MG TAB PO SCH (09:41)
[2022-01-08] MEDS: ENOXAPARIN SOD 40 MG/0.4 ML SYRINGE SC SCH (09:41)
[2022-01-09] VITALS (7 sets, daily range): BP systolic 127–154; BP diastolic 69–92
[2022-01-09] MEDS: GABAPENTIN 300 MG CAP PO SCH ×3 (05:36→21:48)
[2022-01-09] MEDS: LEVOTHYROXINE SODIUM 25 MCG TAB PO SCH (05:38)
[2022-01-09 06:04] LABS: Basophils # (auto) 0 10 ^3/uL (0-0.2); Basophils % (auto) 0.7 % (0.0-2.0); Eosinophils # (auto) 0.1 10 ^3/uL (0-0.8); Eosinophils % (auto) 2.2 % (0.0-7.0); Hematocrit 37.4 % (36.0-46.0); Hemoglobin 11.6 g/dL (12.2-16.2); Lymphocytes # (auto) 0.4 10 ^3/uL (0.4-5.4); Lymphocytes % (auto) 10.4 % (10.0-50.0); Mean Corpuscular Hemoglobin 29.4 pg (28.0-32.0); Mean Corpuscular Volume 94.8 fL (80.0-100.0); Monocytes # (auto) 0.2 10 ^3/uL (0-1.3); Monocytes % (auto) 4.5 % (0.0-12.0); Neutrophils # (auto) 3.4 10 ^3/uL (1.6-8.6); Neutrophils % (auto) 82.2 % (37.0-80.0); Nucleated Red Blood Cells % 0.4 %; Red Blood Cells 3.95 10^6/uL (4.0-5.20); White Blood Cell 4.2 10^3/uL (4.4-10.8)
[2022-01-09 06:30] LABS: Potassium 4.2 mmol/L (3.5-5.1)
[2022-01-09 06:36] LABS: Calcium 8.7 mg/dL (8.5-10.1)
[2022-01-09] MEDS: PANTOPRAZOLE 40 MG/10 ML VIAL INJ IV SCH ×2 (09:51→21:49)
[2022-01-09] MEDS: DULoxetine HCL 30 MG CAP PO SCH (09:51)
[2022-01-09] MEDS: LORazepam 0.5 MG TAB GT SCH ×2 (09:51→21:48)
[2022-01-09] MEDS: cefTRIAXone 1GM/50ML D5W 50 ML IV SCH (09:51)
[2022-01-09] MEDS: ENOXAPARIN SOD 40 MG/0.4 ML SYRINGE SC SCH (09:51)
[2022-01-09] MEDS: FUROSEMIDE 40 MG TAB PO SCH (09:52)
[2022-01-09] MEDS: SACUBITRIL-VALSARTAN 24mg/26mg TAB PO SCH ×2 (09:52→21:49)
[2022-01-09] MEDS: METOPROLOL SUCCINATE XL 50 MG TAB PO SCH (09:52)
[2022-01-09] MEDS: BACLOFEN 10 MG TAB PO SCH ×2 (09:52→21:48)
[2022-01-09] MEDS: ASPirin-EC 81 mg tab PO SCH (09:53)
[2022-01-09] MEDS: HYDROmorphone HCL 2 MG/ML VL/or syr IV PRN (12:19)
[2022-01-09] MEDS: NORTRIPTYLINE HCL 25 MG CAP PO SCH ×2 (14:21→18:10)
[2022-01-09] MEDS: diphenhdrAMINE HCL 50 MG/1 ML VL IV PRN (14:37)
[2022-01-10] VITALS (29 sets, daily range): BP systolic 92–132; BP diastolic 52–77
[2022-01-10 05:23] LABS: Basophils # (auto) 0 10 ^3/uL (0-0.2); Eosinophils # (auto) 0.4 10 ^3/uL (0-0.8); Eosinophils % (auto) 7.6 % (0.0-7.0); Hematocrit 36.2 % (36.0-46.0); Hemoglobin 11.8 g/dL (12.2-16.2); Lymphocytes % (auto) 21.1 % (10.0-50.0); Mean Corpuscular Hemoglobin 29.1 pg (28.0-32.0); Mean Corpuscular Hgb Conc. 32.6 g/dL (32.0-36.0); Mean Corpuscular Volume 89.5 fL (80.0-100.0); Monocytes # (auto) 0.4 10 ^3/uL (0-1.3); Monocytes % (auto) 9.1 % (0.0-12.0); Neutrophils % (auto) 61.2 % (37.0-80.0); Nucleated Red Blood Cells % 0.2 %; Red Blood Cells 4.05 10^6/uL (4.0-5.20); Red Cell Distribution Width 16.7 % (11.8-14.3); White Blood Cell 4.9 10^3/uL (4.4-10.8)
[2022-01-10 05:43] LABS: Calcium 8.5 mg/dL (8.5-10.1); Potassium 3.3 mmol/L (3.5-5.1)
[2022-01-10 05:45] LABS: BUN/Creatinine Ratio 13.9
[2022-01-10] MEDS: GABAPENTIN 300 MG CAP PO SCH ×3 (05:55→23:04)
[2022-01-10] MEDS: LEVOTHYROXINE SODIUM 25 MCG TAB PO SCH (06:13)
[2022-01-10] MEDS: cefTRIAXone 1GM/50ML D5W 50 ML IV SCH (09:30)
[2022-01-10] MEDS: PANTOPRAZOLE 40 MG/10 ML VIAL INJ IV SCH ×2 (10:13→23:04)
[2022-01-10] MEDS: ASPirin-EC 81 mg tab PO SCH (10:14)
[2022-01-10] MEDS: BACLOFEN 10 MG TAB PO SCH (10:14)
[2022-01-10] MEDS: SACUBITRIL-VALSARTAN 24mg/26mg TAB PO SCH ×2 (10:14→22:00)
[2022-01-10] MEDS: LORazepam 0.5 MG TAB GT SCH (10:14)
[2022-01-10] MEDS: DULoxetine HCL 30 MG CAP PO SCH (10:15)
[2022-01-10] MEDS: ENOXAPARIN SOD 40 MG/0.4 ML SYRINGE SC SCH (10:16)
[2022-01-10] MEDS: FUROSEMIDE 40 MG TAB PO SCH (10:21)
[2022-01-10] MEDS: METOPROLOL SUCCINATE XL 50 MG TAB PO SCH (10:22)
[2022-01-10] MEDS ORDERED: ALBUMIN 25% 100 ML IV ONE (15:15)
[2022-01-10] MEDS ORDERED: SODIUM CHLORIDE 0.9% 500 ML IV ONE (15:15)
[2022-01-10 16:34] LABS: Alcohol, Urine < 3.0 mg/dL (0-10); Amphetamine Screen, Urine NEGATIVE (NEGATIVE); Barbiturate Scree,Urine NEGATIVE (NEGATIVE); Benzodiazephine Screen, Urine NEGATIVE (NEGATIVE); Cannabinoid Screen, Urine NEGATIVE (NEGATIVE); Cocaine Screen, Urine NEGATIVE (NEGATIVE); Opiate Scree,Urine NEGATIVE (NEGATIVE); Phencyclidine Screen, Urine NEGATIVE (NEGATIVE)
[2022-01-10] MEDS ORDERED: DOPamine 1600MCG/ML D5W 250 ML IV ONE (16:57)
[2022-01-10] MEDS: NORTRIPTYLINE HCL 25 MG CAP PO SCH (17:47)
[2022-01-10] MEDS: DOPamine 1600MCG/ML D5W 250 ML IV SCH (17:47)
[2022-01-10] MEDS ORDERED: POTASSIUM CHLORIDE 40 MEQ, LIDOCAINE 1% (LOCAL ANESTH.) 4 ML in SODIUM CHL 0.9% 250 ML IV ONE (19:30)
[2022-01-10] MEDS ORDERED: LORazepam 0.5 MG TAB GT PRN (20:45)
[2022-01-11] VITALS (92 sets, daily range): BP systolic 82–137; BP diastolic 37–78
[2022-01-11] MEDS: BACLOFEN 10 MG TAB PO SCH ×3 (02:09→20:07)
[2022-01-11] MEDS: DOPamine 1600MCG/ML D5W 250 ML IV SCH ×2 (05:32→17:29)
[2022-01-11] MEDS: GABAPENTIN 300 MG CAP PO SCH ×3 (06:00→20:08)
[2022-01-11] MEDS: LEVOTHYROXINE SODIUM 25 MCG TAB PO SCH (06:42)
[2022-01-11 06:47] LABS: Basophils # (auto) 0.1 10 ^3/uL (0-0.2); Eosinophils # (auto) 0.5 10 ^3/uL (0-0.8); Eosinophils % (auto) 6.6 % (0.0-7.0); Hemoglobin 12.4 g/dL (12.2-16.2); Lymphocytes # (auto) 1.2 10 ^3/uL (0.4-5.4); Lymphocytes % (auto) 16.1 % (10.0-50.0); Mean Corpuscular Hgb Conc. 32.6 g/dL (32.0-36.0); Monocytes # (auto) 0.6 10 ^3/uL (0-1.3); Monocytes % (auto) 8.5 % (0.0-12.0); Neutrophils % (auto) 67.8 % (37.0-80.0); Nucleated Red Blood Cells % 0.1 %; Red Blood Cells 4.13 10^6/uL (4.0-5.20); Red Cell Distribution Width 16.7 % (11.8-14.3); White Blood Cell 7.3 10^3/uL (4.4-10.8)
[2022-01-11 07:11] LABS: BUN/Creatinine Ratio 6.1; Calcium 9.1 mg/dL (8.5-10.1); Potassium 3.1 mmol/L (3.5-5.1)
[2022-01-11] MEDS ORDERED: POTASSIUM EFFERVESENT TAB 25 MEQ GT ONE (09:45)
[2022-01-11] MEDS: FUROSEMIDE 40 MG TAB PO SCH ×2 (09:47→16:24)
[2022-01-11] MEDS: METOPROLOL SUCCINATE XL 50 MG TAB PO SCH (09:48)
[2022-01-11] MEDS: SACUBITRIL-VALSARTAN 24mg/26mg TAB PO SCH ×2 (09:48→20:08)
[2022-01-11] MEDS: ASPirin-EC 81 mg tab PO SCH (09:50)
[2022-01-11] MEDS: PANTOPRAZOLE 40 MG/10 ML VIAL INJ IV SCH ×2 (09:50→20:08)
[2022-01-11] MEDS: cefTRIAXone 1GM/50ML D5W 50 ML IV SCH (09:50)
[2022-01-11] MEDS: ENOXAPARIN SOD 40 MG/0.4 ML SYRINGE SC SCH (09:51)
[2022-01-11] MEDS: DULoxetine HCL 30 MG CAP PO SCH (10:01)
[2022-01-11] MEDS ORDERED: POTASSIUM EFFERVESENT TAB 25 MEQ PO ONE (16:15)
[2022-01-11] MEDS: NORTRIPTYLINE HCL 25 MG CAP PO SCH (18:08)
[2022-01-11] MEDS: diphenhdrAMINE HCL 50 MG/1 ML VL IV PRN (19:20)
[2022-01-11] MEDS: HYDROmorphone HCL 2 MG/ML VL/or syr IV PRN (20:08)
[2022-01-12] VITALS (79 sets, daily range): BP systolic 67–124; BP diastolic 31–74
[2022-01-12] MEDS: DOPamine 1600MCG/ML D5W 250 ML IV SCH ×2 (02:13→09:03)
[2022-01-12] MEDS: GABAPENTIN 300 MG CAP PO SCH ×3 (05:08→20:39)
[2022-01-12] MEDS: LEVOTHYROXINE SODIUM 25 MCG TAB PO SCH (05:08)
[2022-01-12] MEDS: HYDROmorphone HCL 2 MG/ML VL/or syr IV PRN (05:53)
[2022-01-12] MEDS: cefTRIAXone 1GM/50ML D5W 50 ML IV SCH (09:03)
[2022-01-12] MEDS ORDERED: NALOXONE HCL 0.4 MG/ML VIAL ONE ×2 (09:38→10:41)
[2022-01-12] MEDS ORDERED: NALOXONE HCL 0.4 MG/ML VIAL IV ONE ×2 (09:45→10:45)
[2022-01-12] MEDS: ASPirin-EC 81 mg tab PO SCH (10:00)
[2022-01-12] MEDS: SACUBITRIL-VALSARTAN 24mg/26mg TAB PO SCH (10:00)
[2022-01-12] MEDS: DULoxetine HCL 30 MG CAP PO SCH (10:00)
[2022-01-12] MEDS: METOPROLOL SUCCINATE XL 50 MG TAB PO SCH (10:00)
[2022-01-12] MEDS: BACLOFEN 10 MG TAB PO SCH ×2 (10:00→20:33)
[2022-01-12] MEDS: FUROSEMIDE 40 MG TAB PO SCH (10:00)
[2022-01-12] MEDS: PANTOPRAZOLE 40 MG/10 ML VIAL INJ IV SCH ×2 (10:06→20:33)
[2022-01-12] MEDS: ENOXAPARIN SOD 40 MG/0.4 ML SYRINGE SC SCH (10:06)
[2022-01-12] MEDS ORDERED: OXYCODONE W/ ACETAMINOPHEN 5/325MG TABLET PO PRN (11:00)
[2022-01-12] MEDS ORDERED: SODIUM CHLORIDE 0.9% 1,000 ML IV SCH (11:15)
[2022-01-12] MEDS: NOREPINEPHRINE 8 MG/250ML KIT 250 ML IV SCH (11:28)
[2022-01-12] MEDS: HYDROcodone-ACET 5/325MG TAB PO PRN (12:34)
[2022-01-12] MEDS: POTASSIUM CHL 20MEQ/100ML 100 ML IV SCH ×2 (12:36→16:39)
[2022-01-12] MEDS ORDERED: POTASSIUM CHLORIDE 40 MEQ, LIDOCAINE 1% (LOCAL ANESTH.) 4 ML in SODIUM CHL 0.9% 250 ML IV ONE (16:00)
[2022-01-12] MEDS: NORTRIPTYLINE HCL 25 MG CAP PO SCH (17:46)
[2022-01-12] MEDS: diphenhdrAMINE HCL 50 MG/1 ML VL IV PRN (21:25)
[2022-01-13] VITALS (90 sets, daily range): BP systolic 80–140; BP diastolic 13–84
[2022-01-13] MEDS: HYDROcodone-ACET 5/325MG TAB PO PRN ×3 (03:48→17:38)
[2022-01-13] MEDS: GABAPENTIN 300 MG CAP PO SCH ×3 (06:23→21:35)
[2022-01-13] MEDS: LEVOTHYROXINE SODIUM 25 MCG TAB PO SCH (06:23)
[2022-01-13 06:43] LABS: Basophils # (auto) 0.1 10 ^3/uL (0-0.2); Basophils % (auto) 0.6 % (0.0-2.0); Eosinophils # (auto) 0.7 10 ^3/uL (0-0.8); Eosinophils % (auto) 5.2 % (0.0-7.0); Hematocrit 40.5 % (36.0-46.0); Hemoglobin 13.1 g/dL (12.2-16.2); Lymphocytes # (auto) 2.6 10 ^3/uL (0.4-5.4); Mean Corpuscular Hemoglobin 28.8 pg (28.0-32.0); Mean Corpuscular Hgb Conc. 32.3 g/dL (32.0-36.0); Mean Corpuscular Volume 89.1 fL (80.0-100.0); Monocytes % (auto) 15.2 % (0.0-12.0); Neutrophils # (auto) 7.8 10 ^3/uL (1.6-8.6); Nucleated Red Blood Cells % 0.1 %; Red Blood Cells 4.54 10^6/uL (4.0-5.20); Red Cell Distribution Width 16.6 % (11.8-14.3); White Blood Cell 13.2 10^3/uL (4.4-10.8)
[2022-01-13] MEDS: PANTOPRAZOLE 40 MG/10 ML VIAL INJ IV SCH ×2 (09:10→21:33)
[2022-01-13] MEDS: cefTRIAXone 1GM/50ML D5W 50 ML IV SCH (09:11)
[2022-01-13] MEDS: ENOXAPARIN SOD 40 MG/0.4 ML SYRINGE SC SCH (09:11)
[2022-01-13] MEDS: ASPirin-EC 81 mg tab PO SCH (09:13)
[2022-01-13] MEDS: DULoxetine HCL 30 MG CAP PO SCH (09:13)
[2022-01-13] MEDS: FUROSEMIDE 40 MG TAB PO SCH (09:14)
[2022-01-13] MEDS: BACLOFEN 10 MG TAB PO SCH ×2 (09:15→21:34)
[2022-01-13 09:57] LABS: Anion Gap 4 (5-15); BUN/Creatinine Ratio 8.7; Blood Urea Nitrogen 9 mg/dL (7-18); Calcium 9.3 mg/dL (8.5-10.1); Carbon Dioxide 28 mmol/L (21-32); Chloride 104 mmol/L (98-107); GFR African American 72 mL/min; GFR Non-African American 59 mL/min; Glucose 109 mg/dL (74-106); Magnesium 2.1 mg/dL (1.6-2.6); Sodium 136 mmol/L (136-145)
[2022-01-13 09:58] LABS: Potassium 5.6 mmol/L (3.5-5.1)
[2022-01-13] MEDS ORDERED: InsuLIN REG 1unit/0.01ml Soln (100units/ml) IV ONE (10:30)
[2022-01-13] MEDS ORDERED: SODIUM BICARBONATE 8.4% INJ 50ML SYRINGE IV ONE (10:30)
[2022-01-13] MEDS ORDERED: DEXTROSE (50%) 50ML SYRG IV ONE (10:30)
[2022-01-13] MEDS ORDERED: SODIUM ZIRCONIUM CYCL 10 GM PAK PO ONE (10:30)
[2022-01-13] MEDS ORDERED: ALBUTEROL SULF 2.5 MG/0.5ML(0.5%) NEB SOLN NEB ONE (10:30)
[2022-01-13] MEDS: NOREPINEPHRINE 8 MG/250ML KIT 250 ML IV SCH ×2 (11:15→17:39)
[2022-01-13 15:32] LABS: Potassium 4.7 mmol/L (3.5-5.1)
[2022-01-13 15:43] LABS: BUN/Creatinine Ratio 8.4; Calcium 9.1 mg/dL (8.5-10.1)
[2022-01-13] MEDS: NORTRIPTYLINE HCL 25 MG CAP PO SCH (17:38)
[2022-01-14] VITALS (64 sets, daily range): BP systolic 69–124; BP diastolic 38–83
[2022-01-14] MEDS: diphenhdrAMINE HCL 50 MG/1 ML VL IV PRN (03:33)
[2022-01-14] MEDS: HYDROcodone-ACET 5/325MG TAB PO PRN ×3 (03:55→20:33)
[2022-01-14 06:20] LABS: Basophils # (auto) 0.1 10 ^3/uL (0-0.2); Basophils % (auto) 0.6 % (0.0-2.0); Eosinophils # (auto) 0.6 10 ^3/uL (0-0.8); Eosinophils % (auto) 6.8 % (0.0-7.0); Hematocrit 42.3 % (36.0-46.0); Hemoglobin 13.4 g/dL (12.2-16.2); Lymphocytes # (auto) 1.4 10 ^3/uL (0.4-5.4); Lymphocytes % (auto) 16.2 % (10.0-50.0); Mean Corpuscular Hemoglobin 28.4 pg (28.0-32.0); Mean Corpuscular Hgb Conc. 31.7 g/dL (32.0-36.0); Mean Corpuscular Volume 89.7 fL (80.0-100.0); Monocytes # (auto) 0.8 10 ^3/uL (0-1.3); Monocytes % (auto) 8.6 % (0.0-12.0); Neutrophils % (auto) 67.8 % (37.0-80.0); Nucleated Red Blood Cells % 0.1 %; Red Blood Cells 4.72 10^6/uL (4.0-5.20); Red Cell Distribution Width 17.2 % (11.8-14.3); White Blood Cell 8.8 10^3/uL (4.4-10.8)
[2022-01-14 06:37] LABS: Calcium 9.6 mg/dL (8.5-10.1)
[2022-01-14] MEDS: GABAPENTIN 300 MG CAP PO SCH ×3 (06:55→22:23)
[2022-01-14] MEDS: LEVOTHYROXINE SODIUM 25 MCG TAB PO SCH (06:55)
[2022-01-14] MEDS: cefTRIAXone 1GM/50ML D5W 50 ML IV SCH (08:56)
[2022-01-14] MEDS: DULoxetine HCL 30 MG CAP PO SCH (09:42)
[2022-01-14] MEDS: ASPirin-EC 81 mg tab PO SCH (09:42)
[2022-01-14] MEDS: PANTOPRAZOLE 40 MG/10 ML VIAL INJ IV SCH ×2 (09:42→22:23)
[2022-01-14] MEDS: FUROSEMIDE 40 MG TAB PO SCH (09:42)
[2022-01-14] MEDS: BACLOFEN 10 MG TAB PO SCH ×2 (09:43→22:23)
[2022-01-14] MEDS: ENOXAPARIN SOD 40 MG/0.4 ML SYRINGE SC SCH (11:33)
[2022-01-14] MEDS: HYDROmorphone HCL 2 MG TAB PO PRN (15:00)
[2022-01-14] MEDS: NORTRIPTYLINE HCL 25 MG CAP PO SCH ×2 (17:49→18:02)
[2022-01-15] VITALS (76 sets, daily range): BP systolic 68–124; BP diastolic 36–76
[2022-01-15] MEDS: HYDROmorphone HCL 2 MG TAB PO PRN ×2 (00:08→13:14)
[2022-01-15] MEDS: GABAPENTIN 300 MG CAP PO SCH ×3 (06:15→21:32)
[2022-01-15] MEDS: HYDROcodone-ACET 5/325MG TAB PO PRN ×2 (06:18→21:32)
[2022-01-15] MEDS: LEVOTHYROXINE SODIUM 25 MCG TAB PO SCH (06:37)
[2022-01-15] MEDS: PANTOPRAZOLE 40 MG/10 ML VIAL INJ IV SCH (09:29)
[2022-01-15] MEDS: cefTRIAXone 1GM/50ML D5W 50 ML IV SCH (09:29)
[2022-01-15] MEDS: ASPirin-EC 81 mg tab PO SCH (09:30)
[2022-01-15] MEDS: ENOXAPARIN SOD 40 MG/0.4 ML SYRINGE SC SCH (09:30)
[2022-01-15] MEDS: DULoxetine HCL 30 MG CAP PO SCH (09:32)
[2022-01-15] MEDS: FUROSEMIDE 40 MG TAB PO SCH (09:32)
[2022-01-15] MEDS: BACLOFEN 10 MG TAB PO SCH ×2 (09:32→21:32)
[2022-01-15] MEDS: NOREPINEPHRINE 8 MG/250ML KIT 250 ML IV SCH (09:47)
[2022-01-15] MEDS: MEROPENEM 1GM IVPB 100 ML IV SCH ×2 (16:21→21:32)
[2022-01-15] MEDS: diphenhdrAMINE HCL 50 MG/1 ML VL IV PRN (16:58)
[2022-01-15] MEDS ORDERED: MORPHINE SULFATE 4 MG/ML SYR/VIAL IV ONE (19:15)
[2022-01-15] MEDS: NORTRIPTYLINE HCL 25 MG CAP PO SCH (19:15)
[2022-01-16] VITALS (93 sets, daily range): BP systolic 78–121; BP diastolic 32–74
[2022-01-16] MEDS: HYDROcodone-ACET 5/325MG TAB PO PRN ×4 (03:51→23:59)
[2022-01-16] MEDS: MEROPENEM 1GM IVPB 100 ML IV SCH ×3 (05:34→22:11)
[2022-01-16] MEDS: GABAPENTIN 300 MG CAP PO SCH ×3 (05:34→22:11)
[2022-01-16] MEDS: LEVOTHYROXINE SODIUM 25 MCG TAB PO SCH (06:32)
[2022-01-16] MEDS: DULoxetine HCL 30 MG CAP PO SCH (09:47)
[2022-01-16] MEDS: BACLOFEN 10 MG TAB PO SCH ×2 (09:48→22:11)
[2022-01-16] MEDS: ASPirin-EC 81 mg tab PO SCH (09:48)
[2022-01-16] MEDS: FUROSEMIDE 40 MG TAB PO SCH (09:48)
[2022-01-16] MEDS: ENOXAPARIN SOD 40 MG/0.4 ML SYRINGE SC SCH (09:49)
[2022-01-16] MEDS: NOREPINEPHRINE 8 MG/250ML KIT 250 ML IV SCH (09:49)
[2022-01-16] MEDS: HYDROmorphone HCL 2 MG TAB PO PRN ×2 (13:58→20:27)
[2022-01-16] MEDS: NORTRIPTYLINE HCL 25 MG CAP PO SCH (17:20)
[2022-01-17] VITALS (38 sets, daily range): BP systolic 76–109; BP diastolic 39–71
[2022-01-17] MEDS: diphenhdrAMINE HCL 50 MG/1 ML VL IV PRN ×2 (00:08→08:32)
[2022-01-17] MEDS: LEVOTHYROXINE SODIUM 25 MCG TAB PO SCH (06:36)
[2022-01-17] MEDS: MEROPENEM 1GM IVPB 100 ML IV SCH ×2 (06:36→14:05)
[2022-01-17] MEDS: GABAPENTIN 300 MG CAP PO SCH ×2 (06:39→14:05)
[2022-01-17] MEDS: HYDROmorphone HCL 2 MG TAB PO PRN (06:43)
[2022-01-17 07:47] LABS: Basophils # (auto) 0 10 ^3/uL (0-0.2); Basophils % (auto) 0.7 % (0.0-2.0); Eosinophils # (auto) 0.4 10 ^3/uL (0-0.8); Hematocrit 31.9 % (36.0-46.0); Hemoglobin 10.3 g/dL (12.2-16.2); Lymphocytes # (auto) 0.9 10 ^3/uL (0.4-5.4); Lymphocytes % (auto) 20.6 % (10.0-50.0); Mean Corpuscular Hemoglobin 29.2 pg (28.0-32.0); Mean Corpuscular Hgb Conc. 32.3 g/dL (32.0-36.0); Mean Corpuscular Volume 90.3 fL (80.0-100.0); Monocytes # (auto) 0.3 10 ^3/uL (0-1.3); Neutrophils # (auto) 2.5 10 ^3/uL (1.6-8.6); Neutrophils % (auto) 60.7 % (37.0-80.0); Nucleated Red Blood Cells % 0.2 %; Red Blood Cells 3.53 10^6/uL (4.0-5.20); Red Cell Distribution Width 16.5 % (11.8-14.3); White Blood Cell 4.2 10^3/uL (4.4-10.8)
[2022-01-17 07:58] LABS: BUN/Creatinine Ratio 9.2; Calcium 8.6 mg/dL (8.5-10.1); Potassium 4.5 mmol/L (3.5-5.1)
[2022-01-17] MEDS: ENOXAPARIN SOD 40 MG/0.4 ML SYRINGE SC SCH (09:27)
[2022-01-17] MEDS: BACLOFEN 10 MG TAB PO SCH (09:28)
[2022-01-17] MEDS: DULoxetine HCL 30 MG CAP PO SCH (09:28)
[2022-01-17] MEDS: ASPirin-EC 81 mg tab PO SCH (09:29)
[2022-01-17] MEDS ORDERED: FUROSEMIDE 20 MG TAB PO SCH (10:00)
[2022-01-17] MEDS ORDERED: SULF400T11 PO (10:16)
[2022-01-17] MEDS ORDERED: CIPR-173 PO (15:19)
[2022-01-17] MEDS: HYDROcodone-ACET 5/325MG TAB PO PRN (16:14)
== END 2022-01-17 16:41 | disposition home health service (06) | DRG 871 ==
LOC: ER 08:47 → EDBD 08:47 → TELE 15:19 → ICU WEST 01-06 12:06 → EAST 01-09 00:28 → TELE-EAST 01-09 01:50 → ICU CENTRL 01-10 17:19 → DOU IN ICU 01-10 17:37 → ICU CENTRL 01-11 07:52 → DOU IN ICU 01-14 18:54 → ICU CENTRL 01-15 11:59
PROVIDERS: ADMIT Registered Nurse; ATTEND Internal Medicine Pulmonary Disease
PROC: 05HC33Z Insertion of Infusion Device into Left Basilic Vein, Percutaneous Approach (ICD-10-PCS; principal; 2022-01-07)
DX: A41.9 Sepsis, unspecified organism (principal); E43 Unspecified severe protein-calorie malnutrition; R65.21 Severe sepsis with septic shock; I21.A1 Myocardial infarction type 2; G82.50 Quadriplegia, unspecified; J96.21 Acute and chronic respiratory failure with hypoxia; J98.11 Atelectasis; I50.22 Chronic systolic (congestive) heart failure; N39.0 Urinary tract infection, site not specified; I42.0 Dilated cardiomyopathy; M33.13 Other dermatomyositis without myopathy; L03.311 Cellulitis of abdominal wall; I13.0 Hypertensive heart and chronic kidney disease with heart failure and stage 1 through stage 4 chronic kidney disease, or unspecified chronic kidney disease; I95.89 Other hypotension; K43.9 Ventral hernia without obstruction or gangrene; L89.159 Pressure ulcer of sacral region, unspecified stage; Z20.822 Contact with and (suspected) exposure to COVID-19; J44.9 Chronic obstructive pulmonary disease, unspecified; K21.9 Gastro-esophageal reflux disease without esophagitis; F32.A Depression, unspecified; E86.0 Dehydration; E03.9 Hypothyroidism, unspecified; E87.6 Hypokalemia; G71.00 Muscular dystrophy, unspecified; E11.51 Type 2 diabetes mellitus with diabetic peripheral angiopathy without gangrene; K57.30 Diverticulosis of large intestine without perforation or abscess without bleeding; C67.9 Malignant neoplasm of bladder, unspecified; R41.82 Altered mental status, unspecified; R74.8 Abnormal levels of other serum enzymes; E11.22 Type 2 diabetes mellitus with diabetic chronic kidney disease; N18.9 Chronic kidney disease, unspecified; F17.200 Nicotine dependence, unspecified, uncomplicated; I25.10 Atherosclerotic heart disease of native coronary artery without angina pectoris; B96.5 Pseudomonas (aeruginosa) (mallei) (pseudomallei) as the cause of diseases classified elsewhere; E87.5 Hyperkalemia; Z88.5 Allergy status to narcotic agent; Z88.2 Allergy status to sulfonamides; Z83.3 Family history of diabetes mellitus; Z86.73 Personal history of transient ischemic attack (TIA), and cerebral infarction without residual deficits; Z82.49 Family history of ischemic heart disease and other diseases of the circulatory system; Z79.4 Long term (current) use of insulin; Z86.718 Personal history of other venous thrombosis and embolism; Z79.899 Other long term (current) drug therapy; Z74.01 Bed confinement status; Z79.82 Long term (current) use of aspirin; Z93.3 Colostomy status; Z93.0 Tracheostomy status; Z95.828 Presence of other vascular implants and grafts; Z68.31 Body mass index [BMI] 31.0-31.9, adult
CPT/HCPCS: 36415; 36600; 70450; 71045; 74021; 74177; 80048; 80053; 80307; 81001; 82140; 82533; 82805; 82962; 83605; 83735; 83880; 84484; 85025; 85379; 85610; 85730; 87040; 87070; 87077; 87081; 87186; 87205; 93005; 93886; 94640; 94762; 95819; 96360; 96361; A4605; C9113; G0378; J0696; J1815; J2001; J2185; J3480; P9047

== ENCOUNTER 2022-01-22 12:52 | Inpatient (IN) | payer BC, MEDICARE, OTHER ==
[~2022-01-22] VITALS: Ht 154.9 cm; Wt 61.3 kg
[~2022-01-22 12:52] MED LIST changes: -ASCO10003 PO; -ASPI-378 PO; -BUDE2SUS3 IN; -CHOL20007 PO; +CIPR-173 PO; -DEX4T PO; -DOXY-286 PO
[2022-01-22] MEDS ORDERED: SODIUM CHLORIDE 0.9% 2,000 ML IV ONE (17:00)
[2022-01-22] MEDS ORDERED: NOREPINEPHRINE 8 MG/250ML KIT 250 ML IV ONE (17:40)
[2022-01-22] MEDS ORDERED: NOREPINEPHRINE 8 MG/250ML KIT 250 ML IV SCH (17:45)
[2022-01-22] MEDS ORDERED: cefTRIAXone 1GM/50ML D5W 50 ML IV ONE (18:45)
[2022-01-22 20:32] LABS: Basophils # (auto) 0.1 10 ^3/uL (0-0.2); Basophils % (auto) 1.4 % (0.0-2.0); Eosinophils # (auto) 0.4 10 ^3/uL (0-0.8); Eosinophils % (auto) 7.7 % (0.0-7.0); Hematocrit 31.8 % (36.0-46.0); Hemoglobin 10.3 g/dL (12.2-16.2); Lymphocytes # (auto) 1.3 10 ^3/uL (0.4-5.4); Lymphocytes % (auto) 25.8 % (10.0-50.0); Mean Corpuscular Hemoglobin 29.5 pg (28.0-32.0); Mean Corpuscular Hgb Conc. 32.3 g/dL (32.0-36.0); Mean Corpuscular Volume 91.4 fL (80.0-100.0); Monocytes # (auto) 0.4 10 ^3/uL (0-1.3); Monocytes % (auto) 7.3 % (0.0-12.0); Neutrophils % (auto) 57.8 % (37.0-80.0); Red Blood Cells 3.48 10^6/uL (4.0-5.20); Red Cell Distribution Width 17.3 % (11.8-14.3); White Blood Cell 5.2 10^3/uL (4.4-10.8)
[2022-01-22 20:46] LABS: Albumin 2.6 g/dL (3.4-5.0); Calcium 8.1 mg/dL (8.5-10.1); Potassium 3.9 mmol/L (3.5-5.1)
[2022-01-22 20:49] LABS: BUN/Creatinine Ratio 11.6; Bilirubin, Total 0.4 mg/dL (0.2-1.0); Total Protein 6.4 g/dL (6.4-8.2)
[2022-01-22 20:57] LABS: INR 1.13 (0.9-1.15); Partial Thromboplastin Time 29.3 sec (24.6-33.4)
[2022-01-22 21:11] VITALS: BP 82/43
[2022-01-22] MEDS ORDERED: ALBUTEROL SULF 2.5 MG/0.5ML(0.5%) NEB SOLN ONE (23:11)
[2022-01-22 23:13] LABS: Urine Bacteria NONE SEEN /hpf (None Seen); Urine Blood 1+ /uL (Negative); Urine Hyaline Cast MOD /lpf (0 - 2); Urine Mucus FEW (None Seen); Urine Specific Gravity 1.009 (1.001-1.035); Urine WBC 40 /hpf (0 - 5)
[2022-01-22] MEDS ORDERED: NITROGLYCERIN 0.4 MG SL TAB SL PRN (23:15)
[2022-01-22] MEDS ORDERED: ACETAMINOPHEN 325 MG TAB PO PRN (23:15)
[2022-01-22] MEDS ORDERED: SODIUM CHLORIDE 0.9% 1,000 ML IV SCH (23:15)
[2022-01-22] MEDS ORDERED: ONDANSETRON HCL 4 MG/2 ML VIAL IV PRN (23:15)
[2022-01-22] MEDS ORDERED: MORPHINE SULFATE INJ 2 MG/ml SYRG IV PRN (23:15)
[2022-01-23] VITALS (48 sets, daily range): BP systolic 85–115; BP diastolic 38–61
[2022-01-23 04:27] LABS: Basophils # (auto) 0.1 10 ^3/uL (0-0.2); Basophils % (auto) 0.9 % (0.0-2.0); Eosinophils # (auto) 0.4 10 ^3/uL (0-0.8); Eosinophils % (auto) 5.4 % (0.0-7.0); Hematocrit 28.8 % (36.0-46.0); Hemoglobin 9.3 g/dL (12.2-16.2); Lymphocytes # (auto) 1.2 10 ^3/uL (0.4-5.4); Lymphocytes % (auto) 17.8 % (10.0-50.0); Mean Corpuscular Hgb Conc. 32.4 g/dL (32.0-36.0); Mean Corpuscular Volume 92.5 fL (80.0-100.0); Monocytes # (auto) 0.5 10 ^3/uL (0-1.3); Monocytes % (auto) 7.3 % (0.0-12.0); Neutrophils # (auto) 4.5 10 ^3/uL (1.6-8.6); Neutrophils % (auto) 68.6 % (37.0-80.0); Red Blood Cells 3.12 10^6/uL (4.0-5.20); Red Cell Distribution Width 17.3 % (11.8-14.3); White Blood Cell 6.6 10^3/uL (4.4-10.8)
[2022-01-23 04:38] LABS: Calcium 7.9 mg/dL (8.5-10.1)
[2022-01-23 04:40] LABS: BUN/Creatinine Ratio 14.1
[2022-01-23] MEDS ORDERED: cefTRIAXone 1GM/50ML D5W 50 ML IV SCH (09:00)
[2022-01-23] MEDS ORDERED: PANTOPRAZOLE 40 MG/10 ML VIAL INJ IV SCH (10:00)
[2022-01-23] MEDS ORDERED: HYDROmorphone HCL 2 MG TAB PO PRN (11:15)
== END 2022-01-23 16:23 | disposition home health service (06) | DRG 315 ==
LOC: ER 12:52 → EDBD 12:52 → ICU WEST 23:13
PROVIDERS: ADMIT Nurse Practitioner Family; ATTEND Internal Medicine Pulmonary Disease
DX: I95.9 Hypotension, unspecified (principal); K31.6 Fistula of stomach and duodenum; Z77.22 Contact with and (suspected) exposure to environmental tobacco smoke (acute) (chronic); I50.9 Heart failure, unspecified; F32.A Depression, unspecified; Z20.822 Contact with and (suspected) exposure to COVID-19; K21.9 Gastro-esophageal reflux disease without esophagitis; G89.29 Other chronic pain; J44.9 Chronic obstructive pulmonary disease, unspecified; Z74.01 Bed confinement status; Z79.899 Other long term (current) drug therapy; Z82.49 Family history of ischemic heart disease and other diseases of the circulatory system; Z83.3 Family history of diabetes mellitus; Z86.73 Personal history of transient ischemic attack (TIA), and cerebral infarction without residual deficits; Z90.49 Acquired absence of other specified parts of digestive tract; Z93.3 Colostomy status; Z93.0 Tracheostomy status; Z88.5 Allergy status to narcotic agent; Z88.1 Allergy status to other antibiotic agents
CPT/HCPCS: 36415; 36556; 71045; 74176; 80048; 80053; 81001; 83605; 84484; 85025; 85610; 85730; 87040; 87081; 87086; 93005; 96361; 96365; C9113; G0378; J0696

== ENCOUNTER 2022-03-03 15:34 | Emergency (ER) | payer BC, MEDICARE, OTHER ==
[~2022-03-03] VITALS: Ht 154.9 cm; Wt 70.0 kg
[~2022-03-03 15:34] MED LIST changes: -METO25TA36 PO
[2022-03-03 16:46] LABS: Basophils # (auto) 0.1 10 ^3/uL (0-0.2); Basophils % (auto) 0.8 % (0.0-2.0); Eosinophils # (auto) 0.4 10 ^3/uL (0-0.8); Eosinophils % (auto) 4.3 % (0.0-7.0); Hemoglobin 12.7 g/dL (12.2-16.2); Lymphocytes # (auto) 1.2 10 ^3/uL (0.4-5.4); Lymphocytes % (auto) 14.5 % (10.0-50.0); Mean Corpuscular Hemoglobin 28.9 pg (28.0-32.0); Mean Corpuscular Hgb Conc. 32.7 g/dL (32.0-36.0); Mean Corpuscular Volume 88.4 fL (80.0-100.0); Monocytes # (auto) 0.1 10 ^3/uL (0-1.3); Monocytes % (auto) 1.1 % (0.0-12.0); Neutrophils # (auto) 6.7 10 ^3/uL (1.6-8.6); Neutrophils % (auto) 79.3 % (37.0-80.0); Nucleated Red Blood Cells % 0.1 %; Red Blood Cells 4.41 10^6/uL (4.0-5.20); Red Cell Distribution Width 16.5 % (11.8-14.3); White Blood Cell 8.5 10^3/uL (4.4-10.8)
[2022-03-03 17:08] LABS: Albumin 2.8 g/dL (3.4-5.0); BUN/Creatinine Ratio 21.3; Calcium 8.6 mg/dL (8.5-10.1); Potassium 3.9 mmol/L (3.5-5.1)
[2022-03-03 17:10] LABS: Bilirubin, Total 0.4 mg/dL (0.2-1.0); Total Protein 7.6 g/dL (6.4-8.2)
[2022-03-03] MEDS ORDERED: HYDROcodone-ACET 5/325MG TAB PO ONE (20:00)
[2022-03-03 23:00] VITALS: BP 102/65
== END 2022-03-04 01:31 | disposition home or self-care (01) ==
LOC: EDBD 15:34 → ER 15:34
DX: M79.662 Pain in left lower leg (principal); M79.661 Pain in right lower leg; J44.9 Chronic obstructive pulmonary disease, unspecified; I50.9 Heart failure, unspecified; Z86.73 Personal history of transient ischemic attack (TIA), and cerebral infarction without residual deficits; Z90.49 Acquired absence of other specified parts of digestive tract; Z79.899 Other long term (current) drug therapy; Z88.6 Allergy status to analgesic agent; Z88.2 Allergy status to sulfonamides
CPT/HCPCS: 36415; 80053; 85025; 93970

== ENCOUNTER 2022-03-05 17:16 | Inpatient (IN) | payer BC, MEDICARE, OTHER ==
[~2022-03-05] VITALS: Ht 152.4 cm; Wt 66.7 kg
[2022-03-05] MEDS ORDERED: VANCOMYCIN 1GM/250ML 250 ML IV ONE (19:15)
[2022-03-05] MEDS ORDERED: LORazepam 2MG/ML-1ML VIAL IV ONE (19:15)
[2022-03-05] MEDS ORDERED: SODIUM CHLORIDE 0.9% 1,000 ML IV ONE (19:15)
[2022-03-05 20:00] LABS: Basophils # (auto) 0.1 10 ^3/uL (0-0.2); Basophils % (auto) 0.9 % (0.0-2.0); Eosinophils # (auto) 0 10 ^3/uL (0-0.8); Eosinophils % (auto) 0.1 % (0.0-7.0); Hemoglobin 12.3 g/dL (12.2-16.2); Lymphocytes # (auto) 0.2 10 ^3/uL (0.4-5.4); Lymphocytes % (auto) 1.3 % (10.0-50.0); Mean Corpuscular Hemoglobin 27.9 pg (28.0-32.0); Mean Corpuscular Hgb Conc. 31.6 g/dL (32.0-36.0); Mean Corpuscular Volume 88.4 fL (80.0-100.0); Monocytes # (auto) 0.4 10 ^3/uL (0-1.3); Monocytes % (auto) 3.5 % (0.0-12.0); Neutrophils # (auto) 11.9 10 ^3/uL (1.6-8.6); Neutrophils % (auto) 94.2 % (37.0-80.0); Red Blood Cells 4.42 10^6/uL (4.0-5.20); Red Cell Distribution Width 16.6 % (11.8-14.3); White Blood Cell 12.7 10^3/uL (4.4-10.8)
[2022-03-05 20:18] LABS: INR 1.05 (0.9-1.15); Partial Thromboplastin Time 28.5 sec (24.6-33.4)
[2022-03-05 20:20] LABS: Albumin 3.1 g/dL (3.4-5.0); Calcium 8.6 mg/dL (8.5-10.1); Magnesium 2.2 mg/dL (1.6-2.6); Potassium 3.7 mmol/L (3.5-5.1)
[2022-03-05 20:23] LABS: Bilirubin, Total 0.6 mg/dL (0.2-1.0); Total Protein 7.6 g/dL (6.4-8.2)
[2022-03-05] MEDS: MEROPENEM 1GM IVPB 100 ML IV SCH (22:55)
[2022-03-05] MEDS ORDERED: ONDANSETRON HCL 4 MG/2 ML VIAL IV ONE (23:15)
[2022-03-05] MEDS ORDERED: HYDROmorphone HCL 2 MG/ML VL/or syr IV ONE (23:15)
[2022-03-05] MEDS ORDERED: IOHEXOL 350 MG/ML 100ML IJ ONE (23:47)
[2022-03-06] MEDS ORDERED: diphenhdrAMINE HCL 50 MG/1 ML VL IV ONE (01:00)
[2022-03-06] MEDS ORDERED: DexAMETHasone SOD PHOS 10MG/1ML VIAL INJ IV ONE (01:00)
[2022-03-06] MEDS ORDERED: HEPARIN SODIUM (PORCINE) 5000 UNITS/ML 1ML VIAL IV ONE ×2 (01:30→03:15)
[2022-03-06] MEDS ORDERED: HEPARIN DRIP/D5W 100UNITS/ML 250 ML IV SCH ×3 (01:30→03:30)
[2022-03-06 02:02] LABS: Basophils # (auto) 0 10 ^3/uL (0-0.2); Basophils % (auto) 0.2 % (0.0-2.0); Eosinophils # (auto) 0 10 ^3/uL (0-0.8); Hematocrit 33.3 % (36.0-46.0); Hemoglobin 10.2 g/dL (12.2-16.2); Lymphocytes # (auto) 0.5 10 ^3/uL (0.4-5.4); Lymphocytes % (auto) 2.8 % (10.0-50.0); Mean Corpuscular Hemoglobin 28.4 pg (28.0-32.0); Mean Corpuscular Hgb Conc. 30.6 g/dL (32.0-36.0); Mean Corpuscular Volume 92.9 fL (80.0-100.0); Monocytes # (auto) 0.9 10 ^3/uL (0-1.3); Monocytes % (auto) 5.3 % (0.0-12.0); Neutrophils % (auto) 91.7 % (37.0-80.0); Red Blood Cells 3.58 10^6/uL (4.0-5.20); White Blood Cell 16.3 10^3/uL (4.4-10.8)
[2022-03-06 02:19] LABS: INR 1.13 (0.9-1.15); Partial Thromboplastin Time 33.7 sec (24.6-33.4)
[2022-03-06] MEDS ORDERED: MORPHINE SULFATE INJ 2 MG/ml SYRG IV PRN ×2 (03:30→07:30)
[2022-03-06] MEDS ORDERED: VANCOMYCIN PER PHARMACY 0 MG IV SCH (03:30)
[2022-03-06] MEDS ORDERED: LORazepam 2MG/ML-1ML VIAL IV PRN (03:30)
[2022-03-06] MEDS ORDERED: DOCUSATE SOD 100 MG CAP PO PRN (03:30)
[2022-03-06] MEDS ORDERED: NITROGLYCERIN 0.4 MG SL TAB SL PRN (04:30)
[2022-03-06] MEDS: MEROPENEM 1GM IVPB 100 ML IV SCH (05:47)
[2022-03-06] MEDS: methylPREDNISolone SOD SUCC 40 MG/ML VL IV SCH ×3 (05:55→21:33)
[2022-03-06] MEDS: SODIUM CHLOR 0.9% PF (SALINE LOCK) 10ML VIAL/SYR IV SCH ×3 (06:00→21:33)
[2022-03-06 07:00] VITALS: BP 119/87
[2022-03-06 08:01] LABS: Hematocrit 35.6 % (36.0-46.0); Hemoglobin 11.3 g/dL (12.2-16.2); Mean Corpuscular Hemoglobin 28.4 pg (28.0-32.0); Mean Corpuscular Hgb Conc. 31.8 g/dL (32.0-36.0); Mean Corpuscular Volume 89.3 fL (80.0-100.0); Red Blood Cells 3.98 10^6/uL (4.0-5.20); Red Cell Distribution Width 16.6 % (11.8-14.3); White Blood Cell 13.8 10^3/uL (4.4-10.8)
[2022-03-06 08:04] LABS: Basophils % (manual) 0 (0.0-2.0); Blast Cells 0; Eosinophils % (manual) 0 (0-7); Metamyelocytes % 0; Monocytes % (manual) 0 (0-12); Myelocytes % 0; Promyelocytes % 0; Reactive Lymphocytes 0
[2022-03-06 08:09] LABS: Albumin 2.8 g/dL (3.4-5.0); Calcium 8.4 mg/dL (8.5-10.1); Potassium 5.3 mmol/L (3.5-5.1)
[2022-03-06 08:13] LABS: Bilirubin, Total 0.5 mg/dL (0.2-1.0)
[2022-03-06 08:41] LABS: BUN/Creatinine Ratio 22.2
[2022-03-06 09:12] LABS: Band Neutrophils % (manual) 24; Lymphocytes % (manual) 6 (10.0-50.0)
[2022-03-06] MEDS ORDERED: VANCOMYCIN 1GM/250ML 250 ML IV ONE (09:30)
[2022-03-06] MEDS: levoFLOXacin 500MG 100 ML IV SCH (10:00)
[2022-03-06] MEDS: MULTIPLE VITAMIN TAB PO SCH (10:00)
[2022-03-06] MEDS: ASCORBIC ACID 500 MG TAB PO SCH ×2 (10:00→21:33)
[2022-03-06] MEDS: FAMOTIDINE (10MG/ML) 2ML VL IV SCH ×2 (10:00→21:32)
[2022-03-06] MEDS: ZINC SULFATE 220mg CAP or TAB PO SCH (10:00)
[2022-03-06] MEDS: FUROSEMIDE 40 MG/4 ML VIAL IV SCH (10:00)
[2022-03-06] MEDS: HEPARIN SODIUM (PORCINE) 5000 UNITS/ML 1ML VIAL SC SCH ×2 (10:00→21:33)
[2022-03-06] MEDS: MORPHINE SULFATE INJ 2 MG/ml SYRG IV PRN ×3 (14:50→20:09)
[2022-03-06] MEDS: ONDANSETRON HCL 4 MG/2 ML VIAL IV PRN (14:55)
[2022-03-06 17:21] VITALS: BP 139/97
[2022-03-06] MEDS ORDERED: METO25TA93 PO (18:40)
[2022-03-06] MEDS ORDERED: ASPI81CH59 PO (18:40)
[2022-03-06 20:00] VITALS: BP 125/91
[2022-03-06 22:00] VITALS: BP 125/91
[2022-03-07] MEDS: VANCOMYCIN 1GM/250ML 250 ML IV SCH ×2 (01:12→12:25)
[2022-03-07] MEDS: MORPHINE SULFATE INJ 2 MG/ml SYRG IV PRN ×6 (01:14→22:24)
[2022-03-07 05:00] VITALS: BP 120/84
[2022-03-07] MEDS: methylPREDNISolone SOD SUCC 40 MG/ML VL IV SCH ×3 (06:04→22:23)
[2022-03-07] MEDS: SODIUM CHLOR 0.9% PF (SALINE LOCK) 10ML VIAL/SYR IV SCH ×3 (06:04→22:25)
[2022-03-07 06:55] LABS: Basophils # (auto) 0 10 ^3/uL (0-0.2); Basophils % (auto) 0.2 % (0.0-2.0); Eosinophils # (auto) 0 10 ^3/uL (0-0.8); Eosinophils % (auto) 0.1 % (0.0-7.0); Hematocrit 37.4 % (36.0-46.0); Hemoglobin 11.6 g/dL (12.2-16.2); Lymphocytes # (auto) 0.4 10 ^3/uL (0.4-5.4); Lymphocytes % (auto) 4.7 % (10.0-50.0); Mean Corpuscular Hemoglobin 28.1 pg (28.0-32.0); Mean Corpuscular Volume 90.9 fL (80.0-100.0); Monocytes # (auto) 0.3 10 ^3/uL (0-1.3); Monocytes % (auto) 3.9 % (0.0-12.0); Neutrophils # (auto) 6.9 10 ^3/uL (1.6-8.6); Neutrophils % (auto) 91.1 % (37.0-80.0); Nucleated Red Blood Cells % 0.2 %; Red Blood Cells 4.11 10^6/uL (4.0-5.20); Red Cell Distribution Width 16.3 % (11.8-14.3); White Blood Cell 7.6 10^3/uL (4.4-10.8)
[2022-03-07 07:15] LABS: Chloride 108 mmol/L (98-107); Potassium 4.3 mmol/L (3.5-5.1); Sodium 140 mmol/L (136-145)
[2022-03-07 07:20] LABS: Alanine Aminotransferase 25 U/L (13-56); Albumin 2.7 g/dL (3.4-5.0); Anion Gap 10 (5-15); Aspartate Aminotransferase 22 U/L (15-37); BUN/Creatinine Ratio 31.3; Blood Urea Nitrogen 25 mg/dL (7-18); Calcium 8.3 mg/dL (8.5-10.1); Carbon Dioxide 22 mmol/L (21-32); GFR African American 97 mL/min; GFR Non-African American 80 mL/min; Glucose 138 mg/dL (74-106)
[2022-03-07 07:22] LABS: Alkaline Phosphatase 90 U/L (45-117); Bilirubin, Total 0.5 mg/dL (0.2-1.0)
[2022-03-07 07:56] VITALS: BP 139/97
[2022-03-07 09:00] VITALS: BP 121/84
[2022-03-07] MEDS: levoFLOXacin 500MG 100 ML IV SCH (09:00)
[2022-03-07] MEDS: FUROSEMIDE 40 MG/4 ML VIAL IV SCH (09:07)
[2022-03-07] MEDS: FAMOTIDINE (10MG/ML) 2ML VL IV SCH ×2 (09:07→22:23)
[2022-03-07] MEDS: ASCORBIC ACID 500 MG TAB PO SCH ×2 (09:09→22:24)
[2022-03-07] MEDS: MULTIPLE VITAMIN TAB PO SCH (09:09)
[2022-03-07] MEDS: ZINC SULFATE 220mg CAP or TAB PO SCH (09:09)
[2022-03-07] MEDS: HEPARIN SODIUM (PORCINE) 5000 UNITS/ML 1ML VIAL SC SCH ×2 (12:07→22:21)
[2022-03-07 13:00] VITALS: BP 149/88
[2022-03-07 17:00] VITALS: BP 145/88
[2022-03-07] MEDS: ACETAMINOPHEN 325 MG TAB PO PRN (19:51)
[2022-03-07 22:00] VITALS: BP 117/76
[2022-03-08] MEDS: VANCOMYCIN 1GM/250ML 250 ML IV SCH (01:00)
[2022-03-08] MEDS: MORPHINE SULFATE INJ 2 MG/ml SYRG IV PRN ×3 (04:07→13:54)
[2022-03-08 05:00] VITALS: BP 123/85
[2022-03-08] MEDS: methylPREDNISolone SOD SUCC 40 MG/ML VL IV SCH ×3 (05:45→22:16)
[2022-03-08] MEDS: SODIUM CHLOR 0.9% PF (SALINE LOCK) 10ML VIAL/SYR IV SCH ×3 (05:45→22:32)
[2022-03-08 08:00] VITALS: BP 139/97
[2022-03-08 08:59] VITALS: BP 141/108
[2022-03-08] MEDS: FAMOTIDINE (10MG/ML) 2ML VL IV SCH ×2 (09:37→22:17)
[2022-03-08] MEDS: FUROSEMIDE 40 MG/4 ML VIAL IV SCH (09:38)
[2022-03-08] MEDS: levoFLOXacin 500MG 100 ML IV SCH (09:39)
[2022-03-08] MEDS: ZINC SULFATE 220mg CAP or TAB PO SCH (09:49)
[2022-03-08] MEDS: ASCORBIC ACID 500 MG TAB PO SCH ×2 (09:49→22:17)
[2022-03-08] MEDS: MULTIPLE VITAMIN TAB PO SCH (09:49)
[2022-03-08] MEDS: HEPARIN SODIUM (PORCINE) 5000 UNITS/ML 1ML VIAL SC SCH ×2 (10:26→22:32)
[2022-03-08 22:16] VITALS: BP 132/85
[2022-03-08] MEDS: ACETAMINOPHEN 325 MG TAB PO PRN (23:49)
[2022-03-09] MEDS: MORPHINE SULFATE INJ 2 MG/ml SYRG IV PRN ×3 (03:07→22:10)
[2022-03-09] MEDS: SODIUM CHLOR 0.9% PF (SALINE LOCK) 10ML VIAL/SYR IV SCH ×3 (05:28→22:11)
[2022-03-09 05:42] VITALS: BP 132/86
[2022-03-09] MEDS: methylPREDNISolone SOD SUCC 40 MG/ML VL IV SCH (06:45)
[2022-03-09 08:29] VITALS: BP 118/74
[2022-03-09] MEDS: levoFLOXacin 500MG 100 ML IV SCH ×2 (10:46→15:50)
[2022-03-09] MEDS: FUROSEMIDE 40 MG/4 ML VIAL IV SCH ×2 (10:46→15:47)
[2022-03-09] MEDS: ZINC SULFATE 220mg CAP or TAB PO SCH (10:47)
[2022-03-09] MEDS: ASCORBIC ACID 500 MG TAB PO SCH ×2 (10:47→22:08)
[2022-03-09] MEDS: FAMOTIDINE (10MG/ML) 2ML VL IV SCH ×3 (10:47→22:08)
[2022-03-09] MEDS: MULTIPLE VITAMIN TAB PO SCH (10:48)
[2022-03-09] MEDS: HEPARIN SODIUM (PORCINE) 5000 UNITS/ML 1ML VIAL SC SCH ×2 (10:49→22:15)
[2022-03-09 13:00] VITALS: BP 116/76
[2022-03-09] MEDS ORDERED: VANCOMYCIN 1GM/250ML 250 ML IV SCH (14:00)
[2022-03-09 16:30] VITALS: BP 106/70
[2022-03-09] MEDS: VANCOMYCIN 1GM/250ML 250 ML IV SCH (18:48)
[2022-03-09 21:40] VITALS: BP 106/70
[2022-03-09 22:00] VITALS: BP 114/82
[2022-03-10 05:00] VITALS: BP 100/71
[2022-03-10] MEDS: SODIUM CHLOR 0.9% PF (SALINE LOCK) 10ML VIAL/SYR IV SCH ×3 (06:05→22:00)
[2022-03-10] MEDS: MORPHINE SULFATE INJ 2 MG/ml SYRG IV PRN ×4 (06:06→20:44)
[2022-03-10 09:00] VITALS: BP 120/81
[2022-03-10] MEDS: MULTIPLE VITAMIN TAB PO SCH (09:45)
[2022-03-10] MEDS: ZINC SULFATE 220mg CAP or TAB PO SCH (09:45)
[2022-03-10] MEDS: FAMOTIDINE (10MG/ML) 2ML VL IV SCH ×2 (09:45→21:33)
[2022-03-10] MEDS: FUROSEMIDE 40 MG/4 ML VIAL IV SCH (09:45)
[2022-03-10] MEDS: predniSONE 20 MG TAB PO SCH (09:46)
[2022-03-10] MEDS: ASCORBIC ACID 500 MG TAB PO SCH ×2 (09:46→21:32)
[2022-03-10] MEDS: levoFLOXacin 500MG 100 ML IV SCH (09:46)
[2022-03-10] MEDS: HEPARIN SODIUM (PORCINE) 5000 UNITS/ML 1ML VIAL SC SCH ×2 (10:00→21:34)
[2022-03-10] MEDS: ONDANSETRON HCL 4 MG/2 ML VIAL IV PRN (10:35)
[2022-03-10 13:41] LABS: Basophils # (auto) 0 10 ^3/uL (0-0.2); Basophils % (auto) 0.1 % (0.0-2.0); Eosinophils # (auto) 0 10 ^3/uL (0-0.8); Eosinophils % (auto) 0.1 % (0.0-7.0); Hematocrit 45.9 % (36.0-46.0); Hemoglobin 14.6 g/dL (12.2-16.2); Lymphocytes # (auto) 0.5 10 ^3/uL (0.4-5.4); Lymphocytes % (auto) 4.3 % (10.0-50.0); Mean Corpuscular Hemoglobin 27.7 pg (28.0-32.0); Mean Corpuscular Hgb Conc. 31.8 g/dL (32.0-36.0); Mean Corpuscular Volume 87.3 fL (80.0-100.0); Monocytes # (auto) 0.6 10 ^3/uL (0-1.3); Monocytes % (auto) 5.2 % (0.0-12.0); Neutrophils # (auto) 9.6 10 ^3/uL (1.6-8.6); Neutrophils % (auto) 90.3 % (37.0-80.0); Nucleated Red Blood Cells % 0.1 %; Red Blood Cells 5.26 10^6/uL (4.0-5.20); Red Cell Distribution Width 16.5 % (11.8-14.3); White Blood Cell 10.6 10^3/uL (4.4-10.8)
[2022-03-10 14:06] LABS: Albumin 3.2 g/dL (3.4-5.0); Potassium 3.6 mmol/L (3.5-5.1)
[2022-03-10 14:08] LABS: BUN/Creatinine Ratio 28.9
[2022-03-10 14:10] LABS: Bilirubin, Total 0.6 mg/dL (0.2-1.0); Total Protein 8.7 g/dL (6.4-8.2)
[2022-03-10] MEDS: VANCOMYCIN 1GM/250ML 250 ML IV SCH (15:23)
[2022-03-10 16:25] VITALS: BP 119/85
[2022-03-10 22:00] VITALS: BP 141/90
[2022-03-11 05:00] VITALS: BP 136/86
[2022-03-11] MEDS: SODIUM CHLOR 0.9% PF (SALINE LOCK) 10ML VIAL/SYR IV SCH ×3 (06:19→21:01)
[2022-03-11 08:00] VITALS: BP 138/81
[2022-03-11 09:00] VITALS: BP 138/81
[2022-03-11] MEDS: levoFLOXacin 500MG 100 ML IV SCH (09:53)
[2022-03-11] MEDS: FAMOTIDINE (10MG/ML) 2ML VL IV SCH ×2 (09:54→21:01)
[2022-03-11] MEDS: HEPARIN SODIUM (PORCINE) 5000 UNITS/ML 1ML VIAL SC SCH ×2 (09:54→21:28)
[2022-03-11] MEDS: FUROSEMIDE 40 MG/4 ML VIAL IV SCH (09:54)
[2022-03-11] MEDS: MORPHINE SULFATE INJ 2 MG/ml SYRG IV PRN ×2 (09:55→15:26)
[2022-03-11] MEDS: ASCORBIC ACID 500 MG TAB PO SCH ×2 (09:56→21:00)
[2022-03-11] MEDS: ZINC SULFATE 220mg CAP or TAB PO SCH (09:56)
[2022-03-11] MEDS: predniSONE 20 MG TAB PO SCH (09:56)
[2022-03-11] MEDS: MULTIPLE VITAMIN TAB PO SCH (09:56)
[2022-03-11] MEDS: GABAPENTIN 300 MG CAP PO SCH ×2 (12:32→21:01)
[2022-03-11 13:00] VITALS: BP 122/81
[2022-03-11] MEDS: HYDROcodone-ACET 5/325MG TAB PO PRN (13:51)
[2022-03-11] MEDS: VANCOMYCIN 1GM/250ML 250 ML IV SCH (15:25)
[2022-03-11 16:30] VITALS: BP 119/79
[2022-03-11 22:00] VITALS: BP 115/80
[2022-03-12 05:00] VITALS: BP 112/75
[2022-03-12] MEDS: SODIUM CHLOR 0.9% PF (SALINE LOCK) 10ML VIAL/SYR IV SCH ×3 (05:39→20:59)
[2022-03-12] MEDS: GABAPENTIN 300 MG CAP PO SCH ×3 (05:40→20:59)
[2022-03-12 08:00] VITALS: BP 130/87
[2022-03-12 09:00] VITALS: BP 130/87
[2022-03-12] MEDS: FAMOTIDINE (10MG/ML) 2ML VL IV SCH ×2 (09:57→20:59)
[2022-03-12] MEDS: FUROSEMIDE 40 MG/4 ML VIAL IV SCH (09:57)
[2022-03-12] MEDS: levoFLOXacin 500MG 100 ML IV SCH (09:57)
[2022-03-12] MEDS: MULTIPLE VITAMIN TAB PO SCH (09:58)
[2022-03-12] MEDS: ASCORBIC ACID 500 MG TAB PO SCH ×2 (09:58→20:59)
[2022-03-12] MEDS: ZINC SULFATE 220mg CAP or TAB PO SCH (09:58)
[2022-03-12] MEDS: predniSONE 20 MG TAB PO SCH (09:58)
[2022-03-12] MEDS: HEPARIN SODIUM (PORCINE) 5000 UNITS/ML 1ML VIAL SC SCH ×2 (09:59→21:19)
[2022-03-12 12:42] VITALS: BP 117/81
[2022-03-12] MEDS: MORPHINE SULFATE INJ 2 MG/ml SYRG IV PRN ×2 (12:51→17:44)
[2022-03-12 18:22] VITALS: BP 121/74
[2022-03-12 22:00] VITALS: BP 104/66
[2022-03-12] MEDS: HYDROcodone-ACET 5/325MG TAB PO PRN (22:59)
[2022-03-13] VITALS (8 sets, daily range): BP systolic 104–129; BP diastolic 59–80
[2022-03-13] MEDS: GABAPENTIN 300 MG CAP PO SCH ×3 (05:08→22:46)
[2022-03-13] MEDS: SODIUM CHLOR 0.9% PF (SALINE LOCK) 10ML VIAL/SYR IV SCH ×3 (05:08→22:55)
[2022-03-13] MEDS: MORPHINE SULFATE INJ 2 MG/ml SYRG IV PRN ×3 (05:09→18:25)
[2022-03-13] MEDS: FAMOTIDINE (10MG/ML) 2ML VL IV SCH ×2 (10:26→22:46)
[2022-03-13] MEDS: FUROSEMIDE 40 MG/4 ML VIAL IV SCH (10:26)
[2022-03-13] MEDS: ZINC SULFATE 220mg CAP or TAB PO SCH (10:26)
[2022-03-13] MEDS: predniSONE 20 MG TAB PO SCH (10:26)
[2022-03-13] MEDS: MULTIPLE VITAMIN TAB PO SCH (10:27)
[2022-03-13] MEDS: levoFLOXacin 500MG 100 ML IV SCH (10:27)
[2022-03-13] MEDS: ASCORBIC ACID 500 MG TAB PO SCH ×2 (10:27→22:46)
[2022-03-13] MEDS: HEPARIN SODIUM (PORCINE) 5000 UNITS/ML 1ML VIAL SC SCH ×2 (10:28→22:47)
[2022-03-13] MEDS ORDERED: LEVO500T31 PO (12:44)
[2022-03-13] MEDS ORDERED: PRED20TA2 PO (12:44)
[2022-03-14] MEDS: MORPHINE SULFATE INJ 2 MG/ml SYRG IV PRN (02:10)
[2022-03-14 04:51] VITALS: BP 118/76
[2022-03-14] MEDS: GABAPENTIN 300 MG CAP PO SCH ×2 (05:22→14:00)
[2022-03-14] MEDS: SODIUM CHLOR 0.9% PF (SALINE LOCK) 10ML VIAL/SYR IV SCH ×2 (05:24→14:00)
[2022-03-14 08:00] VITALS: BP 104/59
[2022-03-14 09:00] VITALS: BP 122/85
[2022-03-14] MEDS: HEPARIN SODIUM (PORCINE) 5000 UNITS/ML 1ML VIAL SC SCH (10:00)
[2022-03-14] MEDS: ASCORBIC ACID 500 MG TAB PO SCH (10:00)
[2022-03-14] MEDS: FAMOTIDINE (10MG/ML) 2ML VL IV SCH (10:00)
[2022-03-14] MEDS: FUROSEMIDE 40 MG/4 ML VIAL IV SCH (10:00)
[2022-03-14] MEDS: ZINC SULFATE 220mg CAP or TAB PO SCH (10:00)
[2022-03-14] MEDS: MULTIPLE VITAMIN TAB PO SCH (10:00)
[2022-03-14] MEDS: predniSONE 20 MG TAB PO SCH (10:00)
[2022-03-14] MEDS: levoFLOXacin 500MG 100 ML IV SCH (10:00)
== END 2022-03-14 10:29 | disposition home or self-care (01) | DRG 871 ==
LOC: EDUNIT# 17:16 → EDBD 17:16 → ER 17:16 → TELE 03-06 04:27 → TELE-WESTW 03-06 16:27
PROVIDERS: ADMIT Nurse Practitioner Family; ATTEND Family Medicine
PROC: 05HA33Z Insertion of Infusion Device into Left Brachial Vein, Percutaneous Approach (ICD-10-PCS; principal; 2022-03-09)
PROC: B54NZZA Ultrasonography of Left Upper Extremity Veins, Guidance (ICD-10-PCS; 2022-03-09)
DX: A41.9 Sepsis, unspecified organism (principal); I21.4 Non-ST elevation (NSTEMI) myocardial infarction; L89.314 Pressure ulcer of right buttock, stage 4; L89.224 Pressure ulcer of left hip, stage 4; L89.154 Pressure ulcer of sacral region, stage 4; I50.23 Acute on chronic systolic (congestive) heart failure; R65.21 Severe sepsis with septic shock; J96.21 Acute and chronic respiratory failure with hypoxia; J18.9 Pneumonia, unspecified organism; K94.23 Gastrostomy malfunction; I13.0 Hypertensive heart and chronic kidney disease with heart failure and stage 1 through stage 4 chronic kidney disease, or unspecified chronic kidney disease; L03.311 Cellulitis of abdominal wall; N39.0 Urinary tract infection, site not specified; J44.0 Chronic obstructive pulmonary disease with (acute) lower respiratory infection; E11.622 Type 2 diabetes mellitus with other skin ulcer; E11.22 Type 2 diabetes mellitus with diabetic chronic kidney disease; B96.4 Proteus (mirabilis) (morganii) as the cause of diseases classified elsewhere; Z20.822 Contact with and (suspected) exposure to COVID-19; L98.499 Non-pressure chronic ulcer of skin of other sites with unspecified severity; Z77.22 Contact with and (suspected) exposure to environmental tobacco smoke (acute) (chronic); F32.A Depression, unspecified; Y83.3 Surgical operation with formation of external stoma as the cause of abnormal reaction of the patient, or of later complication, without mention of misadventure at the time of the procedure; F41.9 Anxiety disorder, unspecified; K21.9 Gastro-esophageal reflux disease without esophagitis; N18.9 Chronic kidney disease, unspecified; Z82.49 Family history of ischemic heart disease and other diseases of the circulatory system; Z83.3 Family history of diabetes mellitus; Z86.73 Personal history of transient ischemic attack (TIA), and cerebral infarction without residual deficits; Z87.01 Personal history of pneumonia (recurrent); Z86.711 Personal history of pulmonary embolism; Z95.828 Presence of other vascular implants and grafts; Z88.5 Allergy status to narcotic agent; Z88.2 Allergy status to sulfonamides; Z90.49 Acquired absence of other specified parts of digestive tract
CPT/HCPCS: 36415; 36600; 71045; 71275; 80053; 80202; 82565; 82805; 83605; 83735; 83880; 84484; 85007; 85025; 85027; 85610; 85730; 87040; 87077; 87186; 87205; 87426; 93005; 94640; 96365; 96366; 96367; 96375; 96376; A4605; G0378; J1100; J1956; J2185; J2405; J3490

== ENCOUNTER 2022-06-02 14:06 | Inpatient (IN) | payer BC, MEDICARE, OTHER ==
[~2022-06-02] VITALS: Ht 152.4 cm; Wt 69.8 kg
[~2022-06-02 14:06] MED LIST changes: +ASPI81CH59 PO; -FURO10SO PO; +LEVO500T31 PO; +METO25TA93 PO; +PRED20TA2 PO
[2022-06-02 15:57] LABS: Basophils # (auto) 0.1 10 ^3/uL (0-0.2); Basophils % (auto) 0.9 % (0.0-2.0); Eosinophils # (auto) 0.3 10 ^3/uL (0-0.8); Eosinophils % (auto) 3.3 % (0.0-7.0); Hematocrit 40.9 % (36.0-46.0); Hemoglobin 13.3 g/dL (12.2-16.2); Lymphocytes # (auto) 2.2 10 ^3/uL (0.4-5.4); Lymphocytes % (auto) 26.2 % (10.0-50.0); Mean Corpuscular Hemoglobin 28.8 pg (28.0-32.0); Mean Corpuscular Hgb Conc. 32.6 g/dL (32.0-36.0); Mean Corpuscular Volume 88.4 fL (80.0-100.0); Monocytes # (auto) 0.7 10 ^3/uL (0-1.3); Monocytes % (auto) 8.9 % (0.0-12.0); Neutrophils # (auto) 5.1 10 ^3/uL (1.6-8.6); Neutrophils % (auto) 60.7 % (37.0-80.0); Nucleated Red Blood Cells % 0.4 %; Red Blood Cells 4.62 10^6/uL (4.0-5.20); Red Cell Distribution Width 17.8 % (11.8-14.3); White Blood Cell 8.4 10^3/uL (4.4-10.8)
[2022-06-02 16:12] LABS: Alanine Aminotransferase 42 U/L (13-56); Albumin 3.1 g/dL (3.4-5.0); Anion Gap 10 (5-15); Aspartate Aminotransferase 43 U/L (15-37); Blood Urea Nitrogen 23 mg/dL (7-18); Calcium 8.9 mg/dL (8.5-10.1); Carbon Dioxide 25 mmol/L (21-32); Chloride 109 mmol/L (98-107); GFR African American 94 mL/min; GFR Non-African American 78 mL/min; Glucose 84 mg/dL (74-106); Potassium 4.1 mmol/L (3.5-5.1); Sodium 144 mmol/L (136-145)
[2022-06-02 16:15] LABS: Alkaline Phosphatase 174 U/L (45-117); Bilirubin, Total 0.5 mg/dL (0.2-1.0); Total Protein 8.1 g/dL (6.4-8.2)
[2022-06-02 16:23] LABS: Partial Thromboplastin Time 24.5 sec (24.6-33.4)
[2022-06-02] MEDS ORDERED: ONDANSETRON HCL 4 MG/2 ML VIAL IV PRN (21:30)
[2022-06-02] MEDS ORDERED: MORPHINE SULFATE INJ 2 MG/ml SYRG IV PRN (21:30)
[2022-06-02] MEDS ORDERED: ACETAMINOPHEN 325 MG TAB PO PRN (21:30)
[2022-06-02] MEDS ORDERED: ACETAMINOPHEN 325 MG TAB PO ONE (21:30)
[2022-06-02] MEDS ORDERED: SODIUM CHLORIDE 0.9% 1,000 ML IV ONE (21:30)
[2022-06-02] MEDS ORDERED: NITROGLYCERIN 0.4 MG SL TAB SL PRN (21:30)
[2022-06-02] MEDS ORDERED: IPRATROPIUM BROM 0.5 MG/2.5ML INH SOL NEB PRN (21:30)
[2022-06-02] MEDS ORDERED: ALBUTEROL SULF 2.5 MG/0.5ML(0.5%) NEB SOLN NEB PRN (21:30)
[2022-06-02] MEDS ORDERED: TEMAZEPAM 15 MG CAP PO PRN (21:30)
[2022-06-02] MEDS ORDERED: HYDROcodone-ACET 5/325MG TAB PO PRN (21:30)
[2022-06-02] MEDS ORDERED: ALBUMIN 5% 250 ML IV ONE (22:00)
[2022-06-02] MEDS: DULoxetine HCL 30 MG CAP PO SCH (22:40)
[2022-06-02] MEDS: GABAPENTIN 300 MG CAP PO SCH (22:40)
[2022-06-02] MEDS: TOPIRAMATE 25 MG TAB PO SCH (22:40)
[2022-06-02] MEDS ORDERED: IOHEXOL 300 MG/ML 100ML BOTTLE IJ ONE (22:59)
[2022-06-02 23:04] VITALS: BP 83/54
[2022-06-03] VITALS (66 sets, daily range): BP systolic 75–115; BP diastolic 44–72
[2022-06-03] MEDS ORDERED: PHENYLEPHRINE IV 250 ML IV ONE (00:41)
[2022-06-03] MEDS: PHENYLEPHRINE IV 250 ML IV SCH ×3 (00:45→17:25)
[2022-06-03 01:10] LABS: Urine Bacteria NONE SEEN /hpf (None Seen); Urine Blood 3+ /uL (Negative); Urine WBC 16 /hpf (0 - 5)
[2022-06-03 01:11] LABS: Urine Specific Gravity > 1.050 (1.001-1.035)
[2022-06-03 04:03] LABS: Basophils # (auto) 0.1 10 ^3/uL (0-0.2); Basophils % (auto) 0.8 % (0.0-2.0); Eosinophils # (auto) 0.3 10 ^3/uL (0-0.8); Eosinophils % (auto) 3.4 % (0.0-7.0); Hematocrit 35.5 % (36.0-46.0); Hemoglobin 11.3 g/dL (12.2-16.2); Lymphocytes # (auto) 2.4 10 ^3/uL (0.4-5.4); Mean Corpuscular Hemoglobin 28.4 pg (28.0-32.0); Mean Corpuscular Hgb Conc. 31.7 g/dL (32.0-36.0); Mean Corpuscular Volume 89.6 fL (80.0-100.0); Monocytes # (auto) 1.4 10 ^3/uL (0-1.3); Monocytes % (auto) 13.3 % (0.0-12.0); Neutrophils # (auto) 6.2 10 ^3/uL (1.6-8.6); Neutrophils % (auto) 59.5 % (37.0-80.0); Red Blood Cells 3.96 10^6/uL (4.0-5.20); Red Cell Distribution Width 17.8 % (11.8-14.3); White Blood Cell 10.4 10^3/uL (4.4-10.8)
[2022-06-03] MEDS: GABAPENTIN 300 MG CAP PO SCH ×3 (06:00→21:03)
[2022-06-03] MEDS: LEVOTHYROXINE SODIUM 25 MCG TAB PO SCH (06:43)
[2022-06-03] MEDS: cefTRIAXone 1GM/50ML D5W 50 ML IV SCH (09:27)
[2022-06-03] MEDS: DULoxetine HCL 30 MG CAP PO SCH ×2 (09:28→21:04)
[2022-06-03] MEDS: PANTOPRAZOLE 40 MG/10 ML VIAL INJ IV SCH (09:28)
[2022-06-03] MEDS: FUROSEMIDE 40 MG TAB PO SCH (09:29)
[2022-06-03] MEDS: ZINC SULFATE 220mg CAP or TAB PO SCH (09:29)
[2022-06-03] MEDS: ENOXAPARIN SOD 40 MG/0.4 ML SYRINGE SC SCH (09:30)
[2022-06-03] MEDS: ASPirin 81 mg TAB PO SCH (09:32)
[2022-06-03 09:41] LABS: Anion Gap 6 (5-15); BUN/Creatinine Ratio 26.3; Blood Urea Nitrogen 20 mg/dL (7-18); Calcium 8.7 mg/dL (8.5-10.1); Carbon Dioxide 21 mmol/L (21-32); Chloride 116 mmol/L (98-107); GFR African American 103 mL/min; GFR Non-African American 85 mL/min; Glucose 86 mg/dL (74-106); Potassium 4.6 mmol/L (3.5-5.1); Sodium 143 mmol/L (136-145)
[2022-06-03] MEDS: TOPIRAMATE 25 MG TAB PO SCH ×2 (10:00→21:04)
[2022-06-03] MEDS ORDERED: AZITHROMYCIN 500MG/ 250ML 250 ML IV SCH (10:00)
[2022-06-03] MEDS ORDERED: methylPREDNISolone SOD SUCC 40 MG/ML VL IV ONE (12:00)
[2022-06-03] MEDS ORDERED: NOREPINEPHRINE 8 MG/250ML KIT 250 ML IV PRN (16:15)
[2022-06-03] MEDS: DOXYCYCLINE 100MG/250ML 250 ML IV SCH (21:04)
[2022-06-04] VITALS (65 sets, daily range): BP systolic 77–131; BP diastolic 47–70
[2022-06-04] MEDS: PHENYLEPHRINE IV 250 ML IV SCH ×3 (01:00→09:39)
[2022-06-04] MEDS: GABAPENTIN 300 MG CAP PO SCH ×3 (06:00→13:20)
[2022-06-04 07:22] LABS: Basophils # (auto) 0 10 ^3/uL (0-0.2); Basophils % (auto) 0.4 % (0.0-2.0); Eosinophils # (auto) 0 10 ^3/uL (0-0.8); Hematocrit 33.3 % (36.0-46.0); Hemoglobin 10.4 g/dL (12.2-16.2); Lymphocytes # (auto) 0.6 10 ^3/uL (0.4-5.4); Lymphocytes % (auto) 13.9 % (10.0-50.0); Mean Corpuscular Hgb Conc. 31.2 g/dL (32.0-36.0); Mean Corpuscular Volume 89.8 fL (80.0-100.0); Monocytes # (auto) 0.2 10 ^3/uL (0-1.3); Monocytes % (auto) 5.5 % (0.0-12.0); Neutrophils # (auto) 3.5 10 ^3/uL (1.6-8.6); Neutrophils % (auto) 80.2 % (37.0-80.0); Nucleated Red Blood Cells % 0.2 %; Red Blood Cells 3.71 10^6/uL (4.0-5.20); Red Cell Distribution Width 17.8 % (11.8-14.3); White Blood Cell 4.3 10^3/uL (4.4-10.8)
[2022-06-04 07:34] LABS: BUN/Creatinine Ratio 29.7; Calcium 8.9 mg/dL (8.5-10.1); Potassium 3.8 mmol/L (3.5-5.1)
[2022-06-04] MEDS: LEVOTHYROXINE SODIUM 25 MCG TAB PO SCH (07:50)
[2022-06-04] MEDS: cefTRIAXone 1GM/50ML D5W 50 ML IV SCH (09:04)
[2022-06-04] MEDS: DULoxetine HCL 30 MG CAP PO SCH (09:08)
[2022-06-04] MEDS: ZINC SULFATE 220mg CAP or TAB PO SCH (09:08)
[2022-06-04] MEDS: FUROSEMIDE 40 MG TAB PO SCH (09:09)
[2022-06-04] MEDS: PANTOPRAZOLE 40 MG/10 ML VIAL INJ IV SCH (09:09)
[2022-06-04] MEDS: ENOXAPARIN SOD 40 MG/0.4 ML SYRINGE SC SCH (09:09)
[2022-06-04] MEDS: ASPirin 81 mg TAB PO SCH (09:09)
[2022-06-04] MEDS: DOXYCYCLINE 100MG/250ML 250 ML IV SCH (09:10)
[2022-06-04] MEDS: TOPIRAMATE 25 MG TAB PO SCH (09:39)
[2022-06-04] MEDS ORDERED: methylPREDNISolone SOD SUCC 40 MG/ML VL IV SCH (10:00)
[2022-06-04] MEDS ORDERED: PRED20TA2 PO (11:19)
[2022-06-04] MEDS ORDERED: LEVO750T64 PO (11:19)
== END 2022-06-04 17:00 | disposition home or self-care (01) | DRG 871 ==
LOC: ER 14:06 → EDBD 14:06 → TELE 21:47 → ICU WEST 06-03 02:51
PROVIDERS: ADMIT Nurse Practitioner; ATTEND Internal Medicine Pulmonary Disease
DX: A41.9 Sepsis, unspecified organism (principal); J18.9 Pneumonia, unspecified organism; J96.21 Acute and chronic respiratory failure with hypoxia; J44.0 Chronic obstructive pulmonary disease with (acute) lower respiratory infection; N39.0 Urinary tract infection, site not specified; J45.901 Unspecified asthma with (acute) exacerbation; Z77.22 Contact with and (suspected) exposure to environmental tobacco smoke (acute) (chronic); I50.9 Heart failure, unspecified; N18.9 Chronic kidney disease, unspecified; Z20.822 Contact with and (suspected) exposure to COVID-19; F32.A Depression, unspecified; K21.9 Gastro-esophageal reflux disease without esophagitis; Z93.0 Tracheostomy status; Z83.3 Family history of diabetes mellitus; Z86.73 Personal history of transient ischemic attack (TIA), and cerebral infarction without residual deficits; Z90.49 Acquired absence of other specified parts of digestive tract; Z88.2 Allergy status to sulfonamides; Z88.5 Allergy status to narcotic agent
CPT/HCPCS: 36415; 71045; 71275; 80048; 80053; 81001; 83605; 83880; 84484; 85025; 85379; 85610; 85730; 87081; 87426; 93005; 96361; 96365; A4605; C9113; G0378; J0696; J3490

== ENCOUNTER 2022-06-09 08:31 | Inpatient (IN) | payer BC, MEDICARE, OTHER ==
[~2022-06-09] VITALS: Ht 152.4 cm; Wt 157.0 kg
[~2022-06-09 08:31] MED LIST changes: -CIPR-173 PO; -LEVO500T31 PO; +LEVO750T64 PO
[2022-06-09] MEDS ORDERED: SODIUM CHLORIDE 0.9% 1,000 ML IVB ONE (08:45)
[2022-06-09 09:28] LABS: Basophils # (auto) 0 10 ^3/uL (0-0.2); Basophils % (auto) 0.4 % (0.0-2.0); Eosinophils # (auto) 0 10 ^3/uL (0-0.8); Eosinophils % (auto) 0.3 % (0.0-7.0); Hematocrit 39.4 % (36.0-46.0); Lymphocytes # (auto) 1.8 10 ^3/uL (0.4-5.4); Lymphocytes % (auto) 18.8 % (10.0-50.0); Mean Corpuscular Hemoglobin 29.4 pg (28.0-32.0); Mean Corpuscular Volume 88.9 fL (80.0-100.0); Monocytes # (auto) 0.5 10 ^3/uL (0-1.3); Monocytes % (auto) 5.6 % (0.0-12.0); Neutrophils # (auto) 7.4 10 ^3/uL (1.6-8.6); Neutrophils % (auto) 74.9 % (37.0-80.0); Nucleated Red Blood Cells % 0.1 %; Red Blood Cells 4.43 10^6/uL (4.0-5.20); Red Cell Distribution Width 18.1 % (11.8-14.3); White Blood Cell 9.8 10^3/uL (4.4-10.8)
[2022-06-09 09:40] LABS: INR 1.06 (0.9-1.15); Partial Thromboplastin Time 29.1 sec (24.6-33.4)
[2022-06-09 09:46] LABS: Calcium 8.9 mg/dL (8.5-10.1)
[2022-06-09 09:51] LABS: Albumin 3.3 g/dL (3.4-5.0); Bilirubin, Total 0.7 mg/dL (0.2-1.0); Magnesium 3.1 mg/dL (1.6-2.6); Total Protein 7.8 g/dL (6.4-8.2)
[2022-06-09 10:27] LABS: Lactic Acid w/Reflex 2.3 mmol/L (0.4-2.0)
[2022-06-09] MEDS ORDERED: ACETAMINOPHEN 325 MG TAB PO PRN (11:15)
[2022-06-09] MEDS ORDERED: NITROGLYCERIN 0.4 MG SL TAB SL PRN (11:15)
[2022-06-09] MEDS ORDERED: MORPHINE SULFATE INJ 2 MG/ml SYRG IV PRN (11:15)
[2022-06-09] MEDS ORDERED: VANCOMYCIN PER PHARMACY 0 MG IV SCH (11:30)
[2022-06-09] MEDS ORDERED: ALBUMIN 5% 250 ML IV ONE (11:30)
[2022-06-09] MEDS ORDERED: SODIUM CHLORIDE 0.9% 250 ML IV ONE (11:30)
[2022-06-09] MEDS: NOREPINEPHRINE 8 MG/250ML KIT 250 ML IV SCH (11:36)
[2022-06-09] MEDS ORDERED: PANTOPRAZOLE 40 MG/10 ML VIAL INJ IV ONE (12:00)
[2022-06-09] MEDS ORDERED: ALBUTEROL SULF 2.5 MG/0.5ML(0.5%) NEB SOLN NEB PRN (12:00)
[2022-06-09] MEDS ORDERED: IPRATROPIUM BROM 0.5 MG/2.5ML INH SOL NEB PRN (12:00)
[2022-06-09] MEDS: CEFEPIME 1GM/ 50ML 50 ML IV SCH ×2 (12:25→21:58)
[2022-06-09 12:29] LABS: Cholesterol 121 mg/dL (< 200); HDL Cholesterol 46 mg/dL (40-59); LDL Cholesterol 66 mg/dL (< 100); Triglycerides 193 mg/dL (< 150)
[2022-06-09] MEDS: SODIUM CHLORIDE 0.9% 1,000 ML IV SCH ×2 (12:31→21:21)
[2022-06-09] MEDS ORDERED: ALBUTEROL MEDNEB 2.5 mg/3ml NEB ONE ×2 (13:02→17:48)
[2022-06-09] MEDS: ALBUTEROL SULF 2.5 MG/0.5ML(0.5%) NEB SOLN NEB SCH ×3 (13:08→17:50)
[2022-06-09] MEDS: IPRATROPIUM BROM 0.5 MG/2.5ML INH SOL NEB SCH ×3 (13:08→17:50)
[2022-06-09] MEDS ORDERED: VANCOMYCIN 1GM/250ML 250 ML IV SCH (14:00)
[2022-06-09] MEDS ORDERED: PATIENTS OWN MEDICATION (Gabapentin 600 MG) PO SCH (14:00)
[2022-06-09] MEDS: HYDROcodone-ACET 5/325MG TAB PO PRN (14:17)
[2022-06-09 15:06] VITALS: BP 73/42
[2022-06-09] MEDS: MORPHINE SULFATE INJ 2 MG/ml SYRG IV PRN (19:40)
[2022-06-09] MEDS: GABAPENTIN 300 MG CAP PO SCH (21:57)
[2022-06-09] MEDS: LORazepam 0.5 MG TAB PO SCH (21:57)
[2022-06-09] MEDS: BACLOFEN 10 MG TAB PO SCH (21:57)
[2022-06-09] MEDS ORDERED: BACLOFEN 20 MG PO SCH (22:00)
[2022-06-09] MEDS: SACUBITRIL-VALSARTAN 24mg/26mg TAB PO SCH (22:00)
[2022-06-10] MEDS: SODIUM CHLORIDE 0.9% 1,000 ML IV SCH ×3 (03:30→19:40)
[2022-06-10] MEDS: MORPHINE SULFATE INJ 2 MG/ml SYRG IV PRN ×2 (05:19→22:24)
[2022-06-10 05:58] LABS: Basophils # (auto) 0.1 10 ^3/uL (0-0.2); Basophils % (auto) 0.6 % (0.0-2.0); Eosinophils # (auto) 0.1 10 ^3/uL (0-0.8); Eosinophils % (auto) 0.9 % (0.0-7.0); Hematocrit 31.7 % (36.0-46.0); Hemoglobin 10.9 g/dL (12.2-16.2); Lymphocytes # (auto) 1.8 10 ^3/uL (0.4-5.4); Lymphocytes % (auto) 19.7 % (10.0-50.0); Mean Corpuscular Hemoglobin 30.3 pg (28.0-32.0); Mean Corpuscular Hgb Conc. 34.4 g/dL (32.0-36.0); Mean Corpuscular Volume 88.2 fL (80.0-100.0); Monocytes # (auto) 0.6 10 ^3/uL (0-1.3); Monocytes % (auto) 6.3 % (0.0-12.0); Neutrophils # (auto) 6.8 10 ^3/uL (1.6-8.6); Neutrophils % (auto) 72.5 % (37.0-80.0); Nucleated Red Blood Cells % 0.3 %; Red Cell Distribution Width 17.7 % (11.8-14.3); White Blood Cell 9.3 10^3/uL (4.4-10.8)
[2022-06-10] MEDS ORDERED: ALBUTEROL MEDNEB 2.5 mg/3ml NEB ONE ×3 (06:08→18:51)
[2022-06-10 06:22] LABS: Potassium 4.3 mmol/L (3.5-5.1)
[2022-06-10 06:29] LABS: Albumin 3.2 g/dL (3.4-5.0); BUN/Creatinine Ratio 32.4; Bilirubin, Total 0.4 mg/dL (0.2-1.0); Calcium 8.2 mg/dL (8.5-10.1); Total Protein 6.5 g/dL (6.4-8.2)
[2022-06-10] MEDS: IPRATROPIUM BROM 0.5 MG/2.5ML INH SOL NEB SCH ×3 (07:41→19:03)
[2022-06-10] MEDS: ALBUTEROL SULF 2.5 MG/0.5ML(0.5%) NEB SOLN NEB SCH ×3 (07:41→19:03)
[2022-06-10] MEDS: SACUBITRIL-VALSARTAN 24mg/26mg TAB PO SCH ×2 (10:00→22:10)
[2022-06-10] MEDS ORDERED: PATIENTS OWN MEDICATION (Aspirin (Aspirin Low Dose) 1 TAB) PO SCH (10:00)
[2022-06-10] MEDS ORDERED: LEVOTHYROXINE SODIUM 75 MCG PO SCH (10:00)
[2022-06-10] MEDS: CEFEPIME 1GM/ 50ML 50 ML IV SCH ×2 (10:31→22:10)
[2022-06-10] MEDS: ASPirin 81 mg TAB PO SCH (10:32)
[2022-06-10] MEDS: PANTOPRAZOLE 40 MG/10 ML VIAL INJ IV SCH (10:32)
[2022-06-10] MEDS: LORazepam 0.5 MG TAB PO SCH ×2 (10:32→22:10)
[2022-06-10] MEDS: FUROSEMIDE 20 MG TAB PO SCH (10:32)
[2022-06-10] MEDS: ENOXAPARIN SOD 40 MG/0.4 ML SYRINGE SC SCH (10:33)
[2022-06-10] MEDS: GABAPENTIN 300 MG CAP PO SCH ×2 (10:33→22:10)
[2022-06-10] MEDS: LEVOTHYROXINE SODIUM 25 MCG TAB PO SCH (10:33)
[2022-06-10] MEDS: BACLOFEN 10 MG TAB PO SCH ×2 (10:33→22:10)
[2022-06-10] MEDS: NOREPINEPHRINE 8 MG/250ML KIT 250 ML IV SCH (12:36)
[2022-06-10] MEDS: methylPREDNISolone SOD SUCC 40 MG/ML VL IV SCH (14:35)
[2022-06-11 02:04] LABS: Urine Bacteria FEW /hpf (None Seen); Urine Blood 2+ /uL (Negative); Urine Specific Gravity 1.009 (1.001-1.035); Urine WBC <1 /hpf (0 - 5)
[2022-06-11] MEDS: SODIUM CHLORIDE 0.9% 1,000 ML IV SCH ×2 (03:59→10:35)
[2022-06-11] MEDS: MORPHINE SULFATE INJ 2 MG/ml SYRG IV PRN ×2 (03:59→20:53)
[2022-06-11 05:49] LABS: Basophils # (auto) 0 10 ^3/uL (0-0.2); Eosinophils # (auto) 0 10 ^3/uL (0-0.8); Hematocrit 31.8 % (36.0-46.0); Hemoglobin 10.6 g/dL (12.2-16.2); Lymphocytes # (auto) 0.3 10 ^3/uL (0.4-5.4); Lymphocytes % (auto) 3.8 % (10.0-50.0); Mean Corpuscular Hemoglobin 29.4 pg (28.0-32.0); Mean Corpuscular Hgb Conc. 33.4 g/dL (32.0-36.0); Mean Corpuscular Volume 87.8 fL (80.0-100.0); Monocytes # (auto) 0.3 10 ^3/uL (0-1.3); Monocytes % (auto) 3.2 % (0.0-12.0); Neutrophils # (auto) 8.3 10 ^3/uL (1.6-8.6); Red Blood Cells 3.63 10^6/uL (4.0-5.20); Red Cell Distribution Width 16.8 % (11.8-14.3)
[2022-06-11] MEDS ORDERED: ALBUTEROL MEDNEB 2.5 mg/3ml NEB ONE ×3 (06:09→18:11)
[2022-06-11] MEDS: ALBUTEROL SULF 2.5 MG/0.5ML(0.5%) NEB SOLN NEB SCH ×3 (06:16→19:07)
[2022-06-11] MEDS: IPRATROPIUM BROM 0.5 MG/2.5ML INH SOL NEB SCH ×3 (06:16→19:07)
[2022-06-11 06:18] LABS: BUN/Creatinine Ratio 26.8; Calcium 8.6 mg/dL (8.5-10.1)
[2022-06-11] MEDS: SACUBITRIL-VALSARTAN 24mg/26mg TAB PO SCH (10:00)
[2022-06-11] MEDS: LORazepam 0.5 MG TAB PO SCH (10:20)
[2022-06-11] MEDS: ASPirin 81 mg TAB PO SCH (10:20)
[2022-06-11] MEDS: GABAPENTIN 300 MG CAP PO SCH (10:21)
[2022-06-11] MEDS: LEVOTHYROXINE SODIUM 25 MCG TAB PO SCH (10:21)
[2022-06-11] MEDS: PANTOPRAZOLE 40 MG/10 ML VIAL INJ IV SCH (10:21)
[2022-06-11] MEDS: FUROSEMIDE 20 MG TAB PO SCH (10:21)
[2022-06-11] MEDS: BACLOFEN 10 MG TAB PO SCH (10:21)
[2022-06-11] MEDS: ENOXAPARIN SOD 40 MG/0.4 ML SYRINGE SC SCH (10:22)
[2022-06-11] MEDS: methylPREDNISolone SOD SUCC 40 MG/ML VL IV SCH (10:22)
[2022-06-11] MEDS: CEFEPIME 1GM/ 50ML 50 ML IV SCH (10:25)
[2022-06-11] MEDS: NOREPINEPHRINE 8 MG/250ML KIT 250 ML IV SCH (12:16)
[2022-06-11] MEDS: HYDROcodone-ACET 5/325MG TAB PO PRN (12:19)
[2022-06-12] MEDS: LORazepam 0.5 MG TAB PO SCH ×3 (00:59→22:11)
[2022-06-12] MEDS: BACLOFEN 10 MG TAB PO SCH ×3 (00:59→22:11)
[2022-06-12] MEDS: GABAPENTIN 300 MG CAP PO SCH ×3 (00:59→22:11)
[2022-06-12] MEDS: NOREPINEPHRINE 8 MG/250ML KIT 250 ML IV SCH (02:43)
[2022-06-12] MEDS: MORPHINE SULFATE INJ 2 MG/ml SYRG IV PRN (02:54)
[2022-06-12] MEDS ORDERED: ALBUTEROL MEDNEB 2.5 mg/3ml NEB ONE ×2 (06:03→12:02)
[2022-06-12] MEDS: ALBUTEROL SULF 2.5 MG/0.5ML(0.5%) NEB SOLN NEB SCH ×3 (06:16→19:42)
[2022-06-12] MEDS: IPRATROPIUM BROM 0.5 MG/2.5ML INH SOL NEB SCH ×3 (06:17→19:42)
[2022-06-12 06:19] LABS: Basophils # (auto) 0 10 ^3/uL (0-0.2); Basophils % (auto) 0.1 % (0.0-2.0); Eosinophils # (auto) 0 10 ^3/uL (0-0.8); Hematocrit 29.9 % (36.0-46.0); Lymphocytes # (auto) 0.6 10 ^3/uL (0.4-5.4); Lymphocytes % (auto) 6.3 % (10.0-50.0); Mean Corpuscular Hemoglobin 29.5 pg (28.0-32.0); Mean Corpuscular Hgb Conc. 33.4 g/dL (32.0-36.0); Mean Corpuscular Volume 88.3 fL (80.0-100.0); Monocytes # (auto) 0.7 10 ^3/uL (0-1.3); Monocytes % (auto) 6.9 % (0.0-12.0); Neutrophils # (auto) 8.9 10 ^3/uL (1.6-8.6); Neutrophils % (auto) 86.7 % (37.0-80.0); Red Blood Cells 3.39 10^6/uL (4.0-5.20); Red Cell Distribution Width 16.7 % (11.8-14.3); White Blood Cell 10.2 10^3/uL (4.4-10.8)
[2022-06-12 06:28] LABS: Calcium 8.5 mg/dL (8.5-10.1); Potassium 3.8 mmol/L (3.5-5.1)
[2022-06-12 06:30] VITALS: BP 106/57
[2022-06-12 06:31] LABS: Albumin 2.8 g/dL (3.4-5.0); BUN/Creatinine Ratio 27.3
[2022-06-12 06:33] LABS: Bilirubin, Total 0.5 mg/dL (0.2-1.0); Total Protein 6.4 g/dL (6.4-8.2)
[2022-06-12] MEDS: PANTOPRAZOLE 40 MG/10 ML VIAL INJ IV SCH (10:43)
[2022-06-12] MEDS: predniSONE 20 MG TAB PO SCH (10:45)
[2022-06-12] MEDS: LEVOTHYROXINE SODIUM 25 MCG TAB PO SCH (10:45)
[2022-06-12] MEDS: ASPirin 81 mg TAB PO SCH (11:52)
[2022-06-12] MEDS: ENOXAPARIN SOD 40 MG/0.4 ML SYRINGE SC SCH (11:52)
[2022-06-12 12:21] LABS: INR 1.04 (0.9-1.15); Partial Thromboplastin Time 30.6 sec (24.6-33.4)
[2022-06-12] MEDS: ALBUMIN 25% 100 ML IV SCH ×2 (13:54→20:52)
[2022-06-12] MEDS: HYDROcodone-ACET 5/325MG TAB PO PRN (15:26)
[2022-06-12] MEDS: Juven Fruit Punch Powder PACKET 28.8gm PO SCH (20:53)
[2022-06-12] MEDS: MIDODRINE HCL 10 MG TAB PO SCH (22:11)
[2022-06-13] MEDS: HYDROcodone-ACET 5/325MG TAB PO PRN ×2 (02:42→13:15)
[2022-06-13] MEDS: ALBUMIN 25% 100 ML IV SCH (03:45)
[2022-06-13] MEDS: MORPHINE SULFATE INJ 2 MG/ml SYRG IV PRN (05:45)
[2022-06-13] MEDS: IPRATROPIUM BROM 0.5 MG/2.5ML INH SOL NEB SCH ×3 (07:03→18:22)
[2022-06-13] MEDS: ALBUTEROL SULF 2.5 MG/0.5ML(0.5%) NEB SOLN NEB SCH ×3 (07:04→18:22)
[2022-06-13] MEDS: LEVOTHYROXINE SODIUM 25 MCG TAB PO SCH (07:04)
[2022-06-13] MEDS: Juven Fruit Punch Powder PACKET 28.8gm PO SCH ×2 (09:02→20:05)
[2022-06-13] MEDS: PANTOPRAZOLE 40 MG/10 ML VIAL INJ IV SCH (10:57)
[2022-06-13] MEDS: LORazepam 0.5 MG TAB PO SCH ×2 (10:58→22:27)
[2022-06-13] MEDS: MIDODRINE HCL 10 MG TAB PO SCH ×2 (10:58→22:27)
[2022-06-13] MEDS: GABAPENTIN 300 MG CAP PO SCH ×2 (10:58→22:27)
[2022-06-13] MEDS: BACLOFEN 10 MG TAB PO SCH ×2 (10:58→22:27)
[2022-06-13] MEDS: ENOXAPARIN SOD 40 MG/0.4 ML SYRINGE SC SCH (10:58)
[2022-06-13] MEDS: predniSONE 20 MG TAB PO SCH (10:59)
[2022-06-13] MEDS: ASPirin 81 mg TAB PO SCH (10:59)
[2022-06-13] MEDS ORDERED: ALBUTEROL MEDNEB 2.5 mg/3ml NEB ONE (11:37)
[2022-06-13] MEDS ORDERED: IPRATROPIUM BROM 0.5 MG/2.5ML INH SOL ONE (17:41)
[2022-06-13] MEDS: NOREPINEPHRINE 8 MG/250ML KIT 250 ML IV SCH (20:06)
[2022-06-14] MEDS ORDERED: MELATONIN 5 MG TAB PO PRN ×2 (02:30→22:00)
[2022-06-14] MEDS: HYDROcodone-ACET 5/325MG TAB PO PRN (02:53)
[2022-06-14] MEDS ORDERED: ALBUTEROL MEDNEB 2.5 mg/3ml NEB ONE ×3 (05:35→18:07)
[2022-06-14] MEDS: ALBUTEROL SULF 2.5 MG/0.5ML(0.5%) NEB SOLN NEB SCH ×3 (05:41→19:25)
[2022-06-14] MEDS: IPRATROPIUM BROM 0.5 MG/2.5ML INH SOL NEB SCH ×3 (05:41→19:25)
[2022-06-14] MEDS: MORPHINE SULFATE INJ 2 MG/ml SYRG IV PRN ×2 (05:46→22:22)
[2022-06-14] MEDS: LEVOTHYROXINE SODIUM 25 MCG TAB PO SCH (07:52)
[2022-06-14] MEDS: Juven Fruit Punch Powder PACKET 28.8gm PO SCH ×2 (08:00→17:50)
[2022-06-14] MEDS: LORazepam 0.5 MG TAB PO SCH ×2 (10:21→22:11)
[2022-06-14] MEDS: ASPirin 81 mg TAB PO SCH (10:21)
[2022-06-14] MEDS: BACLOFEN 10 MG TAB PO SCH ×2 (10:21→22:11)
[2022-06-14] MEDS: MIDODRINE HCL 10 MG TAB PO SCH (10:21)
[2022-06-14] MEDS: GABAPENTIN 300 MG CAP PO SCH ×2 (10:21→22:12)
[2022-06-14] MEDS: predniSONE 20 MG TAB PO SCH (10:21)
[2022-06-14] MEDS: PANTOPRAZOLE 40 MG/10 ML VIAL INJ IV SCH (10:21)
[2022-06-14] MEDS: ENOXAPARIN SOD 40 MG/0.4 ML SYRINGE SC SCH (10:22)
[2022-06-14 17:11] VITALS: BP 100/59
[2022-06-14] MEDS ORDERED: IPRATROPIUM BROM 0.5 MG/2.5ML INH SOL ONE (18:07)
[2022-06-14 22:00] VITALS: BP 103/66
[2022-06-14] MEDS ORDERED: MORPHINE SULFATE INJ 2 MG/ml SYRG IV PRN (22:00)
[2022-06-14] MEDS ORDERED: ALBUTEROL SULF 2.5 MG/0.5ML(0.5%) NEB SOLN NEB PRN (22:00)
[2022-06-14] MEDS ORDERED: ACETAMINOPHEN 325 MG TAB PO PRN (22:00)
[2022-06-14] MEDS ORDERED: IPRATROPIUM BROM 0.5 MG/2.5ML INH SOL NEB PRN (22:00)
[2022-06-14] MEDS ORDERED: MIDODRINE HCL 10 MG TAB PO SCH (22:00)
[2022-06-14] MEDS ORDERED: NITROGLYCERIN 0.4 MG SL TAB SL PRN (22:00)
[2022-06-14] MEDS ORDERED: MIDODRINE HCL 10 MG TAB PO ONE (22:00)
[2022-06-15] MEDS: MORPHINE SULFATE INJ 2 MG/ml SYRG IV PRN ×2 (02:27→09:00)
[2022-06-15 05:00] VITALS: BP 101/64
[2022-06-15] MEDS ORDERED: ALBUTEROL MEDNEB 2.5 mg/3ml NEB ONE ×3 (05:59→18:21)
[2022-06-15] MEDS: LEVOTHYROXINE SODIUM 25 MCG TAB PO SCH (06:09)
[2022-06-15] MEDS: IPRATROPIUM BROM 0.5 MG/2.5ML INH SOL NEB SCH ×3 (06:59→18:34)
[2022-06-15] MEDS: ALBUTEROL SULF 2.5 MG/0.5ML(0.5%) NEB SOLN NEB SCH ×3 (06:59→18:33)
[2022-06-15 08:00] VITALS: BP 100/58
[2022-06-15] MEDS: Juven Fruit Punch Powder PACKET 28.8gm PO SCH ×2 (08:10→18:10)
[2022-06-15] MEDS: ASPirin 81 mg TAB PO SCH (10:29)
[2022-06-15] MEDS: predniSONE 20 MG TAB PO SCH (10:29)
[2022-06-15] MEDS: PANTOPRAZOLE 40 MG/10 ML VIAL INJ IV SCH (10:29)
[2022-06-15] MEDS: BACLOFEN 10 MG TAB PO SCH ×2 (10:30→22:22)
[2022-06-15] MEDS: LORazepam 0.5 MG TAB PO SCH ×2 (10:30→22:22)
[2022-06-15] MEDS: GABAPENTIN 300 MG CAP PO SCH ×2 (10:30→22:21)
[2022-06-15] MEDS: MIDODRINE HCL 10 MG TAB PO SCH ×2 (10:31→22:24)
[2022-06-15] MEDS: ENOXAPARIN SOD 40 MG/0.4 ML SYRINGE SC SCH (10:31)
[2022-06-15 11:24] VITALS: BP 104/58
[2022-06-15 12:00] VITALS: BP 103/52
[2022-06-15 16:00] VITALS: BP 103/54
[2022-06-15 20:00] VITALS: BP 128/75
[2022-06-16] VITALS (8 sets, daily range): BP systolic 93–106; BP diastolic 49–62
[2022-06-16] MEDS ORDERED: ALBUTEROL MEDNEB 2.5 mg/3ml NEB ONE ×3 (05:50→18:31)
[2022-06-16] MEDS: LEVOTHYROXINE SODIUM 25 MCG TAB PO SCH (07:11)
[2022-06-16] MEDS: IPRATROPIUM BROM 0.5 MG/2.5ML INH SOL NEB SCH ×3 (07:24→19:46)
[2022-06-16] MEDS: ALBUTEROL SULF 2.5 MG/0.5ML(0.5%) NEB SOLN NEB SCH ×3 (07:24→19:45)
[2022-06-16] MEDS: Juven Fruit Punch Powder PACKET 28.8gm PO SCH ×2 (08:34→18:00)
[2022-06-16] MEDS: PANTOPRAZOLE 40 MG/10 ML VIAL INJ IV SCH (11:24)
[2022-06-16] MEDS: predniSONE 20 MG TAB PO SCH (11:24)
[2022-06-16] MEDS: ASPirin 81 mg TAB PO SCH (11:24)
[2022-06-16] MEDS: LORazepam 0.5 MG TAB PO SCH ×2 (11:29→22:11)
[2022-06-16] MEDS: BACLOFEN 10 MG TAB PO SCH ×2 (11:29→22:11)
[2022-06-16] MEDS: ENOXAPARIN SOD 40 MG/0.4 ML SYRINGE SC SCH (11:29)
[2022-06-16] MEDS: MIDODRINE HCL 10 MG TAB PO SCH ×2 (11:29→22:12)
[2022-06-16] MEDS: GABAPENTIN 300 MG CAP PO SCH ×2 (11:29→22:11)
[2022-06-16] MEDS: HYDROcodone-ACET 5/325MG TAB PO PRN (23:30)
[2022-06-17] MEDS: HYDROcodone-ACET 5/325MG TAB PO PRN ×3 (03:31→16:29)
[2022-06-17 05:00] VITALS: BP 99/61
[2022-06-17] MEDS ORDERED: ALBUTEROL MEDNEB 2.5 mg/3ml NEB ONE ×3 (05:40→18:46)
[2022-06-17] MEDS: LEVOTHYROXINE SODIUM 25 MCG TAB PO SCH (06:26)
[2022-06-17] MEDS: IPRATROPIUM BROM 0.5 MG/2.5ML INH SOL NEB SCH ×3 (06:51→21:11)
[2022-06-17] MEDS: ALBUTEROL SULF 2.5 MG/0.5ML(0.5%) NEB SOLN NEB SCH ×3 (06:52→21:11)
[2022-06-17 09:00] VITALS: BP 105/55
[2022-06-17] MEDS: ASPirin 81 mg TAB PO SCH (10:21)
[2022-06-17] MEDS: LORazepam 0.5 MG TAB PO SCH ×2 (10:21→22:13)
[2022-06-17] MEDS: GABAPENTIN 300 MG CAP PO SCH ×2 (10:21→22:13)
[2022-06-17] MEDS: PANTOPRAZOLE 40 MG/10 ML VIAL INJ IV SCH (10:21)
[2022-06-17] MEDS: predniSONE 20 MG TAB PO SCH (10:21)
[2022-06-17] MEDS: MIDODRINE HCL 10 MG TAB PO SCH ×2 (10:21→22:13)
[2022-06-17] MEDS: BACLOFEN 10 MG TAB PO SCH ×2 (10:21→22:13)
[2022-06-17] MEDS: ENOXAPARIN SOD 40 MG/0.4 ML SYRINGE SC SCH (10:36)
[2022-06-17] MEDS: Juven Fruit Punch Powder PACKET 28.8gm PO SCH ×2 (10:44→18:00)
[2022-06-17] MEDS: MORPHINE SULFATE INJ 2 MG/ml SYRG IV PRN ×3 (12:20→21:39)
[2022-06-17 12:56] VITALS: BP 123/68
[2022-06-17 17:08] VITALS: BP 116/69
[2022-06-17 22:00] VITALS: BP 118/67
[2022-06-18 05:00] VITALS: BP 99/57
[2022-06-18] MEDS ORDERED: ALBUTEROL MEDNEB 2.5 mg/3ml NEB ONE ×3 (06:11→17:51)
[2022-06-18] MEDS: LEVOTHYROXINE SODIUM 25 MCG TAB PO SCH (06:55)
[2022-06-18] MEDS: HYDROcodone-ACET 5/325MG TAB PO PRN ×3 (06:56→18:38)
[2022-06-18] MEDS: ALBUTEROL SULF 2.5 MG/0.5ML(0.5%) NEB SOLN NEB SCH ×3 (06:57→19:17)
[2022-06-18] MEDS: IPRATROPIUM BROM 0.5 MG/2.5ML INH SOL NEB SCH ×3 (06:57→19:17)
[2022-06-18] MEDS: Juven Fruit Punch Powder PACKET 28.8gm PO SCH ×2 (08:00→18:00)
[2022-06-18 08:38] VITALS: BP 101/56
[2022-06-18 09:34] VITALS: BP 101/56
[2022-06-18] MEDS: GABAPENTIN 300 MG CAP PO SCH (09:48)
[2022-06-18] MEDS: ASPirin 81 mg TAB PO SCH (09:48)
[2022-06-18] MEDS: BACLOFEN 10 MG TAB PO SCH (09:48)
[2022-06-18] MEDS: predniSONE 20 MG TAB PO SCH (09:48)
[2022-06-18] MEDS: LORazepam 0.5 MG TAB PO SCH (09:48)
[2022-06-18] MEDS: MIDODRINE HCL 10 MG TAB PO SCH (09:48)
[2022-06-18] MEDS: ENOXAPARIN SOD 40 MG/0.4 ML SYRINGE SC SCH (09:49)
[2022-06-18] MEDS: PANTOPRAZOLE 40 MG/10 ML VIAL INJ IV SCH (09:49)
[2022-06-18] MEDS ORDERED: MID10T PO (10:52)
[2022-06-18 13:00] VITALS: BP 101/62
[2022-06-18 17:00] VITALS: BP 102/51
== END 2022-06-18 20:47 | disposition home or self-care (01) | DRG 871 ==
LOC: ER 08:31 → EDBD 08:31 → TELE 11:26 → TELE-WESTW 06-14 16:02
PROVIDERS: ADMIT Registered Nurse; ATTEND Internal Medicine
PROC: 06HY33Z Insertion of Infusion Device into Lower Vein, Percutaneous Approach (ICD-10-PCS; principal; 2022-06-09)
DX: A41.9 Sepsis, unspecified organism (principal); R65.21 Severe sepsis with septic shock; I13.0 Hypertensive heart and chronic kidney disease with heart failure and stage 1 through stage 4 chronic kidney disease, or unspecified chronic kidney disease; N17.9 Acute kidney failure, unspecified; J45.901 Unspecified asthma with (acute) exacerbation; J96.10 Chronic respiratory failure, unspecified whether with hypoxia or hypercapnia; J98.11 Atelectasis; I50.9 Heart failure, unspecified; N18.31 Chronic kidney disease, stage 3a; E03.9 Hypothyroidism, unspecified; J44.9 Chronic obstructive pulmonary disease, unspecified; Z20.822 Contact with and (suspected) exposure to COVID-19; E66.9 Obesity, unspecified; E86.0 Dehydration; F17.200 Nicotine dependence, unspecified, uncomplicated; Z93.0 Tracheostomy status; Z74.01 Bed confinement status; Z82.49 Family history of ischemic heart disease and other diseases of the circulatory system; Z83.3 Family history of diabetes mellitus; Z68.29 Body mass index [BMI] 29.0-29.9, adult
CPT/HCPCS: 36415; 71045; 80048; 80053; 80061; 81001; 83036; 83605; 83735; 83880; 84443; 84484; 85025; 85610; 85730; 87040; 87081; 87086; 87426; 93005; 94640; A4605; C9113; G0378; P9047

== ENCOUNTER 2022-06-23 15:45 | Inpatient (IN) | payer BC, MEDICARE, OTHER ==
[~2022-06-23] VITALS: Ht 154.9 cm; Wt 65.0 kg
[~2022-06-23 15:45] MED LIST changes: +MID10T PO; -NALO4SPR2
[2022-06-23] MEDS ORDERED: SODIUM CHLORIDE 0.9% 500 ML IV ONE (16:45)
[2022-06-23 17:15] LABS: Basophils # (auto) 0 10 ^3/uL (0-0.2); Basophils % (auto) 0.2 % (0.0-2.0); Eosinophils # (auto) 0 10 ^3/uL (0-0.8); Hemoglobin 9.4 g/dL (12.2-16.2); Lymphocytes # (auto) 0.3 10 ^3/uL (0.4-5.4); Lymphocytes % (auto) 2.6 % (10.0-50.0); Mean Corpuscular Hemoglobin 28.1 pg (28.0-32.0); Mean Corpuscular Hgb Conc. 32.3 g/dL (32.0-36.0); Mean Corpuscular Volume 87.1 fL (80.0-100.0); Monocytes # (auto) 0.1 10 ^3/uL (0-1.3); Monocytes % (auto) 1.1 % (0.0-12.0); Neutrophils # (auto) 9.9 10 ^3/uL (1.6-8.6); Neutrophils % (auto) 96.1 % (37.0-80.0); Nucleated Red Blood Cells % 0.1 %; Red Blood Cells 3.33 10^6/uL (4.0-5.20); White Blood Cell 10.3 10^3/uL (4.4-10.8)
[2022-06-23 17:41] LABS: Albumin 3.5 g/dL (3.4-5.0); BUN/Creatinine Ratio 31.9; Calcium 8.4 mg/dL (8.5-10.1); Magnesium 2.6 mg/dL (1.6-2.6); Potassium 3.9 mmol/L (3.5-5.1)
[2022-06-23 17:44] LABS: Bilirubin, Total 0.9 mg/dL (0.2-1.0); Total Protein 7.7 g/dL (6.4-8.2)
[2022-06-23 17:45] LABS: Lactic Acid w/Reflex 2.5 mmol/L (0.4-2.0)
[2022-06-23] MEDS ORDERED: SODIUM CHLORIDE 0.9% 1,000 ML IV ONE (20:00)
[2022-06-23] MEDS ORDERED: CLINDAMYCIN 600MG IV 50 ML IV ONE (20:00)
[2022-06-23] MEDS ORDERED: ACETAMINOPHEN 325 MG TAB PO PRN (21:00)
[2022-06-23] MEDS ORDERED: ONDANSETRON HCL 4 MG/2 ML VIAL IV PRN (21:00)
[2022-06-23] MEDS ORDERED: TEMAZEPAM 15 MG CAP PO PRN (21:00)
[2022-06-23] MEDS: HYDROcodone-ACET 5/325MG TAB PO PRN (21:44)
[2022-06-23] MEDS: DULoxetine HCL 30 MG CAP PO SCH (22:25)
[2022-06-23] MEDS: GABAPENTIN 300 MG CAP PO SCH (22:26)
[2022-06-23] MEDS: TOPIRAMATE 25 MG TAB PO SCH (22:26)
[2022-06-23] MEDS: MIDODRINE HCL 10 MG TAB PO SCH (22:26)
[2022-06-23] MEDS: D5W/SOD CHL 0.45% 1,000 ML IV SCH (23:00)
[2022-06-23] MEDS: CLINDAMYCIN 600MG IV 50 ML IV SCH (23:01)
[2022-06-24] VITALS (7 sets, daily range): BP systolic 93–125; BP diastolic 54–69
[2022-06-24] MEDS: HYDROcodone-ACET 5/325MG TAB PO PRN ×4 (05:18→20:47)
[2022-06-24 05:25] LABS: Basophils # (auto) 0 10 ^3/uL (0-0.2); Basophils % (auto) 0.1 % (0.0-2.0); Eosinophils # (auto) 0 10 ^3/uL (0-0.8); Eosinophils % (auto) 0.1 % (0.0-7.0); Hemoglobin 8.2 g/dL (12.2-16.2); Lymphocytes # (auto) 0.6 10 ^3/uL (0.4-5.4); Lymphocytes % (auto) 7.2 % (10.0-50.0); Monocytes # (auto) 0.4 10 ^3/uL (0-1.3); Monocytes % (auto) 5.6 % (0.0-12.0); Neutrophils # (auto) 6.8 10 ^3/uL (1.6-8.6); Red Cell Distribution Width 17.1 % (11.8-14.3)
[2022-06-24 05:28] LABS: Hematocrit 24.9 % (36.0-46.0); Mean Corpuscular Hemoglobin 28.6 pg (28.0-32.0); Mean Corpuscular Hgb Conc. 32.9 g/dL (32.0-36.0); Mean Corpuscular Volume 86.9 fL (80.0-100.0); Red Blood Cells 2.87 10^6/uL (4.0-5.20); White Blood Cell 7.8 10^3/uL (4.4-10.8)
[2022-06-24 05:46] LABS: Albumin 2.9 g/dL (3.4-5.0); Calcium 8.3 mg/dL (8.5-10.1); Potassium 4.3 mmol/L (3.5-5.1)
[2022-06-24 05:49] LABS: BUN/Creatinine Ratio 33.7; Bilirubin, Total 0.9 mg/dL (0.2-1.0); Total Protein 6.7 g/dL (6.4-8.2)
[2022-06-24] MEDS: LEVOTHYROXINE SODIUM 25 MCG TAB PO SCH (06:49)
[2022-06-24] MEDS: CLINDAMYCIN 600MG IV 50 ML IV SCH (06:49)
[2022-06-24] MEDS: D5W/SOD CHL 0.45% 1,000 ML IV SCH ×2 (10:20→23:40)
[2022-06-24] MEDS: PANTOPRAZOLE 40 MG/10 ML VIAL INJ IV SCH (11:00)
[2022-06-24] MEDS: ENOXAPARIN SOD 40 MG/0.4 ML SYRINGE SC SCH (11:11)
[2022-06-24] MEDS: GABAPENTIN 300 MG CAP PO SCH ×2 (11:11→22:34)
[2022-06-24] MEDS: FUROSEMIDE 40 MG TAB PO SCH (11:11)
[2022-06-24] MEDS: TOPIRAMATE 25 MG TAB PO SCH ×2 (11:11→22:35)
[2022-06-24] MEDS: MIDODRINE HCL 10 MG TAB PO SCH ×2 (11:11→22:34)
[2022-06-24] MEDS: DULoxetine HCL 30 MG CAP PO SCH ×2 (11:11→22:34)
[2022-06-24] MEDS ORDERED: VANCOMYCIN PER PHARMACY 0 MG IV SCH (13:45)
[2022-06-24] MEDS ORDERED: VANCOMYCIN 1GM/250ML 250 ML IV ONE (14:15)
[2022-06-24] MEDS: cefTRIAXone 1GM/50ML D5W 50 ML IV SCH (16:21)
[2022-06-24] MEDS ORDERED: LORazepam 0.5 MG TAB PO PRN (17:00)
[2022-06-24] MEDS: MUPIROCIN 2% OINT 15gm or 22gm FOR MRSA NARES EACHNOSTRI SCH (22:34)
[2022-06-25] MEDS: HYDROcodone-ACET 5/325MG TAB PO PRN ×3 (01:52→19:05)
[2022-06-25 05:00] VITALS: BP 92/54
[2022-06-25 05:42] LABS: Basophils # (auto) 0 10 ^3/uL (0-0.2); Basophils % (auto) 0.3 % (0.0-2.0); Eosinophils # (auto) 0.3 10 ^3/uL (0-0.8); Lymphocytes # (auto) 1.9 10 ^3/uL (0.4-5.4); Monocytes # (auto) 0.7 10 ^3/uL (0-1.3); Nucleated Red Blood Cells % 0.1 %
[2022-06-25 05:45] LABS: Eosinophils % (auto) 2.9 % (0.0-7.0); Hemoglobin 8.2 g/dL (12.2-16.2); Lymphocytes % (auto) 20.9 % (10.0-50.0); Mean Corpuscular Hemoglobin 29.4 pg (28.0-32.0); Mean Corpuscular Hgb Conc. 32.7 g/dL (32.0-36.0); Mean Corpuscular Volume 89.9 fL (80.0-100.0); Monocytes % (auto) 7.8 % (0.0-12.0); Neutrophils # (auto) 6.1 10 ^3/uL (1.6-8.6); Neutrophils % (auto) 68.1 % (37.0-80.0); Red Blood Cells 2.78 10^6/uL (4.0-5.20); Red Cell Distribution Width 17.4 % (11.8-14.3)
[2022-06-25 06:00] LABS: Calcium 8.1 mg/dL (8.5-10.1); Potassium 3.9 mmol/L (3.5-5.1)
[2022-06-25 06:03] LABS: BUN/Creatinine Ratio 25.3
[2022-06-25] MEDS: LEVOTHYROXINE SODIUM 25 MCG TAB PO SCH (06:41)
[2022-06-25 08:00] VITALS: BP 101/65
[2022-06-25] MEDS ORDERED: VANCOMYCIN 1GM/250ML 250 ML IV SCH (08:00)
[2022-06-25] MEDS: MUPIROCIN 2% OINT 15gm or 22gm FOR MRSA NARES EACHNOSTRI SCH ×2 (09:38→21:58)
[2022-06-25] MEDS: PANTOPRAZOLE 40 MG/10 ML VIAL INJ IV SCH (09:38)
[2022-06-25] MEDS: DULoxetine HCL 30 MG CAP PO SCH ×2 (09:38→21:58)
[2022-06-25] MEDS: MIDODRINE HCL 10 MG TAB PO SCH ×2 (09:39→21:58)
[2022-06-25] MEDS: FUROSEMIDE 40 MG TAB PO SCH (09:39)
[2022-06-25] MEDS: TOPIRAMATE 25 MG TAB PO SCH ×2 (09:39→21:58)
[2022-06-25] MEDS: GABAPENTIN 300 MG CAP PO SCH ×2 (09:39→21:58)
[2022-06-25] MEDS: ENOXAPARIN SOD 40 MG/0.4 ML SYRINGE SC SCH (09:39)
[2022-06-25 11:50] LABS: Hepatitis C Antibody Negative (Negative)
[2022-06-25 12:00] VITALS: BP 97/63
[2022-06-25] MEDS: D5W/SOD CHL 0.45% 1,000 ML IV SCH (13:00)
[2022-06-25 16:00] VITALS: BP 87/50
[2022-06-25] MEDS: cefTRIAXone 1GM/50ML D5W 50 ML IV SCH (18:04)
[2022-06-25 23:12] VITALS: BP 104/59
[2022-06-26] MEDS: D5W/SOD CHL 0.45% 1,000 ML IV SCH ×2 (02:54→15:40)
[2022-06-26 04:42] VITALS: BP 100/56
[2022-06-26] MEDS: LEVOTHYROXINE SODIUM 25 MCG TAB PO SCH (06:32)
[2022-06-26 07:36] LABS: Basophils # (auto) 0 10 ^3/uL (0-0.2); Basophils % (auto) 0.4 % (0.0-2.0); Eosinophils # (auto) 0.2 10 ^3/uL (0-0.8); Eosinophils % (auto) 3.1 % (0.0-7.0); Hematocrit 26.5 % (36.0-46.0); Hemoglobin 8.6 g/dL (12.2-16.2); Lymphocytes # (auto) 1.4 10 ^3/uL (0.4-5.4); Lymphocytes % (auto) 17.3 % (10.0-50.0); Mean Corpuscular Hemoglobin 29.7 pg (28.0-32.0); Mean Corpuscular Hgb Conc. 32.4 g/dL (32.0-36.0); Mean Corpuscular Volume 91.5 fL (80.0-100.0); Monocytes # (auto) 0.6 10 ^3/uL (0-1.3); Monocytes % (auto) 7.6 % (0.0-12.0); Neutrophils # (auto) 5.6 10 ^3/uL (1.6-8.6); Neutrophils % (auto) 71.6 % (37.0-80.0); Nucleated Red Blood Cells % 0.2 %; Red Cell Distribution Width 17.4 % (11.8-14.3); White Blood Cell 7.8 10^3/uL (4.4-10.8)
[2022-06-26 08:03] LABS: BUN/Creatinine Ratio 24.4; Calcium 8.2 mg/dL (8.5-10.1); Potassium 3.7 mmol/L (3.5-5.1)
[2022-06-26] MEDS: MUPIROCIN 2% OINT 15gm or 22gm FOR MRSA NARES EACHNOSTRI SCH ×2 (08:28→22:58)
[2022-06-26] MEDS: PANTOPRAZOLE 40 MG/10 ML VIAL INJ IV SCH (08:29)
[2022-06-26] MEDS: VANCOMYCIN 1GM/250ML 250 ML IV SCH (08:29)
[2022-06-26] MEDS: MIDODRINE HCL 10 MG TAB PO SCH ×2 (08:31→23:00)
[2022-06-26] MEDS: GABAPENTIN 300 MG CAP PO SCH ×2 (08:31→22:59)
[2022-06-26] MEDS: HYDROcodone-ACET 5/325MG TAB PO PRN ×3 (08:31→14:50)
[2022-06-26] MEDS: TOPIRAMATE 25 MG TAB PO SCH ×2 (08:31→23:00)
[2022-06-26] MEDS: FUROSEMIDE 40 MG TAB PO SCH (08:33)
[2022-06-26] MEDS: ENOXAPARIN SOD 40 MG/0.4 ML SYRINGE SC SCH (08:33)
[2022-06-26 09:00] VITALS: BP 104/65
[2022-06-26] MEDS: cefTRIAXone 1GM/50ML D5W 50 ML IV SCH (10:00)
[2022-06-26 12:33] VITALS: BP 102/64
[2022-06-26] MEDS ORDERED: IOHEXOL 300 MG/ML 100ML BOTTLE IJ ONE (13:21)
[2022-06-26] MEDS: DULoxetine HCL 30 MG CAP PO SCH ×3 (13:24→22:59)
[2022-06-26 22:00] VITALS: BP 99/61
[2022-06-26] MEDS ORDERED: DOCUSATE SOD 100 MG CAP PO SCH (22:00)
[2022-06-26] MEDS: DOCUSATE SOD 100 MG CAP PO SCH (22:59)
[2022-06-27] VITALS (7 sets, daily range): BP systolic 96–122; BP diastolic 54–66
[2022-06-27] MEDS: VANCOMYCIN 1GM/250ML 250 ML IV SCH (03:00)
[2022-06-27] MEDS: D5W/SOD CHL 0.45% 1,000 ML IV SCH ×2 (05:17→18:20)
[2022-06-27 06:01] LABS: Basophils # (auto) 0 10 ^3/uL (0-0.2); Basophils % (auto) 0.4 % (0.0-2.0); Eosinophils # (auto) 0.3 10 ^3/uL (0-0.8); Eosinophils % (auto) 3.2 % (0.0-7.0); Hematocrit 27.1 % (36.0-46.0); Hemoglobin 8.5 g/dL (12.2-16.2); Lymphocytes # (auto) 1.6 10 ^3/uL (0.4-5.4); Lymphocytes % (auto) 19.5 % (10.0-50.0); Mean Corpuscular Hemoglobin 27.9 pg (28.0-32.0); Mean Corpuscular Hgb Conc. 31.3 g/dL (32.0-36.0); Mean Corpuscular Volume 89.2 fL (80.0-100.0); Monocytes # (auto) 0.6 10 ^3/uL (0-1.3); Monocytes % (auto) 8.1 % (0.0-12.0); Neutrophils # (auto) 5.5 10 ^3/uL (1.6-8.6); Neutrophils % (auto) 68.8 % (37.0-80.0); Nucleated Red Blood Cells % 0.1 %; Red Blood Cells 3.04 10^6/uL (4.0-5.20); Red Cell Distribution Width 17.2 % (11.8-14.3)
[2022-06-27 06:26] LABS: Potassium 3.8 mmol/L (3.5-5.1)
[2022-06-27] MEDS: LEVOTHYROXINE SODIUM 25 MCG TAB PO SCH (06:51)
[2022-06-27 06:56] LABS: BUN/Creatinine Ratio 21.7; Calcium 8.4 mg/dL (8.5-10.1)
[2022-06-27] MEDS: cefTRIAXone 1GM/50ML D5W 50 ML IV SCH (09:28)
[2022-06-27] MEDS: PANTOPRAZOLE 40 MG/10 ML VIAL INJ IV SCH (09:32)
[2022-06-27] MEDS: DOCUSATE SOD 100 MG CAP PO SCH ×2 (09:32→21:46)
[2022-06-27] MEDS: FUROSEMIDE 40 MG TAB PO SCH (09:33)
[2022-06-27] MEDS: TOPIRAMATE 25 MG TAB PO SCH ×2 (09:33→21:46)
[2022-06-27] MEDS: MIDODRINE HCL 10 MG TAB PO SCH ×2 (09:33→21:46)
[2022-06-27] MEDS: DULoxetine HCL 30 MG CAP PO SCH ×2 (09:33→21:46)
[2022-06-27] MEDS: GABAPENTIN 300 MG CAP PO SCH ×2 (09:33→21:46)
[2022-06-27] MEDS: MUPIROCIN 2% OINT 15gm or 22gm FOR MRSA NARES EACHNOSTRI SCH ×2 (09:42→21:46)
[2022-06-27] MEDS: ENOXAPARIN SOD 40 MG/0.4 ML SYRINGE SC SCH (09:43)
[2022-06-27] MEDS: HYDROcodone-ACET 5/325MG TAB PO PRN ×2 (16:46→21:47)
[2022-06-28 05:00] VITALS: BP 100/67
[2022-06-28] MEDS ORDERED: VANCOMYCIN 1GM/250ML 250 ML IV ONE (05:00)
[2022-06-28] MEDS: LEVOTHYROXINE SODIUM 25 MCG TAB PO SCH (06:14)
[2022-06-28] MEDS: HYDROcodone-ACET 5/325MG TAB PO PRN ×2 (06:15→17:58)
[2022-06-28 08:00] VITALS: BP 110/62
[2022-06-28] MEDS: D5W/SOD CHL 0.45% 1,000 ML IV SCH ×2 (08:15→21:09)
[2022-06-28 09:00] VITALS: BP 110/62
[2022-06-28] MEDS: cefTRIAXone 1GM/50ML D5W 50 ML IV SCH (09:39)
[2022-06-28] MEDS: PANTOPRAZOLE 40 MG/10 ML VIAL INJ IV SCH (09:39)
[2022-06-28] MEDS: GABAPENTIN 300 MG CAP PO SCH ×2 (09:40→22:30)
[2022-06-28] MEDS: DULoxetine HCL 30 MG CAP PO SCH ×2 (09:40→22:30)
[2022-06-28] MEDS: TOPIRAMATE 25 MG TAB PO SCH ×2 (09:40→22:31)
[2022-06-28] MEDS: DOCUSATE SOD 100 MG CAP PO SCH ×2 (09:41→22:31)
[2022-06-28] MEDS: MIDODRINE HCL 10 MG TAB PO SCH ×2 (09:41→22:30)
[2022-06-28] MEDS: ENOXAPARIN SOD 40 MG/0.4 ML SYRINGE SC SCH (09:42)
[2022-06-28] MEDS: FUROSEMIDE 40 MG TAB PO SCH (09:45)
[2022-06-28] MEDS: MUPIROCIN 2% OINT 15gm or 22gm FOR MRSA NARES EACHNOSTRI SCH ×2 (12:00→22:30)
[2022-06-28 13:00] VITALS: BP 107/73
[2022-06-28 22:00] VITALS: BP 92/53
[2022-06-29 05:00] VITALS: BP 91/55
[2022-06-29] MEDS: LEVOTHYROXINE SODIUM 25 MCG TAB PO SCH (06:34)
[2022-06-29 08:28] VITALS: BP 98/59
[2022-06-29] MEDS: D5W/SOD CHL 0.45% 1,000 ML IV SCH (10:20)
[2022-06-29] MEDS: DULoxetine HCL 30 MG CAP PO SCH ×2 (11:18→21:20)
[2022-06-29] MEDS: DOCUSATE SOD 100 MG CAP PO SCH ×2 (11:18→21:20)
[2022-06-29] MEDS: cefTRIAXone 1GM/50ML D5W 50 ML IV SCH (11:18)
[2022-06-29] MEDS: PANTOPRAZOLE 40 MG/10 ML VIAL INJ IV SCH (11:18)
[2022-06-29] MEDS: MUPIROCIN 2% OINT 15gm or 22gm FOR MRSA NARES EACHNOSTRI SCH (11:18)
[2022-06-29] MEDS: GABAPENTIN 300 MG CAP PO SCH ×2 (11:19→21:20)
[2022-06-29] MEDS: FUROSEMIDE 40 MG TAB PO SCH (11:19)
[2022-06-29] MEDS: HYDROcodone-ACET 5/325MG TAB PO PRN ×2 (11:20→15:25)
[2022-06-29] MEDS: TOPIRAMATE 25 MG TAB PO SCH ×2 (11:20→21:21)
[2022-06-29] MEDS: MIDODRINE HCL 10 MG TAB PO SCH ×2 (11:20→21:21)
[2022-06-29] MEDS: ENOXAPARIN SOD 40 MG/0.4 ML SYRINGE SC SCH (11:20)
[2022-06-29 13:00] VITALS: BP 99/55
[2022-06-29 16:37] VITALS: BP 99/62
[2022-06-29] MEDS ORDERED: MORPHINE SULFATE INJ 2 MG/ml SYRG IV ONE (19:00)
[2022-06-29 22:00] VITALS: BP 108/61
[2022-06-30] VITALS (7 sets, daily range): BP systolic 94–126; BP diastolic 53–66
[2022-06-30] MEDS: D5W/SOD CHL 0.45% 1,000 ML IV SCH (00:20)
[2022-06-30] MEDS: HYDROcodone-ACET 5/325MG TAB PO PRN ×2 (03:56→21:09)
[2022-06-30] MEDS: LEVOTHYROXINE SODIUM 25 MCG TAB PO SCH (06:47)
[2022-06-30] MEDS: DULoxetine HCL 30 MG CAP PO SCH ×2 (09:30→21:10)
[2022-06-30] MEDS: cefTRIAXone 1GM/50ML D5W 50 ML IV SCH (09:30)
[2022-06-30] MEDS: MIDODRINE HCL 10 MG TAB PO SCH ×2 (09:30→21:10)
[2022-06-30] MEDS: PANTOPRAZOLE 40 MG/10 ML VIAL INJ IV SCH (09:30)
[2022-06-30] MEDS: GABAPENTIN 300 MG CAP PO SCH ×2 (09:30→21:10)
[2022-06-30] MEDS: FUROSEMIDE 40 MG TAB PO SCH (09:30)
[2022-06-30] MEDS: DOCUSATE SOD 100 MG CAP PO SCH ×2 (09:30→21:09)
[2022-06-30] MEDS: TOPIRAMATE 25 MG TAB PO SCH ×2 (09:31→21:10)
[2022-06-30] MEDS: ENOXAPARIN SOD 40 MG/0.4 ML SYRINGE SC SCH (09:31)
[2022-06-30] MEDS: VANCOMYCIN 1GM/250ML 250 ML IV SCH (10:47)
[2022-06-30 18:57] LABS: Basophils # (auto) 0 10 ^3/uL (0-0.2); Basophils % (auto) 0.5 % (0.0-2.0); Eosinophils # (auto) 0.2 10 ^3/uL (0-0.8); Eosinophils % (auto) 3.2 % (0.0-7.0); Hematocrit 29.9 % (36.0-46.0); Hemoglobin 9.3 g/dL (12.2-16.2); Lymphocytes # (auto) 1.4 10 ^3/uL (0.4-5.4); Lymphocytes % (auto) 20.2 % (10.0-50.0); Mean Corpuscular Hemoglobin 27.4 pg (28.0-32.0); Mean Corpuscular Hgb Conc. 31.3 g/dL (32.0-36.0); Mean Corpuscular Volume 87.4 fL (80.0-100.0); Monocytes # (auto) 0.4 10 ^3/uL (0-1.3); Neutrophils # (auto) 4.8 10 ^3/uL (1.6-8.6); Neutrophils % (auto) 70.1 % (37.0-80.0); Nucleated Red Blood Cells % 0.1 %; Red Blood Cells 3.42 10^6/uL (4.0-5.20); Red Cell Distribution Width 17.1 % (11.8-14.3); White Blood Cell 6.9 10^3/uL (4.4-10.8)
[2022-06-30 19:14] LABS: INR 0.99 (0.9-1.15)
[2022-06-30] MEDS: PIPERACILLIN-TAZOB 3.375GM 100 ML IV SCH (21:09)
[2022-07-01] VITALS (7 sets, daily range): BP systolic 99–107; BP diastolic 51–62
[2022-07-01] MEDS ORDERED: KETOROLAC TROMETH 30 MG/ML 1ML VIAL IV ONE (01:15)
[2022-07-01] MEDS: LEVOTHYROXINE SODIUM 25 MCG TAB PO SCH (05:34)
[2022-07-01] MEDS: PIPERACILLIN-TAZOB 3.375GM 100 ML IV SCH ×2 (05:34→14:50)
[2022-07-01 06:14] LABS: BUN/Creatinine Ratio 13.8; Calcium 8.7 mg/dL (8.5-10.1)
[2022-07-01 08:08] LABS: Basophils # (auto) 0 10 ^3/uL (0-0.2); Basophils % (auto) 0.5 % (0.0-2.0); Eosinophils # (auto) 0.2 10 ^3/uL (0-0.8); Eosinophils % (auto) 2.4 % (0.0-7.0); Hematocrit 28.9 % (36.0-46.0); Hemoglobin 8.9 g/dL (12.2-16.2); Lymphocytes # (auto) 1.3 10 ^3/uL (0.4-5.4); Lymphocytes % (auto) 16.9 % (10.0-50.0); Mean Corpuscular Hemoglobin 31.5 pg (28.0-32.0); Mean Corpuscular Hgb Conc. 30.7 g/dL (32.0-36.0); Mean Corpuscular Volume 102.8 fL (80.0-100.0); Monocytes # (auto) 0.8 10 ^3/uL (0-1.3); Monocytes % (auto) 10.4 % (0.0-12.0); Neutrophils # (auto) 5.2 10 ^3/uL (1.6-8.6); Neutrophils % (auto) 69.8 % (37.0-80.0); Nucleated Red Blood Cells % 0.3 %; Red Blood Cells 2.82 10^6/uL (4.0-5.20); Red Cell Distribution Width 18.3 % (11.8-14.3); White Blood Cell 7.4 10^3/uL (4.4-10.8)
[2022-07-01] MEDS ORDERED: AMOX500T86 PO ×2 (10:22)
[2022-07-01] MEDS ORDERED: DOXY-332 PO (10:22)
[2022-07-01] MEDS: VANCOMYCIN 1GM/250ML 250 ML IV SCH (10:33)
[2022-07-01] MEDS: PANTOPRAZOLE 40 MG/10 ML VIAL INJ IV SCH (10:33)
[2022-07-01] MEDS: DULoxetine HCL 30 MG CAP PO SCH (10:34)
[2022-07-01] MEDS: DOCUSATE SOD 100 MG CAP PO SCH (10:34)
[2022-07-01] MEDS: TOPIRAMATE 25 MG TAB PO SCH (10:35)
[2022-07-01] MEDS: FUROSEMIDE 40 MG TAB PO SCH (10:35)
[2022-07-01] MEDS: MIDODRINE HCL 10 MG TAB PO SCH (10:35)
[2022-07-01] MEDS: GABAPENTIN 300 MG CAP PO SCH (10:35)
[2022-07-01] MEDS: ENOXAPARIN SOD 40 MG/0.4 ML SYRINGE SC SCH (10:36)
== END 2022-07-01 17:25 | disposition home health service (06) | DRG 602 ==
LOC: EDBD 15:45 → ER 15:45 → OVERFLOW 20:56 → EAST 06-24 01:55
PROVIDERS: ADMIT Nurse Practitioner; ATTEND Internal Medicine Pulmonary Disease
PROC: 0Y9C3ZZ Drainage of Right Upper Leg, Percutaneous Approach (ICD-10-PCS; principal; 2022-07-01)
DX: L03.115 Cellulitis of right lower limb (principal); G82.50 Quadriplegia, unspecified; I11.0 Hypertensive heart disease with heart failure; G40.909 Epilepsy, unspecified, not intractable, without status epilepticus; I50.9 Heart failure, unspecified; J44.9 Chronic obstructive pulmonary disease, unspecified; Z20.822 Contact with and (suspected) exposure to COVID-19; F32.A Depression, unspecified; K21.9 Gastro-esophageal reflux disease without esophagitis; R79.89 Other specified abnormal findings of blood chemistry; R32 Unspecified urinary incontinence; S70.11XA Contusion of right thigh, initial encounter; X58.XXXA Exposure to other specified factors, initial encounter; Z82.49 Family history of ischemic heart disease and other diseases of the circulatory system; Z83.3 Family history of diabetes mellitus; Z93.0 Tracheostomy status; Z93.1 Gastrostomy status; Z88.5 Allergy status to narcotic agent; Z74.01 Bed confinement status; Z88.2 Allergy status to sulfonamides; Z90.49 Acquired absence of other specified parts of digestive tract; Z90.710 Acquired absence of both cervix and uterus; Y93.89 Activity, other specified; Y92.89 Other specified places as the place of occurrence of the external cause; Y99.8 Other external cause status
CPT/HCPCS: 36415; 71045; 73701; 76881; 76942; 80048; 80053; 80202; 83605; 83735; 84702; 85025; 85610; 85652; 86141; 86803; 87040; 87081; 87205; 87340; 87426; 89051; 96365; C9113; G0378; J0696; J1885; J2543; J3490

== ENCOUNTER 2022-08-06 10:19 | Inpatient (IN) | payer BC, MEDICARE, OTHER ==
[~2022-08-06] VITALS: Ht 154.9 cm; Wt 82.4 kg
[~2022-08-06 10:19] MED LIST changes: +DOXY-332 PO
[2022-08-06] MEDS ORDERED: SODIUM CHLORIDE 0.9% 1,000 ML IVB ONE (11:00)
[2022-08-06] MEDS ORDERED: cefTRIAXone 1GM/50ML D5W 50 ML IV ONE (11:00)
[2022-08-06 11:31] LABS: Hematocrit 35.8 % (36.0-46.0); Hemoglobin 11.6 g/dL (12.2-16.2); Mean Corpuscular Hemoglobin 29.5 pg (28.0-32.0); Mean Corpuscular Hgb Conc. 32.3 g/dL (32.0-36.0); Mean Corpuscular Volume 91.4 fL (80.0-100.0); Red Blood Cells 3.92 10^6/uL (4.0-5.20); Red Cell Distribution Width 19.2 % (11.8-14.3); White Blood Cell 10.6 10^3/uL (4.4-10.8)
[2022-08-06 11:33] LABS: Basophils % (manual) 0 (0.0-2.0); Blast Cells 0; Eosinophils % (manual) 0 (0-7); Metamyelocytes % 0; Myelocytes % 0; Promyelocytes % 0; Reactive Lymphocytes 0
[2022-08-06 11:42] LABS: Albumin 2.9 g/dL (3.4-5.0); Calcium 8.9 mg/dL (8.5-10.1); Magnesium 2.7 mg/dL (1.6-2.6); Potassium 3.9 mmol/L (3.5-5.1)
[2022-08-06 11:45] LABS: BUN/Creatinine Ratio 24.5 (10.0-20.0); Bilirubin, Total 0.7 mg/dL (0.2-1.0); Total Protein 8.7 g/dL (6.4-8.2)
[2022-08-06 14:02] LABS: Band Neutrophils % (manual) 11; Lymphocytes % (manual) 7 (10.0-50.0); Monocytes % (manual) 4 (0-12)
[2022-08-06] MEDS ORDERED: ONDANSETRON HCL 4 MG/2 ML VIAL IV PRN (14:30)
[2022-08-06 17:35] LABS: Urine Bacteria MOD /hpf (None Seen); Urine Blood 2+ /uL (Negative); Urine Mucus FEW (None Seen); Urine WBC 417 /hpf (0 - 5); Urine WBC Clumps PRESENT /hpf (None Seen)
[2022-08-06] MEDS: SODIUM CHLORIDE 0.9% 1,000 ML IV SCH (17:46)
[2022-08-06] MEDS ORDERED: MIDODRINE HCL 10 MG TAB PO ONE (18:00)
[2022-08-06] MEDS: BACLOFEN 10 MG TAB PO SCH (23:08)
[2022-08-06] MEDS: GABAPENTIN 300 MG CAP PO SCH (23:08)
[2022-08-06] MEDS: LORazepam 0.5 MG TAB PO SCH (23:08)
[2022-08-06] MEDS: MIDODRINE HCL 10 MG TAB PO SCH (23:09)
[2022-08-06] MEDS: DULoxetine HCL 30 MG CAP PO SCH (23:09)
[2022-08-06] MEDS: FAMOTIDINE 20 MG TAB PO SCH (23:09)
[2022-08-07 05:47] LABS: Basophils # (auto) 0 10 ^3/uL (0-0.2); Basophils % (auto) 0.4 % (0.0-2.0); Eosinophils # (auto) 0.1 10 ^3/uL (0-0.8); Eosinophils % (auto) 1.8 % (0.0-7.0); Hematocrit 27.4 % (36.0-46.0); Lymphocytes % (auto) 13.1 % (10.0-50.0); Mean Corpuscular Hemoglobin 30.7 pg (28.0-32.0); Mean Corpuscular Hgb Conc. 32.9 g/dL (32.0-36.0); Mean Corpuscular Volume 93.1 fL (80.0-100.0); Monocytes % (auto) 14.1 % (0.0-12.0); Neutrophils # (auto) 5.1 10 ^3/uL (1.6-8.6); Neutrophils % (auto) 70.6 % (37.0-80.0); Red Blood Cells 2.94 10^6/uL (4.0-5.20); Red Cell Distribution Width 18.8 % (11.8-14.3); White Blood Cell 7.3 10^3/uL (4.4-10.8)
[2022-08-07 06:03] LABS: Albumin 2.5 g/dL (3.4-5.0); BUN/Creatinine Ratio 27.6 (10.0-20.0); Calcium 8.5 mg/dL (8.5-10.1); Potassium 3.3 mmol/L (3.5-5.1)
[2022-08-07 06:06] LABS: Bilirubin, Total 0.5 mg/dL (0.2-1.0); Total Protein 7.2 g/dL (6.4-8.2)
[2022-08-07] MEDS: GABAPENTIN 300 MG CAP PO SCH ×3 (06:07→21:32)
[2022-08-07] MEDS: SODIUM CHLORIDE 0.9% 1,000 ML IV SCH ×2 (08:30→11:53)
[2022-08-07] MEDS: cefTRIAXone 1GM/50ML D5W 50 ML IV SCH (09:15)
[2022-08-07] MEDS ORDERED: METOPROLOL SUCCINATE XL 50 MG TAB PO SCH (10:00)
[2022-08-07] MEDS ORDERED: FUROSEMIDE 20 MG TAB PO SCH (10:00)
[2022-08-07] MEDS: ASPirin 81 mg TAB PO SCH (10:10)
[2022-08-07] MEDS: ENOXAPARIN SOD 40 MG/0.4 ML SYRINGE SC SCH (10:10)
[2022-08-07] MEDS: FAMOTIDINE 20 MG TAB PO SCH ×2 (10:11→21:33)
[2022-08-07] MEDS: LEVOTHYROXINE SODIUM 25 MCG TAB PO SCH (10:12)
[2022-08-07] MEDS: MIDODRINE HCL 10 MG TAB PO SCH ×2 (10:12→21:33)
[2022-08-07] MEDS: DULoxetine HCL 30 MG CAP PO SCH ×2 (10:12→21:32)
[2022-08-07] MEDS: BACLOFEN 10 MG TAB PO SCH ×2 (10:12→21:32)
[2022-08-07] MEDS: LORazepam 0.5 MG TAB PO SCH ×2 (10:12→21:32)
[2022-08-07 15:17] VITALS: BP 90/54
[2022-08-07 15:32] VITALS: BP 90/54
[2022-08-07 17:00] VITALS: BP 88/57
[2022-08-07 22:00] VITALS: BP 119/80
[2022-08-08] MEDS: SODIUM CHLORIDE 0.9% 1,000 ML IV SCH (01:07)
[2022-08-08] MEDS: ALBUTEROL SULF 2.5 MG/0.5ML(0.5%) NEB SOLN NEB PRN ×2 (01:26→23:10)
[2022-08-08] MEDS: IPRATROPIUM BROM 0.5 MG/2.5ML INH SOL NEB PRN ×2 (01:26→23:10)
[2022-08-08 05:00] VITALS: BP 108/69
[2022-08-08 05:27] LABS: Hematocrit 30.4 % (36.0-46.0); Hemoglobin 9.7 g/dL (12.2-16.2); Mean Corpuscular Hemoglobin 30.6 pg (28.0-32.0); Mean Corpuscular Hgb Conc. 31.9 g/dL (32.0-36.0); Mean Corpuscular Volume 95.9 fL (80.0-100.0); Red Blood Cells 3.17 10^6/uL (4.0-5.20); Red Cell Distribution Width 19.1 % (11.8-14.3); White Blood Cell 7.7 10^3/uL (4.4-10.8)
[2022-08-08 05:51] LABS: BUN/Creatinine Ratio 24.6 (10.0-20.0); Calcium 8.6 mg/dL (8.5-10.1); Potassium 3.6 mmol/L (3.5-5.1)
[2022-08-08] MEDS: GABAPENTIN 300 MG CAP PO SCH ×3 (05:52→21:29)
[2022-08-08 06:01] LABS: Basophils % (manual) 0 (0.0-2.0); Blast Cells 0; Metamyelocytes % 0; Myelocytes % 0; Promyelocytes % 0; Reactive Lymphocytes 0
[2022-08-08 07:51] LABS: Band Neutrophils % (manual) 1; Eosinophils % (manual) 4 (0-7); Lymphocytes % (manual) 17 (10.0-50.0); Monocytes % (manual) 11 (0-12)
[2022-08-08] MEDS: cefTRIAXone 1GM/50ML D5W 50 ML IV SCH (08:30)
[2022-08-08 08:31] VITALS: BP 118/78
[2022-08-08] MEDS: FAMOTIDINE 20 MG TAB PO SCH ×2 (10:07→21:29)
[2022-08-08] MEDS: DULoxetine HCL 30 MG CAP PO SCH ×2 (10:07→21:30)
[2022-08-08] MEDS: LORazepam 0.5 MG TAB PO SCH ×2 (10:07→21:30)
[2022-08-08] MEDS: BACLOFEN 10 MG TAB PO SCH ×2 (10:07→21:30)
[2022-08-08] MEDS: MIDODRINE HCL 10 MG TAB PO SCH ×2 (10:07→21:29)
[2022-08-08] MEDS: ASPirin 81 mg TAB PO SCH (10:07)
[2022-08-08] MEDS: LEVOTHYROXINE SODIUM 25 MCG TAB PO SCH (10:08)
[2022-08-08] MEDS: ENOXAPARIN SOD 40 MG/0.4 ML SYRINGE SC SCH (10:08)
[2022-08-08 12:41] VITALS: BP 113/78
[2022-08-08 16:31] VITALS: BP 105/70
[2022-08-08 22:00] VITALS: BP 121/85
[2022-08-09] MEDS: SODIUM CHLORIDE 0.9% 1,000 ML IV SCH ×2 (00:54→13:36)
[2022-08-09 05:00] VITALS: BP 116/86
[2022-08-09] MEDS: GABAPENTIN 300 MG CAP PO SCH ×3 (06:14→21:46)
[2022-08-09 07:31] VITALS: BP 116/86
[2022-08-09] MEDS: cefTRIAXone 1GM/50ML D5W 50 ML IV SCH (08:31)
[2022-08-09 09:00] VITALS: BP 133/90
[2022-08-09] MEDS: DULoxetine HCL 30 MG CAP PO SCH ×2 (10:00→21:46)
[2022-08-09] MEDS: ASPirin 81 mg TAB PO SCH (10:47)
[2022-08-09] MEDS: LORazepam 0.5 MG TAB PO SCH ×2 (10:47→21:46)
[2022-08-09] MEDS: FAMOTIDINE 20 MG TAB PO SCH ×2 (10:48→21:46)
[2022-08-09] MEDS: ENOXAPARIN SOD 40 MG/0.4 ML SYRINGE SC SCH (10:48)
[2022-08-09] MEDS: LEVOTHYROXINE SODIUM 25 MCG TAB PO SCH (10:48)
[2022-08-09] MEDS: BACLOFEN 10 MG TAB PO SCH ×2 (10:48→21:46)
[2022-08-09] MEDS: MIDODRINE HCL 10 MG TAB PO SCH ×2 (10:48→21:46)
[2022-08-09 13:00] VITALS: BP 133/86
[2022-08-09] MEDS: MORPHINE SULFATE INJ 2 MG/ml SYRG IV PRN ×2 (15:08→21:47)
[2022-08-09 17:00] VITALS: BP 128/74
[2022-08-09 22:00] VITALS: BP 105/69
[2022-08-10] MEDS: SODIUM CHLORIDE 0.9% 1,000 ML IV SCH ×2 (04:36→18:48)
[2022-08-10 05:00] VITALS: BP 121/75
[2022-08-10] MEDS: GABAPENTIN 300 MG CAP PO SCH ×3 (05:31→21:42)
[2022-08-10 08:00] VITALS: BP 111/75
[2022-08-10] MEDS: cefTRIAXone 1GM/50ML D5W 50 ML IV SCH (09:00)
[2022-08-10] MEDS: ENOXAPARIN SOD 40 MG/0.4 ML SYRINGE SC SCH (09:01)
[2022-08-10] MEDS: MIDODRINE HCL 10 MG TAB PO SCH ×2 (09:02→21:43)
[2022-08-10] MEDS: LORazepam 0.5 MG TAB PO SCH ×2 (09:02→21:41)
[2022-08-10] MEDS: FAMOTIDINE 20 MG TAB PO SCH ×2 (09:02→21:42)
[2022-08-10] MEDS: ASPirin 81 mg TAB PO SCH (09:02)
[2022-08-10] MEDS: LEVOTHYROXINE SODIUM 25 MCG TAB PO SCH (09:03)
[2022-08-10] MEDS: BACLOFEN 10 MG TAB PO SCH ×2 (09:03→21:42)
[2022-08-10 09:04] VITALS: BP 111/75
[2022-08-10] MEDS: DULoxetine HCL 30 MG CAP PO SCH ×2 (09:29→21:41)
[2022-08-10] MEDS ORDERED: ERTAPENEM SOD INJ 1 GM in SODIUM CHL 0.9% 50 ML IV ONE (09:45)
[2022-08-10 13:00] VITALS: BP 100/68
[2022-08-10 17:00] VITALS: BP 109/70
[2022-08-10 22:00] VITALS: BP 112/73
[2022-08-10] MEDS: MORPHINE SULFATE INJ 2 MG/ml SYRG IV PRN (22:49)
[2022-08-11 05:00] VITALS: BP 126/86
[2022-08-11] MEDS: GABAPENTIN 300 MG CAP PO SCH ×3 (05:26→22:02)
[2022-08-11] MEDS: MORPHINE SULFATE INJ 2 MG/ml SYRG IV PRN ×2 (05:27→20:46)
[2022-08-11 09:00] VITALS: BP 138/78
[2022-08-11] MEDS ORDERED: predniSONE 20 MG TAB PO ONE ×2 (09:30)
[2022-08-11] MEDS: predniSONE 20 MG TAB PO SCH (10:00)
[2022-08-11] MEDS ORDERED: predniSONE 20 MG TAB PO SCH (10:00)
[2022-08-11] MEDS ORDERED: levoFLOXacin 250 MG TAB PO ONE (10:15)
[2022-08-11] MEDS: ASPirin 81 mg TAB PO SCH (10:53)
[2022-08-11] MEDS: ERTAPENEM SOD INJ 1 GM in SODIUM CHL 0.9% 50 ML IV SCH (10:53)
[2022-08-11] MEDS: DULoxetine HCL 30 MG CAP PO SCH ×2 (10:54→22:02)
[2022-08-11] MEDS: LORazepam 0.5 MG TAB PO SCH ×2 (10:54→22:02)
[2022-08-11] MEDS: FAMOTIDINE 20 MG TAB PO SCH ×2 (10:54→22:02)
[2022-08-11] MEDS: MIDODRINE HCL 10 MG TAB PO SCH ×2 (10:54→22:05)
[2022-08-11] MEDS: BACLOFEN 10 MG TAB PO SCH ×2 (10:54→22:02)
[2022-08-11] MEDS: LEVOTHYROXINE SODIUM 25 MCG TAB PO SCH (10:55)
[2022-08-11] MEDS: ENOXAPARIN SOD 40 MG/0.4 ML SYRINGE SC SCH (10:55)
[2022-08-11] MEDS: SODIUM CHLORIDE 0.9% 1,000 ML IV SCH ×2 (11:24→21:59)
[2022-08-11 13:00] VITALS: BP 125/82
[2022-08-11] MEDS: ALBUTEROL SULF 2.5 MG/0.5ML(0.5%) NEB SOLN NEB PRN (14:25)
[2022-08-11] MEDS: IPRATROPIUM BROM 0.5 MG/2.5ML INH SOL NEB PRN (14:25)
[2022-08-11 17:00] VITALS: BP 113/78
[2022-08-11 22:00] VITALS: BP 110/83
[2022-08-12 05:00] VITALS: BP 114/74
[2022-08-12] MEDS: GABAPENTIN 300 MG CAP PO SCH ×3 (05:28→21:27)
[2022-08-12] MEDS: MORPHINE SULFATE INJ 2 MG/ml SYRG IV PRN ×2 (05:29→13:02)
[2022-08-12] MEDS ORDERED: diphenhdrAMINE HCL 25 MG CAP PO ONE (05:30)
[2022-08-12 09:00] VITALS: BP 118/84
[2022-08-12 09:30] VITALS: BP 122/78
[2022-08-12] MEDS ORDERED: IOHEXOL 350 MG/ML 100ML IJ ONE (09:52)
[2022-08-12] MEDS ORDERED: levoFLOXacin 250 MG TAB PO SCH (10:00)
[2022-08-12] MEDS: ASPirin 81 mg TAB PO SCH (11:23)
[2022-08-12] MEDS: ERTAPENEM SOD INJ 1 GM in SODIUM CHL 0.9% 50 ML IV SCH (11:23)
[2022-08-12] MEDS: LORazepam 0.5 MG TAB PO SCH ×2 (11:23→21:27)
[2022-08-12] MEDS: predniSONE 20 MG TAB PO SCH (11:23)
[2022-08-12] MEDS: DULoxetine HCL 30 MG CAP PO SCH ×2 (11:23→21:27)
[2022-08-12] MEDS: MIDODRINE HCL 10 MG TAB PO SCH ×2 (11:24→21:27)
[2022-08-12] MEDS: LEVOTHYROXINE SODIUM 25 MCG TAB PO SCH (11:24)
[2022-08-12] MEDS: FAMOTIDINE 20 MG TAB PO SCH ×2 (11:24→21:27)
[2022-08-12] MEDS: BACLOFEN 10 MG TAB PO SCH ×2 (11:24→21:27)
[2022-08-12] MEDS: ENOXAPARIN SOD 40 MG/0.4 ML SYRINGE SC SCH (12:28)
[2022-08-12 13:00] VITALS: BP 96/70
[2022-08-12] MEDS: SODIUM CHLORIDE 0.9% 1,000 ML IV SCH (14:02)
[2022-08-12 17:00] VITALS: BP 101/79
[2022-08-12 22:00] VITALS: BP 109/84
[2022-08-13 05:00] VITALS: BP 119/73
[2022-08-13] MEDS: SODIUM CHLORIDE 0.9% 1,000 ML IV SCH (05:21)
[2022-08-13] MEDS: GABAPENTIN 300 MG CAP PO SCH ×3 (05:27→22:31)
[2022-08-13 09:00] VITALS: BP 116/83
[2022-08-13] MEDS ORDERED: PIPERACILLIN-TAZOB 3.375GM 100 ML IV ONE (11:00)
[2022-08-13] MEDS: BACLOFEN 10 MG TAB PO SCH ×2 (11:21→22:31)
[2022-08-13] MEDS: predniSONE 20 MG TAB PO SCH (11:21)
[2022-08-13] MEDS: LORazepam 0.5 MG TAB PO SCH ×2 (11:21→22:30)
[2022-08-13] MEDS: ERTAPENEM SOD INJ 1 GM in SODIUM CHL 0.9% 50 ML IV SCH (11:21)
[2022-08-13] MEDS: ASPirin 81 mg TAB PO SCH (11:21)
[2022-08-13] MEDS: DULoxetine HCL 30 MG CAP PO SCH ×2 (11:21→22:30)
[2022-08-13] MEDS: ENOXAPARIN SOD 40 MG/0.4 ML SYRINGE SC SCH (11:22)
[2022-08-13] MEDS: FAMOTIDINE 20 MG TAB PO SCH ×2 (11:22→22:31)
[2022-08-13] MEDS: LEVOTHYROXINE SODIUM 25 MCG TAB PO SCH (11:22)
[2022-08-13] MEDS: MIDODRINE HCL 10 MG TAB PO SCH ×2 (11:22→22:32)
[2022-08-13 13:00] VITALS: BP 131/80
[2022-08-13 17:00] VITALS: BP 114/76
[2022-08-13] MEDS ORDERED: PIPERACILLIN-TAZOB 3.375GM 100 ML IV SCH (19:00)
[2022-08-13 22:00] VITALS: BP 114/74
[2022-08-13] MEDS: MEROPENEM 1GM IVPB 100 ML IV SCH (22:29)
[2022-08-14 05:00] VITALS: BP 100/73
[2022-08-14] MEDS: GABAPENTIN 300 MG CAP PO SCH ×2 (06:11→13:54)
[2022-08-14] MEDS: MEROPENEM 1GM IVPB 100 ML IV SCH ×2 (06:12→14:11)
[2022-08-14 07:49] LABS: Mean Corpuscular Hemoglobin 26.6 pg (28.0-32.0)
[2022-08-14 07:50] LABS: Hematocrit 30.5 % (36.0-46.0); Hemoglobin 9.6 g/dL (12.2-16.2); Mean Corpuscular Hgb Conc. 31.4 g/dL (32.0-36.0); Mean Corpuscular Volume 84.7 fL (80.0-100.0); Red Cell Distribution Width 18.9 % (11.8-14.3); White Blood Cell 7.7 10^3/uL (4.4-10.8)
[2022-08-14 07:53] LABS: Basophils % (manual) 0 (0.0-2.0); Blast Cells 0; Eosinophils % (manual) 0 (0-7); Metamyelocytes % 0; Monocytes % (manual) 0 (0-12); Myelocytes % 0; Promyelocytes % 0; Reactive Lymphocytes 0
[2022-08-14 08:19] LABS: Calcium 8.7 mg/dL (8.5-10.1)
[2022-08-14 08:23] LABS: BUN/Creatinine Ratio 26.3 (10.0-20.0)
[2022-08-14 08:28] LABS: Band Neutrophils % (manual) 1; Lymphocytes % (manual) 21 (10.0-50.0)
[2022-08-14 09:00] VITALS: BP 109/65
[2022-08-14] MEDS: ASPirin 81 mg TAB PO SCH (09:45)
[2022-08-14] MEDS: LORazepam 0.5 MG TAB PO SCH (09:45)
[2022-08-14] MEDS: LEVOTHYROXINE SODIUM 25 MCG TAB PO SCH (09:45)
[2022-08-14] MEDS: FAMOTIDINE 20 MG TAB PO SCH (09:46)
[2022-08-14] MEDS: BACLOFEN 10 MG TAB PO SCH (09:46)
[2022-08-14] MEDS: MIDODRINE HCL 10 MG TAB PO SCH (09:47)
[2022-08-14] MEDS: predniSONE 20 MG TAB PO SCH (09:47)
[2022-08-14] MEDS: DULoxetine HCL 30 MG CAP PO SCH (09:47)
[2022-08-14] MEDS: ENOXAPARIN SOD 40 MG/0.4 ML SYRINGE SC SCH (09:48)
[2022-08-14 13:44] VITALS: BP 113/67
== END 2022-08-14 15:58 | disposition home health service (06) | DRG 871 ==
LOC: EDBD 10:19 → ER 10:19 → EDUNIT# 10:19 → TELE 14:32 → TELE-EAST 08-07 15:04
PROVIDERS: ADMIT Nurse Practitioner Family; ATTEND Internal Medicine Pulmonary Disease
PROC: 05HB33Z Insertion of Infusion Device into Right Basilic Vein, Percutaneous Approach (ICD-10-PCS; principal; 2022-08-06)
PROC: B54MZZA Ultrasonography of Right Upper Extremity Veins, Guidance (ICD-10-PCS; 2022-08-06)
DX: A41.9 Sepsis, unspecified organism (principal); E43 Unspecified severe protein-calorie malnutrition; J69.0 Pneumonitis due to inhalation of food and vomit; J96.01 Acute respiratory failure with hypoxia; E87.1 Hypo-osmolality and hyponatremia; N39.0 Urinary tract infection, site not specified; J45.901 Unspecified asthma with (acute) exacerbation; K57.92 Diverticulitis of intestine, part unspecified, without perforation or abscess without bleeding; Z16.12 Extended spectrum beta lactamase (ESBL) resistance; K57.32 Diverticulitis of large intestine without perforation or abscess without bleeding; I69.354 Hemiplegia and hemiparesis following cerebral infarction affecting left non-dominant side; E86.0 Dehydration; I50.9 Heart failure, unspecified; J44.9 Chronic obstructive pulmonary disease, unspecified; Z93.0 Tracheostomy status; Z77.22 Contact with and (suspected) exposure to environmental tobacco smoke (acute) (chronic); F32.A Depression, unspecified; K21.9 Gastro-esophageal reflux disease without esophagitis; R56.9 Unspecified convulsions; R74.01 Elevation of levels of liver transaminase levels; Z68.33 Body mass index [BMI] 33.0-33.9, adult; Z83.3 Family history of diabetes mellitus; Z90.710 Acquired absence of both cervix and uterus; Z93.1 Gastrostomy status; Z93.3 Colostomy status; Z90.49 Acquired absence of other specified parts of digestive tract; Z88.2 Allergy status to sulfonamides; Z98.51 Tubal ligation status
CPT/HCPCS: 36415; 36600; 71045; 71260; 74177; 80048; 80053; 81001; 82805; 83605; 83735; 85007; 85025; 85027; 87040; 87081; 87086; 87088; 87186; 93005; 94640; 96361; 96365; 97110; 97163; 97530; G0378; J0696; J1335; J2185; J2543

== ENCOUNTER 2022-09-29 20:44 | Inpatient (IN) | payer BC, MEDICARE, OTHER ==
[~2022-09-29] VITALS: Ht 175.3 cm; Wt 88.9 kg
[~2022-09-29 20:44] MED LIST changes: -DOXY-332 PO; +DOXY-448 PO; -FURO1TAB33 PO; +LEVO750T40 PO; -LEVO750T64 PO; +LORA-1121 GT; -LORA0.5T20 GT; -METO25TA93 PO; -SACU1TAB PO
[2022-09-29 22:30] LABS: Basophils # (auto) 0.1 10 ^3/uL (0-0.2); Basophils % (auto) 0.8 % (0.0-2.0); Eosinophils # (auto) 0.3 10 ^3/uL (0-0.8); Eosinophils % (auto) 4.5 % (0.0-7.0); Hematocrit 32.7 % (36.0-46.0); Hemoglobin 10.1 g/dL (12.2-16.2); Lymphocytes # (auto) 2.1 10 ^3/uL (0.4-5.4); Lymphocytes % (auto) 31.2 % (10.0-50.0); Mean Corpuscular Hemoglobin 24.9 pg (28.0-32.0); Mean Corpuscular Hgb Conc. 30.9 g/dL (32.0-36.0); Mean Corpuscular Volume 80.5 fL (80.0-100.0); Monocytes # (auto) 0.5 10 ^3/uL (0-1.3); Monocytes % (auto) 7.5 % (0.0-12.0); Neutrophils # (auto) 3.7 10 ^3/uL (1.6-8.6); Nucleated Red Blood Cells % 0.2 %; Red Blood Cells 4.06 10^6/uL (4.0-5.20); Red Cell Distribution Width 20.2 % (11.8-14.3); White Blood Cell 6.7 10^3/uL (4.4-10.8)
[2022-09-29 22:47] LABS: Albumin 2.8 g/dL (3.4-5.0); BUN/Creatinine Ratio 20.7 (10.0-20.0); Calcium 8.1 mg/dL (8.5-10.1); Magnesium 2.6 mg/dL (1.6-2.6); Potassium 4.1 mmol/L (3.5-5.1)
[2022-09-29 22:50] LABS: Bilirubin, Total 0.8 mg/dL (0.2-1.0); Total Protein 7.8 g/dL (6.4-8.2)
[2022-09-29 22:54] LABS: INR 1.4 (0.9-1.15); Partial Thromboplastin Time 36.3 sec (24.6-33.4)
[2022-09-29 23:53] LABS: Lactic Acid w/Reflex 2.2 mmol/L (0.4-2.0)
[2022-09-30] MEDS ORDERED: cefTRIAXone 1GM/50ML D5W 50 ML IV ONE (01:00)
[2022-09-30] MEDS ORDERED: levETIRAcetam 500 MG/5ML INJ IV ONE (01:27)
[2022-09-30 01:33] LABS: Urine Amorphous Crystal FEW /hpf (None Seen); Urine Bacteria MOD /hpf (None Seen); Urine Blood 2+ /uL (Negative); Urine Hyaline Cast FEW /lpf (0 - 2); Urine Specific Gravity 1.015 (1.001-1.035); Urine WBC 52 /hpf (0 - 5); Urine WBC Clumps PRESENT /hpf (None Seen)
[2022-09-30 02:03] LABS: Alcohol, Urine < 3.0 mg/dL (0-10); Amphetamine Screen, Urine NEGATIVE (NEGATIVE); Barbiturate Scree,Urine NEGATIVE (NEGATIVE); Benzodiazephine Screen, Urine NEGATIVE (NEGATIVE); Cocaine Screen, Urine NEGATIVE (NEGATIVE); Opiate Scree,Urine NEGATIVE (NEGATIVE); Phencyclidine Screen, Urine NEGATIVE (NEGATIVE)
[2022-09-30 02:11] LABS: Cannabinoid Screen, Urine POSITIVE (NEGATIVE)
[2022-09-30] MEDS ORDERED: LACTATED RINGER'S 2,000 ML IV ONE (05:45)
[2022-09-30] MEDS ORDERED: ENOXAPARIN SOD 60 MG/0.6 ML SYRINGE SC ONE (06:00)
[2022-09-30] MEDS ORDERED: DOCUSATE SOD 100 MG CAP PO PRN (09:30)
[2022-09-30] MEDS ORDERED: ALBUTEROL SULF 2.5 MG/0.5ML(0.5%) NEB SOLN NEB PRN (09:30)
[2022-09-30] MEDS ORDERED: ENOXAPARIN SOD 40 MG/0.4 ML SYRINGE SC SCH (09:30)
[2022-09-30] MEDS ORDERED: LORazepam 2MG/ML-1ML VIAL IV PRN (09:30)
[2022-09-30] MEDS ORDERED: IPRATROPIUM BROM 0.5 MG/2.5ML INH SOL NEB PRN (09:30)
[2022-09-30] MEDS ORDERED: ONDANSETRON HCL 4 MG/2 ML VIAL IV PRN (09:30)
[2022-09-30 09:32] VITALS: BP 97/64
[2022-09-30 10:54] LABS: Creatinine, Urine 88 mg/dL (30.0-125.0); Sodium Urine 11 mmol/L (40-220)
[2022-09-30] MEDS ORDERED: BACLOFEN 10 MG TAB PO PRN (11:06)
[2022-09-30] MEDS: DULoxetine HCL 30 MG CAP PO SCH ×2 (11:24→23:49)
[2022-09-30] MEDS: levoFLOXacin 750MG 150 ML IV SCH (11:24)
[2022-09-30] MEDS: SODIUM CHLORIDE 0.9% 1,000 ML IV SCH (11:24)
[2022-09-30] MEDS ORDERED: TOPIRAMATE 25 MG TAB PO SCH (11:24)
[2022-09-30] MEDS: ASPirin 81 mg TAB PO SCH (11:24)
[2022-09-30] MEDS: ENOXAPARIN SOD 40 MG/0.4 ML SYRINGE SC SCH (11:25)
[2022-09-30] MEDS: MIDODRINE HCL 10 MG TAB PO SCH ×2 (11:25→18:00)
[2022-09-30] MEDS: ZINC SULFATE 220mg CAP or TAB PO SCH (11:25)
[2022-09-30] MEDS: LEVOTHYROXINE SODIUM 25 MCG TAB PO SCH (11:25)
[2022-09-30] MEDS: predniSONE 20 MG TAB PO SCH ×2 (11:29→23:50)
[2022-09-30] MEDS: MORPHINE SULFATE INJ 2 MG/ml SYRG IV PRN ×2 (11:47→16:34)
[2022-09-30] MEDS: GABAPENTIN 300 MG CAP PO SCH ×2 (14:00→23:50)
[2022-09-30] MEDS: NORTRIPTYLINE HCL 25 MG CAP PO SCH (23:50)
[2022-10-01] MEDS: SODIUM CHLORIDE 0.9% 1,000 ML IV SCH ×2 (02:10→18:50)
[2022-10-01 05:00] VITALS: BP 118/68
[2022-10-01] MEDS: GABAPENTIN 300 MG CAP PO SCH ×4 (06:00→21:27)
[2022-10-01] MEDS: MIDODRINE HCL 10 MG TAB PO SCH ×3 (06:00→18:00)
[2022-10-01 06:02] LABS: Basophils # (auto) 0 10 ^3/uL (0-0.2); Basophils % (auto) 0.2 % (0.0-2.0); Eosinophils # (auto) 0 10 ^3/uL (0-0.8); Hematocrit 31.8 % (36.0-46.0); Hemoglobin 9.8 g/dL (12.2-16.2); Lymphocytes # (auto) 0.9 10 ^3/uL (0.4-5.4); Lymphocytes % (auto) 11.3 % (10.0-50.0); Mean Corpuscular Hemoglobin 25.7 pg (28.0-32.0); Mean Corpuscular Hgb Conc. 30.8 g/dL (32.0-36.0); Monocytes # (auto) 0.6 10 ^3/uL (0-1.3); Red Blood Cells 3.81 10^6/uL (4.0-5.20)
[2022-10-01 06:06] LABS: Mean Corpuscular Volume 83.3 fL (80.0-100.0); Monocytes % (auto) 7.6 % (0.0-12.0); Neutrophils # (auto) 6.5 10 ^3/uL (1.6-8.6); Neutrophils % (auto) 80.9 % (37.0-80.0); Nucleated Red Blood Cells % 0.7 %; Red Cell Distribution Width 19.9 % (11.8-14.3); White Blood Cell 8.1 10^3/uL (4.4-10.8)
[2022-10-01 06:19] LABS: Albumin 2.7 g/dL (3.4-5.0); Calcium 8.7 mg/dL (8.5-10.1); Potassium 4.7 mmol/L (3.5-5.1)
[2022-10-01 06:21] LABS: BUN/Creatinine Ratio 19.6 (10.0-20.0)
[2022-10-01 06:24] LABS: Bilirubin, Total 1.1 mg/dL (0.2-1.0); Total Protein 8.2 g/dL (6.4-8.2)
[2022-10-01] MEDS: LEVOTHYROXINE SODIUM 25 MCG TAB PO SCH ×2 (07:00→08:15)
[2022-10-01 08:00] VITALS: BP 93/72
[2022-10-01] MEDS: levoFLOXacin 750MG 150 ML IV SCH (09:25)
[2022-10-01] MEDS: DULoxetine HCL 30 MG CAP PO SCH ×2 (09:27→21:29)
[2022-10-01] MEDS: ASPirin 81 mg TAB PO SCH (09:28)
[2022-10-01] MEDS: ENOXAPARIN SOD 40 MG/0.4 ML SYRINGE SC SCH (09:28)
[2022-10-01] MEDS: predniSONE 20 MG TAB PO SCH ×2 (09:28→21:29)
[2022-10-01] MEDS: ZINC SULFATE 220mg CAP or TAB PO SCH (09:28)
[2022-10-01] MEDS: MORPHINE SULFATE INJ 2 MG/ml SYRG IV PRN ×3 (10:52→18:46)
[2022-10-01 12:00] VITALS: BP 95/62
[2022-10-01 16:00] VITALS: BP 104/67
[2022-10-01] MEDS: NORTRIPTYLINE HCL 25 MG CAP PO SCH (18:45)
[2022-10-01 20:00] VITALS: BP 113/76
[2022-10-01 22:00] VITALS: BP 113/76
[2022-10-02 05:00] VITALS: BP 103/70
[2022-10-02] MEDS: MORPHINE SULFATE INJ 2 MG/ml SYRG IV PRN (05:45)
[2022-10-02] MEDS: MIDODRINE HCL 10 MG TAB PO SCH ×2 (06:16→17:37)
[2022-10-02] MEDS: GABAPENTIN 300 MG CAP PO SCH ×3 (06:16→22:26)
[2022-10-02 07:28] LABS: Anion Gap 13 (5-15); Blood Urea Nitrogen 41 mg/dL (7-18); Calcium 8.5 mg/dL (8.5-10.1); Carbon Dioxide 17 mmol/L (21-32); Chloride 106 mmol/L (98-107); Glucose 78 mg/dL (74-106); Sodium 136 mmol/L (136-145)
[2022-10-02 07:30] LABS: GFR African American 33 mL/min; GFR Non-African American 27 mL/min
[2022-10-02 08:00] VITALS: BP 109/66
[2022-10-02 08:02] LABS: Potassium 6.6 mmol/L (3.5-5.1)
[2022-10-02 08:10] LABS: Basophils # (auto) 0 10 ^3/uL (0-0.2); Basophils % (auto) 0.1 % (0.0-2.0); Eosinophils # (auto) 0 10 ^3/uL (0-0.8); Hematocrit 32.5 % (36.0-46.0); Hemoglobin 9.8 g/dL (12.2-16.2); Lymphocytes # (auto) 0.6 10 ^3/uL (0.4-5.4); Lymphocytes % (auto) 2.8 % (10.0-50.0); Mean Corpuscular Hgb Conc. 30.1 g/dL (32.0-36.0); Monocytes # (auto) 3.3 10 ^3/uL (0-1.3); Monocytes % (auto) 14.2 % (0.0-12.0); Neutrophils # (auto) 19.2 10 ^3/uL (1.6-8.6); Neutrophils % (auto) 82.9 % (37.0-80.0); Nucleated Red Blood Cells % 0.7 %; Red Blood Cells 3.91 10^6/uL (4.0-5.20); Red Cell Distribution Width 19.6 % (11.8-14.3); White Blood Cell 23.1 10^3/uL (4.4-10.8)
[2022-10-02] MEDS ORDERED: DEXTROSE (50%) 50ML SYRG IV ONE (08:45)
[2022-10-02] MEDS ORDERED: ALBUTEROL SULF 2.5 MG/0.5ML(0.5%) NEB SOLN NEB ONE (08:45)
[2022-10-02] MEDS ORDERED: SODIUM ZIRCONIUM CYCL 10 GM PAK PO ONE (08:45)
[2022-10-02] MEDS ORDERED: CALCIUM GLUC 1,000mg/50ml-NS 50 ML IV ONE (08:45)
[2022-10-02] MEDS ORDERED: SODIUM BICARBONATE 8.4% INJ 50ML SYRINGE IV ONE (08:45)
[2022-10-02] MEDS ORDERED: InsuLIN REG 1unit/0.01ml Soln (100units/ml) IV ONE (08:45)
[2022-10-02] MEDS ORDERED: cefTRIAXone 1GM/50ML D5W 50 ML IV SCH (09:00)
[2022-10-02] MEDS ORDERED: DEXTROSE 10% 250 ML Bag IV PRN (09:30)
[2022-10-02] MEDS: ASPirin 81 mg TAB PO SCH (09:59)
[2022-10-02] MEDS: DULoxetine HCL 30 MG CAP PO SCH ×2 (09:59→22:25)
[2022-10-02] MEDS: predniSONE 20 MG TAB PO SCH ×2 (10:00→22:24)
[2022-10-02] MEDS: ENOXAPARIN SOD 40 MG/0.4 ML SYRINGE SC SCH (10:00)
[2022-10-02] MEDS: ZINC SULFATE 220mg CAP or TAB PO SCH (10:00)
[2022-10-02] MEDS: SODIUM CHLORIDE 0.9% 1,000 ML IV SCH (11:48)
[2022-10-02 12:00] VITALS: BP 112/67
[2022-10-02] MEDS: SODIUM ZIRCONIUM CYCL 10 GM PAK PO SCH ×2 (14:32→20:23)
[2022-10-02 16:00] VITALS: BP 107/53
[2022-10-02] MEDS: NORTRIPTYLINE HCL 25 MG CAP PO SCH (17:38)
[2022-10-02 18:56] LABS: Potassium 4.3 mmol/L (3.5-5.1)
[2022-10-02 20:00] VITALS: BP 95/73
[2022-10-02 23:29] VITALS: BP 61/44
[2022-10-03] VITALS (8 sets, daily range): BP systolic 84–113; BP diastolic 50–80
[2022-10-03] MEDS: SODIUM CHLORIDE 0.9% 1,000 ML IV SCH ×3 (04:40→07:08)
[2022-10-03] MEDS: SODIUM ZIRCONIUM CYCL 10 GM PAK PO SCH (04:40)
[2022-10-03 06:35] LABS: Chloride 109 mmol/L (98-107); Potassium 4.4 mmol/L (3.5-5.1); Sodium 134 mmol/L (136-145)
[2022-10-03 06:47] LABS: BUN/Creatinine Ratio 25.9 (10.0-20.0); Blood Urea Nitrogen 35 mg/dL (7-18); Calcium 7.1 mg/dL (8.5-10.1); Carbon Dioxide 15 mmol/L (21-32); GFR African American 53 mL/min; GFR Non-African American 44 mL/min; Glucose 90 mg/dL (74-106); Phosphorus 3.3 mg/dL (2.5-4.90); Uric Acid 12.5 mg/dL (2.6-6.0)
[2022-10-03] MEDS: MIDODRINE HCL 10 MG TAB PO SCH ×2 (07:03→17:35)
[2022-10-03] MEDS: LEVOTHYROXINE SODIUM 25 MCG TAB PO SCH (07:03)
[2022-10-03] MEDS: GABAPENTIN 300 MG CAP PO SCH ×3 (07:03→21:49)
[2022-10-03 07:37] LABS: Anion Gap 10 (5-15)
[2022-10-03 08:08] LABS: Basophils # (auto) 0 10 ^3/uL (0-0.2); Basophils % (auto) 0.3 % (0.0-2.0); Eosinophils # (auto) 0 10 ^3/uL (0-0.8); Hematocrit 32.6 % (36.0-46.0); Lymphocytes # (auto) 0.7 10 ^3/uL (0.4-5.4); Mean Corpuscular Volume 84.4 fL (80.0-100.0); Monocytes # (auto) 0.6 10 ^3/uL (0-1.3); Monocytes % (auto) 5.9 % (0.0-12.0); Neutrophils # (auto) 8.7 10 ^3/uL (1.6-8.6)
[2022-10-03 08:11] LABS: Eosinophils % (auto) 0.1 % (0.0-7.0); Hemoglobin 9.8 g/dL (12.2-16.2); Mean Corpuscular Hemoglobin 25.4 pg (28.0-32.0); Mean Corpuscular Hgb Conc. 30.1 g/dL (32.0-36.0); Neutrophils % (auto) 86.7 % (37.0-80.0); Nucleated Red Blood Cells % 0.8 %; Red Blood Cells 3.86 10^6/uL (4.0-5.20)
[2022-10-03] MEDS: ZINC SULFATE 220mg CAP or TAB PO SCH (09:55)
[2022-10-03] MEDS: DULoxetine HCL 30 MG CAP PO SCH ×2 (09:55→21:49)
[2022-10-03] MEDS: ASPirin 81 mg TAB PO SCH (09:55)
[2022-10-03] MEDS: ENOXAPARIN SOD 40 MG/0.4 ML SYRINGE SC SCH (09:56)
[2022-10-03] MEDS: predniSONE 20 MG TAB PO SCH ×2 (09:56→21:48)
[2022-10-03] MEDS ORDERED: MEROPENEM 1GM IVPB 100 ML IV SCH (10:00)
[2022-10-03] MEDS: HYDROcodone-ACET 5/325MG TAB PO PRN (16:09)
[2022-10-03] MEDS: MEROPENEM 1GM IVPB 100 ML IV SCH (16:09)
[2022-10-03] MEDS: NORTRIPTYLINE HCL 25 MG CAP PO SCH (17:35)
[2022-10-03] MEDS: MORPHINE SULFATE INJ 2 MG/ml SYRG IV PRN (22:11)
[2022-10-04] MEDS: MEROPENEM 1GM IVPB 100 ML IV SCH ×2 (03:27→15:40)
[2022-10-04 05:00] VITALS: BP 108/75
[2022-10-04] MEDS: GABAPENTIN 300 MG CAP PO SCH ×3 (05:31→22:16)
[2022-10-04] MEDS: MIDODRINE HCL 10 MG TAB PO SCH ×2 (05:31→17:34)
[2022-10-04] MEDS: MORPHINE SULFATE INJ 2 MG/ml SYRG IV PRN (05:45)
[2022-10-04] MEDS: LEVOTHYROXINE SODIUM 25 MCG TAB PO SCH (05:46)
[2022-10-04 06:53] LABS: Albumin 2.1 g/dL (3.4-5.0); Calcium 7.8 mg/dL (8.5-10.1); Potassium 4.4 mmol/L (3.5-5.1)
[2022-10-04 06:58] LABS: Total Protein 7.6 g/dL (6.4-8.2)
[2022-10-04 07:35] LABS: Basophils # (auto) 0 10 ^3/uL (0-0.2); Basophils % (auto) 0.2 % (0.0-2.0); Eosinophils # (auto) 0 10 ^3/uL (0-0.8); Hemoglobin 10.8 g/dL (12.2-16.2); Lymphocytes # (auto) 0.5 10 ^3/uL (0.4-5.4); Mean Corpuscular Hemoglobin 25.1 pg (28.0-32.0); Mean Corpuscular Hgb Conc. 29.5 g/dL (32.0-36.0); Mean Corpuscular Volume 85.1 fL (80.0-100.0); Monocytes # (auto) 0.5 10 ^3/uL (0-1.3); Monocytes % (auto) 6.7 % (0.0-12.0); Neutrophils # (auto) 5.8 10 ^3/uL (1.6-8.6); Neutrophils % (auto) 86.1 % (37.0-80.0); Nucleated Red Blood Cells % 1.7 %; Red Blood Cells 4.29 10^6/uL (4.0-5.20); White Blood Cell 6.8 10^3/uL (4.4-10.8)
[2022-10-04 07:38] LABS: BUN/Creatinine Ratio 30.1 (10.0-20.0)
[2022-10-04 07:42] LABS: Red Cell Distribution Width 20.3 % (11.8-14.3)
[2022-10-04 07:43] LABS: Hematocrit 35.4 % (36.0-46.0)
[2022-10-04 08:00] VITALS: BP 115/81
[2022-10-04] MEDS: HYDROcodone-ACET 5/325MG TAB PO PRN ×2 (08:01→12:50)
[2022-10-04 09:00] VITALS: BP 115/81
[2022-10-04] MEDS: ZINC SULFATE 220mg CAP or TAB PO SCH (10:16)
[2022-10-04] MEDS: ENOXAPARIN SOD 40 MG/0.4 ML SYRINGE SC SCH (10:16)
[2022-10-04] MEDS: DULoxetine HCL 30 MG CAP PO SCH ×2 (10:16→22:16)
[2022-10-04] MEDS: ASPirin 81 mg TAB PO SCH (10:16)
[2022-10-04] MEDS: predniSONE 20 MG TAB PO SCH ×2 (10:16→22:16)
[2022-10-04] MEDS: SODIUM CHLORIDE 0.9% 1,000 ML IV SCH (13:30)
[2022-10-04 16:54] VITALS: BP 103/75
[2022-10-04] MEDS: NORTRIPTYLINE HCL 25 MG CAP PO SCH (17:34)
[2022-10-04] MEDS ORDERED: LORazepam 2MG/ML-1ML VIAL IV PRN (21:45)
[2022-10-04 22:00] VITALS: BP 108/76
[2022-10-05] MEDS: MEROPENEM 1GM IVPB 100 ML IV SCH ×3 (04:15→23:56)
[2022-10-05 05:00] VITALS: BP 105/85
[2022-10-05] MEDS: SODIUM CHLORIDE 0.9% 1,000 ML IV SCH ×2 (05:56→22:50)
[2022-10-05] MEDS: MIDODRINE HCL 10 MG TAB PO SCH ×2 (05:56→18:27)
[2022-10-05] MEDS: GABAPENTIN 300 MG CAP PO SCH ×3 (05:56→21:45)
[2022-10-05 06:02] LABS: Basophils # (auto) 0 10 ^3/uL (0-0.2); Basophils % (auto) 0.1 % (0.0-2.0); Eosinophils # (auto) 0 10 ^3/uL (0-0.8); Hematocrit 31.5 % (36.0-46.0); Lymphocytes # (auto) 0.5 10 ^3/uL (0.4-5.4); Lymphocytes % (auto) 8.4 % (10.0-50.0); Mean Corpuscular Hemoglobin 25.2 pg (28.0-32.0); Mean Corpuscular Hgb Conc. 31.8 g/dL (32.0-36.0); Monocytes # (auto) 0.4 10 ^3/uL (0-1.3); Monocytes % (auto) 6.2 % (0.0-12.0); Neutrophils # (auto) 4.9 10 ^3/uL (1.6-8.6); Neutrophils % (auto) 85.3 % (37.0-80.0); Nucleated Red Blood Cells % 2.2 %; Red Blood Cells 3.99 10^6/uL (4.0-5.20); Red Cell Distribution Width 19.8 % (11.8-14.3); White Blood Cell 5.7 10^3/uL (4.4-10.8)
[2022-10-05] MEDS: LEVOTHYROXINE SODIUM 25 MCG TAB PO SCH (06:16)
[2022-10-05 06:30] LABS: Albumin 2.5 g/dL (3.4-5.0); BUN/Creatinine Ratio 31.9 (10.0-20.0); Calcium 7.9 mg/dL (8.5-10.1)
[2022-10-05 06:33] LABS: Total Protein 7.3 g/dL (6.4-8.2)
[2022-10-05 09:00] VITALS: BP 112/82
[2022-10-05] MEDS: ENOXAPARIN SOD 40 MG/0.4 ML SYRINGE SC SCH (10:07)
[2022-10-05] MEDS: DULoxetine HCL 30 MG CAP PO SCH ×2 (10:08→21:46)
[2022-10-05] MEDS: ASPirin 81 mg TAB PO SCH (10:08)
[2022-10-05] MEDS: predniSONE 20 MG TAB PO SCH ×2 (10:08→21:46)
[2022-10-05] MEDS: ZINC SULFATE 220mg CAP or TAB PO SCH (10:08)
[2022-10-05 13:00] VITALS: BP 109/62
[2022-10-05] MEDS: NORTRIPTYLINE HCL 25 MG CAP PO SCH (18:27)
[2022-10-05] MEDS: HYDROcodone-ACET 5/325MG TAB PO PRN ×2 (18:38→23:56)
[2022-10-05 20:00] VITALS: BP 114/79
[2022-10-06] VITALS (8 sets, daily range): BP systolic 108–119; BP diastolic 76–85
[2022-10-06] MEDS: MIDODRINE HCL 10 MG TAB PO SCH ×2 (06:46→17:55)
[2022-10-06] MEDS: LEVOTHYROXINE SODIUM 25 MCG TAB PO SCH (06:46)
[2022-10-06] MEDS: GABAPENTIN 300 MG CAP PO SCH ×3 (06:46→23:32)
[2022-10-06] MEDS: MEROPENEM 1GM IVPB 100 ML IV SCH ×2 (10:53→23:31)
[2022-10-06] MEDS: SODIUM CHLORIDE 0.9% 1,000 ML IV SCH (10:53)
[2022-10-06] MEDS: ENOXAPARIN SOD 40 MG/0.4 ML SYRINGE SC SCH (10:54)
[2022-10-06] MEDS: HYDROcodone-ACET 5/325MG TAB PO PRN ×2 (10:55→23:32)
[2022-10-06] MEDS: ASPirin 81 mg TAB PO SCH (10:55)
[2022-10-06] MEDS: predniSONE 20 MG TAB PO SCH ×2 (10:55→23:31)
[2022-10-06] MEDS: DULoxetine HCL 30 MG CAP PO SCH ×2 (10:55→23:31)
[2022-10-06] MEDS: ZINC SULFATE 220mg CAP or TAB PO SCH (10:55)
[2022-10-06] MEDS: MORPHINE SULFATE INJ 2 MG/ml SYRG IV PRN ×2 (12:05→16:41)
[2022-10-06] MEDS ORDERED: ERTAPENEM SOD INJ 1 GM in SODIUM CHL 0.9% 50 ML IV ONE (12:45)
[2022-10-06 16:46] LABS: Hemoglobin 11.5 g/dL (12.2-16.2); Mean Corpuscular Volume 80.7 fL (80.0-100.0); Red Blood Cells 4.63 10^6/uL (4.0-5.20); White Blood Cell 6.5 10^3/uL (4.4-10.8)
[2022-10-06 16:48] LABS: Hematocrit 37.4 % (36.0-46.0); Mean Corpuscular Hemoglobin 24.8 pg (28.0-32.0); Mean Corpuscular Hgb Conc. 30.8 g/dL (32.0-36.0)
[2022-10-06 17:03] LABS: Albumin 2.9 g/dL (3.4-5.0); Calcium 8.1 mg/dL (8.5-10.1); Potassium 4.5 mmol/L (3.5-5.1)
[2022-10-06 17:06] LABS: BUN/Creatinine Ratio 30.5 (10.0-20.0); Bilirubin, Total 0.9 mg/dL (0.2-1.0); Total Protein 7.9 g/dL (6.4-8.2)
[2022-10-06 17:17] LABS: Red Cell Distribution Width 20.4 % (11.8-14.3)
[2022-10-06 17:19] LABS: Basophils % (manual) 0 (0.0-2.0); Blast Cells 0; Eosinophils % (manual) 0 (0-7); Metamyelocytes % 0; Myelocytes % 0; Promyelocytes % 0; Reactive Lymphocytes 0
[2022-10-06] MEDS: NORTRIPTYLINE HCL 25 MG CAP PO SCH (17:55)
[2022-10-06] MEDS ORDERED: FURO40TA4 PO (18:31)
[2022-10-06 18:45] LABS: Band Neutrophils % (manual) 1; Lymphocytes % (manual) 13 (10.0-50.0); Monocytes % (manual) 5 (0-12)
[2022-10-06] MEDS ORDERED: FUROSEMIDE 20 MG TAB PO ONE (21:15)
[2022-10-07] VITALS (7 sets, daily range): BP systolic 102–142; BP diastolic 73–92
[2022-10-07] MEDS: MEROPENEM 1GM IVPB 100 ML IV SCH ×3 (03:57→20:20)
[2022-10-07] MEDS: GABAPENTIN 300 MG CAP PO SCH ×3 (06:27→21:11)
[2022-10-07] MEDS: MIDODRINE HCL 10 MG TAB PO SCH ×2 (06:27→18:30)
[2022-10-07] MEDS: LEVOTHYROXINE SODIUM 25 MCG TAB PO SCH (06:45)
[2022-10-07] MEDS ORDERED: ERTAPENEM SOD INJ 1 GM in SODIUM CHL 0.9% 50 ML IV SCH (10:00)
[2022-10-07] MEDS ORDERED: FUROSEMIDE 40 MG TAB PO ONE (10:30)
[2022-10-07] MEDS: ENOXAPARIN SOD 40 MG/0.4 ML SYRINGE SC SCH (10:55)
[2022-10-07] MEDS: ZINC SULFATE 220mg CAP or TAB PO SCH (10:56)
[2022-10-07] MEDS: predniSONE 20 MG TAB PO SCH ×2 (10:56→21:11)
[2022-10-07] MEDS: DULoxetine HCL 30 MG CAP PO SCH ×2 (10:56→21:10)
[2022-10-07] MEDS: ASPirin 81 mg TAB PO SCH (10:56)
[2022-10-07 11:07] LABS: Hemoglobin 11.4 g/dL (12.2-16.2)
[2022-10-07 11:08] LABS: Mean Corpuscular Hemoglobin 24.6 pg (28.0-32.0); Mean Corpuscular Hgb Conc. 30.7 g/dL (32.0-36.0); Mean Corpuscular Volume 80.2 fL (80.0-100.0); Red Blood Cells 4.62 10^6/uL (4.0-5.20)
[2022-10-07 11:11] LABS: Red Cell Distribution Width 20.6 % (11.8-14.3)
[2022-10-07 11:12] LABS: Band Neutrophils % (manual) 0; Basophils % (manual) 0 (0.0-2.0); Blast Cells 0; Eosinophils % (manual) 0 (0-7); Metamyelocytes % 0; Myelocytes % 0; Promyelocytes % 0; Reactive Lymphocytes 0
[2022-10-07 11:16] LABS: Albumin 2.7 g/dL (3.4-5.0); Calcium 7.9 mg/dL (8.5-10.1); Potassium 4.8 mmol/L (3.5-5.1)
[2022-10-07 11:21] LABS: BUN/Creatinine Ratio 35.1 (10.0-20.0); Total Protein 7.4 g/dL (6.4-8.2)
[2022-10-07 11:55] LABS: Lymphocytes % (manual) 14 (10.0-50.0); Monocytes % (manual) 12 (0-12)
[2022-10-07] MEDS: MORPHINE SULFATE INJ 2 MG/ml SYRG IV PRN ×2 (14:03→18:31)
[2022-10-07] MEDS: NORTRIPTYLINE HCL 25 MG CAP PO SCH (18:30)
[2022-10-07] MEDS: HYDROcodone-ACET 5/325MG TAB PO PRN (21:38)
[2022-10-08] MEDS: MEROPENEM 1GM IVPB 100 ML IV SCH ×3 (03:50→20:39)
[2022-10-08 05:00] VITALS: BP 108/82
[2022-10-08] MEDS: MIDODRINE HCL 10 MG TAB PO SCH ×2 (06:08→18:24)
[2022-10-08] MEDS: LEVOTHYROXINE SODIUM 25 MCG TAB PO SCH (06:10)
[2022-10-08] MEDS: GABAPENTIN 300 MG CAP PO SCH ×3 (06:11→21:31)
[2022-10-08 08:00] VITALS: BP 122/72
[2022-10-08] MEDS: ZINC SULFATE 220mg CAP or TAB PO SCH (10:09)
[2022-10-08] MEDS: FUROSEMIDE 40 MG TAB PO SCH (10:09)
[2022-10-08] MEDS: predniSONE 20 MG TAB PO SCH ×2 (10:09→21:30)
[2022-10-08] MEDS: DULoxetine HCL 30 MG CAP PO SCH ×2 (10:09→21:31)
[2022-10-08] MEDS: ASPirin 81 mg TAB PO SCH (10:09)
[2022-10-08] MEDS: ENOXAPARIN SOD 40 MG/0.4 ML SYRINGE SC SCH (10:10)
[2022-10-08] MEDS: MORPHINE SULFATE INJ 2 MG/ml SYRG IV PRN ×2 (10:11→16:04)
[2022-10-08 10:18] LABS: Hematocrit 35.4 % (36.0-46.0); Mean Corpuscular Volume 80.6 fL (80.0-100.0); Red Blood Cells 4.39 10^6/uL (4.0-5.20); Red Cell Distribution Width 20.1 % (11.8-14.3); White Blood Cell 8.5 10^3/uL (4.4-10.8)
[2022-10-08 10:24] LABS: Band Neutrophils % (manual) 0; Basophils % (manual) 0 (0.0-2.0); Blast Cells 0; Eosinophils % (manual) 0 (0-7); Metamyelocytes % 0; Myelocytes % 0; Promyelocytes % 0; Reactive Lymphocytes 0
[2022-10-08 12:00] VITALS: BP 114/84
[2022-10-08 12:06] LABS: Lymphocytes % (manual) 5 (10.0-50.0); Monocytes % (manual) 12 (0-12)
[2022-10-08 16:00] VITALS: BP 113/80
[2022-10-08] MEDS: NORTRIPTYLINE HCL 25 MG CAP PO SCH (18:24)
[2022-10-08 20:00] VITALS: BP 108/76
[2022-10-08] MEDS ORDERED: LORazepam 2MG/ML-1ML VIAL IV PRN (21:15)
[2022-10-08 22:00] VITALS: BP 108/76
[2022-10-08] MEDS: HYDROcodone-ACET 5/325MG TAB PO PRN (22:50)
[2022-10-09] VITALS (7 sets, daily range): BP systolic 104–120; BP diastolic 64–92
[2022-10-09] MEDS: MEROPENEM 1GM IVPB 100 ML IV SCH ×3 (03:50→20:31)
[2022-10-09] MEDS: MIDODRINE HCL 10 MG TAB PO SCH ×2 (06:13→18:40)
[2022-10-09] MEDS: LEVOTHYROXINE SODIUM 25 MCG TAB PO SCH (06:14)
[2022-10-09] MEDS: GABAPENTIN 300 MG CAP PO SCH ×3 (06:14→21:10)
[2022-10-09] MEDS: ENOXAPARIN SOD 40 MG/0.4 ML SYRINGE SC SCH (10:37)
[2022-10-09] MEDS: DULoxetine HCL 30 MG CAP PO SCH ×2 (10:37→21:10)
[2022-10-09] MEDS: ASPirin 81 mg TAB PO SCH (10:37)
[2022-10-09] MEDS: predniSONE 20 MG TAB PO SCH ×2 (10:38→21:10)
[2022-10-09] MEDS: ZINC SULFATE 220mg CAP or TAB PO SCH (10:38)
[2022-10-09] MEDS: FUROSEMIDE 40 MG TAB PO SCH (10:38)
[2022-10-09] MEDS: HYDROcodone-ACET 5/325MG TAB PO PRN (17:30)
[2022-10-09] MEDS: NORTRIPTYLINE HCL 25 MG CAP PO SCH (18:40)
[2022-10-10] MEDS: MEROPENEM 1GM IVPB 100 ML IV SCH ×3 (03:54→20:51)
[2022-10-10 05:00] VITALS: BP 106/76
[2022-10-10] MEDS: MIDODRINE HCL 10 MG TAB PO SCH ×2 (06:22→17:48)
[2022-10-10] MEDS: LEVOTHYROXINE SODIUM 25 MCG TAB PO SCH (06:22)
[2022-10-10] MEDS: GABAPENTIN 300 MG CAP PO SCH ×3 (06:23→22:21)
[2022-10-10] MEDS: HYDROcodone-ACET 5/325MG TAB PO PRN ×4 (06:46→23:28)
[2022-10-10 08:05] VITALS: BP 114/77
[2022-10-10] MEDS: FUROSEMIDE 40 MG TAB PO SCH (10:07)
[2022-10-10] MEDS: ZINC SULFATE 220mg CAP or TAB PO SCH (10:07)
[2022-10-10] MEDS: ASPirin 81 mg TAB PO SCH (10:13)
[2022-10-10] MEDS: DULoxetine HCL 30 MG CAP PO SCH ×2 (10:13→22:21)
[2022-10-10] MEDS: predniSONE 20 MG TAB PO SCH ×2 (10:13→22:21)
[2022-10-10] MEDS: ENOXAPARIN SOD 40 MG/0.4 ML SYRINGE SC SCH (10:15)
[2022-10-10 12:10] VITALS: BP 124/73
[2022-10-10 13:50] LABS: Eosinophils # (auto) 0 10 ^3/uL (0-0.8); Lymphocytes # (auto) 0.3 10 ^3/uL (0.4-5.4); Lymphocytes % (auto) 2.7 % (10.0-50.0); Neutrophils # (auto) 10.9 10 ^3/uL (1.6-8.6)
[2022-10-10 13:52] LABS: Basophils # (auto) 0.1 10 ^3/uL (0-0.2); Basophils % (auto) 0.6 % (0.0-2.0); Hematocrit 35.2 % (36.0-46.0); Hemoglobin 10.9 g/dL (12.2-16.2); Mean Corpuscular Hemoglobin 24.2 pg (28.0-32.0); Mean Corpuscular Hgb Conc. 30.9 g/dL (32.0-36.0); Mean Corpuscular Volume 78.3 fL (80.0-100.0); Monocytes # (auto) 0.9 10 ^3/uL (0-1.3); Monocytes % (auto) 7.5 % (0.0-12.0); Neutrophils % (auto) 89.2 % (37.0-80.0); Nucleated Red Blood Cells % 2.2 %; Red Cell Distribution Width 20.5 % (11.8-14.3); White Blood Cell 12.2 10^3/uL (4.4-10.8)
[2022-10-10 14:12] LABS: BUN/Creatinine Ratio 30.3 (10.0-20.0); Calcium 7.5 mg/dL (8.5-10.1); Potassium 4.1 mmol/L (3.5-5.1)
[2022-10-10 17:00] VITALS: BP 108/73
[2022-10-10] MEDS: NORTRIPTYLINE HCL 25 MG CAP PO SCH (17:48)
[2022-10-10 20:00] VITALS: BP 130/96
[2022-10-10 22:00] VITALS: BP 130/96
[2022-10-11] MEDS: MEROPENEM 1GM IVPB 100 ML IV SCH ×3 (03:40→20:34)
[2022-10-11 05:30] VITALS: BP 104/72
[2022-10-11] MEDS: MIDODRINE HCL 10 MG TAB PO SCH ×2 (07:36→17:58)
[2022-10-11] MEDS: GABAPENTIN 300 MG CAP PO SCH ×3 (07:36→23:06)
[2022-10-11] MEDS: LEVOTHYROXINE SODIUM 25 MCG TAB PO SCH (07:36)
[2022-10-11 09:00] VITALS: BP 94/63
[2022-10-11] MEDS: FUROSEMIDE 40 MG TAB PO SCH (10:00)
[2022-10-11] MEDS: predniSONE 20 MG TAB PO SCH ×2 (10:09→23:06)
[2022-10-11] MEDS: ASPirin 81 mg TAB PO SCH (10:09)
[2022-10-11] MEDS: ENOXAPARIN SOD 40 MG/0.4 ML SYRINGE SC SCH (10:09)
[2022-10-11] MEDS: ZINC SULFATE 220mg CAP or TAB PO SCH (10:09)
[2022-10-11] MEDS: DULoxetine HCL 30 MG CAP PO SCH ×2 (10:09→23:05)
[2022-10-11 13:00] VITALS: BP 101/63
[2022-10-11] MEDS: HYDROcodone-ACET 5/325MG TAB PO PRN ×2 (14:27→20:34)
[2022-10-11 17:00] VITALS: BP 93/62
[2022-10-11] MEDS: NORTRIPTYLINE HCL 25 MG CAP PO SCH (17:59)
[2022-10-11 22:00] VITALS: BP 98/68
[2022-10-12] MEDS: MEROPENEM 1GM IVPB 100 ML IV SCH ×3 (04:00→23:03)
[2022-10-12 05:00] VITALS: BP 97/70
[2022-10-12] MEDS: LEVOTHYROXINE SODIUM 25 MCG TAB PO SCH (06:38)
[2022-10-12] MEDS: GABAPENTIN 300 MG CAP PO SCH ×3 (06:38→23:03)
[2022-10-12] MEDS: MIDODRINE HCL 10 MG TAB PO SCH ×2 (06:38→23:03)
[2022-10-12 09:00] VITALS: BP 99/69
[2022-10-12] MEDS: FUROSEMIDE 40 MG TAB PO SCH (10:00)
[2022-10-12] MEDS: DULoxetine HCL 30 MG CAP PO SCH ×2 (10:14→23:03)
[2022-10-12] MEDS: ZINC SULFATE 220mg CAP or TAB PO SCH (10:14)
[2022-10-12] MEDS: predniSONE 20 MG TAB PO SCH ×2 (10:15→23:03)
[2022-10-12] MEDS: ASPirin 81 mg TAB PO SCH (10:15)
[2022-10-12 11:04] VITALS: BP 99/69
[2022-10-12] MEDS ORDERED: LEVE250T18 PO ×2 (12:18)
[2022-10-12 12:42] VITALS: BP 100/70
[2022-10-12] MEDS: HYDROcodone-ACET 5/325MG TAB PO PRN (16:04)
[2022-10-12] MEDS ORDERED: MORPHINE SULFATE INJ 2 MG/ml SYRG IV ONE ×2 (16:30→22:00)
[2022-10-12 17:00] VITALS: BP 103/70
[2022-10-12 22:00] VITALS: BP 101/72
[2022-10-12] MEDS: NORTRIPTYLINE HCL 25 MG CAP PO SCH (23:02)
[2022-10-13] MEDS: HYDROcodone-ACET 5/325MG TAB PO PRN ×3 (00:52→14:28)
[2022-10-13 05:00] VITALS: BP 103/75
[2022-10-13] MEDS: MEROPENEM 1GM IVPB 100 ML IV SCH ×2 (05:07→12:34)
[2022-10-13] MEDS: MIDODRINE HCL 10 MG TAB PO SCH (06:51)
[2022-10-13] MEDS: LEVOTHYROXINE SODIUM 25 MCG TAB PO SCH (06:52)
[2022-10-13] MEDS: GABAPENTIN 300 MG CAP PO SCH ×2 (06:52→14:27)
[2022-10-13 09:00] VITALS: BP 112/68
[2022-10-13] MEDS: FUROSEMIDE 40 MG TAB PO SCH (09:12)
[2022-10-13] MEDS: predniSONE 20 MG TAB PO SCH (09:12)
[2022-10-13] MEDS: ZINC SULFATE 220mg CAP or TAB PO SCH (09:12)
[2022-10-13] MEDS: ASPirin 81 mg TAB PO SCH (09:12)
[2022-10-13] MEDS: DULoxetine HCL 30 MG CAP PO SCH (09:12)
[2022-10-13 13:00] VITALS: BP 106/79
[2022-10-13 17:00] VITALS: BP 105/78
== END 2022-10-13 17:40 | disposition home health service (06) | DRG 871 ==
LOC: EDBD 20:44 → ER 20:47 → TELE 09-30 10:10 → TELE-WESTW 09-30 22:50
PROVIDERS: ADMIT Nurse Practitioner Family; ATTEND Internal Medicine Pulmonary Disease
PROC: 05HC33Z Insertion of Infusion Device into Left Basilic Vein, Percutaneous Approach (ICD-10-PCS; principal; 2022-10-03)
PROC: B54NZZA Ultrasonography of Left Upper Extremity Veins, Guidance (ICD-10-PCS; 2022-10-03)
DX: A41.9 Sepsis, unspecified organism (principal); E43 Unspecified severe protein-calorie malnutrition; G92.8 Other toxic encephalopathy; L89.154 Pressure ulcer of sacral region, stage 4; J96.01 Acute respiratory failure with hypoxia; J15.6 Pneumonia due to other Gram-negative bacteria; N17.0 Acute kidney failure with tubular necrosis; G82.50 Quadriplegia, unspecified; I21.4 Non-ST elevation (NSTEMI) myocardial infarction; E87.4 Mixed disorder of acid-base balance; I13.0 Hypertensive heart and chronic kidney disease with heart failure and stage 1 through stage 4 chronic kidney disease, or unspecified chronic kidney disease; J44.0 Chronic obstructive pulmonary disease with (acute) lower respiratory infection; M33.13 Other dermatomyositis without myopathy; Z16.12 Extended spectrum beta lactamase (ESBL) resistance; I69.354 Hemiplegia and hemiparesis following cerebral infarction affecting left non-dominant side; Z20.822 Contact with and (suspected) exposure to COVID-19; B96.20 Unspecified Escherichia coli [E. coli] as the cause of diseases classified elsewhere; D64.9 Anemia, unspecified; E03.9 Hypothyroidism, unspecified; E87.5 Hyperkalemia; G40.909 Epilepsy, unspecified, not intractable, without status epilepticus; I50.9 Heart failure, unspecified; N18.32 Chronic kidney disease, stage 3b; E66.9 Obesity, unspecified; K21.9 Gastro-esophageal reflux disease without esophagitis; I95.89 Other hypotension; N30.90 Cystitis, unspecified without hematuria; R74.01 Elevation of levels of liver transaminase levels; Z93.0 Tracheostomy status; Z88.2 Allergy status to sulfonamides; Z83.3 Family history of diabetes mellitus; Z90.710 Acquired absence of both cervix and uterus; Z79.899 Other long term (current) drug therapy; Z93.3 Colostomy status; Z82.49 Family history of ischemic heart disease and other diseases of the circulatory system; Z68.28 Body mass index [BMI] 28.0-28.9, adult; Z98.61 Coronary angioplasty status
CPT/HCPCS: 36415; 70450; 70551; 71045; 72141; 72146; 80048; 80053; 80307; 80320; 81001; 82570; 82962; 83605; 83735; 84100; 84132; 84300; 84443; 84460; 84484; 84550; 85007; 85025; 85027; 85610; 85730; 87040; 87070; 87077; 87086; 87088; 87186; 87205; 87426; 87804; 93005; 93970; 94640; 95819; 99291; A4605; G0378; J0696; J1335; J1815; J1956; J2185; J2405; J7060